=== PATIENT | female | born 1945 | race Caucasian/White ===

== ENCOUNTER 2016-12-02 11:14 | Emergency (ER) | payer OTHER ==
[~2016-12-02] VITALS: Ht 167.6 cm; Wt 56.5 kg
[~2016-12-02 11:14] MED LIST: CIPR250T5 PO; LISI-461 PO; PANT40TA PO
[2016-12-02 11:31] VITALS: TEMP 36.7; Ht 167.6 cm; Wt 56.5 kg
--- NOTE | 2016-12-02 12:27 | DIAGNOSTIC IMAGING REPORT ---
CHEST ONE VIEW PORTABLE CLINICAL HISTORY: Weakness. COMPARISON STUDY: Chest radiograph August 31, 2015. FINDINGS: Lung volumes are normal. There is no pneumothorax or pleural effusion. There is slight asymmetric hazy right upper lung opacity. Cardiac size is normal. Mediastinal contours are normal. There is no evidence of pulmonary edema. IMPRESSION: Slight asymmetric hazy right upper lung opacity. This is likely artifactual although airspace disease could appear similar. Follow-up PA and lateral chest radiographs in one month are recommended. Electronically signed by: Rakan Champion M.D. 12/02/2016 12:25 PM Dictated Date/Time: 12/02/2016 12:23 PM
[2016-12-02 12:52] LABS: BASO % 0.4 %; BASO ABS # 0.02 K/uL (0-0.2); COMPLETE YES; EOS % 2.5 %; HEMATOCRIT 30.2 % (37-47); LYMPH % 31.1 %; LYMPH ABS # 1.64 K/uL (1.2-3.4); MEAN CELL VOLUME 96.5 fL (80-100); MEAN CORPUSCULAR HEMOGLOBIN 31.9 pg (25-34); MEAN CORPUSCULAR HGB CONC 33.1 g/dl (32-36); MEAN PLATELET VOLUME 10.8 fL (7.4-10.4); MONO % 7.6 %; NEUT % 58.4 %; PLATELET COUNT 129 K/uL (130-400); RED BLOOD COUNT 3.13 M/uL (4.2-5.4); WHITE BLOOD COUNT 5.27 K/uL (4.8-10.8)
[2016-12-02 13:00] LABS: PROTHROMBIN TIME (PATIENT) 10.8 SECONDS (9.0-12.0)
[2016-12-02 13:15] LABS: ALT/SGPT 48 U/L (12-78); AST/SGOT 40 U/L (15-37); BLOOD UREA NITROGEN 22 mg/dl (7-18); BUN/CREATININE RATIO 20.1 (10-20); CALCIUM 9.2 mg/dl (8.5-10.1); CARBON DIOXIDE 24 mmol/L (21-32); CHLORIDE 115 mmol/L (98-107); GLUCOSE 86 mg/dl (70-99); MAGNESIUM 2.2 mg/dl (1.8-2.4); POTASSIUM 4.4 mmol/L (3.5-5.1); SODIUM 144 mmol/L (136-145)
[2016-12-02 13:18] LABS: ALKALINE PHOSPHATASE 95 U/L (45-117); CKMB/CK RATIO 2.7 (0-3.0)
[2016-12-02 13:21] LABS: URINE APPEARANCE CLEAR (CLEAR); URINE BILIRUBIN NEG (NEG); URINE COLOR YELLOW; URINE NITRITE NEG (NEG); URINE SPECIFIC GRAVITY 1.012 (1.000-1.030); UROBILINOGEN NEG (NEG); ZZUR CULT IF INDIC CLEAN CATCH NO
[2016-12-02 13:24] LABS: MANUAL MICROSCOPIC REQUIRED? NO; REVIEW REQ? NO
[2016-12-02] MEDS ORDERED: CHOL100040 PO (13:42)
[2016-12-02] MEDS ORDERED: CALC-388 PO (13:42)
[2016-12-02] MEDS ORDERED: FOLI400T13 PO (13:42)
[2016-12-02] MEDS ORDERED: FERR1TAB23 PO (13:42)
[2016-12-02] MEDS ORDERED: LEVO25TA PO (13:42)
[2016-12-02] MEDS ORDERED: ATOR-24 PO (13:42)
[2016-12-02] MEDS ORDERED: LISI-729 PO (13:42)
[2016-12-02] MEDS ORDERED: PANT40TA PO (13:42)
[2016-12-02] MEDS ORDERED: POTA10CA28 PO (13:42)
--- NOTE | 2016-12-02 14:14 | EMERGENCY ROOM VISIT NOTE ---
History Report prepared by Kofi: Laura Almendarez Under the Supervision of: Dr. Tammy Holloway M.D. First contact with patient: 12:02 Chief Complaint: ILLNESS Stated Complaint: DIZZY,FATIGUE,HEADACHE,LIGHT HEADED History of Present Illness The patient is a 71 year old female who presents to the Emergency Room with complaints of persistent weakness starting 4 days ago. She reports feeling lightheaded and fatigued. She has a headache and rhinorrhea. She denies any diarrhea, urinary symptoms, SOB, fever, abdominal pain, or nausea. She does not have any pain with eating. She has a history of bleeding in her stomach. She had blood work 3 days ago which found her hemoglobin to be slightly low. She takes iron pills twice a day. Source of History: patient Onset: 4 days ago Position: other (global) Quality: other (weakness) Timing: other (persistent) Associated Symptoms: + fatigue, + headache, No SOB, No abdominal pain, No diarrhea, No fevers, No nausea, No urinary symptoms Note: Pt reports lightheadedness, rhinorrhea. Review of Systems See HPI for pertinent positives & negatives. A total of 10 systems reviewed and were otherwise negative. Past Medical & Surgical Medical Problems: (1) HTN (hypertension) (2) HTN (hypertension) (3) Postural hypotension (4) UTI (urinary tract infection) Family History Hypertension Social History Smoking Status: Never Smoker Marital Status: Housing Status: unknown Occupation Status: retired Current/Historical Medications Scheduled Atorvastatin (Lipitor), 40 MG PO DAILY Calcium Carbonate-Vitamin D (Calcium + D3 600-200 mg-Unit), 1 TAB PO DAILY Cholecalciferol (Vitamin D-1000), 1,000 UNITS PO DAILY Ferrous Sulfate (Iron), 325 MG PO DAILY Folic Acid (Gnp Folic Acid), 400 MCG PO DAILY Levothyroxine Sodium (Synthroid), 25 MCG PO DAILY Lisinopril (Zestril), 5 MG PO DAILY Pantoprazole (Protonix), 40 MG PO BID Potassium Chloride (Micro-K Ext Rel), 10 MEQ PO DAILY Allergies Coded Allergies: No Known Allergies (Unverified , 12/02/16) Physical Exam Vital Signs Date Time Temp Pulse Resp B/P Pulse Ox O2 Delivery O2 Flow Rate FiO2 12/02/16 14:26 66 18 138/70 99 Room Air 12/02/16 13:26 65 18 150/69 100 Room Air 12/02/16 12:42 64 149/74 72 161/70 70 160/72 12/02/16 12:22 60 12/02/16 11:31 36.7 68 18 150/70 100 Room Air Physical Exam Vital signs reviewed. General: Chronically ill-appearing, in no significant distress. HEENT: No scleral icterus, PERRLA, neck supple. Atraumatic. Cardiovascular: Regular rate and rhythm, systolic ejection murmur. Pulmonary: Clear to auscultation bilaterally, normal work of breathing. Abdomen: Soft, nontender, nondistended, positive bowel sounds. Musculoskeletal: Atraumatic, no peripheral edema. Neurologic: Patient awake alert and oriented x 3, full strength in all 4 extremities. Cranial nerves 2 through 12 grossly intact. Skin: Warm, dry, no rash Medical Decision & Procedures ER Provider Diagnostic Interpretation: X-ray results as stated below per interpretation by me and the radiologist: CHEST ONE VIEW PORTABLE CLINICAL HISTORY: Weakness. COMPARISON STUDY: Chest radiograph August 31, 2015. FINDINGS: Lung volumes are normal. There is no pneumothorax or pleural effusion. There is slight asymmetric hazy right upper lung opacity. Cardiac size is normal. Mediastinal contours are normal. There is no evidence of pulmonary edema. IMPRESSION: Slight asymmetric hazy right upper lung opacity. This is likely artifactual although airspace disease could appear similar. Follow-up PA and lateral chest radiographs in one month are recommended. Electronically signed by: Rakan Champion M.D. 12/02/2016 12:25 PM Dictated Date/Time: 12/02/2016 12:23 PM Laboratory Results 12/02/16 12:35 Red Blood Count 3.13, Mean Corpuscular Volume 96.5, Mean Corpuscular Hemoglobin 31.9, Mean Corpuscular Hemoglobin Concent 33.1, Mean Platelet Volume 10.8, Neutrophils (%) (Auto) 58.4, Lymphocytes (%) (Auto) 31.1, Monocytes (%) (Auto) 7.6, Eosinophils (%) (Auto) 2.5, Basophils (%) (Auto) 0.4, Neutrophils # (Auto) 3.08, Lymphocytes # (Auto) 1.64, Monocytes # (Auto) 0.40, Eosinophils # (Auto) 0.13, Basophils # (Auto) 0.02 12/02/16 12:35 Test 12/02/16 12:04 12/02/16 12:35 Urine Color YELLOW Urine Appearance CLEAR (CLEAR) Urine pH 6.0 (4.5-7.5) Urine Specific [place] 1.012 (1.000-1.030) Urine Protein 3+ (NEG) Urine Glucose (UA) NEG (NEG) Urine Ketones NEG (NEG) Urine Occult Blood 1+ (NEG) Urine Nitrite NEG (NEG) Urine Bilirubin NEG (NEG) Urine Urobilinogen NEG (NEG) Urine Leukocyte Esterase TRACE (NEG) Urine WBC (Auto) 1-5 /hpf (0-5) Urine RBC (Auto) 0-4 /hpf (0-4) Urine Hyaline Casts (Auto) 0 /lpf (0-5) Urine Epithelial Cells (Auto) 5-10 /lpf (0-5) Urine Bacteria (Auto) NEG (NEG) White Blood Count 5.27 K/uL (4.8-10.8) Red Blood Count 3.13 M/uL (4.2-5.4) Hemoglobin 10.0 g/dL (12.0-16.0) Hematocrit 30.2 % (37-47) Mean Corpuscular Volume 96.5 fL (80-100) Mean Corpuscular Hemoglobin 31.9 pg (25-34) Mean Corpuscular Hemoglobin Concent 33.1 g/dl (32-36) Platelet Count 129 K/uL (130-400) Mean Platelet Volume 10.8 fL (7.4-10.4) Neutrophils (%) (Auto) 58.4 % Lymphocytes (%) (Auto) 31.1 % Monocytes (%) (Auto) 7.6 % Eosinophils (%) (Auto) 2.5 % Basophils (%) (Auto) 0.4 % Neutrophils # (Auto) 3.08 K/uL (1.4-6.5) Lymphocytes # (Auto) 1.64 K/uL (1.2-3.4) Monocytes # (Auto) 0.40 K/uL (0.11-0.59) Eosinophils # (Auto) 0.13 K/uL (0-0.5) Basophils # (Auto) 0.02 K/uL (0-0.2) RDW Standard Deviation 52.2 fL (36.4-46.3) RDW Coefficient of Variation 14.7 % (11.5-14.5) Immature Granulocyte % (Auto) 0.0 % Immature Granulocyte # (Auto) 0.00 K/uL (0.00-0.02) Prothrombin Time 10.8 SECONDS (9.0-12.0) Prothromb Time International Ratio 1.0 (0.9-1.1) Activated Partial Thromboplast Time 26.2 SECONDS (21.0-31.0) Partial Thromboplastin Ratio 1.0 Anion Gap 5.0 mmol/L (3-11) Est Creatinine Clear Calc Drug Dose 41.8 ml/min Estimated GFR () 58.5 Estimated GFR (Non- 50.5 BUN/Creatinine Ratio 20.1 (10-20) Calcium Level 9.2 mg/dl (8.5-10.1) Magnesium Level 2.2 mg/dl (1.8-2.4) Total Bilirubin 0.1 mg/dl (0.2-1) Direct Bilirubin < 0.1 mg/dl (0-0.2) Aspartate Amino Transf (AST/SGOT) 40 U/L (15-37) Alanine Aminotransferase (ALT/SGPT) 48 U/L (12-78) Alkaline Phosphatase 95 U/L (45-117) Total Creatine Kinase 63 U/L (26-192) Creatine Kinase MB 1.7 ng/ml (0.5-3.6) Creatine Kinase MB Ratio 2.7 (0-3.0) Troponin I < 0.015 ng/ml (0-0.045) Total Protein 6.3 gm/dl (6.4-8.2) Albumin 2.6 gm/dl (3.4-5.0) Lipase 180 U/L (73-393) Laboratory results per my review. ECG Indication: weakness Rate (beats per minute): 62 Rhythm: normal sinus Findings: no acute ischemic change, left axis deviation, no ectopy ED Course 1211: Past medical records reviewed. The patient was evaluated in room B2. A complete history and physical examination was performed. 1400: Upon reevaluation, the patient appeared to have improvement of her symptoms. I discussed findings with her and her family. They verbalized agreement of the treatment plan. She was discharged home. Medical Decision Differential diagnosis: Etiologies such as metabolic, infection, hypo/hyperglycemia, electrolyte abnormalities, cardiac sources, intracerebral event, toxicologic, neurologic, as well as others were entertained. This patient was evaluated and appeared to be in no significant distress. IV access was obtained and laboratory work was drawn. The patient appears to be chronically ill and her grandson states that she frequently presents to the [facility], received IV hydration and is better for several weeks. At this point the laboratory work is fairly normal. UA is negative. Chest x-ray is negative. At this time I do not see focal abnormality. The patient will be discharged to follow-up with her primary care physician this week. She will return to the ER for worsening of symptoms or any medical concerns. Impression Primary Impression: Weakness Scribe Attestation The scribe's documentation has been prepared under my direction and personally reviewed by me in its entirety. I confirm that the note above accurately reflects all work, treatment, procedures, and medical decision making performed by me. Departure Information Dispostion Home / Self-Care Referrals No Doctor, Assigned (PCP) Forms HOME CARE DOCUMENTATION FORM, IMPORTANT VISIT INFORMATION Patient Instructions My [facility] Additional Instructions Diagnosis: Weakness Drink plenty of clear fluids. Follow-up with your doctor tomorrow as scheduled. Use caution when changing positions. Return to the ER for worsening of symptoms or any medical concerns.
[2016-12-02 14:26] VITALS: BP 138/70; PULSE 66; O2SAT 99
== END 2016-12-02 14:30 | disposition home or self-care (01) ==
LOC: C.EDB 11:15
DX: R53.1 Weakness (principal); R53.83 Other fatigue; R42 Dizziness and giddiness; R51 Headache; I10 Essential (primary) hypertension; R91.8 Other nonspecific abnormal finding of lung field

== ENCOUNTER 2017-11-17 07:41 | Emergency (ER) | payer OTHER ==
[~2017-11-17] VITALS: Ht 162.6 cm; Wt 60.0 kg
[~2017-11-17 07:41] MED LIST changes: +CALC-388 PO; +CHOL100040 PO; -CIPR250T5 PO; +FOLI400T13 PO; -LISI-461 PO; +LISI-729 PO; -PANT40TA PO
[2017-11-17] MEDS ORDERED: ACETAMINOPHEN 500 MG TAB PO STA (07:50)
[2017-11-17] MEDS ORDERED: OXYCODONE HCL IR 5 MG TAB (IMMEDIATE RELEASE) PO STA (07:50)
[2017-11-17 07:54] VITALS: TEMP 36.9; Ht 162.6 cm; Wt 60.0 kg
[2017-11-17] MEDS ORDERED: FLV400 PO (07:58)
[2017-11-17] MEDS ORDERED: FURO-85 PO (07:58)
[2017-11-17] MEDS ORDERED: CALC600T9 PO (07:58)
[2017-11-17] MEDS ORDERED: TRAZ50TA35 PO (07:58)
[2017-11-17] MEDS ORDERED: SENN-61 PO (07:58)
[2017-11-17] MEDS ORDERED: SPIR25TA PO (07:58)
[2017-11-17] MEDS ORDERED: CHOL20007 PO (07:58)
--- NOTE | 2017-11-17 08:03 | EMERGENCY ROOM VISIT NOTE ---
History Report prepared by Kofi: Analisa Vinson Under the Supervision of: Dr. Jay Liang M.D. First contact with patient: 07:45 Stated Complaint: LEG PAIN History of Present Illness The patient is a 72 year old female who presents to the Emergency Room with complaints of constant left leg pain since yesterday. The patient reports pain in the back of her left thigh. This morning she was walking out of the bathroom with her cellphone and fell. She is unsure if she tripped. She states that she felt slightly hot and nauseated before she fell. The patient denies hitting her head or LOC. She landed on her right side. She denies any right leg or right arm pain. She denies abdominal pain. Her only complaint at this time is the pain in the back of her left thigh, which she had prior to her fall this morning. The patient rates her pain as a 5/10 in severity. Source of History: patient Onset: yesterday Position: leg (left) Symptom Intensity: 5/10 Timing: constant Associated Symptoms: + nausea, No LOC, No abdominal pain Note: Pt denies right leg or right arm pain. Review of Systems See HPI for pertinent positives & negatives. A total of 10 systems reviewed and were otherwise negative. Past Medical & Surgical Medical Problems: (1) HTN (hypertension) (2) HTN (hypertension) (3) Postural hypotension (4) UTI (urinary tract infection) Family History Hypertension Social History Smoking Status: Never Smoker Marital Status: Housing Status: lives with family Occupation Status: retired Current/Historical Medications Scheduled Atorvastatin (Lipitor), 40 MG PO DAILY Calcium Carbonate-Vitamin D (Calcium + D), 1 TAB PO DAILY Cholecalciferol (Vitamin D3), 2,000 UNITS PO DAILY Docusate Sodium (Colace), 1 CAP PO BID Ferrous Sulfate (Iron), 325 MG PO DAILY Folic Acid (Folic Acid), 400 MCG PO DAILY Furosemide (Lasix), 10 MG PO DAILY Levothyroxine Sodium (Synthroid), 25 MCG PO DAILY Pantoprazole (Protonix), 40 MG PO BID Potassium Chloride (Micro-K Ext Rel), 10 MEQ PO DAILY Senna (Senokot), 1 TAB PO DAILY Sennosides (Senokot), 8.6 MG PO HS Spironolactone (Aldactone), 12.5 MG PO DAILY Trazodone Hcl (Trazodone), 50 MG PO HS Scheduled PRN Oxycodone Immediate Rel Tab (Roxicodone Ir), 1-2 TAB PO Q4H PRN for Severe Pain Allergies Coded Allergies: No Known Allergies (Unverified , 12/02/16) Physical Exam Vital Signs Date Time Temp Pulse Resp B/P (MAP) Pulse Ox O2 Delivery O2 Flow Rate FiO2 11/17/17 10:47 74 20 136/76 97 11/17/17 09:56 63 21 141/74 96 Room Air 11/17/17 08:57 66 21 131/79 96 Room Air 11/17/17 07:56 66 11/17/17 07:54 36.9 65 22 147/71 98 Room Air Physical Exam GENERAL: Awake, alert, well-appearing, in no acute distress HENT: Normocephalic, atraumatic. Oropharynx unremarkable. EYES: Normal conjunctiva. Sclera non-icteric. NECK: Supple. No nuchal rigidity. FROM. No JVD. RESPIRATORY: Clear to auscultation. CARDIAC: Regular rate, normal rhythm. Extremities warm and well perfused. Pulses equal. ABDOMEN: Soft, non-distended. No tenderness to palpation. No rebound or guarding. No masses. RECTAL: Deferred. MUSCULOSKELETAL: Chest examination reveals no tenderness. The back is symmetrical on inspection without obvious abnormality. There is no CVA tenderness to palpation. No joint edema. LOWER EXTREMITIES: Calves are equal size bilaterally and non-tender. No edema. No discoloration. NEURO: Normal sensorium. No sensory or motor deficits noted. SKIN: No rash or jaundice noted. 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 The bones appear mildly demineralized. Disc space narrowing with facet arthrosis involves the lumbar spine. Dystrophic calcifications are seen within this region of the hamstring attachment site bilaterally. FEMUR: Peripheral vascular disease. No acute fracture or dislocation. Bones are mildly demineralized. IMPRESSION: 1. No acute fracture or dislocation. 2. 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 The above report was generated using voice recognition software. It may contain grammatical, syntax or spelling errors. Electronically signed by: Michele Cristobal M.D. 11/17/2017 8:28 AM Dictated Date/Time: 11/17/2017 8:20 AM L VENOUS DOPP LOWER EXT UNILAT CLINICAL HISTORY: 72 years-old Female presenting with Pt c/o LLE swelling. TECHNIQUE: Real-time grayscale and color and spectral Doppler ultrasound imaging of the veins of the left lower extremity was performed. Compression and augmentation were also utilized. COMPARISON: None. FINDINGS: Left: Common femoral vein: Patent. Greater saphenous vein: Patent. Deep femoral vein: Patent. Femoral vein: Patent. Popliteal vein: Patent. Calf veins: Patent. Other: None. IMPRESSION: No evidence of deep venous thrombosis. Electronically signed by: Andrew Miller M.D. 11/17/2017 8:59 AM Dictated Date/Time: 11/17/2017 8:59 AM L FEMUR 2 VIEWS ROUTINE, PELVIS 1 OR 2 VIEW ROUTINE HISTORY: 72 years-old Female Pt c/o left leg pain acute pelvic and left leg pain COMPARISON: None available TECHNIQUE: AP view of the pelvis with 2 views of the left femur FINDINGS: PELVIS: Moderate degenerative changes about the bilateral hips. The bones appear mildly demineralized. Disc space narrowing with facet arthrosis involves the lumbar spine. Dystrophic calcifications are seen within this region of the hamstring attachment site bilaterally. FEMUR: Peripheral vascular disease. No acute fracture or dislocation. Bones are mildly demineralized. IMPRESSION: 1. No acute fracture or dislocation. 2. 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 The above report was generated using voice recognition software. It may contain grammatical, syntax or spelling errors. Electronically signed by: Michele Cristobal M.D. 11/17/2017 8:28 AM Dictated Date/Time: 11/17/2017 8:20 AM Medications Administered Medications (Trade) Dose Ordered Sig/Jessica Route Start Time Stop Time Status Last Admin Dose Admin Acetaminophen (Tylenol Tab) 1,000 mg NOW STAT PO 11/17/17 07:50 11/17/17 07:52 DC 11/17/17 08:06 1,000 MG Oxycodone HCl (Roxicodone Immediate Rel Tab) 5 mg NOW STAT PO 11/17/17 07:50 11/17/17 07:52 DC 11/17/17 08:06 5 MG ED Course 0745: Past medical records reviewed. The patient was evaluated in room A3. A complete history and physical examination was performed. 0750: Oxycodone HCl 5 mg PO, Tylenol 1000 mg PO 0825: Upon reevaluation the patient is pain-free. 1027: I reassessed the patient at this time. She is feeling better and resting comfortably. I discussed the results and treatment plan with the patient. I answered all pertaining questions that she had. She expressed understanding and verbalized agreement. The patient will be discharged home. Medical Decision Differential diagnosis: Etiologies such as fracture, dislocation, neurovascular compromise, compartment syndrome, soft tissue injury, as well as others were entertained. This is a 72-year-old female who presents the emergency department complaining of left leg pain. The patient also had a fall today. She has no evidence of fracture dislocation or subluxation and does not have any evidence of a blood clot. Patient was given Tylenol as well as oxygen for the pain and was ambulated by nursing staff. The patient was also fitted with a walker and I believe can be safely discharged home for follow-up with orthopedics. Patient and son were in agreement with the treatment plan Medication Reconcilliation Current Medication List: was personally reviewed by me Blood Pressure Screening Patient's blood pressure: Normal blood pressure Impression Primary Impression: Leg pain, left Scribe Attestation The scribe's documentation has been prepared under my direction and personally reviewed by me in its entirety. I confirm that the note above accurately reflects all work, treatment, procedures, and medical decision making performed by me. Departure Information Dispostion Home / Self-Care Prescriptions Docusate Sodium (COLACE) 100 Mg Cap 1 CAP PO BID for 30 Days, #60 CAP Prov: Jay Liang MD 11/17/17 Sennosides (SENOKOT) 8.6 Mg Tab 8.6 MG PO HS for 30 Days, #30 TAB Prov: Jay Liang MD 11/17/17 Oxycodone Immediate Rel Tab (ROXICODONE IR) 5 Mg Tab 1-2 TAB PO Q4H Y for Severe Pain, #14 TAB Prov: Jay Liang MD 11/17/17 Referrals No Doctor, Assigned (PCP) Forms HOME CARE DOCUMENTATION FORM, IMPORTANT VISIT INFORMATION Patient Instructions ED Sprain Hip, My [facility] Additional Instructions You received narcotic or benzodiazepene medication while in the emergency room today. This is an addictive medication that may cause drowziness as well as constipation. Do not drive, operate heavy machinery, or drink alcohol under the influence of this medication. Take 1000 mg Tylenol every 6 hours Take Oxy IR for breakthrough pain You have been examined and treated today on an emergency basis only. This is not a substitute for, or an effort to provide, complete comprehensive medical care. It is impossible to recognize and treat all injuries or illnesses in a single emergency department visit. It is therefore important that you follow up closely with [facility]. Call as soon as possible for an appointment. Thank you for your time and consideration. I look forward to speaking with you again soon. Please don't hesitate to call us if you have any questions.
--- NOTE | 2017-11-17 08:29 | DIAGNOSTIC IMAGING REPORT ---
L FEMUR 2 VIEWS ROUTINE, PELVIS 1 OR 2 VIEW ROUTINE HISTORY: 72 years-old Female Pt c/o left leg pain acute pelvic and left leg pain COMPARISON: None available TECHNIQUE: AP view of the pelvis with 2 views of the left femur FINDINGS: PELVIS: Moderate degenerative changes about the bilateral hips. The bones appear mildly demineralized. Disc space narrowing with facet arthrosis involves the lumbar spine. Dystrophic calcifications are seen within this region of the hamstring attachment site bilaterally. FEMUR: Peripheral vascular disease. No acute fracture or dislocation. Bones are mildly demineralized. IMPRESSION: 1. No acute fracture or dislocation. 2. 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 The above report was generated using voice recognition software. It may contain grammatical, syntax or spelling errors. Electronically signed by: Michele Cristobal M.D. 11/17/2017 8:28 AM Dictated Date/Time: 11/17/2017 8:20 AM
--- NOTE | 2017-11-17 09:01 | DIAGNOSTIC IMAGING REPORT ---
L VENOUS DOPP LOWER EXT UNILAT CLINICAL HISTORY: 72 years-old Female presenting with Pt c/o LLE swelling. TECHNIQUE: Real-time grayscale and color and spectral Doppler ultrasound imaging of the veins of the left lower extremity was performed. Compression and augmentation were also utilized. COMPARISON: None. FINDINGS: Left: Common femoral vein: Patent. Greater saphenous vein: Patent. Deep femoral vein: Patent. Femoral vein: Patent. Popliteal vein: Patent. Calf veins: Patent. Other: None. IMPRESSION: No evidence of deep venous thrombosis. Electronically signed by: Andrew Miller M.D. 11/17/2017 8:59 AM Dictated Date/Time: 11/17/2017 8:59 AM
[2017-11-17] MEDS ORDERED: SENN1TAB77 PO (10:34)
[2017-11-17] MEDS ORDERED: OXYC1TAB3 PO (10:34)
[2017-11-17] MEDS ORDERED: DOCU-94 PO (10:34)
[2017-11-17 10:47] VITALS: BP 136/76; PULSE 74; O2SAT 97
[2017-11-17] MEDS ORDERED: FERR1TAB23 PO (13:42)
[2017-11-17] MEDS ORDERED: ATOR-24 PO (13:42)
[2017-11-17] MEDS ORDERED: POTA10CA28 PO (13:42)
[2017-11-17] MEDS ORDERED: LEVO25TA PO (13:42)
[2017-11-17] MEDS ORDERED: PANT40TA PO (13:42)
== END 2017-11-17 10:49 | disposition home or self-care (01) ==
LOC: EDBD 07:41 → C.EDA 07:42
DX: S89.92XA Unspecified injury of left lower leg, initial encounter (principal); M79.605 Pain in left leg; W19.XXXA Unspecified fall, initial encounter; R11.0 Nausea; I10 Essential (primary) hypertension

== ENCOUNTER 2018-08-15 15:51 | Inpatient (IN) ==
[2018-08-15] MEDS ORDERED: SODIUM CHLORIDE 0.9% 500 ML IV ONE (16:41)
--- NOTE | 2018-08-15 16:51 | XRay Report ---
XR shoulder LT min 2V routine, XR humerus LT 2V HISTORY: 72 years-old Female fall eval for fx acute left shoulder and left arm pain status post fall COMPARISON: Chest radiograph of same day TECHNIQUE: 3 views of the left shoulder and 2 views of the left humerus FINDINGS: SHOULDER: Mild AC joint with mild to moderate glenohumeral osteoarthritis. Mild marginal spurring about the gre ater tuberosity. Demineralized appearance of the bones. No acute fracture or dislocation. HUMERUS: No acute fracture or dislocation. Mild dorsal soft tissue swelling about the elbow. IMPRESSION: No acute fracture or dislocation. The above report was generated using voice recognition software. It may contain grammatical, syntax o r spelling errors. Electronically signed by: Michele Cristobal M.D. 08/15/2018 4:50 PM
--- NOTE | 2018-08-15 16:53 | XRay Report ---
XR chest 1V portable HISTORY: 72 years-old Female weakness acute weakness COMPARISON: Chest radiograph 02/22/2018 TECHNIQUE: Portable AP view of the chest FINDINGS: Cardiac silhouette is unchanged. Moderate hiatal hernia. Calcification of the thoracic aortic arch. M ild right hemidiaphragm elevation. Unchanged opacity about the right cardiophrenic angle suggestive o f prominent epicardial fat pad. No pneumothorax, large pleural effusion or overt pulmonary edema. Deg enerative changes of the shoulders and spine. IMPRESSION: 1. No acute processes of the chest. 2. Moderate sized hiatal hernia. The above report was generated using voice recognition software. It may contain grammatical, syntax o r spelling errors. Electronically signed by: Michele Cristobal M.D. 08/15/2018 4:52 PM
[2018-08-15 17:15] LABS: Basophils # (auto) 0.03 K/uL (0-0.2); Basophils % (auto) 0.3 %; Eosinophils # (auto) 0.01 K/uL (0-0.5); Eosinophils % (auto) 0.1 %; Hematocrit (blood only) 32.5 % (37-47); Hemoglobin 10.8 g/dL (12.0-16.0); Immature Granulocytes # (auto) 0.03 K/uL (0.00-0.02); Immature Granulocytes % (auto) 0.3 %; Lymphocytes # (auto) 0.88 K/uL (1.2-3.4); Lymphocytes % (auto) 7.5 %; Mean Corpuscular Hgb Conc 33.2 g/dL (32-36); Mean Corpuscular Volume 91.8 fL (80-100); Mean Platelet Volume 10.4 fL (7.4-10.4); Monocytes # (auto) 0.66 K/uL (0.11-0.59); Monocytes % (auto) 5.7 %; Neutrophils # (auto) 10.06 K/uL (1.4-6.5); Neutrophils % (auto) 86.1 %; Platelet Count 292 K/uL (130-400); RDW Coefficient of Variation 14.7 % (11.5-14.5); RDW Standard Deviation 49.9 fL (36.4-46.3); Red Blood Count 3.54 M/uL (4.2-5.4); White Blood Count 11.67 K/uL (4.8-10.8)
[2018-08-15 17:38] LABS: Appearance Urine Cloudy (Clear); Bacteria Urine Automated 4+ (Negative); Bilirubin Urine Negative (Negative); Color Urine Dark Yellow; Epithelial Cell Urine Auto 0-5 /lpf (0-5); Glucose Urine UA Negative (Negative); Ketones Urine Trace (Negative); Leukocyte Esterase Urine Trace (Negative); Nitrite Urine Negative (Negative); Protein Urine 4+ (Negative); Specific Gravity Urine 1.028 (1.000-1.030); Urobilinogen Urine Negative (Negative); pH Urine 6.5 (4.5-7.5)
--- NOTE | 2018-08-15 17:42 | CT Scan Report ---
CT head/brain wo con CLINICAL HISTORY: 72 years-old Female with fall eval for bleed. Acute head injury status post fall TECHNIQUE: Multiple axial CT images of the head were obtained without contrast. A dose lowering tech nique was utilized adhering to the principles of ALARA. CT DOSE: 842.08 mGy.cm COMPARISON: CT head 02/22/2018. FINDINGS: No acute intracranial hemorrhage, midline shift, intracranial mass, hydrocephalus, territorial ischem ia or abnormal extra-axial collection. Encephalomalacia about the right frontal lobe, unchanged. Age- related involutional changes with chronic microvascular ischemic changes. Cerebral vascular calcifica tions are noted. The calvarium is intact. The paranasal sinuses, mastoid air cells, and middle ear cavities are clear . IMPRESSION: No acute intracranial abnormality or calvarial fracture. The above report was generated using voice recognition software. It may contain grammatical, syntax o r spelling errors. Electronically signed by: Michele Cristobal M.D. 08/15/2018 5:41 PM
--- NOTE | 2018-08-15 17:45 | CT Scan Report ---
CT SCAN OF THE CERVICAL SPINE CLINICAL HISTORY: Fall. COMPARISON STUDY: No priors. TECHNIQUE: CT scan of the cervical spine is performed from the skull base to the upper thoracic spine . Images are reviewed in the axial, sagittal, and coronal planes. IV contrast was not administered fo r this examination. A dose lowering technique was utilized adhering to the principles of ALARA. FINDINGS: Skeletal structures: The skeletal structures are osteopenic. There is no evidence of fracture or subl uxation involving the cervical spine. Vertebral body height is maintained. There is minimal anterolis thesis at C4-C5. Alignment is otherwise preserved. Anterior osteophytes are seen throughout. The odon toid process and lateral masses are intact. The atlantoaxial articulation is preserved noting advance d productive degenerative change. The spinous processes appear intact. There is moderate multilevel c ervical spondylosis. Uncovertebral and facet arthropathy contribute to neural foraminal stenosis at s everal levels. Intervertebral discs: There is moderate to advanced disc space narrowing seen at C5-C6 and C6-C7. Mil d disc space narrowing is noted at the remaining cervical levels. Central canal: Posterior discussed by complexes at C5-C6 and C6-C7 likely contribute to acquired comp romise of the central canal. Soft tissues: The prevertebral and paraspinous soft tissues are within normal limits. There is athero sclerotic calcification of the carotid bulbs. Calvarium: The visualized calvarium at the skull base appears intact. Brain parenchyma: Partially visualized brain parenchyma the skull base is within normal limits. Sinuses and mastoids: Trace mucosal thickening is noted in the left sphenoid sinus. The remaining vis ualized paranasal sinuses are clear. The mastoid air cells are well pneumatized. Lung apices: Apical scarring is observed. Partially imaged apical lung parenchyma is otherwise clear as visualized. IMPRESSION: 1. There is no evidence of fracture or subluxation involving the cervical spine. 2. Osteopenia and spondylotic change as above. Electronically signed by: Shaheen Castellano M.D. 08/15/2018 5:43 PM
[2018-08-15 17:47] LABS: Alanine Aminotransferase 27 U/L (12-78); Albumin Globulin Ratio 0.3 (0.9-2); Albumin Level 1.7 gm/dl (3.4-5.0); Alkaline Phosphatase 137 U/L (45-117); Aspartate Aminotransferase 50 U/L (15-37); BUN Creatinine Ratio 10.9 (10-20); Bilirubin,Total 0.3 mg/dl (0.2-1); Blood Urea Nitrogen 16 mg/dl (7-18); Calcium 7.8 mg/dl (8.5-10.1); Carbon Dioxide 26 mmol/L (21-32); Chloride 99 mmol/L (98-107); Creatinine Clr Calc Pharmacy 32.2 ml/min; Est GFR (African American) 40.6; Globulin 4.9 gm/dl (2.5-4.0); Glucose 119 mg/dl (70-99); Sodium 135 mmol/L (136-145); Total Protein 6.6 gm/dl (6.4-8.2); Troponin I < 0.015 ng/ml (0-0.045)
[2018-08-15 18:08] LABS: Potassium 2.4 mmol/L (3.5-5.1)
[2018-08-15] MEDS ORDERED: POTASSIUM CHLORIDE / WTR 10 MEQ/100 ML PLCT IV ONE (18:18)
[2018-08-15] MEDS ORDERED: POTASSIUM CHLORIDE / WTR 10 MEQ/100 ML PLCT IV STA (19:50)
--- NOTE | 2018-08-15 19:55 | History & Physical Report ---
Date of Service August 15, 2018 Assessment & Plan (1) Fall: (2) Injury of left upper arm: Possible related to mechanical Fall Shoulder xray showed no acute fracture or dislocation. Continue pain control Fall precaution PT/OT (3) Left arm weakness: Has been having abnormal behavior and dizzy Possible related to Left shoulder injury from the fall CT head showed no acute intracranial finding Doubt about CVA Will consider to get a MRI of the head If unable to get the MRI, will repeat CT head after 24 hrs Neuro check PT/OT eval (4) Cirrhosis of liver: Only taking lasix 10mg daily Will get abdominal u/s Will consider to add spironolactone once creatinine improves (5) Hypokalemia: K 2.4 on admission K replaced Monitor BMP (6) HTN (hypertension): BP elevated Possible related to hospital setting Monitor BP (7) Anemia: Hgb on admission 10.8 Monitor BMP (8) GERD (gastroesophageal reflux disease): Ran out of PPI Continue PPI (9) ANDREY (acute kidney injury): (10) CKD (chronic kidney disease) stage 3, GFR 30-59 ml/min: Cr on admission 1.4 Received IVF Hold lasix for now Monitor BMP (11) Dysphagia: (12) Vomiting: Feels food stuck in her throat Consult Gastro Follow up speech Starting on PPI Abnormal UA Afebrile and no leukocytosis will hold on abx for now Check urine cx DVT px on heparin subq CODE STATUS FULL CODE History of Present Illness Chief Complaint: Fall/Dizziness/Left arm weakness, Vomiting Primary Care Provider: Tiny Shields DO 72 year old female with PMH of liver cirrhosis, CKD stage 3, Anemia, Vit D, Hyperlipidemia presents to the Emergency Room via EMS after she had a fall. Pt lives with his son. Pt said that while getting out of bed, she felt dizzy and fell. Pt said that she felt too weak and was not able to pull herself up after the fall. Son said that she was out when she fell today and when she got back to the house she was lying on her left side. Son said that that she probably stayed on the floor for about 1 hr. She said that she hit her left shoulder when she fell. She said that she did not pass out. Son said that Pt has been falling lately. She said that she has been feeling weak and dizzy lately. Son said that she has been acting very strange lately. Her behavior is abnormal lately. She has been defecated on the floor and very poor hygiene lately. She has not been shower for month. She cannot move her left upper extremity. She said that her left upper extremity feels weak and numb. She has to use her RUE for support to lift her left arm. Sons said that her behavior is very strange lately and she does not make sense most of the time. She removes her dirty diapers and dropped them on the floor. She said that you cannot use the bathroom because there are stool all over the floor. Son said that pt has been refused to go to see her daughter or come to the hospital for help. Pt has been vomiting everytime she eats. She said that she feels food stuck in her throat. Also complaint of abdominal discomfort across her abdomen. Both sons feel her abdominal distention is worst. She only takes her lasix. She denies any chest pain, palpitation, fever, slurred speech, blurry vision and SOB. Allergies Allergy/AdvReac Type Severity Reaction Status Date / Time No Known Allergies Allergy Unverified 08/15/18 20:19 Home Medications Home Medications Medication Instructions Recorded Confirmed Type furosemide [Lasix] 10 mg PO DAILY 08/15/18 08/15/18 History pantoprazole [Protonix] 40 mg PO DAILY 08/15/18 08/15/18 History spironolactone [Aldactone] 12.5 mg PO DAILY 08/15/18 08/15/18 History aspirin [Ecotrin Low Strength] 81 mg PO QAM 30 Days #30 tab 08/19/18 Rx atorvastatin 40 mg PO QAM 30 Days #30 tab 08/19/18 Rx clopidogrel 75 mg PO QAM 30 Days #30 tab 08/19/18 Rx rifaximin [Xifaxan] 550 mg PO BID 30 Days #60 tab 08/19/18 Rx Past Med/Surg History Medical History Acquired hypothyroidism (Chronic) Hyperlipidemia (Chronic) Anemia (Chronic) GERD (gastroesophageal reflux disease) (Chronic) Vitamin deficiency (Chronic) CKD (chronic kidney disease) stage 3, GFR 30-59 ml/min (Chronic) Cirrhosis of liver (Chronic) HTN (hypertension) (Chronic) Postural hypotension (Resolved) No pertinent family history Family History Other No pertinent family history Social History marital status: / Current Living Situation: Family Feels Safe at Home: Yes Safety Concerns: Feels Safe At This Time Smoking Status: Never smoker Hx Alcohol Use: No Hx Substance Use: No Beliefs That Will Affect Care: None Preferred Language: Khmer Review of Systems All systems reviewed & are unremarkable except as noted in HPI & below Physical Exam 2 Vital Signs (Past 24 Hours): Last Vital Signs Temp 36.4 C L 08/15/18 16:04 Pulse 94 H 08/15/18 18:03 Resp 20 08/15/18 18:03 BP 154/84 H 08/15/18 18:03 Pulse Ox 96 08/15/18 18:03 Physical Exam: General- No acute distress, poor hygiene Head- atraumatic Eyes- PERRL, EOMI, ENT- oropharynx clear Neck- supple, no JVD Lungs- No wheezing Heart- regular rhythm; no murmur Abdomen- normal bowel sounds, +tenderness, +mild distention Extremities- no calf tenderness, Left shoulder tenderness, Decrease ROM of LUE Neuro- alert, oriented x 3; PERRL, EOMI; no facial palsy; no dysarthria Skin- warm & dry, left shoulder bruises, abrasion in L shoulder seems to be from previous fall Results & Data Diagnostic Findings CT SCAN OF THE CERVICAL SPINE CLINICAL HISTORY: Fall. COMPARISON STUDY: No priors. TECHNIQUE: CT scan of the cervical spine is performed from the skull base to the upper thoracic spine. Images are reviewed in the axial, sagittal, and coronal planes. IV contrast was not administered for this examination. A dose lowering technique was utilized adhering to the principles of ALARA. FINDINGS: Skeletal structures: The skeletal structures are osteopenic. There is no evidence of fracture or subluxation involving the cervical spine. Vertebral body height is maintained. There is minimal anterolisthesis at C4-C5. Alignment is otherwise preserved. Anterior osteophytes are seen throughout. The odontoid process and lateral masses are intact. The atlantoaxial articulation is preserved noting advanced productive degenerative change. The spinous processes appear intact. There is moderate multilevel cervical spondylosis. Uncovertebral and facet arthropathy contribute to neural foraminal stenosis at several levels. Intervertebral discs: There is moderate to advanced disc space narrowing seen at C5-C6 and C6-C7. Mild disc space narrowing is noted at the remaining cervical levels. Central canal: Posterior discussed by complexes at C5-C6 and C6-C7 likely contribute to acquired compromise of the central canal. Soft tissues: The prevertebral and paraspinous soft tissues are within normal limits. There is atherosclerotic calcification of the carotid bulbs. Calvarium: The visualized calvarium at the skull base appears intact. Brain parenchyma: Partially visualized brain parenchyma the skull base is within normal limits. Sinuses and mastoids: Trace mucosal thickening is noted in the left sphenoid sinus. The remaining visualized paranasal sinuses are clear. The mastoid air cells are well pneumatized. Lung apices: Apical scarring is observed. Partially imaged apical lung parenchyma is otherwise clear as visualized. IMPRESSION: 1. There is no evidence of fracture or subluxation involving the cervical spine. 2. Osteopenia and spondylotic change as above. Electronically signed by: Shaheen Castellano M.D. 08/15/2018 5:43 PM Dictated: 08/15/181739 Transcribed: 08/15/181739 XR chest 1V portable HISTORY: 72 years-old Female weakness acute weakness COMPARISON: Chest radiograph 02/22/2018 TECHNIQUE: Portable AP view of the chest FINDINGS: Cardiac silhouette is unchanged. Moderate hiatal hernia. Calcification of the thoracic aortic arch. Mild right hemidiaphragm elevation. Unchanged opacity about the right cardiophrenic angle suggestive of prominent epicardial fat pad. No pneumothorax, large pleural effusion or overt pulmonary edema. Degenerative changes of the shoulders and spine. IMPRESSION: 1. No acute processes of the chest. 2. Moderate sized hiatal hernia. The above report was generated using voice recognition software. It may contain grammatical, syntax or spelling errors. Electronically signed by: Michele Cristobal M.D. 08/15/2018 4:52 PM Dictated: 08/15/181649 Transcribed: 08/15/181649 CT head/brain wo con CLINICAL HISTORY: 72 years-old Female with fall eval for bleed. Acute head injury status post fall TECHNIQUE: Multiple axial CT images of the head were obtained without contrast. A dose lowering technique was utilized adhering to the principles of ALARA. CT DOSE: 842.08 mGy.cm COMPARISON: CT head 02/22/2018. FINDINGS: No acute intracranial hemorrhage, midline shift, intracranial mass, hydrocephalus, territorial ischemia or abnormal extra-axial collection. Encephalomalacia about the right frontal lobe, unchanged. Age-related involutional changes with chronic microvascular ischemic changes. Cerebral vascular calcifications are noted. The calvarium is intact. The paranasal sinuses, mastoid air cells, and middle ear cavities are clear. IMPRESSION: No acute intracranial abnormality or calvarial fracture. The above report was generated using voice recognition software. It may contain grammatical, syntax or spelling errors. Electronically signed by: Michele Cristobal M.D. 08/15/2018 5:41 PM Dictated: 08/15/181738 Transcribed: 08/15/181738 XR shoulder LT min 2V routine, XR humerus LT 2V HISTORY: 72 years-old Female fall eval for fx acute left shoulder and left arm pain status post fall COMPARISON: Chest radiograph of same day TECHNIQUE: 3 views of the left shoulder and 2 views of the left humerus FINDINGS: SHOULDER: Mild AC joint with mild to moderate glenohumeral osteoarthritis. Mild marginal spurring about the greater tuberosity. Demineralized appearance of the bones. No acute fracture or dislocation. HUMERUS: No acute fracture or dislocation. Mild dorsal soft tissue swelling about the elbow. IMPRESSION: No acute fracture or dislocation. The above report was generated using voice recognition software. It may contain grammatical, syntax or spelling errors. Electronically signed by: Michele Cristobal M.D. 08/15/2018 4:50 PM Dictated: 08/15/18 1648 Transcribed: 08/15/18 1648 XR shoulder LT min 2V routine, XR humerus LT 2V HISTORY: 72 years-old Female fall eval for fx acute left shoulder and left arm pain status post fall COMPARISON: Chest radiograph of same day TECHNIQUE: 3 views of the left shoulder and 2 views of the left humerus FINDINGS: SHOULDER: Mild AC joint with mild to moderate glenohumeral osteoarthritis. Mild marginal spurring about the greater tuberosity. Demineralized appearance of the bones. No acute fracture or dislocation. HUMERUS: No acute fracture or dislocation. Mild dorsal soft tissue swelling about the elbow. IMPRESSION: No acute fracture or dislocation. The above report was generated using voice recognition software. It may contain grammatical, syntax or spelling errors. Electronically signed by: Michele Cristobal M.D. 08/15/2018 4:50 PM Dictated: 08/15/181647 Transcribed: 08/15/181647 _ (1) Fall Encounter type: initial encounter Qualified Code(s): W19.XXXA - Unspecified fall, initial encounter (2) Injury of left upper arm Encounter type: initial encounter Qualified Code(s): S49.92XA - Unspecified injury of left shoulder and upper arm, initial encounter
--- NOTE | 2018-08-15 23:04 | Emergency Department Note ---
Entered by Ewelina Patiño acting as a scribe for History of Present Illness General Chief complaint: Fall Stated complaint: FALL, HEADACHE, DIZZINESS Time Seen by Provider: 08/15/18 16:05 Source: patient Mode of arrival: EMS Limitations: no limitations History of Present Illness Provider complaint: fall Onset (ago): hour(s) (a few) Location: head Pain Consistency: + other (episode) Quality: + other (tripped) Associated symptoms: + headaches; no chest pain, no shortness of breath and no weakness The patient is a 72 year old female who presents to the Emergency Room via EMS following a fall that occurred a few hours ago. The patient reports that she was getting out of bed when she suddenly tripped and fell. She states that she hit her head during this episode and notes she did have a headache but no longer does. She also reports that she was dizzy prior to the episode and that she has been for several days. She denies any chest pain, shortness of breath, numbness, weakness, fevers, back pain, urinary symptoms or acute abdominal pain. The patient explains that she has fluid in her abdomen that has not been drain and causes her chronic abdominal pain. She states that she does have neck pain and notes she did eat earlier today. The patient reports that she has a history of hypertension. She also states that her left arm is hurting her. She has had a prior injury over a year ago and has difficulty moving that arm normally. Home Medications Home Medications Medication Instructions Recorded Confirmed Type furosemide [Lasix] 10 mg PO DAILY 08/15/18 08/15/18 History pantoprazole [Protonix] 40 mg PO DAILY 08/15/18 08/15/18 History spironolactone [Aldactone] 12.5 mg PO DAILY 08/15/18 08/15/18 History Allergies Allergy/AdvReac Type Severity Reaction Status Date / Time No Known Allergies Allergy Unverified 08/15/18 20:19 Past Med/Surg History Medical History Acquired hypothyroidism (Chronic) Hyperlipidemia (Chronic) Anemia (Chronic) GERD (gastroesophageal reflux disease) (Chronic) Vitamin deficiency (Chronic) CKD (chronic kidney disease) stage 3, GFR 30-59 ml/min (Chronic) Cirrhosis of liver (Chronic) HTN (hypertension) (Chronic) Postural hypotension (Resolved) No pertinent family history Family History Other No pertinent family history Social History Feels Safe at Home: Yes Smoking Status: Never smoker Review of Systems See HPI for pertinent positives & negatives. and A total of 10 systems reviewed and were otherwise negative Physical Exam Vital Signs Vital Signs - 24 hr 08/15/18 16:04 08/15/18 16:37 08/15/18 18:03 Temperature 36.4 C L Temperature Source Oral Sepsis Recent Fever Within 48 Hours No Sepsis New/Unexplained Change in Mental Status No Sepsis Action Taken by Nursing No Action Required Pulse Rate - Lying 88 Pulse Rate - Sitting 87 Pulse Rate - Standing 106 H Pulse Rate 88 Pulse Rate [Apical] 94 H Respiratory Rate 20 20 Respiratory Effort / Characteristics Blood Pressure - Lying 132/69 Blood Pressure - Sitting 133/74 Blood Pressure- Standing 110/50 L Blood Pressure 152/96 H Blood Pressure [Right Arm] 154/84 H Blood Pressure Mean 114 Blood Pressure Mean [Right Arm] 107 Pulse Oximetry 95 96 96 Oxygen Delivery Method Room Air Room Air Room Air 08/15/18 20:19 08/15/18 21:01 08/15/18 21:49 Temperature Temperature Source Sepsis Recent Fever Within 48 Hours Sepsis New/Unexplained Change in Mental Status Sepsis Action Taken by Nursing Pulse Rate - Lying Pulse Rate - Sitting Pulse Rate - Standing Pulse Rate 94 H Pulse Rate [Apical] 97 H 93 H Respiratory Rate 18 22 20 Respiratory Effort / Characteristics Spontaneous Blood Pressure - Lying Blood Pressure - Sitting Blood Pressure- Standing Blood Pressure 153/94 H Blood Pressure [Right Arm] 135/78 155/94 H Blood Pressure Mean Blood Pressure Mean [Right Arm] 97 114 Pulse Oximetry 97 97 97 Oxygen Delivery Method Room Air Room Air Room Air Constitutional: Vital signs reviewed. Eyes: Pupils are equal round reactive to light. Conjunctiva are noninjected. ENT: Pharynx is clear without erythema or exudate. Mucous membranes are moist. Neck supple without meningeal signs. Respiratory: Clear to auscultation bilaterally. Breath sounds are equal bilaterally. Cardiovascular: Regular rate and rhythm. No rubs or gallops. GI: Soft, distended and nontender. Bowel sounds are present. Musculoskeletal: No peripheral edema. Tenderness to left shoulder and bruising to upper arm, limited mobility to the left arm which she states is chronic. Integumentary: No cyanosis. Neurological: The patient is awake and alert. Cranial nerves II-XII are intact. Motor is 5 out of 5 all extremities except the left upper extremity. Unable to lift secondary to pain, sewer builder 4/5. Sensation is intact to light touch all extremities. Normal speech. Psychiatric: Normal affect. Course 1605: Past medical records reviewed. The patient was evaluated in room C5, and a complete history and physical examination were performed. 1725: The patient reports that she is unable to move her left arm. She is still able to sewer builder fingers. She is awaiting CTs and x-rays. 1740: Upon reevaluation, the patient states she hurt her arm at least a year ago and has had trouble moving it since, especially her shoulder. She also reports that this morning at 0700 she had weakness in the arm. She notes that this afternoon she fell on the arm and has had more trouble than usual moving the arm. She is still currently able to sewer builder, but cannot lift the arm. 1750: The patient's son states that the patient is not able to lift arm normally but can bend her elbow. She is unable to bend her elbow today. 1800: I reviewed the patient's case with [facility]. He will evaluate the patient for further management. Administered Medications Discontinued Medications Sodium Chloride (Nss) 500 mls @ 999 mls/hr IV .Q31M ONE Stop: 08/15/18 17:11 Last Infusion: 08/15/18 19:13 Dose: 0 mls/hr Admin: 08/15/18 17:59 Dose: 999 mls/hr Potassium Chloride (K Phani / Wtr) 10 meq in 100 mls @ 100 mls/hr IV ONE ONE Stop: 08/15/18 19:17 Last Infusion: 08/15/18 20:14 Dose: 0 mls/hr Admin: 08/15/18 19:16 Dose: 100 mls/hr Potassium Chloride (K Phani / Wtr) 10 meq in 100 mls @ 100 mls/hr IV Q1H STA Stop: 08/15/18 20:49 Last Infusion: 08/15/18 21:22 Dose: 0 mls/hr Admin: 08/15/18 20:14 Dose: 100 mls/hr Medical Decision Making Differential Diagnosis Differential Diagnosis includes: contusion, concussion, ICH, cervical strain, anemia, infection, and cardiac. Medical Records Attestation: I reviewed the patient's medical records. Home Medications Current Medication List: was personally reviewed by me Laboratory Data Attestation: I reviewed the patient's lab results. Result diagrams: 08/15/18 16:54 08/15/18 16:54 Lab Results 08/15/18 08/15/18 08/15/18 Range/Units 16:54 16:54 17:03 WBC 11.67 H (4.8-10.8) K/uL RBC 3.54 L (4.2-5.4) M/uL Hgb 10.8 L (12.0-16.0) g/dL Hct 32.5 L (37-47) % MCV 91.8 (80-100) fL MCH 30.5 (25-34) pg MCHC 33.2 (32-36) g/dL RDW Std Deviation 49.9 H (36.4-46.3) fL RDW Coeff of Jonathan 14.7 H (11.5-14.5) % Plt Count 292 (130-400) K/uL MPV 10.4 (7.4-10.4) fL Immature Gran % (Auto) 0.3 % Neut % (Auto) 86.1 % Lymph % (Auto) 7.5 % Major % (Auto) 5.7 % Eos % (Auto) 0.1 % Baso % (Auto) 0.3 % Immature Gran # (Auto) 0.03 H (0.00-0.02) K/uL Neut # (Auto) 10.06 H (1.4-6.5) K/uL Lymph # (Auto) 0.88 L (1.2-3.4) K/uL Major # (Auto) 0.66 H (0.11-0.59) K/uL Eos # (Auto) 0.01 (0-0.5) K/uL Baso # (Auto) 0.03 (0-0.2) K/uL Sodium 135 L (136-145) mmol/L Potassium 2.4 L* (3.5-5.1) mmol/L Chloride 99 (98-107) mmol/L Carbon Dioxide 26 (21-32) mmol/L Anion Gap 10.0 (3-11) BUN 16 (7-18) mg/dl Creatinine 1.48 H (0.6-1.2) mg/dl Est Cr Clr Drug Dosing 32.2 ml/min Est GFR ( Amer) 40.6 Est GFR (Non-Af Amer) 35.0 BUN/Creatinine Ratio 10.9 (10-20) Glucose 119 H (70-99) mg/dl Calcium 7.8 L (8.5-10.1) mg/dl Total Bilirubin 0.3 (0.2-1) mg/dl AST 50 H (15-37) U/L ALT 27 (12-78) U/L Alkaline Phosphatase 137 H (45-117) U/L Ammonia (11-32) umol/L Troponin I < 0.015 (0-0.045) ng/ml Total Protein 6.6 (6.4-8.2) gm/dl Albumin 1.7 L (3.4-5.0) gm/dl Globulin 4.9 H (2.5-4.0) gm/dl Albumin/Globulin Ratio 0.3 L (0.9-2) TSH 2.390 (0.300-4.500) uIu/ml Specimen Hemolysis Urine Color Dark Yellow Urine Appearance Cloudy H (Clear) Urine pH 6.5 (4.5-7.5) Ur Specific [place] 1.028 (1.000-1.030) Urine Protein 4+ H (Negative) Urine Glucose (UA) Negative (Negative) Urine Ketones Trace H (Negative) Urine Blood 2+ H (Negative) Urine Nitrite Negative (Negative) Urine Bilirubin Negative (Negative) Urine Urobilinogen Negative (Negative) Ur Leukocyte Esterase Trace H (Negative) Urine WBC (Auto) 10-30 H (0-5) /hpf Urine RBC (Auto) 0-4 (0-4) /hpf U Hyaline Cast (Auto) 5-10 H (0-5) /lpf U Epithel Cells (Auto) 0-5 (0-5) /lpf Urine Bacteria (Auto) 4+ H (Negative) Granular Casts 1-5 H (0) /lpf 08/15/18 Range/Units 20:36 WBC (4.8-10.8) K/uL RBC (4.2-5.4) M/uL Hgb (12.0-16.0) g/dL Hct (37-47) % MCV (80-100) fL MCH (25-34) pg MCHC (32-36) g/dL RDW Std Deviation (36.4-46.3) fL RDW Coeff of Jonathan (11.5-14.5) % Plt Count (130-400) K/uL MPV (7.4-10.4) fL Immature Gran % (Auto) % Neut % (Auto) % Lymph % (Auto) % Major % (Auto) % Eos % (Auto) % Baso % (Auto) % Immature Gran # (Auto) (0.00-0.02) K/uL Neut # (Auto) (1.4-6.5) K/uL Lymph # (Auto) (1.2-3.4) K/uL Major # (Auto) (0.11-0.59) K/uL Eos # (Auto) (0-0.5) K/uL Baso # (Auto) (0-0.2) K/uL Sodium (136-145) mmol/L Potassium (3.5-5.1) mmol/L Chloride (98-107) mmol/L Carbon Dioxide (21-32) mmol/L Anion Gap (3-11) BUN (7-18) mg/dl Creatinine (0.6-1.2) mg/dl Est Cr Clr Drug Dosing ml/min Est GFR ( Amer) Est GFR (Non-Af Amer) BUN/Creatinine Ratio (10-20) Glucose (70-99) mg/dl Calcium (8.5-10.1) mg/dl Total Bilirubin (0.2-1) mg/dl AST (15-37) U/L ALT (12-78) U/L Alkaline Phosphatase (45-117) U/L Ammonia 32.5 H (11-32) umol/L Troponin I (0-0.045) ng/ml Total Protein (6.4-8.2) gm/dl Albumin (3.4-5.0) gm/dl Globulin (2.5-4.0) gm/dl Albumin/Globulin Ratio (0.9-2) TSH (0.300-4.500) uIu/ml Specimen Hemolysis Urine Color Urine Appearance (Clear) Urine pH (4.5-7.5) Ur Specific [place] (1.000-1.030) Urine Protein (Negative) Urine Glucose (UA) (Negative) Urine Ketones (Negative) Urine Blood (Negative) Urine Nitrite (Negative) Urine Bilirubin (Negative) Urine Urobilinogen (Negative) Ur Leukocyte Esterase (Negative) Urine WBC (Auto) (0-5) /hpf Urine RBC (Auto) (0-4) /hpf U Hyaline Cast (Auto) (0-5) /lpf U Epithel Cells (Auto) (0-5) /lpf Urine Bacteria (Auto) (Negative) Granular Casts (0) /lpf Imaging Data Radiologist's Impression: Radiology results as stated below per my review and the radiologist's interpretation: CT SCAN OF THE CERVICAL SPINE CLINICAL HISTORY: Fall. COMPARISON STUDY: No priors. TECHNIQUE: CT scan of the cervical spine is performed from the skull base to the upper thoracic spine. Images are reviewed in the axial, sagittal, and coronal planes. IV contrast was not administered for this examination. A dose lowering technique was utilized adhering to the principles of ALARA. FINDINGS: Skeletal structures: The skeletal structures are osteopenic. There is no evidence of fracture or subluxation involving the cervical spine. Vertebral body height is maintained. There is minimal anterolisthesis at C4-C5. Alignment is otherwise preserved. Anterior osteophytes are seen throughout. The odontoid process and lateral masses are intact. The atlantoaxial articulation is preserved noting advanced productive degenerative change. The spinous processes appear intact. There is moderate multilevel cervical spondylosis. Uncovertebral and facet arthropathy contribute to neural foraminal stenosis at several levels. Intervertebral discs: There is moderate to advanced disc space narrowing seen at C5-C6 and C6-C7. Mild disc space narrowing is noted at the remaining cervical levels. Central canal: Posterior discussed by complexes at C5-C6 and C6-C7 likely contribute to acquired compromise of the central canal. Soft tissues: The prevertebral and paraspinous soft tissues are within normal limits. There is atherosclerotic calcification of the carotid bulbs. Calvarium: The visualized calvarium at the skull base appears intact. Brain parenchyma: Partially visualized brain parenchyma the skull base is within normal limits. Sinuses and mastoids: Trace mucosal thickening is noted in the left sphenoid sinus. The remaining visualized paranasal sinuses are clear. The mastoid air cells are well pneumatized. Lung apices: Apical scarring is observed. Partially imaged apical lung parenchyma is otherwise clear as visualized. IMPRESSION: 1. There is no evidence of fracture or subluxation involving the cervical spine. 2. Osteopenia and spondylotic change as above. Electronically signed by: Shaheen Castellano M.D. 08/15/2018 5:43 PM XR chest 1V portable HISTORY: 72 years-old Female weakness acute weakness COMPARISON: Chest radiograph 02/22/2018 TECHNIQUE: Portable AP view of the chest FINDINGS: Cardiac silhouette is unchanged. Moderate hiatal hernia. Calcification of the thoracic aortic arch. Mild right hemidiaphragm elevation. Unchanged opacity about the right cardiophrenic angle suggestive of prominent epicardial fat pad. No pneumothorax, large pleural effusion or overt pulmonary edema. Degenerative changes of the shoulders and spine. IMPRESSION: 1. No acute processes of the chest. 2. Moderate sized hiatal hernia. The above report was generated using voice recognition software. It may contain grammatical, syntax or spelling errors. Electronically signed by: Michele Cristobal M.D. 08/15/2018 4:[address] head/brain wo con CLINICAL HISTORY: 72 years-old Female with fall eval for bleed. Acute head injury status post fall TECHNIQUE: Multiple axial CT images of the head were obtained without contrast. A dose lowering technique was utilized adhering to the principles of ALARA. CT DOSE: 842.08 mGy.cm COMPARISON: CT head 02/22/2018. FINDINGS: No acute intracranial hemorrhage, midline shift, intracranial mass, hydrocephalus, territorial ischemia or abnormal extra-axial collection. Encephalomalacia about the right frontal lobe, unchanged. Age-related involutional changes with chronic microvascular ischemic changes. Cerebral vascular calcifications are noted. The calvarium is intact. The paranasal sinuses, mastoid air cells, and middle ear cavities are clear. IMPRESSION: No acute intracranial abnormality or calvarial fracture. The above report was generated using voice recognition software. It may contain grammatical, syntax or spelling errors. Electronically signed by: Michele Cristobal M.D. 08/15/2018 5:41 PM XR shoulder LT min 2V routine, XR humerus LT 2V HISTORY: 72 years-old Female fall eval for fx acute left shoulder and left arm pain status post fall COMPARISON: Chest radiograph of same day TECHNIQUE: 3 views of the left shoulder and 2 views of the left humerus FINDINGS: SHOULDER: Mild AC joint with mild to moderate glenohumeral osteoarthritis. Mild marginal spurring about the greater tuberosity. Demineralized appearance of the bones. No acute fracture or dislocation. HUMERUS: No acute fracture or dislocation. Mild dorsal soft tissue swelling about the elbow. IMPRESSION: No acute fracture or dislocation. The above report was generated using voice recognition software. It may contain grammatical, syntax or spelling errors. Electronically signed by: Michele Cristobal M.D. 08/15/2018 4:50 PM ECG Data Attestation: I personally reviewed and interpreted this ECG as follows: Indication: other (dizzy) Rate (beats per minute): 88 Rhythm: normal sinus Findings: + LAFB; no ST elevation Comparison ECG Date: from (22-FEB-2018) Change: no significant change Blood Pressure Blood Pressure Findings: Elevated blood pressure Blood Pressure Disposition: Referred to patients primary care provider Head Trauma GCS Score: 15 MDM Narrative I did perform a limited focused review of portions of the patient's old chart on the electronic medical record. The patient was seen at this hospital in February for dizziness and a near-syncope episode. Work-up showed anemia and a negative head CT. The patient was given IV fluids and discharged. I did evaluate the patient as noted above. Patient is presenting with left arm pain and neck pain after a mechanical fall. She is complaining of dizziness as well which she stated has started since this morning. She does have difficulty moving the left arm but is otherwise neurologically intact. She does have a large bruise over the left humerus and has decreased range of motion of the left shoulder. IV access was established. The patient was placed on a continuous threat monitoring analyst. Vital signs were taken and she does have orthostatic hypotension. She was given normal saline IV. I did order and personally review the patient's 12-lead EKG and x-rays as described above. She has no signs of acute ischemia on her twelve-lead EKG. Her x-rays do not demonstrate any fracture or dislocation. I did order and review the patient's blood work as noted in the electronic medical record. She has hypokalemia. She was given IV KCl. Her troponin is negative. I did order a CT of the head and cervical spine. I did review the images myself as well as the radiology report as described above. There is no evidence of stroke or bleed. No evidence of fracture. I did reassess the patient with the son in the room. Apparently he was concerned about the patient not moving her left arm. He states that she did injure her arm over a year ago and has limited motion but normally is able to bend the elbow. Today she is now only able to lift her arm using her other hand. She does have intact sewer builder strength. On further questioning the patient states that she had difficulty moving the arm when she woke up this morning around 7 AM. This is not normal for her. I therefore felt the patient should be hospitalized for further workup including MRI of the brain to evaluate for CVA. She is obviously not at IV TPA candidate given that the symptoms started at 7 AM when she woke up. I did discuss the case with the hospitalist and geriatric case manager. Impression & Plan Left arm weakness, Orthostatic hypotension, Injury of left upper arm, UTI ( urinary tract infection), Fall, Hypokalemia Discharge Plan Visit Data *Final* Discharge Date/Time: 08/15/18 21:49 Chief Complaint: Fall Stated Complaint: FALL, HEADACHE, DIZZINESS ED Provider: Robby Cleveland Discharge Problem: Left arm weakness, Orthostatic hypotension, Injury of left upper arm, UTI ( urinary tract infection), Fall, Hypokalemia Patient Disposition: Admitted As Inpatient Discharge Instructions Interventions: ED Discharge Assessment Last Done: 08/15/18 21:49 The scribe's documentation has been prepared under my direction and personally reviewed by me in its entirety. I confirm that the note above accurately reflects all work, treatment, procedures, and medical decision making performed by me.
[2018-08-15 23:06] LABS: Basophils # (auto) 0.03 K/uL (0-0.2); Basophils % (auto) 0.3 %; Eosinophils # (auto) 0.03 K/uL (0-0.5); Eosinophils % (auto) 0.3 %; Hematocrit (blood only) 28.4 % (37-47); Hemoglobin 9.7 g/dL (12.0-16.0); Immature Granulocytes # (auto) 0.02 K/uL (0.00-0.02); Immature Granulocytes % (auto) 0.2 %; Lymphocytes # (auto) 1.41 K/uL (1.2-3.4); Lymphocytes % (auto) 15.4 %; Mean Platelet Volume 9.6 fL (7.4-10.4); Monocytes # (auto) 0.69 K/uL (0.11-0.59); Monocytes % (auto) 7.5 %; Neutrophils # (auto) 6.97 K/uL (1.4-6.5); Neutrophils % (auto) 76.3 %; Platelet Count 219 K/uL (130-400); RDW Coefficient of Variation 14.6 % (11.5-14.5); Red Blood Count 3.12 M/uL (4.2-5.4); White Blood Count 9.15 K/uL (4.8-10.8)
[2018-08-15 23:16] LABS: INR 1.1 (0.9-1.1); Partial Thromboplastin Time 26.3 Seconds (21.0-31.0); Prothrombin Time 10.9 Seconds (9.0-12.0)
[2018-08-15 23:22] LABS: Mean Corpuscular Hgb Conc 34.2 g/dL (32-36)
[2018-08-15 23:31] LABS: BUN Creatinine Ratio 13.2 (10-20); Calcium 7.7 mg/dl (8.5-10.1); Creatinine Clr Calc Pharmacy 39.3 ml/min; Est GFR (African American) 51.8; Est GFR (Non-African American) 44.7; Magnesium 1.9 mg/dl (1.8-2.4)
[2018-08-15 23:34] LABS: Troponin I 0.027 ng/ml (0-0.045)
[2018-08-16] MEDS ORDERED: POTASSIUM CHLORIDE / WTR 10 MEQ/100 ML PLCT IV ONE (03:43)
[2018-08-16] MEDS: PANTOprazole 40 MG TAB PO SCH (08:17)
[2018-08-16 08:26] LABS: Basophils # (auto) 0.03 K/uL (0-0.2); Basophils % (auto) 0.4 %; Eosinophils # (auto) 0.08 K/uL (0-0.5); Eosinophils % (auto) 1.1 %; Hematocrit (blood only) 28.3 % (37-47); Hemoglobin 9.5 g/dL (12.0-16.0); Immature Granulocytes # (auto) 0.01 K/uL (0.00-0.02); Immature Granulocytes % (auto) 0.1 %; Lymphocytes # (auto) 1.09 K/uL (1.2-3.4); Lymphocytes % (auto) 14.6 %; Mean Corpuscular Hgb Conc 33.6 g/dL (32-36); Mean Corpuscular Volume 91.9 fL (80-100); Mean Platelet Volume 9.9 fL (7.4-10.4); Monocytes # (auto) 0.61 K/uL (0.11-0.59); Monocytes % (auto) 8.2 %; Neutrophils # (auto) 5.66 K/uL (1.4-6.5); Neutrophils % (auto) 75.6 %; Platelet Count 216 K/uL (130-400); RDW Coefficient of Variation 14.6 % (11.5-14.5); RDW Standard Deviation 49.1 fL (36.4-46.3); Red Blood Count 3.08 M/uL (4.2-5.4); White Blood Count 7.48 K/uL (4.8-10.8)
[2018-08-16 08:56] LABS: Chol HDL Ratio 7; Cholesterol 182 mg/dl (0-200); HDL Cholesterol 27 mg/dl; LDL Cholesterol Calculated 126 mg/dl; Triglycerides 144 mg/dl (0-150); VLDL Cholesterol 29 mg/dl
[2018-08-16 09:33] LABS: Estimated Average Glucose 94 mg/dl
--- NOTE | 2018-08-16 10:06 | Ultrasound Report ---
ABDOMINAL ULTRASOUND COMPLETE HISTORY: Generalized abdominal pain. Cirrhotic liver.. COMPARISON: None. FINDINGS: Pancreas: The pancreatic tail is obscured by overlying bowel gas. The remaining portions of the pancr eas are within normal limits. Liver: Nodular contour to the liver consistent with mild cirrhosis. The liver measures 14 centers in length. A 1.4 cm hypoechoic focus within the right hepatic lobe. Gallbladder: A 2.1 cm gallstone. The gallbladder wall is mildly thickened measuring up to 4 mm. CBD: 4 mm. Kidneys: No hydronephrosis. Spleen: Normal in size measuring 11 cm in length. Aorta: Only the proximal aorta is identified and is normal in caliber. The mid to distal aorta is obs cured by overlying bowel gas. IVC: Patent. Miscellaneous: Small right pleural effusion. Small amount of ascites. IMPRESSION: 1. Cirrhotic liver. There is an indeterminate 1.4 cm hypoechoic lesion within the right hepatic lobe. Consider dedicated liver MRI for further evaluation. 2. Cholelithiasis. Mild gallbladder wall thickening. This is nonspecific but may due to the patient's cirrhotic state. Clinical correlation recommended to evaluate for right upper quadrant pain. 3. Small right pleural effusion and a small amount of ascites. Electronically signed by: Constantin Brown M.D. 08/16/2018 10:05 AM
[2018-08-16 11:53] LABS: BUN Creatinine Ratio 12.4 (10-20); Calcium 8.2 mg/dl (8.5-10.1); Est GFR (African American) 47.9; Est GFR (Non-African American) 41.3; Potassium 3.1 mmol/L (3.5-5.1)
--- NOTE | 2018-08-16 14:56 | Gastrointestinal Consultation ---
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 Upon eval noted to have hypokalemia , repleted; and UTI. GI consulted for her cirrhosis status and also symptoms of dysphagia, nausea, vomiting. Though pt denies any issues w swallowing or n/v symptoms now and tolerating meals well. She had been lost to follow up due to no shows and refusing to make f/u appt. Per son, she's exhibiting bizzare and out of character behaviors as noted in HPI above. - Obtain ETOH level and urine toxicology - Though ammonia level low at 30s, given her odd behaviors wonder if she may have cognitive disorder worsened by mild hepatic encephalopathy. Will give her a start trial of Lactulose 30g BID and Xifaxan 550mg daily - Recommend Neurology/Psych consults - Electrolyte repletion and UTI treatment per primary team. Recommend completing infectious workup - blood cx, diagnostic tap to r/o SBP. - Obtain KUB to eval for stool burden as abd distended but only small amt of ascites. - Obtain Liver MRI to further eval R hepatic lesion measuring 1.4cm to r/o HCC given her cirrhosis status. - Continue Protonix 40mg daily. - Will monitor H/H and signs of GI bleeding; if present given her hx of GAVE will consider repeat EGD. - ST eval already ordered; 2g Na diet - ETOH cessation - Will help make f/u GI appt upon her DC. Present on Admission?: Yes Supervising Physician Co-Signing Physician Notes I have performed a history and physical examination of this patient and reviewed the electronic medical record. Specifically, on physical examination there is no asterixis. I suspect that she has underlying cognitive impairment possibly complicated by minimal hepatic encephalopathy. It is reasonable to start a therapeutic trial of lactulose and rifaximin. If there is no response, this can be discontinued. She should have a more complete neuropsychological evaluation. I have discussed the case with MICHELLE Luther. The above note reflects my findings, conclusions, and recommendations. Frederick Crandall MD History of Present Illness Reason for Consultation: Cirrhosis, dysphagia, vomiting Requesting Physician: Dr. Michelle Little Attending Physician: Dr. Frederick Crandall History of Present Illness Pt is a 72 y/o female w PMHx of cirrhosis, hx of Gamino's esophagus, GAVE last treated w APC in 2017, idiopathic membranous neprhopathy, anemia, Vit D deficiency, hyperlipidemia who presented to ED after a fall. She said got up from bed felt dizzy and fell. She felt too weak to pull herself up and son who lived w her said she may be on the floor for an hour. No signs of fracture or subluxation on neck, shoulder, arms. Labs on admission showed that she's hypokalemic K 2.9, now repleted to 3. H/H 05/05, baseline Hgb 9-11. INR 1.1, Cr 1.2. Urine cx growing gram negative bacilli. CT head negative for acute changes. U/S abd showed cirrhotic liver. There is an indeterminate 1.4 cm hypoechoic lesion within the right hepatic lobe. Cholelithiasis. Mild gallbladder wall thickening. This is nonspecific but may due to the patient's cirrhotic state. There's a small right pleural effusion and a small amount of ascites. Pt's been exhibiting bizarre behaviors and had been no showing appts or refusing follow ups. Son reported incidences when pt cut off her hair, burned clothes, defecating on floor, asking for ETOH. [facility] but per providers and social sciences lecturer she refused to be seen or make f/ u appts. She was previously seen by Neurology and is getting worked up for possible Alzheimers dementia. Referred to Neuropsych. Today she appears to be alert, oriented x3 and calm. However noted I have to ask her questions more than once before she would answer or follow instructions. Ammonia level 37. She doens't appear overtly jaundiced. Does have some tremors on hands but no obvious asterixis. She denies any s/s of GI bleeding. Though I was asked to see her for n/v, and dysphagia, pt reports that no longer having n/v and she is denying trouble swallowing or chocking on foods. Denies abd pain. She was started on low dose diuretics (Lasix 10mg and Spironolactone 12.5mg daily) by Nephrology for ascites. U/S showed only small amts of ascites is present. She is not having leg edema. Allergies Allergy/AdvReac Type Severity Reaction Status Date / Time No Known Allergies Allergy Unverified 08/15/18 20:19 Home Medications Home Medications Medication Instructions Recorded Confirmed Type furosemide [Lasix] 10 mg PO DAILY 08/15/18 08/15/18 History pantoprazole [Protonix] 40 mg PO DAILY 08/15/18 08/15/18 History spironolactone [Aldactone] 12.5 mg PO DAILY 08/15/18 08/15/18 History Patient History Medical History Acquired hypothyroidism (Chronic) Hyperlipidemia (Chronic) Anemia (Chronic) GERD (gastroesophageal reflux disease) (Chronic) Vitamin deficiency (Chronic) CKD (chronic kidney disease) stage 3, GFR 30-59 ml/min (Chronic) Cirrhosis of liver (Chronic) HTN (hypertension) (Chronic) Postural hypotension (Resolved) No pertinent family history Family History Other No pertinent family history Social History marital status: / Current Living Situation: Family Feels Safe at Home: Yes Safety Concerns: Feels Safe At This Time Smoking Status: Never smoker Hx Alcohol Use: No Hx Substance Use: No Beliefs That Will Affect Care: None Communication Ability: Effective Review of Systems Constitutional: + weakness Respiratory: no cough and no dyspnea Cardiovascular: no chest pain Gastrointestinal: as per Subjective / HPI Musculoskeletal: + muscle weakness Neurologic: + falls, + dizziness and + behavioral changes Psychiatric: as per Subjective / HPI Physical Exam 2 Vital Signs (Past 24 Hours): Last Vital Signs Temp 36.8 C 08/16/18 11:00 Pulse 89 08/16/18 11:00 Resp 16 08/16/18 11:00 BP 114/64 08/16/18 11:00 Pulse Ox 99 08/16/18 11:00 Constitutional: + thin, well groomed, cooperative and comfortable Eyes: PERRL, conjunctivae normal, anicteric sclerae ENMT: external ear and nose normal, oropharynx normal Respiratory: normal respiratory effort, lungs clear to auscultation Cardiovascular: RRR, no murmur, no edema Gastrointestinal (Abdomen): Inspection/Auscultation: + abdomen distended Percussion/Palpation: abdomen nontender and no guarding mild Skin: no rashes, warm and dry no jaundice Neurologic: Able to answer questions and follow commands after several prompts though AAO x 3. Hand tremors, no asterixis. Psychiatric: Affect: euthymic affect Results & Data Laboratory Results Laboratory Results - last 72 hr 08/15/18 08/15/18 08/15/18 16:54 16:54 17:03 WBC 11.67 H RBC 3.54 L Hgb 10.8 L Hct 32.5 L MCV 91.8 MCH 30.5 MCHC 33.2 RDW Std Deviation 49.9 H RDW Coeff of Jonathan 14.7 H Plt Count 292 MPV 10.4 Immature Gran % (Auto) 0.3 Neut % (Auto) 86.1 Lymph % (Auto) 7.5 [place] % (Auto) 5.7 Eos % (Auto) 0.1 Baso % (Auto) 0.3 Immature Gran # (Auto) 0.03 H Neut # (Auto) 10.06 H Lymph # (Auto) 0.88 L [place] # (Auto) 0.66 H Eos # (Auto) 0.01 Baso # (Auto) 0.03 PT INR APTT PTT Ratio Sodium 135 L Potassium 2.4 L* Chloride 99 Carbon Dioxide 26 Anion Gap 10.0 BUN 16 Creatinine 1.48 H Est Cr Clr Drug Dosing 32.2 Est GFR ( Amer) 40.6 Est GFR (Non-Af Amer) 35.0 BUN/Creatinine Ratio 10.9 Glucose 119 H POC Glucose Estimat Average Glucose Hemoglobin A1c Calcium 7.8 L Magnesium Total Bilirubin 0.3 AST 50 H ALT 27 Alkaline Phosphatase 137 H Ammonia Troponin I < 0.015 Total Protein 6.6 Albumin 1.7 L Globulin 4.9 H Albumin/Globulin Ratio 0.3 L Triglycerides Cholesterol LDL Cholesterol, Calc VLDL Cholesterol, Calc HDL Cholesterol Cholesterol/HDL Ratio TSH 2.390 Specimen Hemolysis Urine Color Dark Yellow Urine Appearance Cloudy H Urine pH 6.5 Ur Specific [place] 1.028 Urine Protein 4+ H Urine Glucose (UA) Negative Urine Ketones Trace H Urine Blood 2+ H Urine Nitrite Negative Urine Bilirubin Negative Urine Urobilinogen Negative Ur Leukocyte Esterase Trace H Urine WBC (Auto) 10-30 H Urine RBC (Auto) 0-4 U Hyaline Cast (Auto) 5-10 H U Epithel Cells (Auto) 0-5 Urine Bacteria (Auto) 4+ H Granular Casts 1-5 H Ethyl Alcohol mg/dL 08/15/18 08/15/18 08/15/18 20:36 22:56 22:56 WBC 9.15 RBC 3.12 L Hgb 9.7 L Hct 28.4 L MCV 91.0 MCH 31.1 MCHC 34.2 RDW Std Deviation 48.0 H RDW Coeff of Jonathan 14.6 H Plt Count 219 MPV 9.6 Immature Gran % (Auto) 0.2 Neut % (Auto) 76.3 Lymph % (Auto) 15.4 [place] % (Auto) 7.5 Eos % (Auto) 0.3 Baso % (Auto) 0.3 Immature Gran # (Auto) 0.02 Neut # (Auto) 6.97 H Lymph # (Auto) 1.41 [place] # (Auto) 0.69 H Eos # (Auto) 0.03 Baso # (Auto) 0.03 PT 10.9 INR 1.1 APTT 26.3 PTT Ratio 1.0 Sodium Potassium Chloride Carbon Dioxide Anion Gap BUN Creatinine Est Cr Clr Drug Dosing Est GFR ( Amer) Est GFR (Non-Af Amer) BUN/Creatinine Ratio Glucose POC Glucose Estimat Average Glucose Hemoglobin A1c Calcium Magnesium Total Bilirubin AST ALT Alkaline Phosphatase Ammonia 32.5 H Troponin I Total Protein Albumin Globulin Albumin/Globulin Ratio Triglycerides Cholesterol LDL Cholesterol, Calc VLDL Cholesterol, Calc HDL Cholesterol Cholesterol/HDL Ratio TSH Specimen Hemolysis Urine Color Urine Appearance Urine pH Ur Specific [place] Urine Protein Urine Glucose (UA) Urine Ketones Urine Blood Urine Nitrite Urine Bilirubin Urine Urobilinogen Ur Leukocyte Esterase Urine WBC (Auto) Urine RBC (Auto) U Hyaline Cast (Auto) U Epithel Cells (Auto) Urine Bacteria (Auto) Granular Casts Ethyl Alcohol mg/dL 08/15/18 08/16/18 08/16/18 22:56 01:42 07:44 WBC 7.48 RBC 3.08 L Hgb 9.5 L Hct 28.3 L MCV 91.9 MCH 30.8 MCHC 33.6 RDW Std Deviation 49.1 H RDW Coeff of Jonathan 14.6 H Plt Count 216 MPV 9.9 Immature Gran % (Auto) 0.1 Neut % (Auto) 75.6 Lymph % (Auto) 14.6 [place] % (Auto) 8.2 Eos % (Auto) 1.1 Baso % (Auto) 0.4 Immature Gran # (Auto) 0.01 Neut # (Auto) 5.66 Lymph # (Auto) 1.09 L [place] # (Auto) 0.61 H Eos # (Auto) 0.08 Baso # (Auto) 0.03 PT INR APTT PTT Ratio Sodium 138 Potassium 3.0 L D Chloride 105 Carbon Dioxide 27 Anion Gap 6.0 BUN 16 Creatinine 1.21 H Est Cr Clr Drug Dosing 39.3 Est GFR ( Amer) 51.8 Est GFR (Non-Af Amer) 44.7 BUN/Creatinine Ratio 13.2 Glucose 113 H POC Glucose 116 H Estimat Average Glucose Hemoglobin A1c Calcium 7.7 L Magnesium 1.9 Total Bilirubin AST ALT Alkaline Phosphatase Ammonia Troponin I 0.027 Total Protein Albumin Globulin Albumin/Globulin Ratio Triglycerides Cholesterol LDL Cholesterol, Calc VLDL Cholesterol, Calc HDL Cholesterol Cholesterol/HDL Ratio TSH Specimen Hemolysis Urine Color Urine Appearance Urine pH Ur Specific [place] Urine Protein Urine Glucose (UA) Urine Ketones Urine Blood Urine Nitrite Urine Bilirubin Urine Urobilinogen Ur Leukocyte Esterase Urine WBC (Auto) Urine RBC (Auto) U Hyaline Cast (Auto) U Epithel Cells (Auto) Urine Bacteria (Auto) Granular Casts Ethyl Alcohol mg/dL 08/16/18 08/16/18 08/16/18 07:44 07:44 11:15 WBC RBC Hgb Hct MCV MCH MCHC RDW Std Deviation RDW Coeff of [place] Plt Count MPV Immature Gran % (Auto) Neut % (Auto) Lymph % (Auto) [place] % (Auto) Eos % (Auto) Baso % (Auto) Immature Gran # (Auto) Neut # (Auto) Lymph # (Auto) [place] # (Auto) Eos # (Auto) Baso # (Auto) PT INR APTT PTT Ratio Sodium 135 L Potassium 3.1 L Chloride 102 Carbon Dioxide 25 Anion Gap 8.0 BUN 16 Creatinine 1.29 H Est Cr Clr Drug Dosing 33.0 Est GFR ( Amer) 47.9 Est GFR (Non-Af Amer) 41.3 BUN/Creatinine Ratio 12.4 Glucose 148 H POC Glucose Estimat Average Glucose 94 Hemoglobin A1c 4.9 Calcium 8.2 L Magnesium Total Bilirubin AST ALT Alkaline Phosphatase Ammonia Troponin I Total Protein Albumin Globulin Albumin/Globulin Ratio Triglycerides 144 Cholesterol 182 LDL Cholesterol, Calc 126 VLDL Cholesterol, Calc 29 HDL Cholesterol 27 Cholesterol/HDL Ratio 7 TSH Specimen Hemolysis Urine Color Urine Appearance Urine pH Ur Specific [place] Urine Protein Urine Glucose (UA) Urine Ketones Urine Blood Urine Nitrite Urine Bilirubin Urine Urobilinogen Ur Leukocyte Esterase Urine WBC (Auto) Urine RBC (Auto) U Hyaline Cast (Auto) U Epithel Cells (Auto) Urine Bacteria (Auto) Granular Casts Ethyl Alcohol mg/dL 08/16/18 11:15 WBC RBC Hgb Hct MCV MCH MCHC RDW Std Deviation RDW Coeff of [place] Plt Count MPV Immature Gran % (Auto) Neut % (Auto) Lymph % (Auto) [place] % (Auto) Eos % (Auto) Baso % (Auto) Immature Gran # (Auto) Neut # (Auto) Lymph # (Auto) [place] # (Auto) Eos # (Auto) Baso # (Auto) PT INR APTT PTT Ratio Sodium Potassium Chloride Carbon Dioxide Anion Gap BUN Creatinine Est Cr Clr Drug Dosing Est GFR ( Amer) Est GFR (Non-Af Amer) BUN/Creatinine Ratio Glucose POC Glucose Estimat Average Glucose Hemoglobin A1c Calcium Magnesium Total Bilirubin AST ALT Alkaline Phosphatase Ammonia Troponin I Total Protein Albumin Globulin Albumin/Globulin Ratio Triglycerides Cholesterol LDL Cholesterol, Calc VLDL Cholesterol, Calc HDL Cholesterol Cholesterol/HDL Ratio TSH Specimen Hemolysis Urine Color Urine Appearance Urine pH Ur Specific [place] Urine Protein Urine Glucose (UA) Urine Ketones Urine Blood Urine Nitrite Urine Bilirubin Urine Urobilinogen Ur Leukocyte Esterase Urine WBC (Auto) Urine RBC (Auto) U Hyaline Cast (Auto) U Epithel Cells (Auto) Urine Bacteria (Auto) Granular Casts Ethyl Alcohol mg/dL < 3.0
--- NOTE | 2018-08-16 16:14 | XRay Report ---
KUB HISTORY: Abdominal distension, eval for constipation COMPARISON: None. FINDINGS: The bowel gas pattern is unremarkable. There are no dilated loops of small bowel to suggest an obstruction. No renal calculi. No ureteral calculi. No pneumoperitoneum or pneumatosis. There is a 2 cm gallstone. Increased centralized density raise the possibility of ascites. No significant sto ol within the colon. IMPRESSION: 1. Increased centralized density within the abdomen raises the possibility of ascites. 2. No significant stool within the colon. Electronically signed by: Constantin Brown M.D. 08/16/2018 4:13 PM
--- NOTE | 2018-08-16 17:39 | Hospitalist Progress Note ---
Date of Service August 16, 2018 Assessment & Plan (1) Metabolic encephalopathy: lives with son at home presents with confusion with bizarre behaviour , cutting hair , poor Hygeine ammonia level 34 no evidence of infection follow urine cx CT head in ER negative for CVA MRI of brain ordered follow result (2) Left arm weakness: Has been having abnormal behavior and dizzy need to r/o acute CVA CT head showed no acute intracranial finding Doubt about CVA MRI of brain ordered will need Neuro eval (3) Cirrhosis of liver: appreciate input from GI no overt evidence of hepatic encephalopathy ( pt is not stupurus, no asterexis) ordered for Xifaxamine cont on Lasix , ordered low salt diet added Aldactone (4) Fall: (5) Injury of left upper arm: Possible related to mechanical Fall Shoulder xray showed no acute fracture or dislocation. Continue pain control Fall precaution PT/OT (6) Hypokalemia: K 2.4 on admission K replaced Monitor BMP (7) HTN (hypertension): BP elevated Possible related to hospital setting Monitor BP (8) Anemia: Hgb on admission 10.8 Monitor BMP (9) GERD (gastroesophageal reflux disease): Ran out of PPI Continue PPI (10) ANDREY (acute kidney injury): Cr elevated from Baseline possible due to poor pO intake on Lasix and Aldactone for liver cirrohis /ascities monitor BMP (11) CKD (chronic kidney disease) stage 3, GFR 30-59 ml/min: Cr on admission 1.4 Received IVF Monitor BMP (12) Dysphagia: ordered for speech eval Present on Admission?: Yes Subjective very pleasant, awake , confused , does not know she is in hospital started to talk about things written on wall no agitation mentions her left arm hurts as she fell on that side no complain of headache no fever or chills Physical Exam 2 Vital Signs (Past 24 Hours): Last Vital Signs Temp 36.8 C 08/16/18 11:00 Pulse 89 08/16/18 11:00 Resp 16 08/16/18 11:00 BP 114/64 08/16/18 11:00 Pulse Ox 99 08/16/18 11:00 Physical Exam: GENERAL: pleasant , elderly female, confused at baseline HEENT: Sclera nonicteric, p Normal oral mucosa, neck: No JVD, no thyromegaly, trachea midline Lungs: Clear to auscultate, no wheeze or rales Cardiovascular: Regular S1 and S2, no murmur or gallop, no JVD, Abdomen: Soft, distended, + ascities Extremities: No rash or deformity, normal joint, Neuro: no dysarthria, no facial droop, flaccid left upper ext Psych: confused , oriented to person only Skin: diffuse eccymois of left upper arm /+ tenderness LYMPH NODES: No cervical lymphadenopathy _ (1) Anemia Anemia type: unspecified type Qualified Code(s): D64.9 - Anemia, unspecified (2) Dysphagia Dysphagia type: unspecified Qualified Code(s): R13.10 - Dysphagia, unspecified (3) Cirrhosis of liver Hepatic cirrhosis type: other cirrhosis Qualified Code(s): K74.69 - Other cirrhosis of liver (4) GERD (gastroesophageal reflux disease) Esophagitis presence: esophagitis presence not specified Qualified Code(s): K21.9 - Gastro-esophageal reflux disease without esophagitis (5) HTN (hypertension) Hypertension type: unspecified Qualified Code(s): I10 - Essential (primary) hypertension (6) Fall Encounter type: initial encounter Qualified Code(s): W19.XXXA - Unspecified fall, initial encounter (7) Injury of left upper arm Encounter type: initial encounter Qualified Code(s): S49.92XA - Unspecified injury of left shoulder and upper arm, initial encounter
--- NOTE | 2018-08-16 22:01 | Magnetic Resonance Report ---
MR brain wo con HISTORY: Mental status change Left upper ext weakness TECHNIQUE: Multiplanar multisequence MRI of the brain was performed without the use of contrast. COMPARISON STUDY: None. FINDINGS: Somewhat limited exam due to the patient's movement. Diffusion-weighted images demonstrate small foci of increased signal within the right frontal lobe and head of the caudate nucleus on the r ight. Several additional foci of increased signal are identified over the right and to a lesser exten t left parietal convexity. This is suggestive of a watershed type ischemic process. Remainder the study demonstrates moderate chronic small vessel change combined with age-related atrop hy. The ventricular system is midline. IMPRESSION: 1. Multiple small acute/subacute infarcts over the right and to a lesser extent left parietal convexi ty as well as right periventricular region. 2. 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 3. Age-related atrophy and chronic small vessel change throughout. The above report was generated using voice recognition software. It may contain grammatical, syntax or spelling errors. Electronically signed by: Aleksander Montaño M.D. 08/16/2018 10:00 PM
[2018-08-16] MEDS ORDERED: GADOXETATE DISODIUM IV PRN (22:18)
[2018-08-16] MEDS: LACTULOSE SYRUP 30 GM/45 ML UDP PO SCH (23:05)
[2018-08-16] MEDS: RIFAXIMIN 550 MG TABLET PO SCH (23:06)
[2018-08-17] MEDS ORDERED: LORazepam 0.5 MG TAB PO STA (00:42)
[2018-08-17] MEDS ORDERED: MoRPHine SULFATE 2 MG/ML CARP IV PRN (04:51)
[2018-08-17 07:24] LABS: Basophils # (auto) 0.02 K/uL (0-0.2); Basophils % (auto) 0.2 %; Eosinophils # (auto) 0.09 K/uL (0-0.5); Hematocrit (blood only) 30.1 % (37-47); Hemoglobin 9.9 g/dL (12.0-16.0); Immature Granulocytes # (auto) 0.02 K/uL (0.00-0.02); Immature Granulocytes % (auto) 0.2 %; Lymphocytes # (auto) 1.36 K/uL (1.2-3.4); Lymphocytes % (auto) 15.6 %; Mean Corpuscular Hgb Conc 32.9 g/dL (32-36); Mean Corpuscular Volume 92.9 fL (80-100); Mean Platelet Volume 9.5 fL (7.4-10.4); Neutrophils # (auto) 6.54 K/uL (1.4-6.5); Platelet Count 241 K/uL (130-400); RDW Coefficient of Variation 14.9 % (11.5-14.5); RDW Standard Deviation 50.7 fL (36.4-46.3); Red Blood Count 3.24 M/uL (4.2-5.4); White Blood Count 8.73 K/uL (4.8-10.8)
--- NOTE | 2018-08-17 08:05 | Magnetic Resonance Report ---
MR abdomen wo/w con HISTORY: eval liver mass seen on u/s TECHNIQUE: Multiplanar multisequence MRI of the abdomen was performed both before and after the intra venous administration of 10 cc of Eovist contrast. COMPARISON STUDY: Abdominal ultrasound 08/16/2018. FINDINGS: There is significant motion artifact seen throughout the study most pronounced on the postc ontrast sequences. Therefore, this results in difficult evaluation for a liver lesion. Small to moder ate right and trace left pleural effusions. Moderate hiatus hernia. Moderate ascites. Nodular contour to the liver consistent with cirrhosis. A 1.7 cm gallstone. Mild gallbladder wall thickening. The vi sualized pancreas and kidneys are unremarkable. No hydronephrosis. No retroperitoneal lymphadenopathy . Diffuse body wall edema. Hypointense linear focus within the splenic dome favors a small amount of calcification. The spleen measures 11 cm in length. A 9 mm T2 hyperintense nonenhancing lesion within the left hepatic lobe. This abuts the liver capsule. This could represent a cyst or focal area of sc arring. No lesions identified within the right hepatic lobe. IMPRESSION: 1. Suboptimal study due to motion artifact. 2. A 9 mm T2 hyperintense nonenhancing lesion within the left hepatic lobe area discovered represent a cyst or scarring. 3. No right hepatic lobe lesions. 4. Pleural effusions and a moderate amount of ascites. 5. Cholelithiasis. 6. Mild gallbladder wall thickening. This is likely due to the patient's cirrhotic state. 7. Hiatus hernia. Electronically signed by: Constantin Brown M.D. 08/17/2018 8:04 AM
[2018-08-17] MEDS: RIFAXIMIN 550 MG TABLET PO SCH ×2 (08:24→21:39)
[2018-08-17] MEDS: PANTOprazole 40 MG TAB PO SCH (08:24)
[2018-08-17] MEDS: LACTULOSE SYRUP 30 GM/45 ML UDP PO SCH (08:25)
[2018-08-17] MEDS ORDERED: POTASSIUM CHLORIDE 20 MEQ TABCR PO STA (08:55)
[2018-08-17] MEDS ORDERED: FUROSEMIDE 20 MG TAB PO SCH (09:00)
[2018-08-17] MEDS ORDERED: PANTOprazole 40 MG TAB PO SCH (09:00)
[2018-08-17] MEDS ORDERED: SPIRONOLACTONE 25 MG TAB PO SCH (09:00)
[2018-08-17] MEDS: CLOPIDOGREL BISULFATE 75 MG TAB PO SCH (09:47)
[2018-08-17] MEDS: ASPIRIN 81 MG ECTAB PO SCH (09:47)
[2018-08-17] MEDS: cefTRIAXone SODIUM 1,000 MG in DEXTROSE 5% 50 ML IV SCH (09:47)
[2018-08-17 09:57] LABS: BUN Creatinine Ratio 15.5 (10-20); Calcium 7.8 mg/dl (8.5-10.1); Creatinine Clr Calc Pharmacy 32.5 ml/min; Est GFR (Non-African American) 40.6
--- NOTE | 2018-08-17 09:59 | Gastroenterology Progress Note ---
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 Upon eval noted to have hypokalemia , repleted; and UTI. GI consulted for her cirrhosis status and also symptoms of dysphagia, nausea, vomiting which seems to have resolved. Noted L arm flaccid. Son said at baseline she can lift it up to 90degree but noticed she's not moving it much prior to admission, she had attributed it to be painful after fall. Head CT negative but Brain MRI showed signs of acute/ subacute strokes. Urine culture growing Klebsiella Oxytoca - Behavioral changes may be multifactorial including stroke, underlying Alzheimer's dementia and mild hepatic encephalopathy, UTI. Will DC Lactulose and continue Xifaxan 550mg BID. - Primary hospitalist aware of infarcts on brain MRI findings, consulted Neurology. Pt started on ASA, Plavix, Atorvastatin. Son (Manish) also made aware of this new finding. - Electrolyte repletion and UTI treatment per primary team. - Will cancel paracentesis order in light of new stroke finding and pt doesn't appear to be uncomfortable w abd pain nor having difficulty breathing. - Trial increase of diuretics to Lasix 20mg daily and Spironolactone 50mg daily. Monitor renal function and electrolytes. - Obtain Liver MRI to further eval R hepatic lesion measuring 1.4cm to r/o HCC given her cirrhosis status. -> noted to be cyst - Continue Protonix 40mg daily. - Will monitor H/H and signs of GI bleeding; if present given her hx of GAVE will consider repeat EGD. - 2g Na diet - ETOH cessation - Will help make f/u GI appt upon her DC. Supervising Physician Co-Signing Physician Notes I have performed a history and physical examination of this patient and reviewed the electronic medical record. Specifically, on physical examination there is now a left hemiparesis. I have discussed the case with MICHELLE Luther. The above note reflects my findings, conclusions, and recommendations. Frederick Crandall MD Subjective Pt denies any abd pain, n/v. Noted pt still not moving her L arm which she reported yesterday it's painful after her fall. On exam today, L arm is flaccid , she cannot even lift it up or grasps my fingers. No deficit on L leg, no signs of L sided facial droop or tongue deviation, garbled speech. Brain MRI showed multiple small acute/subacute infarcts over the right and to a lesser extent left parietal convexity as well as right periventricular region. This appearance is suggestive of watershed type infarct with multiple small foci of ischemic change. Age-related atrophy and chronic small vessel change throughout. Physical Exam 2 Vital Signs (Past 24 Hours): Last Vital Signs Temp 36.6 C 08/17/18 07:43 Pulse 86 08/17/18 07:43 Resp 20 08/17/18 07:43 BP 158/81 H 08/17/18 07:43 Pulse Ox 98 08/17/18 07:43 Constitutional: WD/WN, vitals as above well groomed, cooperative and comfortable Eyes: PERRL, conjunctivae normal, anicteric sclerae ENMT: external ear and nose normal, oropharynx normal Respiratory: normal respiratory effort, lungs clear to auscultation Cardiovascular: RRR, no murmur, no edema Gastrointestinal (Abdomen): Inspection/Auscultation: + abdomen distended ( mild ) and normal bowel sounds Percussion/Palpation: abdomen nontender and no guarding Skin: no rashes, warm and dry no jaundice Neurologic: Motor/Sensory: no asterixis L arm flaccid, L leg w/o deficit. No signs of garbled speech, facial droop or tongue deviation. Psychiatric: Orientation: alert, oriented to person, oriented to place and cooperative; + not oriented to time Lymphatic: no lymphedema Results & Data Laboratory Results Laboratory Results - last 48 hr 08/15/18 08/15/18 08/15/18 16:54 16:54 17:03 WBC 11.67 H RBC 3.54 L Hgb 10.8 L Hct 32.5 L MCV 91.8 MCH 30.5 MCHC 33.2 RDW Std Deviation 49.9 H RDW Coeff of Jonathan 14.7 H Plt Count 292 MPV 10.4 Immature Gran % (Auto) 0.3 Neut % (Auto) 86.1 Lymph % (Auto) 7.5 Menard % (Auto) 5.7 Eos % (Auto) 0.1 Baso % (Auto) 0.3 Immature Gran # (Auto) 0.03 H Neut # (Auto) 10.06 H Lymph # (Auto) 0.88 L Menard # (Auto) 0.66 H Eos # (Auto) 0.01 Baso # (Auto) 0.03 PT INR APTT PTT Ratio Sodium 135 L Potassium 2.4 L* Chloride 99 Carbon Dioxide 26 Anion Gap 10.0 BUN 16 Creatinine 1.48 H Est Cr Clr Drug Dosing 32.2 Est GFR ( Amer) 40.6 Est GFR (Non-Af Amer) 35.0 BUN/Creatinine Ratio 10.9 Glucose 119 H POC Glucose Estimat Average Glucose Hemoglobin A1c Calcium 7.8 L Magnesium Total Bilirubin 0.3 AST 50 H ALT 27 Alkaline Phosphatase 137 H Ammonia Troponin I < 0.015 Total Protein 6.6 Albumin 1.7 L Globulin 4.9 H Albumin/Globulin Ratio 0.3 L Triglycerides Cholesterol LDL Cholesterol, Calc VLDL Cholesterol, Calc HDL Cholesterol Cholesterol/HDL Ratio TSH 2.390 Specimen Hemolysis Urine Color Dark Yellow Urine Appearance Cloudy H Urine pH 6.5 Ur Specific [place] 1.028 Urine Protein 4+ H Urine Glucose (UA) Negative Urine Ketones Trace H Urine Blood 2+ H Urine Nitrite Negative Urine Bilirubin Negative Urine Urobilinogen Negative Ur Leukocyte Esterase Trace H Urine WBC (Auto) 10-30 H Urine RBC (Auto) 0-4 U Hyaline Cast (Auto) 5-10 H U Epithel Cells (Auto) 0-5 Urine Bacteria (Auto) 4+ H Granular Casts 1-5 H Ethyl Alcohol mg/dL 08/15/18 08/15/18 08/15/18 20:36 22:56 22:56 WBC 9.15 RBC 3.12 L Hgb 9.7 L Hct 28.4 L MCV 91.0 MCH 31.1 MCHC 34.2 RDW Std Deviation 48.0 H RDW Coeff of Jonathan 14.6 H Plt Count 219 MPV 9.6 Immature Gran % (Auto) 0.2 Neut % (Auto) 76.3 Lymph % (Auto) 15.4 Menard % (Auto) 7.5 Eos % (Auto) 0.3 Baso % (Auto) 0.3 Immature Gran # (Auto) 0.02 Neut # (Auto) 6.97 H Lymph # (Auto) 1.41 Menard # (Auto) 0.69 H Eos # (Auto) 0.03 Baso # (Auto) 0.03 PT 10.9 INR 1.1 APTT 26.3 PTT Ratio 1.0 Sodium Potassium Chloride Carbon Dioxide Anion Gap BUN Creatinine Est Cr Clr Drug Dosing Est GFR ( Amer) Est GFR (Non-Af Amer) BUN/Creatinine Ratio Glucose POC Glucose Estimat Average Glucose Hemoglobin A1c Calcium Magnesium Total Bilirubin AST ALT Alkaline Phosphatase Ammonia 32.5 H Troponin I Total Protein Albumin Globulin Albumin/Globulin Ratio Triglycerides Cholesterol LDL Cholesterol, Calc VLDL Cholesterol, Calc HDL Cholesterol Cholesterol/HDL Ratio TSH Specimen Hemolysis Urine Color Urine Appearance Urine pH Ur Specific [place] Urine Protein Urine Glucose (UA) Urine Ketones Urine Blood Urine Nitrite Urine Bilirubin Urine Urobilinogen Ur Leukocyte Esterase Urine WBC (Auto) Urine RBC (Auto) U Hyaline Cast (Auto) U Epithel Cells (Auto) Urine Bacteria (Auto) Granular Casts Ethyl Alcohol mg/dL 08/15/18 08/16/18 08/16/18 22:56 01:42 07:44 WBC 7.48 RBC 3.08 L Hgb 9.5 L Hct 28.3 L MCV 91.9 MCH 30.8 MCHC 33.6 RDW Std Deviation 49.1 H RDW Coeff of Jonathan 14.6 H Plt Count 216 MPV 9.9 Immature Gran % (Auto) 0.1 Neut % (Auto) 75.6 Lymph % (Auto) 14.6 Menard % (Auto) 8.2 Eos % (Auto) 1.1 Baso % (Auto) 0.4 Immature Gran # (Auto) 0.01 Neut # (Auto) 5.66 Lymph # (Auto) 1.09 L Menard # (Auto) 0.61 H Eos # (Auto) 0.08 Baso # (Auto) 0.03 PT INR APTT PTT Ratio Sodium 138 Potassium 3.0 L D Chloride 105 Carbon Dioxide 27 Anion Gap 6.0 BUN 16 Creatinine 1.21 H Est Cr Clr Drug Dosing 39.3 Est GFR ( Amer) 51.8 Est GFR (Non-Af Amer) 44.7 BUN/Creatinine Ratio 13.2 Glucose 113 H POC Glucose 116 H Estimat Average Glucose Hemoglobin A1c Calcium 7.7 L Magnesium 1.9 Total Bilirubin AST ALT Alkaline Phosphatase Ammonia Troponin I 0.027 Total Protein Albumin Globulin Albumin/Globulin Ratio Triglycerides Cholesterol LDL Cholesterol, Calc VLDL Cholesterol, Calc HDL Cholesterol Cholesterol/HDL Ratio TSH Specimen Hemolysis Urine Color Urine Appearance Urine pH Ur Specific [place] Urine Protein Urine Glucose (UA) Urine Ketones Urine Blood Urine Nitrite Urine Bilirubin Urine Urobilinogen Ur Leukocyte Esterase Urine WBC (Auto) Urine RBC (Auto) U Hyaline Cast (Auto) U Epithel Cells (Auto) Urine Bacteria (Auto) Granular Casts Ethyl Alcohol mg/dL 08/16/18 08/16/18 08/16/18 07:44 07:44 11:15 WBC RBC Hgb Hct MCV MCH MCHC RDW Std Deviation RDW Coeff of Jonathan Plt Count MPV Immature Gran % (Auto) Neut % (Auto) Lymph % (Auto) Menard % (Auto) Eos % (Auto) Baso % (Auto) Immature Gran # (Auto) Neut # (Auto) Lymph # (Auto) Menard # (Auto) Eos # (Auto) Baso # (Auto) PT INR APTT PTT Ratio Sodium 135 L Potassium 3.1 L Chloride 102 Carbon Dioxide 25 Anion Gap 8.0 BUN 16 Creatinine 1.29 H Est Cr Clr Drug Dosing 33.0 Est GFR ( Amer) 47.9 Est GFR (Non-Af Amer) 41.3 BUN/Creatinine Ratio 12.4 Glucose 148 H POC Glucose Estimat Average Glucose 94 Hemoglobin A1c 4.9 Calcium 8.2 L Magnesium Total Bilirubin AST ALT Alkaline Phosphatase Ammonia Troponin I Total Protein Albumin Globulin Albumin/Globulin Ratio Triglycerides 144 Cholesterol 182 LDL Cholesterol, Calc 126 VLDL Cholesterol, Calc 29 HDL Cholesterol 27 Cholesterol/HDL Ratio 7 TSH Specimen Hemolysis Urine Color Urine Appearance Urine pH Ur Specific [place] Urine Protein Urine Glucose (UA) Urine Ketones Urine Blood Urine Nitrite Urine Bilirubin Urine Urobilinogen Ur Leukocyte Esterase Urine WBC (Auto) Urine RBC (Auto) U Hyaline Cast (Auto) U Epithel Cells (Auto) Urine Bacteria (Auto) Granular Casts Ethyl Alcohol mg/dL 08/16/18 08/17/18 11:15 07:04 WBC 8.73 RBC 3.24 L Hgb 9.9 L Hct 30.1 L MCV 92.9 MCH 30.6 MCHC 32.9 RDW Std Deviation 50.7 H RDW Coeff of Jonathan 14.9 H Plt Count 241 MPV 9.5 Immature Gran % (Auto) 0.2 Neut % (Auto) 75.0 Lymph % (Auto) 15.6 Menard % (Auto) 8.0 Eos % (Auto) 1.0 Baso % (Auto) 0.2 Immature Gran # (Auto) 0.02 Neut # (Auto) 6.54 H Lymph # (Auto) 1.36 Menard # (Auto) 0.70 H Eos # (Auto) 0.09 Baso # (Auto) 0.02 PT INR APTT PTT Ratio Sodium Potassium Chloride Carbon Dioxide Anion Gap BUN Creatinine Est Cr Clr Drug Dosing Est GFR ( Amer) Est GFR (Non-Af Amer) BUN/Creatinine Ratio Glucose POC Glucose Estimat Average Glucose Hemoglobin A1c Calcium Magnesium Total Bilirubin AST ALT Alkaline Phosphatase Ammonia Troponin I Total Protein Albumin Globulin Albumin/Globulin Ratio Triglycerides Cholesterol LDL Cholesterol, Calc VLDL Cholesterol, Calc HDL Cholesterol Cholesterol/HDL Ratio TSH Specimen Hemolysis Urine Color Urine Appearance Urine pH Ur Specific [place] Urine Protein Urine Glucose (UA) Urine Ketones Urine Blood Urine Nitrite Urine Bilirubin Urine Urobilinogen Ur Leukocyte Esterase Urine WBC (Auto) Urine RBC (Auto) U Hyaline Cast (Auto) U Epithel Cells (Auto) Urine Bacteria (Auto) Granular Casts Ethyl Alcohol mg/dL < 3.[address] head/brain 08/15/18:No acute intracranial abnormality or calvarial fracture. MRI Brain 08/16/18: 1. Multiple small acute/subacute infarcts over the right and to a lesser extent left parietal convexity as well as right periventricular region. 2. This appearance is suggestive of watershed type infarct with multiple small foci of ischemic change. 3. Age-related atrophy and chronic small vessel change throughout. MRI Abd 08/16/18: 1. Suboptimal study due to motion artifact. 2. A 9 mm T2 hyperintense nonenhancing lesion within the left hepatic lobe area discovered represent a cyst or scarring. 3. No right hepatic lobe lesions. 4. Pleural effusions and a moderate amount of ascites. 5. Cholelithiasis. 6. Mild gallbladder wall thickening. This is likely due to the patient's cirrhotic state. 7. Hiatus hernia. KUB 08/16/18: 1. Increased centralized density within the abdomen raises the possibility of ascites. 2. No significant stool within the colon. _ (1) Dysphagia Dysphagia type: unspecified Qualified Code(s): R13.10 - Dysphagia, unspecified (2) Cirrhosis of liver Ascites presence: Hepatic cirrhosis type: other cirrhosis Qualified Code(s) : K74.69 - Other cirrhosis of liver
[2018-08-17] MEDS: ATORVASTATIN 40 MG TAB PO SCH (10:07)
--- NOTE | 2018-08-17 14:37 | Neurology Consultation ---
Date of Consultation August 17, 2018 Assessment & Plan (1) Embolic cerebral infarction: 1. TTE/stress test done as outpatient per son- no record found in [facility] [place] [place] system 2. carotid doppler for evaluation of neck vessels 3. MRI with multiple strokes in multiple hemispheres- appears to be embolic 4. started on aspirin 81 mg and plavix 75 mg 5. optimize HTN, HLD, DM LDL <70 6. son states she was normal until starting immuno suppression in November. which was prednisone alternating with cyclophosphamide for treatment of glomerulonephritis. It is unclear how long she was taking it 7. CTA head/neck evaluation for any vascular malformation or plaques- due to renal issues will do carotid doppler 8. TTE with bubble study - evaluation of possible clot formation- fall risk - anticoagulation likely not good option 9. [facility]- need records of prior studies an record of health over the past year Supervising Physician Co-Signing Physician Notes I have seen and discussed above patient with Dr Low Arrington, neurology I have examined this 72-year-old woman with her sons present in the room, discussed her history with Grace Landa and obtained a history from both the patient and her sons. Mrs. 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 In the course of the workup an MRI was done which shows multiple embolic infarctions involving both hemispheres most evident on the right and there is a relatively large area of infarction in the right frontal area that would explain the patient's current left hemiparesis and to lesser degree the face coupled with neglect of bilateral he presented sensory stimuli. Cause of this remains unclear and we are undergoing a workup including duplex of the carotids and an echocardiogram with bubble study. Currently her renal function is marginal for performing a CTA of the cervical vessels with intra- cranial vasculature but once this stabilizes I would certainly suggest we look for potential source of emboli in the extracranial vascular system as well as a cardiac chambers. For now neurology is recommending a combination of aspirin and Plavix which is appropriately but already been started. Dr. Patel will be assuming the consulting service tomorrow and we will make him aware of this particular case and the pending diagnostic studies. Low Arrington MD History of Present Illness Reason for Consultation: acute /subacute CVA Requesting Physician: Michelle Little MD Attending Physician: Michelle Little MD History of Present Illness Hayde is a 72 year old female with PMH liver cirrhosis, CKD stage 3, anemia , Vit D deficency, HLD she was brought to the hospital by EMS after a fall. Her son states she fell when she was getting out of bed. She felt too weak and was not able to pull herself up after the fall. She lives with her son but she fell when he was not home. He found her lying on her left side. Son said that that she probably stayed on the floor for about 1 hr. Son states she has been falling lately. She was seen in neurology office in April but didn't return for follow up. Her behavior is abnormal lately. She has been defecated on the floor and very poor hygiene lately. She has not been shower for month. she has been mentally confused off and on and removes her dirty diapers and dropped them on the floor. she has been refusing follow up with her MD. She has been vomiting when she eats. She said that she feels food stuck in her throat. She states her left arm is weak and she can't use it. denies CP, SOB, abdominal pain , headache, +left UE weakness, +incontinence. Her son states she was normal until November when she was started on steroids and immune suppressant. Allergies Allergy/AdvReac Type Severity Reaction Status Date / Time No Known Allergies Allergy Unverified 08/15/18 20:19 Home Medications Home Medications Medication Instructions Recorded Confirmed Type furosemide [Lasix] 10 mg PO DAILY 08/15/18 08/15/18 History pantoprazole [Protonix] 40 mg PO DAILY 08/15/18 08/15/18 History spironolactone [Aldactone] 12.5 mg PO DAILY 08/15/18 08/15/18 History Patient History Medical History Acquired hypothyroidism (Chronic) Hyperlipidemia (Chronic) Anemia (Chronic) GERD (gastroesophageal reflux disease) (Chronic) Vitamin deficiency (Chronic) CKD (chronic kidney disease) stage 3, GFR 30-59 ml/min (Chronic) Cirrhosis of liver (Chronic) HTN (hypertension) (Chronic) Postural hypotension (Resolved) No pertinent family history Family History Other No pertinent family history Social History marital status: / Current Living Situation: Family Feels Safe at Home: Yes Safety Concerns: Feels Safe At This Time Smoking Status: Never smoker Hx Alcohol Use: No Hx Substance Use: No Beliefs That Will Affect Care: None Communication Ability: Effective Physical Exam 2 Vital Signs (Past 24 Hours): Last Vital Signs Temp 36.6 C 08/17/18 07:43 Pulse 86 08/17/18 07:43 Resp 20 08/17/18 07:43 BP 158/81 H 08/17/18 07:43 Pulse Ox 98 08/17/18 07:43 Physical Exam: Constitutional: appearance thin pale appears ill Ears, Nose, Mouth and Throat: mucous membranes moist, no injection and skin normal, eyes normal Cardiovascular: normal S-1 and S-2 and regular rate and rhythm Respiratory: course breath sounds Musculoskeletal: no peripheral edema and good distal pulses Skin: left arm diffuse ecchomyosis Eyes: extraocular muscles intact (EOMI) and pupils equal, round and reactive to light (PERRL) abdomen distended. NEUROLOGIC EXAMINATION: Mental status: Alert and interactive Oriented to hospital, year 1981, in [place], month July then switches to August Oriented to person Speech slurred speech with some words Cranial Nerves facial symmetry Reflexes: Deep tendon reflexes were symmetrical and graded 2/5. Plantar responses were flexor. Sensory: intact to vibration, cool touch on left LE, right LE warm touch-when actually cool, light touch intact bilaterally Coordination: unable to finger to nose with left unable to lift arm with neglect Gait/Stance: Posture lying in bed Motor: Negative for pronator drift of out stretched arms with eyes closed. 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 unable to plantar flex ext left Results & Data Laboratory Results Abnormal Labs 08/15/18 08/15/18 08/15/18 16:54 16:54 17:03 WBC 11.67 H RBC 3.54 L Hgb 10.8 L Hct 32.5 L RDW Std Deviation 49.9 H RDW Coeff of Jonathan 14.7 H Immature Gran # (Auto) 0.03 H Neut # (Auto) 10.06 H Lymph # (Auto) 0.88 L King # (Auto) 0.66 H Sodium 135 L Potassium 2.4 L* BUN Creatinine 1.48 H Glucose 119 H POC Glucose Calcium 7.8 L AST 50 H Alkaline Phosphatase 137 H Ammonia Albumin 1.7 L Globulin 4.9 H Albumin/Globulin Ratio 0.3 L Urine Appearance Cloudy H Urine Protein 4+ H Urine Ketones Trace H Urine Blood 2+ H Ur Leukocyte Esterase Trace H Urine WBC (Auto) 10-30 H U Hyaline Cast (Auto) 5-10 H Urine Bacteria (Auto) 4+ H Granular Casts 1-5 H 08/15/18 08/15/18 08/15/18 20:36 22:56 22:56 WBC RBC 3.12 L Hgb 9.7 L Hct 28.4 L RDW Std Deviation 48.0 H RDW Coeff of Jonathan 14.6 H Immature Gran # (Auto) Neut # (Auto) 6.97 H Lymph # (Auto) King # (Auto) 0.69 H Sodium Potassium 3.0 L D BUN Creatinine 1.21 H Glucose 113 H POC Glucose Calcium 7.7 L AST Alkaline Phosphatase Ammonia 32.5 H Albumin Globulin Albumin/Globulin Ratio Urine Appearance Urine Protein Urine Ketones Urine Blood Ur Leukocyte Esterase Urine WBC (Auto) U Hyaline Cast (Auto) Urine Bacteria (Auto) Granular Casts 08/16/18 08/16/18 08/16/18 01:42 07:44 11:15 WBC RBC 3.08 L Hgb 9.5 L Hct 28.3 L RDW Std Deviation 49.1 H RDW Coeff of Jonathan 14.6 H Immature Gran # (Auto) Neut # (Auto) Lymph # (Auto) 1.09 L King # (Auto) 0.61 H Sodium 135 L Potassium 3.1 L BUN Creatinine 1.29 H Glucose 148 H POC Glucose 116 H Calcium 8.2 L AST Alkaline Phosphatase Ammonia Albumin Globulin Albumin/Globulin Ratio Urine Appearance Urine Protein Urine Ketones Urine Blood Ur Leukocyte Esterase Urine WBC (Auto) U Hyaline Cast (Auto) Urine Bacteria (Auto) Granular Casts 08/17/18 08/17/18 07:04 07:04 WBC RBC 3.24 L Hgb 9.9 L Hct 30.1 L RDW Std Deviation 50.7 H RDW Coeff of Jonathan 14.9 H Immature Gran # (Auto) Neut # (Auto) 6.54 H Lymph # (Auto) King # (Auto) 0.70 H Sodium Potassium 3.0 L BUN 20 H Creatinine 1.31 H Glucose 103 H POC Glucose Calcium 7.8 L AST Alkaline Phosphatase Ammonia Albumin Globulin Albumin/Globulin Ratio Urine Appearance Urine Protein Urine Ketones Urine Blood Ur Leukocyte Esterase Urine WBC (Auto) U Hyaline Cast (Auto) Urine Bacteria (Auto) Granular Casts Diagnostic Findings CT c spine- There is no evidence of fracture or subluxation involving the cervical spine. Osteopenia and spondylotic change as above. CXR-. No acute processes of the chest. Moderate sized hiatal hernia. CT head- no acute findings xray humerous/shoulder -No acute fracture or dislocation. abdomen US-. Cirrhotic liver. There is an indeterminate 1.4 cm hypoechoic lesion within the right hepatic lobe. Consider dedicated liver MRI for further evaluation. Cholelithiasis. Mild gallbladder wall thickening. This is nonspecific but may due to the patient's cirrhotic state. Clinical correlation recommended to evaluate for right upper quadrant pain. Small right pleural effusion and a small amount of ascites. MRI brain- Multiple small acute/subacute infarcts over the right and to a lesser extent left parietal convexity as well as right periventricular region. This appearance is suggestive of watershed type infarct with multiple small foci of ischemic change. Age-related atrophy and chronic small vessel change throughout. MRI abdomen-Suboptimal study due to motion artifact. A 9 mm T2 hyperintense nonenhancing lesion within the left hepatic lobe area discovered represent a cyst or scarring. No right hepatic lobe lesions. Pleural effusions and a moderate amount of ascites. Cholelithiasis. Mild gallbladder wall thickening. This is likely due to the patient's cirrhotic state. Hiatus hernia.
--- NOTE | 2018-08-17 15:41 | Ultrasound Report ---
US carotid doppler BI HISTORY: Mental status change multiple infarcts in multiple distribuation COMPARISON: None. TECHNIQUE: Real-time, grayscale, and color Doppler sonography of the carotid arteries was performed. Imaging reviewed in the transverse and longitudinal planes. All measurements were calculated based on NASCET criteria. FINDINGS: Antegrade flow is seen in the bilateral vertebral arteries. The brachial pressures are hemodynamically similar. Significant plaque formation bilaterally The peak systolic velocity within the right ICA is 274. The right systolic ratio is 2.5. The peak systolic velocity within the left ICA is 153. The left systolic ratio is 1.6 Considerable increase in velocities in the external carotid arteries bilaterally.. IMPRESSION: 1. 70-80% stenosis right internal carotid artery. 2. 50-60% stenosis left internal carotid artery. 3. High-grade stenotic changes of the external carotid arteries bilaterally. 4. Considerable plaque formation bilaterally. The above report was generated using voice recognition software. It may contain grammatical, syntax or spelling errors. Electronically signed by: Aleksander Montaño M.D. 08/17/2018 3:40 PM
--- NOTE | 2018-08-17 17:33 | Hospitalist Progress Note ---
Date of Service August 17, 2018 Assessment & Plan (1) Embolic cerebral infarction: presented with confusion ,fall /left sided flaccid paralysis MRI of brain : IMPRESSION: 1. Multiple small acute/subacute infarcts over the right and to a lesser extent left parietal convexity as well as right periventricular region. 2. This appearance is suggestive of watershed type infarct with multiple small foci of ischemic change. 3. Age-related atrophy and chronic small vessel change throughout. pt started on Aspirin/Plavix possible embolic phenomenon -cardiac arrythmia vs cardiac emboli no Afib noted on tele ECHO with bubble study ordered to assess cardiac embolic appreciate Neurolgy eval pt will cont with dual antiplatelets not a candidate for full anticoagulation with Coumadin /DOAC -advanced dementia , worsening of cognition due to CVA , high fall risk added statin Lipitor 40 mg daily ( goal LDL < 70 ) Fasting lipid panel LDL 126 ordered for PT/OT , speech eval will need rehab social service inout appreciated referral made to [facility] Present on Admission?: Yes (2) Metabolic encephalopathy: lives with son at home presents with confusion with bizarre behaviour , cutting hair , poor Hygeine ammonia level 34 no evidence of infection follow urine cx CT head in ER negative for CVA MRI of brain ordered follow result (3) Left arm weakness: Has been having abnormal behavior and dizzy need to r/o acute CVA CT head showed no acute intracranial finding Doubt about CVA MRI of brain ordered will need Neuro eval (4) Cirrhosis of liver: appreciate input from GI no overt evidence of hepatic encephalopathy ( pt is not stupurus, no asterexis) ordered for Xifaxamine cont on Lasix , ordered low salt diet added Aldactone (5) Fall: (6) Injury of left upper arm: Possible related to mechanical Fall Shoulder xray showed no acute fracture or dislocation. Continue pain control Fall precaution PT/OT (7) Hypokalemia: K 2.4 on admission K replaced Monitor BMP (8) HTN (hypertension): BP elevated Possible related to hospital setting Monitor BP (9) Anemia: Hgb on admission 10.8 Monitor BMP (10) GERD (gastroesophageal reflux disease): Ran out of PPI Continue PPI (11) ANDREY (acute kidney injury): Cr elevated from Baseline possible due to poor pO intake on Lasix and Aldactone for liver cirrohis /ascities monitor BMP (12) CKD (chronic kidney disease) stage 3, GFR 30-59 ml/min: Cr on admission 1.4 Received IVF Monitor BMP (13) Dysphagia: ordered for speech eval Subjective remains pleasantly confused with left upper ext flaccid paralysis Physical Exam 2 Vital Signs (Past 24 Hours): Last Vital Signs Temp 37.1 C 08/17/18 15:35 Pulse 92 H 08/17/18 15:35 Resp 18 08/17/18 15:35 BP 136/73 08/17/18 15:35 Pulse Ox 96 08/17/18 15:35 Constitutional: WD/WN, vitals as above + thin, well groomed, cooperative and comfortable Eyes: PERRL, conjunctivae normal, anicteric sclerae ENMT: external ear and nose normal, oropharynx normal Respiratory: normal respiratory effort, lungs clear to auscultation Cardiovascular: RRR, no murmur, no edema Gastrointestinal (Abdomen): Inspection/Auscultation: + abdomen distended ( mild ) and normal bowel sounds Percussion/Palpation: abdomen nontender and no guarding Skin: no rashes, warm and dry no jaundice Neurologic: Motor/Sensory: no asterixis Psychiatric: Orientation: alert, oriented to person, oriented to place and cooperative; + not oriented to time Affect: euthymic affect Lymphatic: no lymphedema _ (1) Anemia Anemia type: unspecified type Bone marrow failure anemia type: Chronic kidney disease stage: Folate deficiency anemia type: Hemolytic anemia type: Iron deficiency anemia type: Other causes of anemia: Vitamin B12 deficiency anemia type: Qualified Code(s): D64.9 - Anemia, unspecified (2) Dysphagia Dysphagia type: unspecified Qualified Code(s): R13.10 - Dysphagia, unspecified (3) Cirrhosis of liver Ascites presence: Hepatic cirrhosis type: other cirrhosis Qualified Code(s) : K74.69 - Other cirrhosis of liver (4) GERD (gastroesophageal reflux disease) Esophagitis presence: esophagitis presence not specified Qualified Code(s): K21.9 - Gastro-esophageal reflux disease without esophagitis (5) HTN (hypertension) Hypertension type: unspecified Qualified Code(s): I10 - Essential (primary) hypertension (6) Fall Encounter type: initial encounter Qualified Code(s): W19.XXXA - Unspecified fall, initial encounter (7) Injury of left upper arm Encounter type: initial encounter Qualified Code(s): S49.92XA - Unspecified injury of left shoulder and upper arm, initial encounter (8) Embolic cerebral infarction Precerebral and cerebral artery: unspecified cerebral artery Qualified Code(s ): I63.40 - Cerebral infarction due to embolism of unspecified cerebral artery
[2018-08-17] MEDS: HEPARIN SOD 5,000 UNIT/0.5 ML VIAL SQ SCH ×2 (19:03→21:39)
[2018-08-18] MEDS ORDERED: LORazepam 0.5 MG TAB PO STA (03:11)
[2018-08-18] MEDS: HEPARIN SOD 5,000 UNIT/0.5 ML VIAL SQ SCH ×3 (06:36→21:42)
[2018-08-18 08:54] LABS: Basophils # (auto) 0.03 K/uL (0-0.2); Basophils % (auto) 0.3 %; Eosinophils # (auto) 0.16 K/uL (0-0.5); Eosinophils % (auto) 1.7 %; Hematocrit (blood only) 31.6 % (37-47); Hemoglobin 10.3 g/dL (12.0-16.0); Immature Granulocytes # (auto) 0.02 K/uL (0.00-0.02); Immature Granulocytes % (auto) 0.2 %; Lymphocytes # (auto) 1.13 K/uL (1.2-3.4); Lymphocytes % (auto) 12.2 %; Mean Corpuscular Hgb Conc 32.6 g/dL (32-36); Mean Corpuscular Volume 94.3 fL (80-100); Mean Platelet Volume 9.9 fL (7.4-10.4); Monocytes # (auto) 0.69 K/uL (0.11-0.59); Monocytes % (auto) 7.4 %; Neutrophils # (auto) 7.24 K/uL (1.4-6.5); Neutrophils % (auto) 78.2 %; Platelet Count 238 K/uL (130-400); RDW Standard Deviation 51.2 fL (36.4-46.3); Red Blood Count 3.35 M/uL (4.2-5.4); White Blood Count 9.27 K/uL (4.8-10.8)
[2018-08-18] MEDS ORDERED: FUROSEMIDE 20 MG TAB PO SCH (09:00)
[2018-08-18] MEDS ORDERED: SPIRONOLACTONE 25 MG TAB PO SCH (09:00)
[2018-08-18] MEDS: cefTRIAXone SODIUM 1,000 MG in DEXTROSE 5% 50 ML IV SCH (09:17)
[2018-08-18] MEDS: RIFAXIMIN 550 MG TABLET PO SCH ×2 (09:18→21:42)
[2018-08-18] MEDS: PANTOprazole 40 MG TAB PO SCH (09:18)
[2018-08-18] MEDS: ATORVASTATIN 40 MG TAB PO SCH (09:18)
[2018-08-18] MEDS: CLOPIDOGREL BISULFATE 75 MG TAB PO SCH (09:18)
[2018-08-18] MEDS: ASPIRIN 81 MG ECTAB PO SCH (09:18)
--- NOTE | 2018-08-18 11:15 | Gastroenterology Progress Note ---
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 Upon eval noted to have hypokalemia, repleted; UTI (Klebsiella, Oxytoca) and new finding of acute/subacute brain infarcts, deficit of L arm flaccidity. GI consulted for her cirrhosis status and also symptoms of dysphagia, nausea, vomiting which seems to have resolved. - Behavioral changes may be multifactorial including stroke, underlying Alzheimer's dementia and mild hepatic encephalopathy, UTI. Will DC Lactulose and continue Xifaxan 550mg BID. - Neurology following for stroke, appreciate recs. - Electrolyte repletion and UTI treatment per primary team. - Will defer paracentesis order in light of new stroke finding and pt doesn't appear to be uncomfortable w abd pain nor having difficulty breathing. - Trial increase of diuretics to Lasix 20mg daily and Spironolactone 50mg daily. Monitor renal function and electrolytes. - Obtain Liver MRI to further eval R hepatic lesion measuring 1.4cm to r/o HCC given her cirrhosis status. -> noted to be cyst/scarring - Continue Protonix 40mg daily. - Will monitor H/H and signs of GI bleeding; if present given her hx of GAVE will consider repeat EGD. - 2g Na diet - ETOH cessation - GI will sign off; call if any questions/concerns over weekend. Will help make f/u GI appt upon her DC. Supervising Physician Co-Signing Physician Notes I saw and evaluated the patient. She does have a history of cirrhosis but appears to be stable from our aspect at the present time. It appears that the majority of her issues revolve around her recent CVA. At this point I would suggest that you call our service should any additional questions or concerns occur during the hospital admission. Subjective Pt denies any abd pain, n/v. Loose stools per RN but on Lactulose no signs of GI bleeding. Seen for Neurology for new findings of acute/subacute infarcts seen on brain MRI. + high grade carotid arteries stenotic changes bilaterally; echocardiogram pending Physical Exam 2 Vital Signs (Past 24 Hours): Last Vital Signs Temp 36.9 C 08/18/18 07:43 Pulse 88 08/18/18 07:43 Resp 20 08/18/18 07:43 BP 126/72 08/18/18 07:43 Pulse Ox 98 08/18/18 07:43 Constitutional: WD/WN, vitals as above + thin, well groomed, cooperative and comfortable Eyes: PERRL, conjunctivae normal, anicteric sclerae ENMT: external ear and nose normal, oropharynx normal Respiratory: normal respiratory effort, lungs clear to auscultation Cardiovascular: RRR, no murmur, no edema Gastrointestinal (Abdomen): Inspection/Auscultation: + abdomen distended ( mild ) and normal bowel sounds Percussion/Palpation: abdomen nontender and no guarding Skin: no rashes, warm and dry no jaundice Neurologic: Motor/Sensory: no asterixis Psychiatric: Orientation: alert, oriented to person, oriented to place, oriented to time and cooperative Affect: euthymic affect Lymphatic: no lymphedema _ (1) Dysphagia Dysphagia type: unspecified Qualified Code(s): R13.10 - Dysphagia, unspecified (2) Cirrhosis of liver Ascites presence: Hepatic cirrhosis type: other cirrhosis Qualified Code(s) : K74.69 - Other cirrhosis of liver
--- NOTE | 2018-08-18 11:39 | CT Scan Report ---
CT OF THE HEAD WITHOUT CONTRAST CLINICAL HISTORY: Recent cerebrovascular accident. Worsening left-sided weakness. COMPARISON STUDY: Head CT August 15, 2017 and MRI of the brain August 16, 2018. CT DOSE: 537.48 mGy.cm TECHNIQUE: Helical axial images of the head were obtained without IV contrast. Automated exposure con trol was utilized for the study. A dose lowering technique was utilized adhering to the principles o f ALARA. FINDINGS: No acute intracranial hemorrhage, midline shift or mass effect is present. Ventricular syst em is stable. Basilar cisterns are patent. There are no extra-axial collections. Hypodensity with los s of glass-white differentiation is most evident within the right frontal lobe. This represents expect ed evolution of the infarct shown on MRI of August 16, 2018. The smaller infarcts are better depicted on previous MRI. White matter hypodensity suggests small vessel disease. There are no significant ca lvarial abnormalities. Visualized portions of the sinuses and mastoid air cells are clear. IMPRESSION: Expected evolution of the multifocal acute infarcts. No acute intracranial hemorrhage. N o significant mass effect. Electronically signed by: Rakan Champion M.D. 08/18/2018 11:38 AM
[2018-08-18 11:41] LABS: BUN Creatinine Ratio 18.1 (10-20); Calcium 7.8 mg/dl (8.5-10.1); Creatinine Clr Calc Pharmacy 35.8 ml/min; Est GFR (African American) 52.8; Est GFR (Non-African American) 45.6; Potassium 3.5 mmol/L (3.5-5.1)
--- NOTE | 2018-08-18 11:48 | Hospitalist Progress Note ---
Date of Service August 18, 2018 Assessment & Plan (1) Embolic cerebral infarction: presented with confusion ,fall /left sided flaccid paralysis MRI of brain : IMPRESSION: 1. Multiple small acute/subacute infarcts over the right and to a lesser extent left parietal convexity as well as right periventricular region. 2. This appearance is suggestive of watershed type infarct with multiple small foci of ischemic change. 3. Age-related atrophy and chronic small vessel change throughout. pt started on Aspirin/Plavix possible embolic phenomenon -Carotid doppler shows 80% narrowing of rt Internal carotid artery monitor in tele for arrythmia ECHO with bubble study ordered to assess cardiac embolic appreciate Neurolgy eval pt will cont with dual antiplatelets not a candidate for full anticoagulation with Coumadin /DOAC -advanced dementia , worsening of cognition due to CVA , high fall risk added statin Lipitor 40 mg daily ( goal LDL < 70 ) Fasting lipid panel LDL 126 ordered for PT/OT , speech eval will need rehab pt's over all recovery to perform ADL's remains poor may need termite treater helper placement after acute rehab will D/w case management and family ( son ) (2) Metabolic encephalopathy: due to acute CVA presents with confusion with bizarre behaviour , cutting hair , poor Hygeine ammonia level 34 no evidence of infection MRI of brain shows : Multiple small acute/subacute infarcts over the right and to a lesser extent left parietal convexity as well as right periventricular region on aspirin /Plavix /statin Cont PT/OT neuro checks (3) Left arm weakness: Has been having abnormal behavior and dizzy associated with left arm weakness /left neglect due to acute CVA : MRI of brain shows : Multiple small acute/subacute infarcts over the right and to a lesser extent left parietal convexity as well as right periventricular region cont PT/OT will need rehab ( was living at home with son ) (4) Cirrhosis of liver: appreciate input from GI no overt evidence of hepatic encephalopathy ( pt is not stupurus, no asterexis) ordered for Rifaximine cont on Lasix , ordered low salt diet added Aldactone (5) Fall: (6) Injury of left upper arm: Possible related to mechanical Fall Shoulder xray showed no acute fracture or dislocation. Continue pain control Fall precaution PT/OT (7) Hypokalemia: K 2.4 on admission K replaced Monitor BMP (8) HTN (hypertension): BP elevated Possible related to hospital setting Monitor BP (9) Anemia: Hgb on admission 10.8 (10) GERD (gastroesophageal reflux disease): Ran out of PPI Continue PPI (11) ANDREY (acute kidney injury): Cr elevated from Baseline possible due to poor pO intake on Lasix and Aldactone for liver cirrohis /ascities monitor BMP (12) CKD (chronic kidney disease) stage 3, GFR 30-59 ml/min: Cr on admission 1.4 Received IVF Monitor BMP (13) Dysphagia: ordered for speech eval appreciate input on moist /minced diet pt is ordered for NPO for now for lethergy /altered mental status (14) Altered mental status: pt found to be more lethergic /obtunded today unable to follow command ( change from yesterday ) worsening of weakness of left extremity Stat CT head non contrast ordered : FINDINGS: No acute intracranial hemorrhage, midline shift or mass effect is present. Hypodensity with loss of glass-white differentiation is most evident within the right frontal lobe. This represents expected evolution of the infarct shown on MRI of August 16, 2018. The smaller infarcts are better depicted on previous MRI IMPRESSION: Expected evolution of the multifocal acute infarcts. No acute intracranial hemorrhage. No significant mass effect. cont fall /aspiration precaution pt is continued with Aspirin, Palvix , statin neurology following over all prognosis remains poor Present on Admission?: No Subjective pt found to be lethergic sleeping difficult to arouse this morning nursing noted worsening of left extremity Left arm remains completely flaccid with left side neglect weakness note on left leg ( new finding ) during my assessment -pt opened eye to voice , very sleepy able to tell me she is in hospsital no dysarthria noted spo2 95 % in RA Physical Exam 2 Vital Signs (Past 24 Hours): Last Vital Signs Temp 36.9 C 08/18/18 07:43 Pulse 88 08/18/18 07:43 Resp 20 08/18/18 07:43 BP 126/72 08/18/18 07:43 Pulse Ox 98 08/18/18 07:43 Constitutional: + ill appearing, + thin and + altered mental status (very lethergic , opens eyes to voice ) ENMT: external ear and nose normal, oropharynx normal Neck: trachea midline, no thyromegaly Respiratory: normal respiratory effort, lungs clear to auscultation Cardiovascular: RRR, no murmur, no edema Gastrointestinal (Abdomen): Inspection/Auscultation: + abdomen distended (+ ascities ) Percussion/Palpation: abdomen soft; abdomen nontender Musculoskeletal: Head/Neck/Chest: normocephalic and head atraumatic Neurologic: + obtunded (very lethergic, arousable ,) Motor/Sensory: + abnormal movement (left upper extremity flaccid paralysis ) _ (1) Anemia Anemia type: unspecified type Bone marrow failure anemia type: Chronic kidney disease stage: Folate deficiency anemia type: Hemolytic anemia type: Iron deficiency anemia type: Other causes of anemia: Vitamin B12 deficiency anemia type: Qualified Code(s): D64.9 - Anemia, unspecified (2) Dysphagia Dysphagia type: unspecified Qualified Code(s): R13.10 - Dysphagia, unspecified (3) Cirrhosis of liver Ascites presence: Hepatic cirrhosis type: other cirrhosis Qualified Code(s) : K74.69 - Other cirrhosis of liver (4) Embolic cerebral infarction Laterality of affected vessel: Precerebral and cerebral artery: unspecified cerebral artery Qualified Code(s): I63.40 - Cerebral infarction due to embolism of unspecified cerebral artery (5) GERD (gastroesophageal reflux disease) Esophagitis presence: esophagitis presence not specified Qualified Code(s): K21.9 - Gastro-esophageal reflux disease without esophagitis (6) HTN (hypertension) Hypertension type: unspecified Qualified Code(s): I10 - Essential (primary) hypertension (7) Fall Encounter type: initial encounter Qualified Code(s): W19.XXXA - Unspecified fall, initial encounter (8) Injury of left upper arm Encounter type: initial encounter Qualified Code(s): S49.92XA - Unspecified injury of left shoulder and upper arm, initial encounter
--- NOTE | 2018-08-18 16:37 | Neurology Progress Note ---
Date of Service August 18, 2018 Bilateral Watershed Ischemic Strokes Left Sided Neglect Left Upper extremity weakness Dysarthria Bilateral carotid Stenosis (R>L) CKD ANDREY Cirrhosis UTI A 72 year old woman with multiple com-mordbitities including cirrhosis and CKD admitted and found to have bilateral watershed appearing strokes in the setting of high grade ICA stenosis on the right and moderate on the left. - Recommend to continue dual antiplatlet therapy and high intensity statin - TTE completed today. Read pending. - I have reviewed her MRI imaging. My impression is acute bialteral watershed appearing strokes. Appearance of stroke concerning for possible hypotensive episode. - Recommend to avoid Hypotension. - Recommend CTA head and neck if nephrology is ok with it. The incidence of renal sequelae is relatively low in acute stroke patients undergoing emergent multimodal CT scanning. - Recommend vascular surgery consult for acute symptomatic stroke in the setting of hgh grade stenosis. - HA1c 7.8. Goal <7 - Continue telemetry - PT/OT - Patient high risk for delirium Assessment & Plan (1) Embolic cerebral infarction: 1. TTE/stress test done as outpatient per son- no record found in [facility] system 2. carotid doppler for evaluation of neck vessels 3. MRI with multiple strokes in multiple hemispheres- appears to be embolic 4. started on aspirin 81 mg and plavix 75 mg 5. optimize HTN, HLD, DM LDL <70 6. son states she was normal until starting immuno suppression in November. which was prednisone alternating with cyclophosphamide for treatment of glomerulonephritis. It is unclear how long she was taking it 7. CTA head/neck evaluation for any vascular malformation or plaques- due to renal issues will do carotid doppler 8. TTE with bubble study - evaluation of possible clot formation- fall risk - anticoagulation likely not good option 9. [facility]- need records of prior studies an record of health over the past year Subjective Patient was seen and examined. Sleeping but arouses easily. Speech is hard to understand but following commands. Patient concerned wiht being NPO. States she would like a soda. Physical Exam 2 Vital Signs (Past 24 Hours): Last Vital Signs Temp 37.4 C 08/18/18 15:29 Pulse 101 H 08/18/18 15:29 Resp 20 08/18/18 15:29 BP 138/69 08/18/18 15:29 Pulse Ox 95 08/18/18 15:29 Physical Exam: EXAM: Constitutional: appears chronically ill, thin appearing Eyes: normal lids, normal conjunctiva, Respiratory: normal effort Cardiovascular: regular rhythm Abdomen: distended Psychiatric: normal mood NEUROLOGIC EXAMINATION: Appearance: no acute distress Orientation: awake, alert and oriented to person and place Mental Status: alert Attention: decreased Language: comprehension intact, she can repeat Speech: moderate to severe dysarthria Cranial Nerves: CN 2 - no visual defect on confrontation and pupils round, equal CN 3, 4, 6 - extra-ocular movements intact CN 5 - facial sensation intact CN 7 - no obvious left facial droop CN 8 - intact hearing CN 9, 10 - palate symmetric CN 11 - good shoulder shrug CN 12 - tongue midline Gait: deferred Coordination: no tremor or dyskinesia Sensory: some left sided neglect, patient favors right side of bed, left leg crossed over right Muscle Tone: flaccid in left arm Muscle exam: No movement in left arm or hand, Moving bilateral leg and right arm well, Reflexes: No clonus, negative moore _ (1) Embolic cerebral infarction Laterality of affected vessel: Precerebral and cerebral artery: unspecified cerebral artery Qualified Code(s): I63.40 - Cerebral infarction due to embolism of unspecified cerebral artery
[2018-08-19] MEDS ORDERED: TRAMADOL HCL 50 MG TABLET PO PRN (03:01)
[2018-08-19] MEDS: HEPARIN SOD 5,000 UNIT/0.5 ML VIAL SQ SCH (06:12)
[2018-08-19] MEDS: cefTRIAXone SODIUM 1,000 MG in DEXTROSE 5% 50 ML IV SCH (08:40)
[2018-08-19] MEDS: ASPIRIN 81 MG ECTAB PO SCH (08:40)
[2018-08-19] MEDS: CLOPIDOGREL BISULFATE 75 MG TAB PO SCH (08:40)
[2018-08-19] MEDS: PANTOprazole 40 MG TAB PO SCH (08:40)
[2018-08-19] MEDS: ATORVASTATIN 40 MG TAB PO SCH (08:40)
[2018-08-19] MEDS: RIFAXIMIN 550 MG TABLET PO SCH (08:40)
--- NOTE | 2018-08-19 08:44 | XRay Report ---
XR chest 1V portable CLINICAL HISTORY: cough COMPARISON STUDY: 08/15/2018 FINDINGS: The heart is normal in size. There is a subpulmonic right pleural effusion. There are hazy opacities the right lung base, atelectasis versus pneumonia. There is a 6 mm opacity at the right ape x, statistically postinflammatory. There is a retrocardiac opacity consistent with a hiatal hernia.[ IMPRESSION: 1. Subpulmonic right pleural effusion 2. Hazy right lower lung zone opacities, atelectasis versus pneumonia. Clinical and radiographic foll ow-up is recommended Electronically signed by: Rene Maria M.D. 08/19/2018 8:43 AM
--- NOTE | 2018-08-19 09:09 | Hospitalist Progress Note ---
Date of Service August 19, 2018 Assessment & Plan (1) Altered mental status: more awake and alert metabolic encephalopahty due to acute CVA /infection -aspiration pneumonia t CT head non contrast FINDINGS: No acute intracranial hemorrhage, midline shift or mass effect is present. Hypodensity with loss of glass-white differentiation is most evident within the right frontal lobe. This represents expected evolution of the infarct shown on MRI of August 16, 2018. The smaller infarcts are better depicted on previous MRI IMPRESSION: Expected evolution of the multifocal acute infarcts. No acute intracranial hemorrhage. No significant mass effect. cont fall /aspiration precaution pt is continued with Aspirin, Palvix , statin (2) Aspiration pneumonia: developed moist cough today Cxray shows rt lower lobe infiltrate suspicion for aspiration started on IV Unasyn speech eval done , was started on moist minced diet with aspiration precaution possible aspiration of oral secretion yesterday , as pt was obtunded , unresponsive ( was NPO yesterday for altered mental status strict aspiration precaution will order VFSS for tuesday Present on Admission?: No (3) Embolic cerebral infarction: presented with confusion ,fall /left sided flaccid paralysis MRI of brain : IMPRESSION: 1. Multiple small acute/subacute infarcts over the right and to a lesser extent left parietal convexity as well as right periventricular region. 2. This appearance is suggestive of watershed type infarct with multiple small foci of ischemic change. 3. Age-related atrophy and chronic small vessel change throughout. pt started on Aspirin/Plavix possible embolic phenomenon -Carotid doppler shows 80% narrowing of rt Internal carotid artery monitor in tele for arrythmia ECHO with bubble study ordered to assess cardiac embolic appreciate Neurolgy eval recommend CTA of head and neck if renal function stable pt will cont with dual antiplatelets not a candidate for full anticoagulation with Coumadin /DOAC -advanced dementia , worsening of cognition due to CVA , high fall risk added statin Lipitor 40 mg daily ( goal LDL < 70 ) Fasting lipid panel LDL 126 got PT/OT , speech eval will need rehab pt's over all recovery to perform ADL's remains poor may need care home placement after acute rehab D/w case management and family ( son/daughter ) wants referral to be made for [facility] Present on Admission?: Yes (4) Metabolic encephalopathy: due to acute CVA presents with confusion with bizarre behaviour , cutting hair , poor Hygeine ammonia level 34 Cxray shows Rt lower lobe infiltrate -on Usanyn MRI of brain shows : Multiple small acute/subacute infarcts over the right and to a lesser extent left parietal convexity as well as right periventricular region on aspirin /Plavix /statin Cont PT/OT neuro checks Present on Admission?: Yes (5) Left arm weakness: Has been having abnormal behavior and dizzy associated with left arm weakness /left neglect due to acute CVA : MRI of brain shows : Multiple small acute/subacute infarcts over the right and to a lesser extent left parietal convexity as well as right periventricular region cont PT/OT will need rehab ( was living at home with son ) referral made to [facility] Present on Admission?: Yes (6) Cirrhosis of liver: appreciate input from GI no overt evidence of hepatic encephalopathy ( pt is not stupurus, no asterexis) ordered for Rifaximine will hold Lasix and Aldactone to prevent hypotension /cerebral ischemia in a setting of acute CVA (7) Fall: (8) Injury of left upper arm: Possible related to mechanical Fall Shoulder xray showed no acute fracture or dislocation. Continue pain control Fall precaution PT/OT (9) Hypokalemia: K 2.4 on admission K replaced Monitor BMP (10) HTN (hypertension): allow permissive HTN in setting of acute CVA Present on Admission?: Yes (11) Anemia: Hgb on admission 10.8 (12) GERD (gastroesophageal reflux disease): Ran out of PPI Continue PPI (13) ANDREY (acute kidney injury): Cr elevated from Baseline possible due to poor pO intake on Lasix and Aldactone for liver cirrohis /ascities monitor BMP (14) CKD (chronic kidney disease) stage 3, GFR 30-59 ml/min: Cr on admission 1.4 Received IVF Monitor BMP (15) Dysphagia: ordered for speech eval appreciate input on moist /minced diet was ordered for NPO for lethergy /altered mental status Cxray shows rt lower lobe infiltrate , possible aspiration ordered for VFSS in AM CODE STATUS : full code DISPOSITION : will need rehab than transition to long term care social worker care referral made to [facility] Present on Admission?: Yes Subjective awake and alert today oriented to place and person with baseline confusion aware that she is in hospital left arm remains flaccid moving both lower extremities , with normal strength against resistance on left leg noted to have non productive cough afebrile Physical Exam 2 Vital Signs (Past 24 Hours): Last Vital Signs Temp 36.6 C 08/19/18 07:00 Pulse 77 08/19/18 07:00 Resp 18 08/19/18 07:00 BP 159/73 H 08/19/18 07:00 Pulse Ox 94 08/19/18 07:00 Constitutional: WD/WN, vitals as above + ill appearing, + thin and cooperative Eyes: PERRL, conjunctivae normal, anicteric sclerae Respiratory: + cough; no respiratory distress Auscultation: + rales Cardiovascular: RRR, no murmur, no edema Gastrointestinal (Abdomen): Inspection/Auscultation: + abdomen distended (+ ascities ) and normal bowel sounds Percussion/Palpation: abdomen soft; abdomen nontender and no guarding Musculoskeletal: Head/Neck/Chest: normocephalic and head atraumatic Skin: no rashes, warm and dry no jaundice Neurologic: PERRL, EOMI, accommodation nl, no face palsy, no dysarthria Motor/Sensory: + abnormal movement (left upper extremity flaccid paralysis ); no asterixis Psychiatric: Orientation: alert, oriented to person, oriented to place and cooperative; + not oriented to time Affect: + flat affect Lymphatic: no lymphedema _ (1) Embolic cerebral infarction Precerebral and cerebral artery: unspecified cerebral artery Laterality of affected vessel: Qualified Code(s): I63.40 - Cerebral infarction due to embolism of unspecified cerebral artery (2) Cirrhosis of liver Hepatic cirrhosis type: other cirrhosis Ascites presence: Qualified Code(s) : K74.69 - Other cirrhosis of liver (3) Fall Encounter type: initial encounter Qualified Code(s): W19.XXXA - Unspecified fall, initial encounter (4) Injury of left upper arm Encounter type: initial encounter Qualified Code(s): S49.92XA - Unspecified injury of left shoulder and upper arm, initial encounter (5) HTN (hypertension) Hypertension type: unspecified Qualified Code(s): I10 - Essential (primary) hypertension (6) Anemia Anemia type: unspecified type Iron deficiency anemia type: Vitamin B12 deficiency anemia type: Folate deficiency anemia type: Bone marrow failure anemia type: Hemolytic anemia type: Other causes of anemia: Chronic kidney disease stage: Qualified Code(s): D64.9 - Anemia, unspecified (7) GERD (gastroesophageal reflux disease) Esophagitis presence: esophagitis presence not specified Qualified Code(s): K21.9 - Gastro-esophageal reflux disease without esophagitis (8) Dysphagia Dysphagia type: unspecified Qualified Code(s): R13.10 - Dysphagia, unspecified (9) Altered mental status Altered mental status type: unspecified Qualified Code(s): R41.82 - Altered mental status, unspecified (10) Aspiration pneumonia Aspiration pneumonia type: unspecified Laterality: right Lung location: lower lobe of lung Qualified Code(s): J69.0 - Pneumonitis due to inhalation of food and vomit
[2018-08-19 09:30] LABS: BUN Creatinine Ratio 19.9 (10-20); Calcium 8.2 mg/dl (8.5-10.1); Creatinine Clr Calc Pharmacy 39.3 ml/min; Est GFR (African American) 58.7; Est GFR (Non-African American) 50.7; Potassium 3.5 mmol/L (3.5-5.1)
[2018-08-19 10:13] LABS: Hematocrit (blood only) 28.8 % (37-47); Hemoglobin 9.5 g/dL (12.0-16.0); Mean Corpuscular Volume 93.8 fL (80-100); Mean Platelet Volume 9.7 fL (7.4-10.4); Platelet Count 150 K/uL (130-400); RDW Coefficient of Variation 14.9 % (11.5-14.5); RDW Standard Deviation 50.9 fL (36.4-46.3); Red Blood Count 3.07 M/uL (4.2-5.4); White Blood Count 6.81 K/uL (4.8-10.8)
[2018-08-19] MEDS: AMPICILLIN/SULBACTAM SOD 1,500 MG in 0.9 % SODIUM CHLORIDE 100 ML IV SCH ×2 (11:08→16:11)
[2018-08-19] MEDS ORDERED: IOVERSOL 100ml IV PRN (11:10)
--- NOTE | 2018-08-19 11:14 | CT Scan Report ---
CT angio head w con CLINICAL HISTORY: Acute stroke. Worsening left-sided weakness. TECHNIQUE: CT angiography of the head was performed in a dynamic helical fashion during intravenous a dministration of 95 cc of Optiray 320. MIP imaging was performed. A dose lowering technique was utili zed adhering to the principles of ALARA. CT DOSE: COMPARISON STUDY: Noncontrast head CT dated 08/18/2018 FINDINGS: There are no lesion suspicious for aneurysm. The dural venous sinuses appear patent. There is a hypoplastic left A1 segment. There is a basilar stenosis at the vertebral confluence. There is a second more distal basilar stenosis. There is loss of glass-white differentiation in the high right f rontoparietal region consistent with areas of subacute infarction. IMPRESSION: 1. Hypoplastic left A1 segment 2. Basilar artery stenotic lesions 3. No evidence of aneurysm 4. Subacute infarct in the right cerebral convexity. Electronically signed by: Rene Maria M.D. 08/19/2018 11:13 AM
--- NOTE | 2018-08-19 11:32 | CT Scan Report ---
CT angio neck with con CLINICAL HISTORY: acute CVA COMPARISON STUDY: No previous studies for comparison. TECHNIQUE: CT angiography was performed from the aortic arch to the skull base. MIP imaging was perfo rmed. The patient was scanned in a dynamic helical fashion during intravenous administration of 95 cc of Optiray 320. A dose lowering technique was utilized adhering to the principles of ALARA. CT DOSE: 323.99 mGy.cm Technique: CT angiogram of the carotid and vertebral arteries was obtained using intravenous contrast and 3-D reconstruction. NASCET criteria was utilized. Findings: Visualized portions lung apices reveal a moderate right pleural effusion. There are dense calcifications at the level of the right carotid bulb. There is an 80% percent narrow ing of the right internal carotid artery origin. There is a 5 mm thrombus just distal to the origin s tenosis. There is a 50% stenosis of the left common carotid origin. There are atheromatous changes the level o f the left carotid bulb, but no evidence of hidden avidly significant stenosis. There is a dominant left vertebral artery. There is a basilar stenosis at the vertebral junction. Incidental note is made of a 9 mm left lobe thyroid nodule. IMPRESSION: 1. 80% stenosis involving the right internal carotid artery origin. There is a 5 mm thrombus just dis nabil to the stenosis. 2. 50% stenosis of the left common carotid origin 3. Dominant left vertebral artery. Basilar stenosis at the vertebral junction. Electronically signed by: Rene Maria M.D. 08/19/2018 11:30 AM
[2018-08-19] MEDS ORDERED: Heparin IV Low Dose *NO* Bolus SCH (11:36)
[2018-08-19] MEDS ORDERED: HEPARIN LOW DOSE DEXTROSE 25,000 UNITS/500 ML IV SCH (12:06)
[2018-08-19 12:39] LABS: Partial Thromboplastin Ratio 1.2
--- NOTE | 2018-08-19 13:05 | Discharge Summary ---
Date of Service August 19, 2018 Admission HPI Per Admitting Provider 72 year old female with PMH of liver cirrhosis, CKD stage 3, Anemia, Vit D, Hyperlipidemia presents to the Emergency Room via EMS after she had a fall. Pt lives with his son. Pt said that while getting out of bed, she felt dizzy and fell. Pt said that she felt too weak and was not able to pull herself up after the fall. Son said that she was out when she fell today and when she got back to the house she was lying on her left side. Son said that that she probably stayed on the floor for about 1 hr. She said that she hit her left shoulder when she fell. She said that she did not pass out. Son said that Pt has been falling lately. She said that she has been feeling weak and dizzy lately. Son said that she has been acting very strange lately. Her behavior is abnormal lately. She has been defecated on the floor and very poor hygiene lately. She has not been shower for month. She cannot move her left upper extremity. She said that her left upper extremity feels weak and numb. She has to use her RUE for support to lift her left arm. Sons said that her behavior is very strange lately and she does not make sense most of the time. She removes her dirty diapers and dropped them on the floor. She said that you cannot use the bathroom because there are stool all over the floor. Son said that pt has been refused to go to see her daughter or come to the hospital for help. Pt has been vomiting everytime she eats. She said that she feels food stuck in her throat. Also complaint of abdominal discomfort across her abdomen. Both sons feel her abdominal distention is worst. She only takes her lasix. She denies any chest pain, palpitation, fever, slurred speech, blurry vision and SOB. Principal Diagnosis ACUTE CVA /RIGHT INTERNAL CAROTID STENOSIS /RT ICA DISTAL THROMBUS Discharge Exam Constitutional WD/WN, vitals as above + ill appearing, + thin, + altered mental status (very lethergic , opens eyes to voice ), well groomed, cooperative and comfortable Eyes PERRL, conjunctivae normal, anicteric sclerae ENMT external ear and nose normal, oropharynx normal Neck trachea midline, no thyromegaly Respiratory normal respiratory effort, lungs clear to auscultation + cough; no respiratory distress Auscultation: + rales Cardiovascular RRR, no murmur, no edema Gastrointestinal (Abdomen) Inspection/Auscultation: + abdomen distended (+ ascities ) and normal bowel sounds Percussion/Palpation: abdomen soft; abdomen nontender and no guarding Musculoskeletal Head/Neck/Chest: normocephalic and head atraumatic Skin no rashes, warm and dry no jaundice Neurologic PERRL, EOMI, accommodation nl, no face palsy, no dysarthria + obtunded (very lethergic, arousable ,) Motor/Sensory: + abnormal movement (left upper extremity flaccid paralysis ); no asterixis Psychiatric Orientation: alert, oriented to person, oriented to place and cooperative; + not oriented to time Affect: euthymic affect and + flat affect Lymphatic no lymphedema Discharge Data Allergies Allergy/AdvReac Type Severity Reaction Status Date / Time No Known Allergies Allergy Unverified 08/15/18 20:19 Consultations 08/15/18 17:52 ED Decision to Admit Stat 08/15/18 22:52 Consult Case Management - Discharge Planning Routine Consult Gastroenterology Routine 08/17/18 08:54 Consult Neurology Routine Ordered Studies 08/15/18 16:15 CT cervical spine wo con Stat CT head/brain wo con Stat 08/16/18 US abdomen complete Routine 08/16/18 05:07 MR brain wo con Routine 08/16/18 13:20 MR abdomen wo/w con Routine 08/17/18 13:56 US carotid doppler BI Routine 08/18/18 10:57 CT head/brain wo con Stat 08/19/18 09:43 CT angio head w con Routine CT angio neck with con Routine 08/21/18 09:00 FL video swallow Routine Hospital Course (1) Stenosis of right internal carotid artery with cerebral infarction: presented with acute CVA MRI of brain show Rt sided embolic stroke CTA of neck: IMPRESSION: 1. 80% stenosis involving the right internal carotid artery origin. There is a 5 mm thrombus just distal to the stenosis. 2. 50% stenosis of the left common carotid origin 3. Dominant left vertebral artery. Basilar stenosis at the vertebral junction. pt remains high risk for recurrent CVA D/w with Neurology Dr Patel and Vascular surgery Dr Joel pt will need Neuro intervention ( not available at [facility] ) needs to be transferred to Tertiary care , preferebly [place], [facility] for continuation of care [facility] contacted Case D/w part time receptionist neuology Dr Tammi Pearce and Hospitalist Dr Esteban Bennett pt is accepted for transfer will be transferred via ground IV heparin D/breezy as there is no benefit in this scenario, increase risk of bleed Family and patient updated at bedside in agreement with the transfer (2) Altered mental status: more awake and alert metabolic encephalopahty due to acute CVA /infection -aspiration pneumonia t CT head non contrast FINDINGS: No acute intracranial hemorrhage, midline shift or mass effect is present. Hypodensity with loss of glass-white differentiation is most evident within the right frontal lobe. This represents expected evolution of the infarct shown on MRI of August 16, 2018. The smaller infarcts are better depicted on previous MRI IMPRESSION: Expected evolution of the multifocal acute infarcts. No acute intracranial hemorrhage. No significant mass effect. cont fall /aspiration precaution pt is continued with Aspirin, Palvix , statin Transfer to [place] today for further neuro eval /care (3) Aspiration pneumonia: developed moist cough today Cxray shows rt lower lobe infiltrate suspicion for aspiration started on IV Unasyn speech eval done , was started on moist minced diet with aspiration precaution possible aspiration of oral secretion yesterday , as pt was obtunded , unresponsive ( was NPO yesterday for altered mental status strict aspiration precaution update given to accepting physician in [facility] will benefit with Video swallow study to r/o silent aspiration (4) Embolic cerebral infarction: presented with confusion ,fall /left sided flaccid paralysis MRI of brain : IMPRESSION: 1. Multiple small acute/subacute infarcts over the right and to a lesser extent left parietal convexity as well as right periventricular region. 2. This appearance is suggestive of watershed type infarct with multiple small foci of ischemic change. 3. Age-related atrophy and chronic small vessel change throughout. pt started on Aspirin/Plavix possible embolic phenomenon -Carotid doppler shows 80% narrowing of rt Internal carotid artery monitor in tele for arrythmia ECHO with bubble study ordered to assess cardiac embolic appreciate Neurolgy eval pt is being transferred to [facility] today pt will cont with dual antiplatelets added statin Lipitor 40 mg daily ( goal LDL < 70 ) Fasting lipid panel LDL 126 (5) Metabolic encephalopathy: due to acute CVA presents with confusion with bizarre behaviour , cutting hair , poor Hygeine ammonia level 34 Cxray shows Rt lower lobe infiltrate -on Usanyn MRI of brain shows : Multiple small acute/subacute infarcts over the right and to a lesser extent left parietal convexity as well as right periventricular region on aspirin /Plavix /statin Cont PT/OT neuro checks (6) Left arm weakness: Has been having abnormal behavior and dizzy associated with left arm weakness /left neglect due to acute CVA : MRI of brain shows : Multiple small acute/subacute infarcts over the right and to a lesser extent left parietal convexity as well as right periventricular region (7) Cirrhosis of liver: appreciate input from GI no overt evidence of hepatic encephalopathy ( pt is not stupurus, no asterexis) ordered for Rifaximine will hold Lasix and Aldactone to prevent hypotension /cerebral ischemia in a setting of acute CVA (8) Fall: (9) Injury of left upper arm: Possible related to mechanical Fall Shoulder xray showed no acute fracture or dislocation. Continue pain control Fall precaution PT/OT (10) Hypokalemia: K 2.4 on admission K replaced Monitor BMP (11) HTN (hypertension): allow permissive HTN in setting of acute CVA (12) Anemia: Hgb on admission 10.8 (13) GERD (gastroesophageal reflux disease): Ran out of PPI Continue PPI (14) ANDREY (acute kidney injury): Cr elevated from Baseline possible due to poor pO intake on Lasix and Aldactone for liver cirrohis /ascities monitor BMP (15) CKD (chronic kidney disease) stage 3, GFR 30-59 ml/min: Cr on admission 1.4 Received IVF Monitor BMP (16) Dysphagia: ordered for speech eval appreciate input on moist /minced diet was ordered for NPO for lethergy /altered mental status Cxray shows rt lower lobe infiltrate , possible aspiration will benefit with VFSS ( video fluro swallow study ) CODE STATUS : full code DISPOSITION : PT IS TRANSFERRED TO [facility] TODAY Current Inpatient Medications [facility] [place]: 09/16/18 08:59 Last Admin: 08/19/18 08:40 Dose: 81 mg Atorvastatin Calcium (Lipitor) [facility] [place]: 09/16/18 08:59 Last Admin: 08/19/18 08:40 Dose: 40 mg Clopidogrel Bisulfate (Plavix) 75 mg PO QAM [facility] Stop: 09/16/18 08:59 Last Admin: 08/19/18 08:40 Dose: 75 mg Furosemide (Lasix) 20 mg PO DAILY [facility] Stop: 09/17/18 08:59 Last Admin: 08/18/18 09:18 Dose: 20 mg Ceftriaxone Sodium 1,000 mg/ (Dextrose) 60 mls @ 100 mls/hr IV DAILY [facility] Stop: 08/22/18 09:14 Last Infusion: 08/19/18 09:34 Dose: Infused Ampicillin Sodium/Sulbactam Sodium 1,500 mg/ Sodium Chloride 104 mls @ 200 mls/ hr IV Q6H [facility]; Protocol Stop: 08/26/18 09:59 Last Infusion: 08/19/18 11:43 Dose: Infused Ioversol (Optiray 320 100ml) 95 ml IV ONCE PRN PRN Reason: Interaction Checking Stop: 08/23/18 11:09 Last Admin: 08/19/18 11:11 Dose: 95 ml Pantoprazole Sodium (Protonix) 40 mg PO DAILY [facility] Stop: 09/15/18 08:59 Last Admin: 08/19/18 08:40 Dose: 40 mg Rifaximin (Xifaxan) 550 mg PO BID [facility] Stop: 09/15/18 20:59 Last Admin: 08/19/18 08:40 Dose: 550 mg Spironolactone (Aldactone) 50 mg PO DAILY [facility] Stop: 09/17/18 08:59 Last Admin: 08/18/18 09:18 Dose: 50 mg Tramadol HCl (Ultram) 50 mg PO Q6H PRN PRN Reason: Pain Stop: 09/18/18 03:00 Last Admin: 08/19/18 03:26 Dose: 50 mg Total Time Total Time Spent Total Time Spent (In Minutes): 40 MINS Total Time Includes: Examination of the Patient, Discharge Planning, Medication Reconciliation and Communication With Other Providers Discharge Plan Discharge Items Patient Disposition: Transfer Acute Care Hospital Reason For Visit: FALL/ABNORMAL BEHAVIOR Discharge Diagnosis: ACUTE CVA ( RT SIDED ) /RIGHT INTERNAL CAROTID STENOSIS , INTERNAL CAROTID THROMBUS Discharge Goals: Diagnostic testing and Therapeutic intervention Activity: As commented below Activity Comment: CONTINUE PHYSICAL /OCCUPATIONAL THERAPY /SPEECH THERAPY Non-emergency contact: Primary Care Provider Call non-emergency contact if: you have any medication questions Diet: Heart Healthy Diet Texture: Dental soft (bite-sized) Addtl Provider Instructions: TRANSFER TO [facility] FOR NEURO INTERVENTION ACCEPTING PHYSICIAN DR ESTEBAN BENNETT -HOSPITALIST ACUTE CARE NEUROLOGY : DR MARCELA PEARCE Prescriptions: New atorvastatin 40 mg Tablet 40 mg PO QAM 30 Days Qty: 30 RF: 0 clopidogrel 75 mg Tablet 75 mg PO QAM 30 Days Qty: 30 RF: 0 aspirin [Ecotrin Low Strength] 81 mg Tablet,Delayed Release (Dr/Ec) 81 mg PO QAM 30 Days Qty: 30 RF: 0 rifaximin [Xifaxan] 550 mg Tablet 550 mg PO BID 30 Days Qty: 60 RF: 0 Continue pantoprazole [Protonix] 40 mg tablet,delayed release (DR/EC) 40 mg PO DAILY RF: 0 No Action spironolactone [Aldactone] 25 mg tablet 12.5 mg PO DAILY RF: 0 furosemide [Lasix] 20 mg tablet 10 mg PO DAILY RF: 0 Stand-Alone Forms: [facility] Discharge Orders: Discharge Order (Routine); Ordered 08/19/18 Ordered By: Michelle Little Admission Data Admit Date/Time: 08/15/18 19:46 Attending Provider: Michelle Little Admit Provider: Dana Vigil Primary Care Provider: Tiny Shields Other Providers: IRB Approved Study,Manuel ; Dana Vigil ; Piotr Sibley ; Grace Landa ; Low Arrington ; Grace Bennett ; Sera Pavon ; Jose Cruz Patel ; Vanesa Hudson Service: Telemetry
--- NOTE | 2018-08-19 13:52 | Neurology Progress Note ---
Date of Service August 19, 2018 Bilateral Watershed or Embolic Strokes Left Sided Neglect Left Upper extremity weakness Right ICA thrombus Bilateral carotid Stenosis (R>L) CKD ANDREY Cirrhosis UTI A 72 year old woman with multiple com-mordbitities including cirrhosis and CKD admitted and found to have bilateral embolic appearing strokes in the setting of bilateral ICA stenosis (severe on the right) with right ICA thrombus. - Left arm remains flaccid with some sensory deficits. Left sided negelect appears improved today. Speech is improved. - CTA head and neck reviewed and discussed with family and patient. My impression is severe stenosis of the proximal right ICA with large right ICA thrombus. Moderate stenosis on the left. - Plan is for transfer to [facility] [place] for Neuro endovascular consultation. - Recommend to continue dual antiplatlet therapy and high intensity statin for now. - TTE completed today. Read pending. Plan is for possible [facility] in [place]. - SBP goal <140, DBP goal <90; Avoid hypotension - HA1c 7.8. Goal <7 - Continue telemetry - Continue Neuro checks Assessment & Plan (1) Embolic cerebral infarction: 1. TTE/stress test done as outpatient per son- no record found in [facility] system 2. carotid doppler for evaluation of neck vessels 3. MRI with multiple strokes in multiple hemispheres- appears to be embolic 4. started on aspirin 81 mg and plavix 75 mg 5. optimize HTN, HLD, DM LDL <7 Assessment & Plan (1) Embolic cerebral infarction: 1. TTE/stress test done as outpatient per son- no record found in [facility] system 2. carotid doppler for evaluation of neck vessels 3. MRI with multiple strokes in multiple hemispheres- appears to be embolic 4. started on aspirin 81 mg and plavix 75 mg 5. optimize HTN, HLD, DM LDL <70 6. son states she was normal until starting immuno suppression in November. which was prednisone alternating with cyclophosphamide for treatment of glomerulonephritis. It is unclear how long she was taking it 7. CTA head/neck evaluation for any vascular malformation or plaques- due to renal issues will do carotid doppler 8. TTE with bubble study - evaluation of possible clot formation- fall risk - anticoagulation likely not good option 9. [facility]- need records of prior studies an record of health over the past year Subjective Patient was seen and examined. Awake and talkative. Family at bedside. 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 No improvement in left arm. Left arm appeasr more swollen per family. Otherwise denies any new complaints or concenrs. Physical Exam 2 Vital Signs (Past 24 Hours): Last Vital Signs Temp 36.6 C 08/19/18 11:36 Pulse 73 08/19/18 11:36 Resp 16 08/19/18 11:36 BP 137/80 08/19/18 11:36 Pulse Ox 99 08/19/18 11:36 Physical Exam: EXAM: Constitutional: appears chronically ill, thin female Eyes: normal lids, normal conjunctiva, Respiratory: normal effort Cardiovascular: regular rhythm Abdomen: distended Extremities: left hand mildy swollen, not tender to palpation, temperature seems normal Psychiatric: normal mood NEUROLOGIC EXAMINATION: Appearance: no acute distress Orientation: awake, alert and oriented to person and place Mental Status: alert Attention: Improved Language: comprehension intact, she can repeat, following commands Speech: mild dysarthria Cranial Nerves: CN 2 - no visual defect on confrontation and pupils round, equal CN 3, 4, 6 - extra-ocular movements intact, no nystagmus CN 5 - facial sensation intact CN 7 - face symmetric with smile CN 8 - intact hearing CN 9, 10 - palate symmetric CN 11 - good shoulder shrug CN 12 - tongue midline Gait: deferred Coordination: no tremor or dyskinesia, unable to perform finger to nose on left Sensory: some left sided neglect, patient favors right side of bed, has some extinction on the left, reduced sensation in left arm Muscle Tone: left upper extremity is flaccid Muscle exam: No movement in left arm or hand, Moving bilateral leg and right arm well, Reflexes: No clonus, negative moore _ (1) Embolic cerebral infarction Laterality of affected vessel: Precerebral and cerebral artery: unspecified cerebral artery Qualified Code(s): I63.40 - Cerebral infarction due to embolism of unspecified cerebral artery
== END 2018-08-19 20:30 | disposition short-term general hospital (02) | DRG 64 ==
LOC: ED 15:51 → SUATTDRO 19:46 → 2W 19:46

== ENCOUNTER 2018-09-18 11:29 | Inpatient (IN) ==
--- NOTE | 2018-09-18 12:30 | XRay Report ---
XR chest 1V portable HISTORY: weakness COMPARISON: Chest 08/19/2018. FINDINGS: No pneumothorax. The heart is normal in size. Moderate hiatus hernia, unchanged. The left l luis is clear. Improved aeration within the right medial lung base. Suspect trace bilateral pleural ef fusions. No evidence for pulmonary edema. IMPRESSION: 1. Improved aeration within the right medial lung base suggesting a resolving pneumonitis. 2. Suspect trace bilateral pleural effusions. Electronically signed by: Constantin Brown M.D. 09/18/2018 12:28 PM
[2018-09-18 12:31] LABS: Hematocrit (blood only) 21.1 % (37-47); Hemoglobin 6.8 g/dL (12.0-16.0); Mean Corpuscular Hgb Conc 32.2 g/dL (32-36); Mean Corpuscular Volume 92.5 fL (80-100); Mean Platelet Volume 9.7 fL (7.4-10.4); Platelet Count 201 K/uL (130-400); RDW Coefficient of Variation 16.4 % (11.5-14.5); RDW Standard Deviation 54.3 fL (36.4-46.3); Red Blood Count 2.28 M/uL (4.2-5.4); White Blood Count 7.66 K/uL (4.8-10.8)
[2018-09-18 12:32] LABS: Alanine Aminotransferase 30 U/L (12-78); Albumin Level 1.3 gm/dl (3.4-5.0); Aspartate Aminotransferase 52 U/L (15-37); BUN Creatinine Ratio 18.8 (10-20); Blood Urea Nitrogen 26 mg/dl (7-18); Calcium 7.4 mg/dl (8.5-10.1); Carbon Dioxide 24 mmol/L (21-32); Chloride 105 mmol/L (98-107); Est GFR (African American) 44.5; Est GFR (Non-African American) 38.4; Glucose 94 mg/dl (70-99); Magnesium 1.8 mg/dl (1.8-2.4); Potassium 3.5 mmol/L (3.5-5.1); Sodium 138 mmol/L (136-145)
[2018-09-18 12:40] LABS: Partial Thromboplastin Time 24.8 Seconds (21.0-31.0); Prothrombin Time 10.1 Seconds (9.0-12.0)
[2018-09-18] MEDS ORDERED: SODIUM CHLORIDE 0.9% 250 ML IV PRN ×2 (12:40→15:47)
[2018-09-18 12:43] LABS: Albumin Globulin Ratio 0.3 (0.9-2); Alkaline Phosphatase 159 U/L (45-117); Bilirubin,Total 0.3 mg/dl (0.2-1); Globulin 4.2 gm/dl (2.5-4.0); Total Protein 5.5 gm/dl (6.4-8.2); Troponin I 0.017 ng/ml (0-0.045)
[2018-09-18] MEDS ORDERED: PANTOprazole 80 MG in DEXTROSE 5% 100 ML IV STA (12:46)
[2018-09-18] MEDS ORDERED: PANTOprazole 40 MG in DEXTROSE 5% 100 ML IV STA (12:46)
[2018-09-18 13:14] LABS: Basophils # (auto) 0.02 K/uL (0-0.2); Basophils % (auto) 0.3 %; Eosinophils # (auto) 0.12 K/uL (0-0.5); Eosinophils % (auto) 1.6 %; Immature Granulocytes # (auto) 0.03 K/uL (0.00-0.02); Immature Granulocytes % (auto) 0.4 %; Lymphocytes # (auto) 1.31 K/uL (1.2-3.4); Lymphocytes % (auto) 17.1 %; Monocytes # (auto) 0.75 K/uL (0.11-0.59); Monocytes % (auto) 9.8 %; Neutrophils # (auto) 5.43 K/uL (1.4-6.5); Neutrophils % (auto) 70.8 %; RBC Morphology Unremarkable
--- NOTE | 2018-09-18 14:32 | History & Physical Report ---
Addendum entered and electronically signed by Rachel Ash PA-C 09/18/18 16 :40: Addendum (Blank) Addendum September 18, 2018 16:39 Pt to be followed by Dr. Michelle Little, starting tomorrow. Kris Ash PA-C Original Note: Date of Service September 18, 2018 Assessment & Plan (1) Acute GI bleeding: Pt presents with 2 g drop in hemoglobin and dark heme positive stool on rectal exam in ED - history of GAVE s/p multiple treatments with APC, newly diagnosed cirrhosis in 2018. - Consult GI for possible endoscopy - spoke with MICHELLE Luther who saw patient in ED. Plan for EGD in AM - Protonix gtt. - Clear liquids today then NPO after midnight. - Defer possible octreotide to GI service - pt with no known history of varices but has had ascites in the past (2) Anemia: Pt with chronic anemia but new 2 g drop noted on routine labs today - suspect due to blood loss - 1 unit transfusion ordered by ED - Follow H&H Q12 hours (3) Embolic cerebral infarction: Recent embolic CVAs noted in August - was placed on aspirin, plavix at that time - HOLD anti-platelets for now due to potential active GI blood loss - Will determine timing of possible resumption once source of bleeding identified (4) Cirrhosis of liver: - Hold diuretics for now and monitor for worsening ascites - Mental status appears at baseline with no worsening of chronic confusion - ammonia level 17 (5) CKD (chronic kidney disease) stage 3, GFR 30-59 ml/min: Creatinine today 1.37 - on 09/15 was 1.6, on 09/11 was 1.4 - Continue to monitor daily Plan: Plan - Rachel Ash PA-C: Patient reviewed with collaborating physician, Dr. Barksdale. Plan of care discussed and as outlined above. Pt will be followed by Dr. Chow starting tomorrow. Kris Ash PA-C History of Present Illness Primary Care Provider: PCP - Tiny Shields, DO 72 y/o female recentlly admitted with embolic stroke and subsequently transferred to [place] who presented via EMS from [facility] today with progressive anemia and concern for GI bleed. Pt has a history of GAVE syndrome for which she undergone multiple EGDs with APC therapy in the past. Last EGD by Dr. Gonzalez revealed GAVE syndrome (APC done) and Gamino's esophagus. Pt was diagnosed with cirrhosis thought secondary to alcohol in 2018 but has been non-compliant with follow-up in their office. Over the past several weeks to months, family has apparently been noting progressive bizarre behaviors including smearing feces and dropping her soiled diapers around the house. She then developed multiple falls and left UE weakness and was brought to the ED last month. She was subsequently diagnosed with multiple acute embolic infarcts and right internal carotid stenosis with distal thrombus and transferred to [place] for potential neurosurgery evaluation. At [facility], neurosurgery did not recommend surgical intervention for carotid stenosis. neurology recommended to continue aspirin, Plavix, Lipitor and Pepcid. From [place], she was discharged to [facility] for rehab. Today at [facility], she was noted to have a significant drop in Hgb to 6.1 (was 8.2 on 09/11/18) so referred to the ED for possible GI bleed. They did not note any dark or bloody BMs at [facility]. Pt is a poor historian but does deny abdominal pain, nausea , vomiting, melena or hematochezia. Allergies Allergy/AdvReac Type Severity Reaction Status Date / Time No Known Allergies Allergy Unverified 09/18/18 12:46 Home Medications Home Medications Medication Instructions Recorded Confirmed Type furosemide [Lasix] 10 mg PO DAILY 08/15/18 09/18/18 History pantoprazole [Protonix] 40 mg PO DAILY 08/15/18 09/18/18 History spironolactone [Aldactone] 12.5 mg PO DAILY 08/15/18 09/18/18 History aspirin 81 mg PO DAILY 09/18/18 09/18/18 History atorvastatin 40 mg PO PM 09/18/18 09/18/18 History clopidogrel 75 mg PO DAILY 09/18/18 09/18/18 History famotidine 20 mg PO BID 09/18/18 09/18/18 History hydroxyzine HCl 25 mg PO QID PRN 09/18/18 09/18/18 History Past Med/Surg History Medical History Stenosis of right internal carotid artery with cerebral infarction Aspiration pneumonia (Acute) Altered mental status (Acute) Embolic cerebral infarction (Acute) Metabolic encephalopathy Dysphagia (Chronic) ANDREY (acute kidney injury) Acquired hypothyroidism (Chronic) Hyperlipidemia (Chronic) Anemia (Chronic) GERD (gastroesophageal reflux disease) (Chronic) Vitamin deficiency (Chronic) CKD (chronic kidney disease) stage 3, GFR 30-59 ml/min (Chronic) Cirrhosis of liver (Chronic) Left arm weakness (Acute) Orthostatic hypotension (Acute) Injury of left upper arm (Acute) Fall (Acute) Hypokalemia (Acute) Fluid filled abdomen (Chronic) HTN (hypertension) (Chronic) Postural hypotension (Resolved) UTI (urinary tract infection) (Resolved) GAVE (gastric antral vascular ectasia) No pertinent family history Family History Other No pertinent family history Social History marital status: / Current Living Situation: Personal Care Facility Feels Safe at Home: Yes Smoking Status: Never smoker Hx Alcohol Use: No Hx Substance Use: No Beliefs That Will Affect Care: None Preferred Language: Yoruba Review of Systems Unobtainable due to cognitive status (limited ROS obtained - unsure about reliability of answers) Constitutional: no fever and no chills Cardiovascular: no chest pain, no dyspnea, no palpitations, no lightheadedness and no edema Gastrointestinal: + belching; no abdominal pain, no nausea, no vomiting and no dysphagia Genitourinary (Female): no dysuria and no urinary frequency Physical Exam 2 Vital Signs (Past 24 Hours): Last Vital Signs Temp 36.4 C L 09/18/18 11:30 Pulse 86 09/18/18 13:16 Resp 16 09/18/18 13:16 BP 121/68 09/18/18 13:16 Pulse Ox 95 09/18/18 13:16 Constitutional: + thin; no acute distress Eyes: + anicteric sclerae ENMT: external ear and nose normal, oropharynx normal Neck: trachea midline Respiratory: normal respiratory effort, lungs clear to auscultation Cardiovascular: Rate/Rhythm: regular rate and regular rhythm Heart Sounds: no gallop and no cardiac rub Gastrointestinal (Abdomen): Inspection/Auscultation: + abdomen distended ( mildly distended) and normal bowel sounds Percussion/Palpation: abdomen soft ; abdomen nontender, no guarding and abdomen not rigid Musculoskeletal: Extremities: no cyanosis and no clubbing Skin: no rashes, warm and dry Psychiatric: Orientation: alert Insight: + limited insight When asked the year, states "2020" but knows that Victoria is the president. When asked where she is, states "home in [place]" Results & Data Laboratory Results Laboratory Results - last 24 hr 09/18/18 09/18/18 09/18/18 12:00 12:00 12:00 WBC RBC Hgb Hct MCV MCH MCHC RDW Std Deviation RDW Coeff of Jonathan Plt Count MPV Immature Gran % (Auto) Neut % (Auto) Lymph % (Auto) [place] % (Auto) Eos % (Auto) Baso % (Auto) Immature Gran # (Auto) Neut # (Auto) Lymph # (Auto) [place] # (Auto) Eos # (Auto) Baso # (Auto) RBC Morphology PT 10.1 INR 1.0 APTT 24.8 PTT Ratio 1.0 Sodium Potassium Chloride Carbon Dioxide Anion Gap BUN Creatinine Est Cr Clr Drug Dosing Est GFR ( Amer) Est GFR (Non-Af Amer) BUN/Creatinine Ratio Glucose Lactate 1.6 Calcium Magnesium Total Bilirubin AST ALT Alkaline Phosphatase Ammonia 17.0 Troponin I Total Protein Albumin Globulin Albumin/Globulin Ratio TSH Influenza Type A Ag Influenza Type B Ag Blood Type Antibody Screen Crossmatch 09/18/18 09/18/18 09/18/18 12:00 12:00 12:10 WBC 7.66 RBC 2.28 L Hgb 6.8 L* Hct 21.1 L MCV 92.5 MCH 29.8 MCHC 32.2 RDW Std Deviation 54.3 H RDW Coeff of Jonathan 16.4 H Plt Count 201 MPV 9.7 Immature Gran % (Auto) 0.4 Neut % (Auto) 70.8 Lymph % (Auto) 17.1 [place] % (Auto) 9.8 Eos % (Auto) 1.6 Baso % (Auto) 0.3 Immature Gran # (Auto) 0.03 H Neut # (Auto) 5.43 Lymph # (Auto) 1.31 [place] # (Auto) 0.75 H Eos # (Auto) 0.12 Baso # (Auto) 0.02 RBC Morphology Unremarkable PT INR APTT PTT Ratio Sodium 138 Potassium 3.5 Chloride 105 Carbon Dioxide 24 Anion Gap 8.0 BUN 26 H Creatinine 1.37 H Est Cr Clr Drug Dosing Not Reportable Est GFR ( Amer) 44.5 Est GFR (Non-Af Amer) 38.4 BUN/Creatinine Ratio 18.8 Glucose 94 Lactate Calcium 7.4 L Magnesium 1.8 Total Bilirubin 0.3 AST 52 H ALT 30 Alkaline Phosphatase 159 H Ammonia Troponin I 0.017 Total Protein 5.5 L Albumin 1.3 L Globulin 4.2 H Albumin/Globulin Ratio 0.3 L TSH 3.180 Influenza Type A Ag Neg for Influ A Influenza Type B Ag Neg for Influ B Blood Type Antibody Screen Crossmatch 09/18/18 13:04 WBC RBC Hgb Hct MCV MCH MCHC RDW Std Deviation RDW Coeff of Jonathan Plt Count MPV Immature Gran % (Auto) Neut % (Auto) Lymph % (Auto) [place] % (Auto) Eos % (Auto) Baso % (Auto) Immature Gran # (Auto) Neut # (Auto) Lymph # (Auto) [place] # (Auto) Eos # (Auto) Baso # (Auto) RBC Morphology PT INR APTT PTT Ratio Sodium Potassium Chloride Carbon Dioxide Anion Gap BUN Creatinine Est Cr Clr Drug Dosing Est GFR ( Amer) Est GFR (Non-Af Amer) BUN/Creatinine Ratio Glucose Lactate Calcium Magnesium Total Bilirubin AST ALT Alkaline Phosphatase Ammonia Troponin I Total Protein Albumin Globulin Albumin/Globulin Ratio TSH Influenza Type A Ag Influenza Type B Ag Blood Type O Negative Antibody Screen NEGATIVE Crossmatch See Detail Diagnostic Findings Portal CXR 09/18/18 - IMPRESSION: 1. Improved aeration within the right medial lung base suggesting a resolving pneumonitis. 2. Suspect trace bilateral pleural effusions. Medications Administered Sodium Chloride (Nss 250ml) 250 mls @ 15 mls/hr IV .[id number] PRN PRN Reason: For Transfusion Stop: 10/18/18 12:39 Last Admin: 09/18/18 13:17 Dose: 15 mls/hr Pantoprazole Sodium 40 mg/ (Dextrose) 100 mls @ 20 mls/hr IV NOW STA Stop: 09/18/18 17:45 Last Admin: 09/18/18 13:17 Dose: 8 mg/hr, 20 mls/hr Discontinued Medications Pantoprazole Sodium 80 mg/ (Dextrose) 100 mls @ 400 mls/hr IV ONE STA Stop: 09/18/18 13:00 Last Admin: 09/18/18 13:21 Dose: 400 mls/hr Code Status & VTE Plan Code Status Full resuscitation VTE Prophylaxis Plan Reason for no VTE drug order: Contraindicated (Concern for GI bleeding) Supervising Physician Co-Signing Physician Notes HISTORY: Record reviewed. Patient interviewed and examined. Care coordinated with Rachel Ash PA-C. Please refer to her documentation for patient's history. Briefly, 72 YO F with history of cirrhosis, GAVE, recent embolic stroke, and other problems. Resident at [facility]. Referred to ED for evaluation of severe anemia. She is taking aspirin and clopidogrel for recent stroke. Pt denies hematemesis, melena, hematochezia. EXAM: General- no distress Eyes- anicteric Lungs- clear to auscultation; no respiratory distress Cardiovascular- RRR;no gallop; no JVD; no pretibial edema Abdomen- moderately distended, + bowel sounds, soft, nontender; no hepatosplenomegaly appreciated Rectal- dark, heme positive stools per ED provider Extremities- no cyanosis; no calf tenderness Neuro- alert, somewhat confused Skin- warm & dry DATA: Hgb 6.8, WBC 7660, plts 210,000. INR 1.0, PTT 24.8. BUN 26, creatinine 1.37. TBR 0.3, AST 52, ALT 30, alk phos 159. Ammonia 17. Other lab studies as noted. Chest x-ray suggested evolving pneumonia right medial lobe, trace bilateral pleural effusions. EKG performed at 1200 reviewed and demonstrated NSR at 85 / minute, poor R-wave progression, no acute changes. ASSESSMENT AND PLAN: GI bleed with associated severe acute blood loss anemia. History GAVE. History of cirrhosis. Hemodynamically stable. PPI. Transfuse to maintain adequate H/H. GI consulted. Recent embolic CVA. Hold aspirin and clopidogrel in light of acute GI bleed, but resume DAISY. Please refer to JOSE Ash's documentation for discussion of other issues. _ (1) Anemia Anemia type: unspecified type Bone marrow failure anemia type: Chronic kidney disease stage: Folate deficiency anemia type: Hemolytic anemia type: Iron deficiency anemia type: Other causes of anemia: Vitamin B12 deficiency anemia type: Qualified Code(s): D64.9 - Anemia, unspecified (2) Cirrhosis of liver Ascites presence: Hepatic cirrhosis type: other cirrhosis Qualified Code(s) : K74.69 - Other cirrhosis of liver (3) Embolic cerebral infarction Laterality of affected vessel: Precerebral and cerebral artery: unspecified cerebral artery Qualified Code(s): I63.40 - Cerebral infarction due to embolism of unspecified cerebral artery
[2018-09-18] MEDS ORDERED: OCTREOTIDE ACETATE 50 MCG in SYRINGE 9.5 ML IV STA (15:50)
--- NOTE | 2018-09-18 15:53 | Gastrointestinal Consultation ---
Date of Consultation September 18, 2018 Assessment & Plan (1) Embolic cerebral infarction: Present on Admission?: Yes (2) Anemia: Present on Admission?: Yes (3) Cirrhosis of liver: Pt is a 72 y/o female w hx chronic glomerulonephritis, chronic anemia, ? 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 She was started on ASA and Plavix for stroke. Last EGD done in 2017 showed Gamino's esophagus, GAVE s/p APC. Last colonoscopy in 2016 normal. - Monitor H/H; agree with blood transfusion - PPI bolus and gtt - Octreotide bolus and gtt even though less likely has variceal bleeding - Ceftriaxone IV for SBP prophy in setting of GI bleed. - Ok for CL diet today, but keep NPO after midnight - EGD eval tomorrow by Dr. Laguna. - I have called her son Aniceto Rich to update him on pt's current status and plan. Son would like pt to remain on full code for now. Present on Admission?: Yes Supervising Physician Co-Signing Physician Notes I saw and evaluated the patient in the ER this afternoon. We are consulted due to worsening anemia and a history of melena. This patient has a history of cirrhosis thought to be related to JESSICA complicated by portal gastropathy (last egd in 2016). Most recently she has had a CVA and was placed onto a combinaiton of plavix and aspirin. PE: frail appearing no abdominal tenderness Impression: Patient with symptoms of melena / anemia likely related to her hx of portal gastropathy and need of dual antiplatelets. We can certainly provide EGD support for the patient to see if there may be an endoscopically tratable lesion. Recomendations: EGD Tuesday Porotonix drip Begin octreotide drip please antibiotic coverage given history of ascites (Ceftriaxone or equivalent) History of Present Illness Reason for Consultation: Anemia, dark tarry stools Requesting Physician: Dr. Michelle Little Attending Physician: Dr. Piotr Sibley History of Present Illness Pt is a 72 y/o female who is currently [place] resident brought to ED for anemia, and dark tarry stools noted at the correction. She is confused, mostly oriented to self and place. She is well known to our service. Chart is reviewed. PMHx includes membranous glomerulnephritis with nephrosis, CKD, nephrotic range proteinuria, ? ETOH or fatty liver liver cirrhosis, GAVE, HTN, Barretts esophagus, Hyperlipidemia, anemia of chronic disease and hypothryoidism was admitted to [facility] on 08/15/18 due to a fall at home. She had been having out of character behaviors and refusing medical care, follow ups. She was noted to have L arm flaciddity, MRI brain done showed multiple small acute/subacute infarcts. She was transferred to [facility] on 08/19/18 for possible neurovascular intervention. She was evaluated by Neurovascular Surgery there, no intervention recommended but continued on ASA and Plavix. She was DC'd to [place] for rehab on 08/23/18. Pt denies any n/v, abd pain. She does notice her stools are dark, sticky. H/H on admission was 6.8/21 (baseline Hgb 7-8). Plt 201, INR 1. BUN/Cr 1.37. Tbili 0.3, AST 52, ALT 30, Alk phos 159. Ammonia 17. She had hx of Gamino's esophagus , GAVE s/p APC treatement via EGD last done 2016. She does also have hx of ascites but currently abd doesn't feel tense. No leg edema noted. Allergies Allergy/AdvReac Type Severity Reaction Status Date / Time No Known Allergies Allergy Unverified 09/18/18 12:46 Home Medications Home Medications Medication Instructions Recorded Confirmed Type furosemide [Lasix] 10 mg PO DAILY 08/15/18 09/18/18 History pantoprazole [Protonix] 40 mg PO DAILY 08/15/18 09/18/18 History spironolactone [Aldactone] 12.5 mg PO DAILY 08/15/18 09/18/18 History aspirin 81 mg PO DAILY 09/18/18 09/18/18 History atorvastatin 40 mg PO PM 09/18/18 09/18/18 History clopidogrel 75 mg PO DAILY 09/18/18 09/18/18 History famotidine 20 mg PO BID 09/18/18 09/18/18 History hydroxyzine HCl 25 mg PO QID PRN 09/18/18 09/18/18 History Patient History Medical History Stenosis of right internal carotid artery with cerebral infarction Aspiration pneumonia (Acute) Altered mental status (Acute) Embolic cerebral infarction (Acute) Metabolic encephalopathy Dysphagia (Chronic) ANDREY (acute kidney injury) Acquired hypothyroidism (Chronic) Hyperlipidemia (Chronic) Anemia (Chronic) GERD (gastroesophageal reflux disease) (Chronic) Vitamin deficiency (Chronic) CKD (chronic kidney disease) stage 3, GFR 30-59 ml/min (Chronic) Cirrhosis of liver (Chronic) Left arm weakness (Acute) Orthostatic hypotension (Acute) Injury of left upper arm (Acute) Fall (Acute) Hypokalemia (Acute) Fluid filled abdomen (Chronic) HTN (hypertension) (Chronic) Postural hypotension (Resolved) UTI (urinary tract infection) (Resolved) GAVE (gastric antral vascular ectasia) No pertinent family history Family History Other No pertinent family history Social History marital status: / Current Living Situation: Personal Care Facility Feels Safe at Home: Yes Smoking Status: Never smoker Hx Alcohol Use: No Hx Substance Use: No Beliefs That Will Affect Care: None Preferred Language: Divehi Review of Systems Constitutional: as per Subjective / HPI and + weakness; no fatigue Respiratory: no dyspnea Cardiovascular: no chest pain at rest Gastrointestinal: as per Subjective / HPI and + change in stools; no nausea and no vomiting Neurologic: as per Subjective / HPI Hematologic / Lymphatic: as per Subjective / HPI Physical Exam 2 Vital Signs (Past 24 Hours): Last Vital Signs Temp 36.9 C 09/18/18 15:44 Pulse 87 09/18/18 15:44 Resp 20 09/18/18 15:44 BP 125/69 09/18/18 15:44 Pulse Ox 98 09/18/18 15:44 Constitutional: + thin, well groomed, cooperative and comfortable Eyes: PERRL, conjunctivae normal, anicteric sclerae ENMT: external ear and nose normal, oropharynx normal Respiratory: normal respiratory effort, lungs clear to auscultation Cardiovascular: RRR, no murmur, no edema Gastrointestinal (Abdomen): Inspection/Auscultation: + abdomen distended ( mild ) and normal bowel sounds Percussion/Palpation: abdomen nontender Skin: no rashes, warm and dry no jaundice Neurologic: Motor/Sensory: no asterixis Psychiatric: Orientation: alert, oriented to person, oriented to place and cooperative Lymphatic: no lymphedema Results & Data Laboratory Results Laboratory Results - last 72 hr 09/18/18 09/18/18 09/18/18 12:00 12:00 12:00 WBC RBC Hgb Hct MCV MCH MCHC RDW Std Deviation RDW Coeff of Jonathan Plt Count MPV Immature Gran % (Auto) Neut % (Auto) Lymph % (Auto) [place] % (Auto) Eos % (Auto) Baso % (Auto) Immature Gran # (Auto) Neut # (Auto) Lymph # (Auto) [place] # (Auto) Eos # (Auto) Baso # (Auto) RBC Morphology PT 10.1 INR 1.0 APTT 24.8 PTT Ratio 1.0 Sodium Potassium Chloride Carbon Dioxide Anion Gap BUN Creatinine Est Cr Clr Drug Dosing Est GFR ( Amer) Est GFR (Non-Af Amer) BUN/Creatinine Ratio Glucose Lactate 1.6 Calcium Magnesium Total Bilirubin AST ALT Alkaline Phosphatase Ammonia 17.0 Troponin I Total Protein Albumin Globulin Albumin/Globulin Ratio TSH Influenza Type A Ag Influenza Type B Ag Blood Type Antibody Screen Crossmatch 09/18/18 09/18/18 09/18/18 12:00 12:00 12:10 WBC 7.66 RBC 2.28 L Hgb 6.8 L* Hct 21.1 L MCV 92.5 MCH 29.8 MCHC 32.2 RDW Std Deviation 54.3 H RDW Coeff of Jonathan 16.4 H Plt Count 201 MPV 9.7 Immature Gran % (Auto) 0.4 Neut % (Auto) 70.8 Lymph % (Auto) 17.1 [place] % (Auto) 9.8 Eos % (Auto) 1.6 Baso % (Auto) 0.3 Immature Gran # (Auto) 0.03 H Neut # (Auto) 5.43 Lymph # (Auto) 1.31 [place] # (Auto) 0.75 H Eos # (Auto) 0.12 Baso # (Auto) 0.02 RBC Morphology Unremarkable PT INR APTT PTT Ratio Sodium 138 Potassium 3.5 Chloride 105 Carbon Dioxide 24 Anion Gap 8.0 BUN 26 H Creatinine 1.37 H Est Cr Clr Drug Dosing Not Reportable Est GFR ( Amer) 44.5 Est GFR (Non-Af Amer) 38.4 BUN/Creatinine Ratio 18.8 Glucose 94 Lactate Calcium 7.4 L Magnesium 1.8 Total Bilirubin 0.3 AST 52 H ALT 30 Alkaline Phosphatase 159 H Ammonia Troponin I 0.017 Total Protein 5.5 L Albumin 1.3 L Globulin 4.2 H Albumin/Globulin Ratio 0.3 L TSH 3.180 Influenza Type A Ag Neg for Influ A Influenza Type B Ag Neg for Influ B Blood Type Antibody Screen Crossmatch 09/18/18 13:04 WBC RBC Hgb Hct MCV MCH MCHC RDW Std Deviation RDW Coeff of Jonathan Plt Count MPV Immature Gran % (Auto) Neut % (Auto) Lymph % (Auto) [place] % (Auto) Eos % (Auto) Baso % (Auto) Immature Gran # (Auto) Neut # (Auto) Lymph # (Auto) [place] # (Auto) Eos # (Auto) Baso # (Auto) RBC Morphology PT INR APTT PTT Ratio Sodium Potassium Chloride Carbon Dioxide Anion Gap BUN Creatinine Est Cr Clr Drug Dosing Est GFR ( Amer) Est GFR (Non-Af Amer) BUN/Creatinine Ratio Glucose Lactate Calcium Magnesium Total Bilirubin AST ALT Alkaline Phosphatase Ammonia Troponin I Total Protein Albumin Globulin Albumin/Globulin Ratio TSH Influenza Type A Ag Influenza Type B Ag Blood Type O Negative Antibody Screen NEGATIVE Crossmatch See Detail Diagnostic Findings CXR: IMPRESSION: 1. Improved aeration within the right medial lung base suggesting a resolving pneumonitis. 2. Suspect trace bilateral pleural effusions. _ (1) Anemia Anemia type: unspecified type Bone marrow failure anemia type: Chronic kidney disease stage: Folate deficiency anemia type: Hemolytic anemia type: Iron deficiency anemia type: Other causes of anemia: Vitamin B12 deficiency anemia type: Qualified Code(s): D64.9 - Anemia, unspecified (2) Cirrhosis of liver Ascites presence: Hepatic cirrhosis type: other cirrhosis Qualified Code(s) : K74.69 - Other cirrhosis of liver (3) Embolic cerebral infarction Laterality of affected vessel: Precerebral and cerebral artery: unspecified cerebral artery Qualified Code(s): I63.40 - Cerebral infarction due to embolism of unspecified cerebral artery
--- NOTE | 2018-09-18 15:59 | Emergency Department Note ---
Entered by Rand Mcgraw acting as a scribe for Shaheen Nazario MD History of Present Illness General Chief complaint: Abnormal Labs/Diagnostic Testing Time Seen by Provider: 09/18/18 11:39 Source: patient History of Present Illness Onset (ago): minute(s) (prior to arrival) Severity: moderate (Hemoglobin around 6) Pain Consistency: + other (episode) Quality: + other (abnormal labs) Associated symptoms: + denies other symptoms (melena, hematochezia, hematemesis , abdominal pain), + cough, + fever/chills, + weakness and + other (big abdomen) The patient is a 72 year old female who presents to the Emergency Room with complaints of an episode of abnormal labs occurring prior to arrival. The patient states that her hemoglobin is normally low, but her most recent test shows that it is even more low than normal. She reports that it was around 6. The patient complains of a cough, weakness, fever, chills, and her abdomen being big. She notes that she is unsure how long she has had these symptoms. She notes a history of cirrhosis of the liver. The patient denies melena, hematochezia, hematemesis, and abdominal pain. Home Medications Home Medications Medication Instructions Recorded Confirmed Type furosemide [Lasix] 10 mg PO DAILY 08/15/18 09/18/18 History pantoprazole [Protonix] 40 mg PO DAILY 08/15/18 09/18/18 History spironolactone [Aldactone] 12.5 mg PO DAILY 08/15/18 09/18/18 History aspirin 81 mg PO DAILY 09/18/18 09/18/18 History atorvastatin 40 mg PO PM 09/18/18 09/18/18 History clopidogrel 75 mg PO DAILY 09/18/18 09/18/18 History famotidine 20 mg PO BID 09/18/18 09/18/18 History hydroxyzine HCl 25 mg PO QID PRN 09/18/18 09/18/18 History Allergies Allergy/AdvReac Type Severity Reaction Status Date / Time No Known Allergies Allergy Unverified 09/18/18 12:46 Past Med/Surg History Medical History Stenosis of right internal carotid artery with cerebral infarction Aspiration pneumonia (Acute) Altered mental status (Acute) Embolic cerebral infarction (Acute) Metabolic encephalopathy Dysphagia (Chronic) ANDREY (acute kidney injury) Acquired hypothyroidism (Chronic) Hyperlipidemia (Chronic) Anemia (Chronic) GERD (gastroesophageal reflux disease) (Chronic) Vitamin deficiency (Chronic) CKD (chronic kidney disease) stage 3, GFR 30-59 ml/min (Chronic) Cirrhosis of liver (Chronic) Left arm weakness (Acute) Orthostatic hypotension (Acute) Injury of left upper arm (Acute) Fall (Acute) Hypokalemia (Acute) Fluid filled abdomen (Chronic) HTN (hypertension) (Chronic) Postural hypotension (Resolved) UTI (urinary tract infection) (Resolved) GAVE (gastric antral vascular ectasia) No pertinent family history Family History Other No pertinent family history Social History marital status: / Current Living Situation: Personal Care Facility Feels Safe at Home: Yes Smoking Status: Never smoker Hx Alcohol Use: No Hx Substance Use: No Beliefs That Will Affect Care: None Preferred Language: Albanian Review of Systems See HPI for pertinent positives & negatives. and A total of 10 systems reviewed and were otherwise negative Physical Exam Vital Signs Vital Signs - 24 hr 09/18/18 11:30 09/18/18 12:53 09/18/18 13:16 Temperature 36.4 C L Temperature Source Oral Sepsis Recent Fever Within 48 Hours No Sepsis New/Unexplained Change in Mental Status No Sepsis Action Taken by Nursing No Action Required Pulse Rate 82 Pulse Rate [Right Finger] 86 86 Respiratory Rate 20 16 16 Respiratory Effort / Characteristics Non-Labored Non-Labored Non-Labored Respiratory Depth Normal Normal Normal Respiratory Pattern Blood Pressure 121/56 L Blood Pressure [Left Arm] 90/66 L 121/68 Blood Pressure Mean 77 Blood Pressure Mean [Left Arm] 74 85 Blood Pressure Position [Left Arm] Pulse Oximetry 94 96 95 Pulse Oximetry [Right Index Finger] Oxygen Delivery Method Room Air Room Air Room Air Oxygen Delivery Method [Right Index Finger] 09/18/18 14:57 09/18/18 15:44 09/18/18 15:47 Temperature 36.9 C Temperature Source Oral Sepsis Recent Fever Within 48 Hours Sepsis New/Unexplained Change in Mental Status Sepsis Action Taken by Nursing Pulse Rate Pulse Rate [Right Finger] 91 H 87 Respiratory Rate 16 20 Respiratory Effort / Characteristics Non-Labored Spontaneous Respiratory Depth Normal Respiratory Pattern Regular Blood Pressure Blood Pressure [Left Arm] 128/85 125/69 Blood Pressure Mean Blood Pressure Mean [Left Arm] 99 87 Blood Pressure Position [Left Arm] Lying Lying Pulse Oximetry 95 98 Pulse Oximetry [Right Index Finger] 95 Oxygen Delivery Method Room Air Room Air Oxygen Delivery Method [Right Index Finger] Room Air 09/18/18 16:12 Temperature 37.1 C Temperature Source Oral Sepsis Recent Fever Within 48 Hours Sepsis New/Unexplained Change in Mental Status Sepsis Action Taken by Nursing Pulse Rate 89 Pulse Rate [Right Finger] Respiratory Rate 20 Respiratory Effort / Characteristics Respiratory Depth Respiratory Pattern Blood Pressure 118/69 Blood Pressure [Left Arm] Blood Pressure Mean 85 Blood Pressure Mean [Left Arm] Blood Pressure Position [Left Arm] Pulse Oximetry 98 Pulse Oximetry [Right Index Finger] Oxygen Delivery Method Oxygen Delivery Method [Right Index Finger] GENERAL: Patient is in no acute distress. HEENT: No acute trauma, normocephalic atraumatic, mucous membranes moist, no nasal congestion. NECK: No stridor, no adenopathy, no meningismus, trachea is midline. LUNGS: Crackles on the left. No wheezing or respiratory distress. HEART: Subtle systolic murmur. Regular rate and rhythm. ABDOMEN: Soft, nontender, bowel sounds positive, distention noted, no hernias, no peritonitis. RECTAL: Black stool, heme positive. EXTREMITIES: No cyanosis or edema, full range of motion of all the joints without pain or difficulty, no signs for acute trauma. NEUROLOGIC: Oriented x 3, no acute motor or sensory deficits, no focal weakness. SKIN: No rash, no diaphoresis. Mild jaundice noted. Course 1142: Past medical records reviewed. The patient was evaluated in room B10, and a complete history and physical examination were performed. 1243: I reevaluated the patient and performed a rectal exam at this time. I updated her on her test results and the treatment plan. She verbally agrees and understands. 1248: [facility] 1257: I [facility] the [facility] She will evaluate the patient for further management. Consultations Consultation #1: I reviewed the patient's case with [facility]GI [facility]ist. She will evaluate the patient for further management. Time: 12:57 Administered Medications Sodium Chloride (Nss 250ml) 250 mls @ 15 mls/hr IV .[id number] PRN PRN Reason: For Transfusion Stop: 10/18/18 12:39 Last Admin: 09/18/18 13:17 Dose: 15 mls/hr Octreotide Acetate 500 mcg/ (Sodium Chloride) 105 mls @ 10.5 mls/hr IV .Q10H RAZIA Stop: 10/18/18 15:59 Last Admin: 09/18/18 17:13 Dose: 50 mcg/hr, 10.5 mls/hr Ceftriaxone Sodium 2,000 mg/ (Dextrose) 70 mls @ 140 mls/hr IV Q24H RAZIA; Protocol Stop: 09/28/18 15:59 Last Admin: 09/18/18 17:14 Dose: 140 mls/hr Discontinued Medications Pantoprazole Sodium 40 mg/ (Dextrose) 100 mls @ 20 mls/hr IV NOW STA Stop: 09/18/18 17:45 Last Admin: 09/18/18 13:17 Dose: 8 mg/hr, 20 mls/hr Pantoprazole Sodium 80 mg/ (Dextrose) 100 mls @ 400 mls/hr IV ONE STA Stop: 09/18/18 13:00 Last Infusion: 09/18/18 16:31 Dose: 0 mls/hr Admin: 09/18/18 13:21 Dose: 400 mls/hr Octreotide Acetate 50 mcg/ (Syringe) 10 mls @ 3 mls/min IV ONE STA Stop: 09/18/18 15:53 Last Admin: 09/18/18 16:31 Dose: 3 mls/min Medical Decision Making Differential Diagnosis Differential diagnoses include anemia, GI bleeding, pneumonia, bronchitis, kidney injury, worsening liver failure, coagulopathy, influenza, cardiac ischemia. Medical Records Attestation: I reviewed the patient's medical records. Home Medications Current Medication List: was personally reviewed by me Laboratory Data Attestation: I reviewed the patient's lab results. Result diagrams: 09/18/18 12:00 09/18/18 12:00 Lab Results 09/18/18 09/18/18 09/18/18 Range/Units 12:00 12:00 12:00 WBC (4.8-10.8) K/uL RBC (4.2-5.4) M/uL Hgb (12.0-16.0) g/dL Hct (37-47) % MCV (80-100) fL MCH (25-34) pg MCHC (32-36) g/dL RDW Std Deviation (36.4-46.3) fL RDW Coeff of Jonathan (11.5-14.5) % Plt Count (130-400) K/uL MPV (7.4-10.4) fL Immature Gran % (Auto) % Neut % (Auto) % Lymph % (Auto) % Rice % (Auto) % Eos % (Auto) % Baso % (Auto) % Immature Gran # (Auto) (0.00-0.02) K/uL Neut # (Auto) (1.4-6.5) K/uL Lymph # (Auto) (1.2-3.4) K/uL Rice # (Auto) (0.11-0.59) K/uL Eos # (Auto) (0-0.5) K/uL Baso # (Auto) (0-0.2) K/uL RBC Morphology PT 10.1 (9.0-12.0) Seconds INR 1.0 (0.9-1.1) APTT 24.8 (21.0-31.0) Seconds PTT Ratio 1.0 Sodium (136-145) mmol/L Potassium (3.5-5.1) mmol/L Chloride (98-107) mmol/L Carbon Dioxide (21-32) mmol/L Anion Gap (3-11) BUN (7-18) mg/dl Creatinine (0.6-1.2) mg/dl Est Cr Clr Drug Dosing Est GFR ( Amer) Est GFR (Non-Af Amer) BUN/Creatinine Ratio (10-20) Glucose (70-99) mg/dl Lactate 1.6 (0.4-2.0) mmol/L Calcium (8.5-10.1) mg/dl Magnesium (1.8-2.4) mg/dl Total Bilirubin (0.2-1) mg/dl AST (15-37) U/L ALT (12-78) U/L Alkaline Phosphatase (45-117) U/L Ammonia 17.0 (11-32) umol/L Troponin I (0-0.045) ng/ml Total Protein (6.4-8.2) gm/dl Albumin (3.4-5.0) gm/dl Globulin (2.5-4.0) gm/dl Albumin/Globulin Ratio (0.9-2) TSH (0.300-4.500) uIu/ml Influenza Type A Ag (Neg) Influenza Type B Ag (Neg) Blood Type Antibody Screen Crossmatch 09/18/18 09/18/18 09/18/18 Range/Units 12:00 12:00 12:10 WBC 7.66 (4.8-10.8) K/uL RBC 2.28 L (4.2-5.4) M/uL Hgb 6.8 L* (12.0-16.0) g/dL Hct 21.1 L (37-47) % MCV 92.5 (80-100) fL MCH 29.8 (25-34) pg MCHC 32.2 (32-36) g/dL RDW Std Deviation 54.3 H (36.4-46.3) fL RDW Coeff of Jonathan 16.4 H (11.5-14.5) % Plt Count 201 (130-400) K/uL MPV 9.7 (7.4-10.4) fL Immature Gran % (Auto) 0.4 % Neut % (Auto) 70.8 % Lymph % (Auto) 17.1 % Rice % (Auto) 9.8 % Eos % (Auto) 1.6 % Baso % (Auto) 0.3 % Immature Gran # (Auto) 0.03 H (0.00-0.02) K/uL Neut # (Auto) 5.43 (1.4-6.5) K/uL Lymph # (Auto) 1.31 (1.2-3.4) K/uL Rice # (Auto) 0.75 H (0.11-0.59) K/uL Eos # (Auto) 0.12 (0-0.5) K/uL Baso # (Auto) 0.02 (0-0.2) K/uL RBC Morphology Unremarkable PT (9.0-12.0) Seconds INR (0.9-1.1) APTT (21.0-31.0) Seconds PTT Ratio Sodium 138 (136-145) mmol/L Potassium 3.5 (3.5-5.1) mmol/L Chloride 105 (98-107) mmol/L Carbon Dioxide 24 (21-32) mmol/L Anion Gap 8.0 (3-11) BUN 26 H (7-18) mg/dl Creatinine 1.37 H (0.6-1.2) mg/dl Est Cr Clr Drug Dosing Not Reportable Est GFR ( Amer) 44.5 Est GFR (Non-Af Amer) 38.4 BUN/Creatinine Ratio 18.8 (10-20) Glucose 94 (70-99) mg/dl Lactate (0.4-2.0) mmol/L Calcium 7.4 L (8.5-10.1) mg/dl Magnesium 1.8 (1.8-2.4) mg/dl Total Bilirubin 0.3 (0.2-1) mg/dl AST 52 H (15-37) U/L ALT 30 (12-78) U/L Alkaline Phosphatase 159 H (45-117) U/L Ammonia (11-32) umol/L Troponin I 0.017 (0-0.045) ng/ml Total Protein 5.5 L (6.4-8.2) gm/dl Albumin 1.3 L (3.4-5.0) gm/dl Globulin 4.2 H (2.5-4.0) gm/dl Albumin/Globulin Ratio 0.3 L (0.9-2) TSH 3.180 (0.300-4.500) uIu/ml Influenza Type A Ag Neg for Influ A (Neg) Influenza Type B Ag Neg for Influ B (Neg) Blood Type Antibody Screen Crossmatch 09/18/18 Range/Units 13:04 WBC (4.8-10.8) K/uL RBC (4.2-5.4) M/uL Hgb (12.0-16.0) g/dL Hct (37-47) % MCV (80-100) fL MCH (25-34) pg MCHC (32-36) g/dL RDW Std Deviation (36.4-46.3) fL RDW Coeff of Jonathan (11.5-14.5) % Plt Count (130-400) K/uL MPV (7.4-10.4) fL Immature Gran % (Auto) % Neut % (Auto) % Lymph % (Auto) % Rice % (Auto) % Eos % (Auto) % Baso % (Auto) % Immature Gran # (Auto) (0.00-0.02) K/uL Neut # (Auto) (1.4-6.5) K/uL Lymph # (Auto) (1.2-3.4) K/uL Rice # (Auto) (0.11-0.59) K/uL Eos # (Auto) (0-0.5) K/uL Baso # (Auto) (0-0.2) K/uL RBC Morphology PT (9.0-12.0) Seconds INR (0.9-1.1) APTT (21.0-31.0) Seconds PTT Ratio Sodium (136-145) mmol/L Potassium (3.5-5.1) mmol/L Chloride (98-107) mmol/L Carbon Dioxide (21-32) mmol/L Anion Gap (3-11) BUN (7-18) mg/dl Creatinine (0.6-1.2) mg/dl Est Cr Clr Drug Dosing Est GFR ( Amer) Est GFR (Non-Af Amer) BUN/Creatinine Ratio (10-20) Glucose (70-99) mg/dl Lactate (0.4-2.0) mmol/L Calcium (8.5-10.1) mg/dl Magnesium (1.8-2.4) mg/dl Total Bilirubin (0.2-1) mg/dl AST (15-37) U/L ALT (12-78) U/L Alkaline Phosphatase (45-117) U/L Ammonia (11-32) umol/L Troponin I (0-0.045) ng/ml Total Protein (6.4-8.2) gm/dl Albumin (3.4-5.0) gm/dl Globulin (2.5-4.0) gm/dl Albumin/Globulin Ratio (0.9-2) TSH (0.300-4.500) uIu/ml Influenza Type A Ag (Neg) Influenza Type B Ag (Neg) Blood Type O Negative Antibody Screen NEGATIVE Crossmatch See Detail Imaging Data Radiologist's Impression: Radiology results as stated below per my review and the radiologist's interpretation: XR chest 1V portable HISTORY: weakness COMPARISON: Chest 08/19/2018. FINDINGS: No pneumothorax. The heart is normal in size. Moderate hiatus hernia, unchanged. The left lung is clear. Improved aeration within the right medial lung base. Suspect trace bilateral pleural effusions. No evidence for pulmonary edema. IMPRESSION: 1. Improved aeration within the right medial lung base suggesting a resolving pneumonitis. 2. Suspect trace bilateral pleural effusions. Electronically signed by: Constantin Brown M.D. 09/18/2018 12:28 PM ECG Data Attestation: I personally reviewed and interpreted this ECG as follows: Indication: weakness Rate (beats per minute): 85 Rhythm: sinus rhythm Findings: + other (old spetal infarct); no PVC Blood Pressure Blood Pressure Findings: Low blood pressure Blood Pressure Disposition: further management by hospitalist RAFAT Narrative There is no leukocytosis. The patient is quite anemic with a hemoglobin of 6.8. A rectal exam was performed, the stool was black and heme positive. There is no coagulopathy. No significant electrolyte abnormality or kidney failure. There were a few subtle liver enzyme elevations likely from her chronic liver disease. The patient appeared to be in a euthyroid state. Ammonia level was not elevated. EKG shows a sinus rhythm, no acute ischemia. Cardiac enzyme testing x1 was not consistent with acute cardiac injury. Chest film did not show free air or CHF. There was no pneumonia. The patient was given IV Protonix as a bolus, she was placed on a Protonix drip. I did order for blood for transfusion, 2 units were ordered, 1 to be given while in the ED. Patient did consent to the blood transfusion. She has been transfused in the past. Patient presents with weakness and cough. She was aggressively managed. She does have a low hemoglobin and what is likely an upper GI bleed. Further care in the hospital is warranted. I spoke to the patient and case management. The on-call hospitalist was consulted. Impression & Plan Acute GI bleeding, Anemia, Weakness, Cough Critical Care Time I have personally spent greater than 35 minutes of critical care time in the direct management of this patient. This includes bedside care, interpretation of diagnostic studies, and testing, discussion with consultants, patient, and family members, and other required patient management activities. This 35 minutes is in excess of all separately billable procedures. Critical Care Time: Yes Total Critical Care Time: 35 Discharge Plan Visit Data *Final* Discharge Date/Time: 09/18/18 15:10 Chief Complaint: Abnormal Labs/Diagnostic Testing ED Provider: Shaheen Nazario Discharge Problem: Acute GI bleeding, Anemia, Weakness, Cough Patient Disposition: Admitted As Inpatient Discharge Instructions Interventions: ED Discharge Assessment Last Done: 09/18/18 15:10 The scribe's documentation has been prepared under my direction and personally reviewed by me in its entirety. I confirm that the note above accurately reflects all work, treatment, procedures, and medical decision making performed by me.
[2018-09-18] MEDS ORDERED: cefTRIAXone SODIUM 2,000 MG in DEXTROSE 5% 50 ML IV SCH (16:00)
[2018-09-18] MEDS: OCTREOTIDE ACETATE 500 MCG in 0.9 % SODIUM CHLORIDE 100 ML IV SCH (17:13)
[2018-09-18] MEDS: PANTOprazole 40 MG in DEXTROSE 5% 100 ML IV SCH (18:58)
[2018-09-18 22:55] LABS: Hemoglobin 9.1 g/dL (12.0-16.0)
[2018-09-19] MEDS: PANTOprazole 40 MG in DEXTROSE 5% 100 ML IV SCH ×3 (00:46→14:17)
[2018-09-19] MEDS: OCTREOTIDE ACETATE 500 MCG in 0.9 % SODIUM CHLORIDE 100 ML IV SCH ×2 (03:10→14:17)
[2018-09-19 06:31] LABS: Hematocrit (blood only) 25.1 % (37-47); Hemoglobin 8.1 g/dL (12.0-16.0)
[2018-09-19 07:01] LABS: BUN Creatinine Ratio 16.8 (10-20); Blood Urea Nitrogen 24 mg/dl (7-18); Calcium 7.4 mg/dl (8.5-10.1); Carbon Dioxide 22 mmol/L (21-32); Chloride 109 mmol/L (98-107); Est GFR (African American) 42.7; Est GFR (Non-African American) 36.8; Glucose 99 mg/dl (70-99); Potassium 3.9 mmol/L (3.5-5.1); Sodium 137 mmol/L (136-145)
--- NOTE | 2018-09-19 08:37 | Anesthesiology Consultation ---
Date of Service September 19, 2018 Assessment & Plan Chart Review Chart Review: Acceptable Risk for Surgery and Patient NOT seen in Pre Admission Testing Consults Requested none History Surgery Operation Date: 09/19/18 08:55 Proposed Procedures p Esophagogastroduodenoscopy Dr Laguna - Anna Laguna Height/Weight Weight: 54.2 kg Allergies Allergy/AdvReac Type Severity Reaction Status Date / Time No Known Allergies Allergy Unverified 09/18/18 12:46 Medications Home Medications Medication Instructions Recorded Confirmed Last Taken furosemide [Lasix] 10 mg PO DAILY 08/15/18 09/18/18 08/12/18 pantoprazole [Protonix] 40 mg PO DAILY 08/15/18 09/18/18 Unknown spironolactone [Aldactone] 12.5 mg PO DAILY 08/15/18 09/18/18 Unknown aspirin 81 mg PO DAILY 09/18/18 09/18/18 Unknown atorvastatin 40 mg PO PM 09/18/18 09/18/18 Unknown clopidogrel 75 mg PO DAILY 09/18/18 09/18/18 Unknown famotidine 20 mg PO BID 09/18/18 09/18/18 Unknown hydroxyzine HCl 25 mg PO QID PRN 09/18/18 09/18/18 Unknown Active Medications Generic Name Dose Route Start Last Admin Trade Name Freq PRN Reason Stop Dose Admin Sodium Chloride 250 mls @ 15 mls/hr 09/18/18 12:40 09/19/18 05:59 Nss 250ml IV 10/18/18 12:39 15 mls/hr .[id number] PRN Infusion For Transfusion Pantoprazole Sodium 40 mg/ 100 mls @ 20 mls/hr 09/18/18 18:15 09/19/18 05:39 Dextrose IV 10/18/18 18:14 8 mg/hr Q5H RAZIA 20 mls/hr Administration 8 MG/HR Octreotide Acetate 500 mcg/ 105 mls @ 10.5 mls/hr 09/18/18 16:00 09/19/18 03: 10 Sodium Chloride IV 10/18/18 15:59 50 mcg/hr .Q10H RAZIA 10.5 mls/hr Administration 50 MCG/HR Ceftriaxone Sodium 2,000 mg/ 70 mls @ 140 mls/hr 09/18/18 16:00 09/18/18 18: 50 Dextrose IV 09/28/18 15:59 Infused Q24H RAZIA Infusion Protocol Past Medical History Medical History Stenosis of right internal carotid artery with cerebral infarction Aspiration pneumonia (Acute) Altered mental status (Acute) Embolic cerebral infarction (Acute) Metabolic encephalopathy Dysphagia (Chronic) ANDREY (acute kidney injury) Acquired hypothyroidism (Chronic) Hyperlipidemia (Chronic) Anemia (Chronic) GERD (gastroesophageal reflux disease) (Chronic) Vitamin deficiency (Chronic) CKD (chronic kidney disease) stage 3, GFR 30-59 ml/min (Chronic) Cirrhosis of liver (Chronic) Left arm weakness (Acute) Orthostatic hypotension (Acute) Injury of left upper arm (Acute) Fall (Acute) Hypokalemia (Acute) Fluid filled abdomen (Chronic) HTN (hypertension) (Chronic) Postural hypotension (Resolved) UTI (urinary tract infection) (Resolved) GAVE (gastric antral vascular ectasia) No pertinent family history Past Family History Family History Other No pertinent family history Social History Smoking Status: Never smoker Hx Alcohol Use: No Hx Substance Use: No Physical Exam Vital Signs Last Vital Signs Temp 37.0 C 09/19/18 08:04 Pulse 78 09/19/18 08:04 Resp 16 09/19/18 08:04 BP 132/69 09/19/18 08:04 Pulse Ox 96 09/19/18 08:04 Testing Electrocardiogram Findings: + NSR @ (80 BPM) LAFB, septal infarct on or before 08/15/18. Carotid dopplers 08/2018: LRCA: 70-80% stenosis RRCA: 60-70% stenosis High grade stenosis bilateral external carotids Echocardiogram Date: 08/18/18 EF: 55-60% LV Function: normal RWMA: + none Valvular Disease: + no significant valvular disease Laboratory Results 09/19/18 06:15 09/19/18 06:15 Blood Type O Negative 09/18/18 13:04 Antibody Screen NEGATIVE 09/18/18 13:04 PT 10.1 Seconds (9.0-12.0) 09/18/18 12:00 INR 1.0 (0.9-1.1) 09/18/18 12:00 APTT 24.8 Seconds (21.0-31.0) 09/18/18 12:00
[2018-09-19] MEDS ORDERED: ATROPINE SULFATE 0.1 MG/ML 10ML SYR IV PRN (10:01)
[2018-09-19] MEDS ORDERED: ePHEDrine sulfate 50 MG/ML AMP IV PRN (10:01)
--- NOTE | 2018-09-19 10:12 | History & Physical Bridge Note ---
Date of Service September 19, 2018 History & Physical Bridge Note Pt is a 72 y/o female w hx chronic glomerulonephritis, chronic anemia, ? ETOH, fatty liver cirrhosis complicated by GAVE, ascites, stroke recently started on ASA & Plavix who presented w anemia and melena. Labs, VS reviewed. I have examined the patient, reviewed the History & Physical and in the interval since the performance of the History & Physical I have noted the following changes of clinical significance: no changes noted Exam: - General: sleeping but easily aroused when name called, oriented to self and place only - CV: HRR no murmur or gallops - Respiratory: Scattered crackles but no signs of respiratory distress noted. - Abdomen: Mild distension, non tender to palpation, BS present - Extremities: No edema noted on extremities. L arm flaccid (hx of stroke). Pt been NPO for EGD eval today. GI will give further recs after EGD completed. Supervising Physician Co-Signing Physician Notes I have seen and examined the patient with MICHELLE Luther whose nte reflects our findings and plan. EGD today to further evaluate her anemia
[2018-09-19] MEDS ORDERED: KETAMINE HCL INJ 50 MG/ML 10 ML VIAL ONE (11:18)
[2018-09-19] MEDS ORDERED: LIDOCAINE HCL 2% 2 ML VIAL/AMP(20MG/ML) INFIL ONE (11:18)
[2018-09-19] MEDS ORDERED: fentaNYL citrate 100 MCG/2 ML VIAL ONE (11:19)
[2018-09-19] MEDS ORDERED: MIDAZOLAM HCL 1 MG/ML 2ML VIAL ONE (11:19)
[2018-09-19] MEDS ORDERED: BENZOCAIN/TETRACA/BUTAM SPRAY 200 APPLN/20 GM SPRY EXT ONE (11:22)
--- NOTE | 2018-09-19 12:54 | GI REPORT ---
Patient Name: Hayde Rich Procedure Date: 09/19/2018 11:12 AM Date of : 1945 Admit Type: Inpatient Age: 72 Gender: Female Attending MD: Anna Laguna DO Procedure: Upper GI endoscopy Providers: Anna Laguna DO Referring MD: Michelle Little Indications: Iron deficiency anemia, Melena Medicines: Propofol per Anesthesia Complications: No immediate complications. Estimated blood loss: None. Estimated Blood Loss: Estimated blood loss: none. Procedure: Pre-Anesthesia Assessment: - Prior to the procedure, a History and Physical was performed, and patient medications, allergies and sensitivities were reviewed. The patient's tolerance of previous anesthesia was reviewed. - The risks and benefits of the procedure and the sedation options and risks were discussed with the patient. All questions were answered and informed consent was obtained. - Patient identification and proposed procedure were verified prior to the procedure by the physician and the nurse. The procedure was verified in the pre-procedure area in the procedure room. - Mental Status Examination: alert and oriented. Airway Examination: normal oropharyngeal airway and neck mobility. Respiratory Examination: clear to auscultation. CV Examination: normal. Abdominal Examination: bowel sounds present, abdomen soft and non-tender, no masses or organomegaly noted. - ASA Grade Assessment: IV - A patient with severe systemic disease that is a constant threat to life. After obtaining informed consent, the endoscope was passed under direct vision. Throughout the procedure, the patient's blood pressure, pulse, and oxygen saturations were monitored continuously. The Endoscope was introduced through the mouth, and advanced to the second part of duodenum. The upper GI endoscopy was accomplished without difficulty. The patient tolerated the procedure well. Findings: There were esophageal mucosal changes secondary to established long-segment Gamino's disease present in the middle third of the esophagus and in the lower third of the esophagus. Mild gastric antral vascular ectasia without bleeding was present in the gastric antrum. The examined duodenum was normal. 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 Not biopsied. - Gastric antral vascular ectasia without bleeding. - Normal examined duodenum. Recommendation: - Advance diet as tolerated. - Return patient to [facility] for [facility] care. Anna Laguna D.O. Anna Laguna DO 09/19/2018 12:54:46 PM This report has been signed electronically. Note Initiated On: 09/19/2018 11:12 AM Number of Addenda: 0 I attest to the content of the Intraoperative Record and orders documented therein, exceptions below {[id number]}
--- NOTE | 2018-09-19 13:06 | Anesthesiology Progress Note ---
Date of Service September 19, 2018 Anesthesia Post Procedure Vital Signs Vital Signs: Temp Pulse Pulse Resp BP BP Pulse Ox 09/19/18 12:08 73 15 113/60 96 09/19/18 09:48 36.3 C L 75 18 139/72 98 09/19/18 08:04 37.0 C 78 16 132/69 96 09/19/18 02:05 98 H 09/18/18 22:59 37.2 C 78 18 144/78 H 96 09/18/18 19:50 36.3 C L 74 20 128/76 96 09/18/18 18:45 37 C 85 20 133/77 95 09/18/18 17:45 36.7 C 81 20 148/75 H 95 09/18/18 16:45 36.6 C 80 20 127/71 95 09/18/18 16:30 36.8 C 84 20 116/74 95 09/18/18 16:12 37.1 C 89 20 118/69 98 09/18/18 15:47 86 09/18/18 15:44 36.9 C 87 20 125/69 98 09/18/18 14:57 91 H 16 128/85 95 09/18/18 13:16 86 16 121/68 95 Pulse Ox 09/19/18 12:08 09/19/18 09:48 09/19/18 08:04 09/19/18 02:05 09/18/18 22:59 09/18/18 19:50 09/18/18 18:45 09/18/18 17:45 09/18/18 16:45 09/18/18 16:30 09/18/18 16:12 09/18/18 15:47 95 09/18/18 15:44 09/18/18 14:57 09/18/18 13:16 Notes Mental Status: alert / awake / arousable Patient Amnestic to Procedure: Yes Nausea / Vomiting: adequately controlled Pain: adequately controlled Airway Patency, RR, SpO2: stable & adequate BP & HR: stable & adequate Hydration State: stable & adequate Anesthetic Complications: no major complications apparent and Pt Satisfied with anesthetic care
[2018-09-19 18:22] LABS: Hematocrit (blood only) 27.2 % (37-47)
[2018-09-19] MEDS: PANTOprazole 40 MG TAB PO SCH (20:59)
--- NOTE | 2018-09-19 23:51 | Hospitalist Progress Note ---
Date of Service September 19, 2018 Assessment & Plan (1) GI bleed: presented with dark stool with acute blood loss anemia hx of jose alejandro's esphagitis with GAVE repeated EGD with APC tx in past appreciate input from GI s/p EGD today by Dr Fry IMPRESSION esophageal mucosal change in middle and lower 3rd of esophagus vascular ectasia noted on gastric antrum with out evidence of bleeding recommends to cont PPI ( protonix gtt d/breezy -PO protonix 40 mg BID ) D/c octreotide gtt diet advanced high risk for recurrent GI bleed with dual anti platelet therapy ( aspirin and plavix ) with GAVE recommend to resume Aspirin 81 mg if not evidence of active bleeding need to D/w Neurology recommendation /safety of utilizing one antiplatelet (2) Acute blood loss anemia: due to above presented with melanotic stool acute drop of Hb 2 gm : 6.1 ( was 8.2 on 09/11/18 ) s/p 1 unit PRBC tx no furhter episode of GI bleed H&H remains stable ~9 post tx EGD finding as above (3) Stenosis of right internal carotid artery with cerebral infarction: recent admission with acute CVA /left hemiparesis was tx to [facility] on 08/19/18 for possible neurovascular intervention no intervention was indicated by Neurovascular surgery team at [place] pt was continued with aspirin , palvix , statin tx to [facility] on 08/23/18 for skilled rehab Aspirin /plavix kept on hold for acute GI bleed /anemia stain resumed aspirin 81 mg will be resumed in am need D/w Neurology regarding safety of being on single antiplatelt agent -high risk for recurrent/chronic GI bleed with dual antipltelets due to GAVE ( Gastic antral Vascular actasia ) Present on Admission?: Yes (4) Embolic cerebral infarction: Recent embolic CVAs noted in August - was placed on aspirin, plavix at that time aspirin and plavix were kept on hold on admission due to active GI blood loss - S/P EGD , no active bleeding source noted in stomach recommends -low dose aspirin 81 mg can be resumed now need to consider risk and benefit of dual antiplatelets given presence of GAVE pt will benefit with periodic blood work ( CBC check ) (5) Metabolic encephalopathy: baseline dementia with bizzare behaviour worsening of mental status post CVA pt is orientation varies , mostly oriented to person only was at [facility] pt noted to wander around will benefit with transition to Dementia unit referral made to [facility] hx of ETOH abuse -cont Thiamine , folic acid no evidenece of hepatic encephalopahty -ammonia 17 Present on Admission?: Yes (6) Dysphagia: per son -pt was having symptom of food getting stuck in throat before the stroke symptom persists/worsened after Acute CVA appreciate input from Speech bed side eval done recommend dental soft /moist diet aspiration precaution (7) GERD (gastroesophageal reflux disease): with jose alejandro's esophagus cont PPI BID indefinitely (8) CKD (chronic kidney disease) stage 3, GFR 30-59 ml/min: Lasix and aldaconte on hold for presenation with GI bleed /anemia follow PRP diuretics will be resumed as renal function remains stable (9) Cirrhosis of liver: - hx of ETOH abuse , given IV rocephin pre op for SBP prophylaxis in setting of GI bleed consider starting on Rifaxamin , need discussion with GI Hold diuretics for now and monitor for worsening ascites - Mental status appears at baseline with no worsening of chronic confusion - ammonia level 17 (10) Left arm weakness: due to acute CVA PT/OT fall precaution FULL CODE as per d/w SOn Subjective no further episode of dark stool or melena s/p EGD earlier advanced dementia oriented to person only wants to go home now . pt is counselled , she is in hospital for treatment , hopefully will be discharged in next 1-2 days pt kept repeating same sentence Physical Exam 2 Vital Signs (Past 24 Hours): Last Vital Signs Temp 36.8 C 09/19/18 19:00 Pulse 69 09/19/18 23:47 Resp 21 09/19/18 19:00 BP 120/77 09/19/18 19:00 Pulse Ox 99 09/19/18 19:00 Physical Exam: GENERAL: elderly female, not in distress , advanced dementia HEENT: Sclera nonicteric, Normal oral mucosa, neck: No JVD, no thyromegaly, trachea midline Lungs: Clear to auscultate, no wheeze or rales Cardiovascular: Regular S1 and S2, no murmur or gallop, Abdomen: Soft, distended, non tender , bowel sound active Extremities: No rash or deformity, normal joint, Neuro: left sided hemiparesis with left navya neglect Psych: advanced demenita , oriented to person only _ (1) GI bleed GI bleed type/associated pathology: melena Qualified Code(s): K92.1 - Melena (2) Dysphagia Dysphagia type: unspecified Qualified Code(s): R13.10 - Dysphagia, unspecified (3) Cirrhosis of liver Ascites presence: Hepatic cirrhosis type: other cirrhosis Qualified Code(s) : K74.69 - Other cirrhosis of liver (4) Embolic cerebral infarction Laterality of affected vessel: Precerebral and cerebral artery: unspecified cerebral artery Qualified Code(s): I63.40 - Cerebral infarction due to embolism of unspecified cerebral artery (5) GERD (gastroesophageal reflux disease) Esophagitis presence: esophagitis presence not specified Qualified Code(s): K21.9 - Gastro-esophageal reflux disease without esophagitis
[2018-09-20 08:01] LABS: Hematocrit (blood only) 24.4 % (37-47); Mean Corpuscular Hgb Conc 32.8 g/dL (32-36); Mean Corpuscular Volume 90.4 fL (80-100); Mean Platelet Volume 9.6 fL (7.4-10.4); Platelet Count 200 K/uL (130-400); RDW Coefficient of Variation 16.9 % (11.5-14.5); RDW Standard Deviation 54.9 fL (36.4-46.3); White Blood Count 6.21 K/uL (4.8-10.8)
[2018-09-20 08:35] LABS: BUN Creatinine Ratio 19.6 (10-20); Blood Urea Nitrogen 25 mg/dl (7-18); Calcium 7.5 mg/dl (8.5-10.1); Carbon Dioxide 21 mmol/L (21-32); Chloride 110 mmol/L (98-107); Est GFR (African American) 49.8; Est GFR (Non-African American) 42.9; Glucose 96 mg/dl (70-99); Potassium 3.7 mmol/L (3.5-5.1); Sodium 140 mmol/L (136-145)
[2018-09-20] MEDS: THIAMINE HCL 100 MG TAB PO SCH (09:25)
[2018-09-20] MEDS: PANTOprazole 40 MG TAB PO SCH ×2 (09:25→20:03)
[2018-09-20] MEDS: ASPIRIN 81 MG ECTAB PO SCH (09:25)
[2018-09-20] MEDS: FOLIC ACID 1 MG TAB PO SCH (09:25)
--- NOTE | 2018-09-20 09:58 | Gastroenterology Progress Note ---
Date of Service September 20, 2018 Assessment & Plan (1) Embolic cerebral infarction: (2) Anemia: (3) Cirrhosis of liver: Pt is a 72 y/o female w hx chronic glomerulonephritis, chronic anemia, ? 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 Last EGD done in 2016 showed Gamino's esophagus, GAVE s/p APC. Last colonoscopy in 2015 normal. EGD done on 09/19 showed GAVE w/o bleeding, Gamino's esophagus. - Monitor H/H and transfuse as needed - PPI BID - Octreotide and Ceftriaxone DC'd. - Advance diet as tolerated - I had spoken w primary hospitalist after pt's EGD yesterday and recommended discussion w Neurology to see if pt needs both ASA and Plavix ; or can reduce to one agent given risk of GI bleed. She should also have close monitoring of blood ct once she's DC'd and transfusions as needed. - Pt had hx of normal colonoscopy in 2015, will defer repeat at this time. - GI will sign off; pls recall if new question/concerns arise. Supervising Physician Co-Signing Physician Notes I have seen and examined the patient with MICHELLE Rene whose note reflects our findings and plan. Subjective Pt doing well overnight, no issues w abd pain, n/v. No signs of melena. H/H stable. Physical Exam 2 Vital Signs (Past 24 Hours): Last Vital Signs Temp 36.9 C 09/20/18 07:13 Pulse 78 09/20/18 07:13 Resp 18 09/20/18 07:13 BP 175/83 H 09/20/18 07:13 Pulse Ox 95 09/20/18 07:13 Constitutional: WD/WN, vitals as above cooperative and comfortable Eyes: PERRL, conjunctivae normal, anicteric sclerae ENMT: external ear and nose normal, oropharynx normal Respiratory: normal respiratory effort, lungs clear to auscultation Cardiovascular: RRR, no murmur, no edema Gastrointestinal (Abdomen): Inspection/Auscultation: + abdomen distended (mild ) and normal bowel sounds Percussion/Palpation: abdomen soft; abdomen nontender Skin: no rashes, warm and dry no jaundice Neurologic: Motor/Sensory: no asterixis Psychiatric: Orientation: alert, oriented to person, oriented to place and cooperative Lymphatic: no lymphedema _ (1) Anemia Anemia type: unspecified type Bone marrow failure anemia type: Chronic kidney disease stage: Folate deficiency anemia type: Hemolytic anemia type: Iron deficiency anemia type: Other causes of anemia: Vitamin B12 deficiency anemia type: Qualified Code(s): D64.9 - Anemia, unspecified (2) Cirrhosis of liver Ascites presence: Hepatic cirrhosis type: other cirrhosis Qualified Code(s) : K74.69 - Other cirrhosis of liver (3) Embolic cerebral infarction Laterality of affected vessel: Precerebral and cerebral artery: unspecified cerebral artery Qualified Code(s): I63.40 - Cerebral infarction due to embolism of unspecified cerebral artery
--- NOTE | 2018-09-20 18:56 | Hospitalist Progress Note ---
Date of Service September 20, 2018 Assessment & Plan (1) GI bleed: Presented with melena and hemoglobin of 6.8. Receiving aspirin and clopidogrel for recent stroke. History of cirrhosis and GAVE. EGD performed by GI 09/19. 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 No esophageal varices. [facility] PPI. Antiplatelet therapy as discussed below. (2) Acute blood loss anemia: Hgb 6.8 day of admission. Acute blood loss anemia secondary to GI bleed. Transfused with 1 unit pRBC's. Hgb today = 8.0. Follow. (3) Cirrhosis of liver: History of cirrhosis with ascites. Cirrhosis attributed to alcohol consumption. No esophageal varices seen on EGD. History of hepatic encephalopathy. Diuretics on hold. (4) GERD (gastroesophageal reflux disease): EGD demonstrated Gamino's esophagus. Continue PPI indefinitely. (5) Embolic cerebral infarction: Hospitalized in August with acute ischemic stroke(s). Found to have right ICA stenosis with associated thrombus. [place] [facility] No interventional procedures performed. Received antiplatelet therapy with aspirin and clopidogrel. Antiplatelet meds held at time of this admission due to GI bleeding. EGD results as noted above. OK to restart low-dose asprin per GI. Risks of dual antiplatelet therapy outweigh the benefits. Continue PT, OT, [employer]. (6) Dysphagia: Seen by [employer]. Dental soft / moist diet. Aspiration precautions. (7) Metabolic encephalopathy: Intermittent confusion, probably multifactorial. (8) CKD (chronic kidney disease) stage 3, GFR 30-59 ml/min: Creatinine day of admission was 1.37. Diuretics held. Creatinine today = 1.25. (9) DVT prophylaxis: No anticoagulants due to GI bleed. SCD's. (10) Discharge planning issues: Anticipated return to [facility] for skilled care when medially stable. Internal Medicine follow-up with Dr. Shields. Subjective Recheck for GI bleed and other problems. Pt was seen in her room around 1530. No fever. No chest pain. No cough or SOB. No abdominal pain, nausea, vomiting. No reported melena or hematochezia today. Denies urinary symptoms. Physical Exam 2 Vital Signs (Past 24 Hours): Last Vital Signs Temp 36.8 C 09/20/18 15:07 Pulse 74 09/20/18 15:07 Resp 18 09/20/18 15:07 BP 158/78 H 09/20/18 15:07 Pulse Ox 97 09/20/18 15:07 Constitutional: + thin; no acute distress Eyes: + anicteric sclerae Respiratory: normal respiratory effort, lungs clear to auscultation Cardiovascular: Rate/Rhythm: regular rate and regular rhythm Heart Sounds: no gallop Vessels: no JVD Extremities: no edema Gastrointestinal (Abdomen): Inspection/Auscultation: normal bowel sounds Percussion/Palpation: abdomen soft; abdomen nontender Neurologic: + focal motor deficit (LUE + LLE strength ~ 3/5) Psychiatric: Orientation: alert Results & Data Laboratory Results Short CBC 09/20/18 Range/Units 07:46 WBC 6.21 (4.8-10.8) K/uL Hgb 8.0 L (12.0-16.0) g/dL Hct 24.4 L (37-47) % Plt Count 200 (130-400) K/uL BMP 09/20/18 07:46 Sodium 140 Potassium 3.7 Chloride 110 H Carbon Dioxide 21 BUN 25 H Creatinine 1.25 H Glucose 96 Calcium 7.5 L _ (1) GI bleed GI bleed type/associated pathology: melena Gastritis type: Qualified Code(s ): K92.1 - Melena (2) Embolic cerebral infarction Precerebral and cerebral artery: unspecified cerebral artery Laterality of affected vessel: Qualified Code(s): I63.40 - Cerebral infarction due to embolism of unspecified cerebral artery (3) Dysphagia Dysphagia type: unspecified Qualified Code(s): R13.10 - Dysphagia, unspecified (4) GERD (gastroesophageal reflux disease) Esophagitis presence: esophagitis presence not specified Qualified Code(s): K21.9 - Gastro-esophageal reflux disease without esophagitis (5) Cirrhosis of liver Hepatic cirrhosis type: other cirrhosis Ascites presence: Qualified Code(s) : K74.69 - Other cirrhosis of liver
[2018-09-20] MEDS: ATORVASTATIN 40 MG TAB PO SCH (20:03)
[2018-09-21] MEDS: THIAMINE HCL 100 MG TAB PO SCH (08:26)
[2018-09-21] MEDS: PANTOprazole 40 MG TAB PO SCH ×2 (08:26→20:17)
[2018-09-21] MEDS: FOLIC ACID 1 MG TAB PO SCH (08:26)
[2018-09-21] MEDS: ASPIRIN 81 MG ECTAB PO SCH (08:27)
[2018-09-21 08:35] LABS: BUN Creatinine Ratio 20.8 (10-20); Blood Urea Nitrogen 24 mg/dl (7-18); Calcium 7.4 mg/dl (8.5-10.1); Carbon Dioxide 23 mmol/L (21-32); Chloride 111 mmol/L (98-107); Est GFR (Non-African American) 47.5; Glucose 95 mg/dl (70-99); Potassium 3.6 mmol/L (3.5-5.1); Sodium 141 mmol/L (136-145)
[2018-09-21 08:47] LABS: Hematocrit (blood only) 26.6 % (37-47); Hemoglobin 8.6 g/dL (12.0-16.0); Mean Corpuscular Hgb Conc 32.3 g/dL (32-36); Mean Corpuscular Volume 91.4 fL (80-100); Mean Platelet Volume 9.8 fL (7.4-10.4); Platelet Count 232 K/uL (130-400); RDW Coefficient of Variation 16.6 % (11.5-14.5); RDW Standard Deviation 54.2 fL (36.4-46.3); Red Blood Count 2.91 M/uL (4.2-5.4); White Blood Count 6.93 K/uL (4.8-10.8)
[2018-09-21] MEDS: ATORVASTATIN 40 MG TAB PO SCH (20:17)
--- NOTE | 2018-09-21 20:43 | Hospitalist Progress Note ---
Date of Service September 21, 2018 Assessment & Plan (1) GI bleed: Presented with melena and hemoglobin of 6.8. Receiving aspirin and clopidogrel for recent stroke. History of cirrhosis and GAVE. EGD performed by GI 09/19. 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 No esophageal varices. detention PPI. Antiplatelet therapy as discussed below. (2) Acute blood loss anemia: Hgb 6.8 day of admission. Acute blood loss anemia secondary to GI bleed. Transfused with 1 unit pRBC's. Hgb today = 8.6. Follow. (3) Cirrhosis of liver: History of cirrhosis with ascites. Cirrhosis attributed to alcohol consumption. No esophageal varices seen on EGD. History of hepatic encephalopathy. Resume diuretics. (4) GERD (gastroesophageal reflux disease): EGD demonstrated Gamino's esophagus. Continue PPI indefinitely. (5) Embolic cerebral infarction: Hospitalized in August with acute ischemic stroke(s). Found to have right ICA stenosis with associated thrombus. [place] [facility] No interventional procedures performed. Received antiplatelet therapy with aspirin and clopidogrel. Antiplatelet meds held at time of this admission due to GI bleeding. EGD results as noted above. OK to restart low-dose asprin per GI. Risks of dual antiplatelet therapy outweigh the benefits. Continue PT, OT, [employer] AIDE. (6) Dysphagia: Seen by [employer] AIDE. Dental soft / moist diet. Aspiration precautions. (7) Metabolic encephalopathy: Intermittent confusion, probably multifactorial. (8) CKD (chronic kidney disease) stage 3, GFR 30-59 ml/min: Creatinine day of admission was 1.37. Diuretics held. Creatinine today = 1.15. (9) DVT prophylaxis: No anticoagulants due to GI bleed. SCD's. (10) Discharge planning issues: Anticipated return to [facility] for skilled care when medially stable. Internal Medicine follow-up with Dr. Shields. Subjective Recheck for GI bleed and other problems. Pt was seen in her room around 1440. Doing well. No fever. No chest pain. No cough or SOB. No abdominal pain, nausea, vomiting. No reported melena or hematochezia. No urinary symptoms. Physical Exam 2 Vital Signs (Past 24 Hours): Last Vital Signs Temp 37 C 09/21/18 19:11 Pulse 84 09/21/18 19:11 Resp 18 09/21/18 19:11 BP 155/65 H 09/21/18 19:11 Pulse Ox 99 09/21/18 19:11 Constitutional: + thin; no acute distress Eyes: + anicteric sclerae Respiratory: normal respiratory effort, lungs clear to auscultation Cardiovascular: Rate/Rhythm: regular rate and regular rhythm Heart Sounds: no gallop and no cardiac rub Vessels: no JVD Extremities: no edema Gastrointestinal (Abdomen): Inspection/Auscultation: + abdomen distended ( mildly distended) and normal bowel sounds Percussion/Palpation: abdomen soft ; abdomen nontender, no guarding and abdomen not rigid Musculoskeletal: Extremities: no cyanosis and no clubbing Skin: no rashes, warm and dry Neurologic: + focal motor deficit (LUE ~ 3/5, LLE ~ 4/5) Psychiatric: Orientation: alert Results & Data Laboratory Results Short CBC 09/21/18 Range/Units 07:42 WBC 6.93 (4.8-10.8) K/uL Hgb 8.6 L (12.0-16.0) g/dL Hct 26.6 L (37-47) % Plt Count 232 (130-400) K/uL BMP 09/21/18 07:42 Sodium 141 Potassium 3.6 Chloride 111 H Carbon Dioxide 23 BUN 24 H Creatinine 1.15 Glucose 95 Calcium 7.4 L _ (1) GI bleed GI bleed type/associated pathology: melena Gastritis type: Qualified Code(s ): K92.1 - Melena (2) Cirrhosis of liver Hepatic cirrhosis type: other cirrhosis Ascites presence: Qualified Code(s) : K74.69 - Other cirrhosis of liver (3) GERD (gastroesophageal reflux disease) Esophagitis presence: esophagitis presence not specified Qualified Code(s): K21.9 - Gastro-esophageal reflux disease without esophagitis (4) Embolic cerebral infarction Precerebral and cerebral artery: unspecified cerebral artery Laterality of affected vessel: Qualified Code(s): I63.40 - Cerebral infarction due to embolism of unspecified cerebral artery (5) Dysphagia Dysphagia type: unspecified Qualified Code(s): R13.10 - Dysphagia, unspecified
[2018-09-22 07:54] LABS: Hematocrit (blood only) 25.5 % (37-47); Hemoglobin 8.3 g/dL (12.0-16.0); Mean Corpuscular Hgb Conc 32.5 g/dL (32-36); Mean Corpuscular Volume 91.1 fL (80-100); Mean Platelet Volume 9.7 fL (7.4-10.4); Platelet Count 225 K/uL (130-400); RDW Coefficient of Variation 16.4 % (11.5-14.5); RDW Standard Deviation 54.6 fL (36.4-46.3)
[2018-09-22 08:27] LABS: BUN Creatinine Ratio 22.5 (10-20); Blood Urea Nitrogen 23 mg/dl (7-18); Calcium 7.2 mg/dl (8.5-10.1); Carbon Dioxide 23 mmol/L (21-32); Chloride 112 mmol/L (98-107); Est GFR (African American) 64.4; Est GFR (Non-African American) 55.6; Glucose 87 mg/dl (70-99); Potassium 3.4 mmol/L (3.5-5.1); Sodium 141 mmol/L (136-145)
[2018-09-22] MEDS: FUROSEMIDE 20 MG TAB PO SCH (08:48)
[2018-09-22] MEDS: ASPIRIN 81 MG ECTAB PO SCH (08:48)
[2018-09-22] MEDS: FOLIC ACID 1 MG TAB PO SCH (08:48)
[2018-09-22] MEDS: SPIRONOLACTONE 25 MG TAB PO SCH (08:48)
[2018-09-22] MEDS: PANTOprazole 40 MG TAB PO SCH ×2 (08:49→20:20)
[2018-09-22] MEDS: THIAMINE HCL 100 MG TAB PO SCH (08:49)
--- NOTE | 2018-09-22 19:00 | Hospitalist Progress Note ---
Date of Service September 22, 2018 Assessment & Plan (1) GI bleed: Presented with melena and hemoglobin of 6.8. Receiving aspirin and clopidogrel for recent stroke. History of cirrhosis and GAVE. EGD performed by GI 09/19. 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 No esophageal varices. USP PPI. Antiplatelet therapy as discussed below. (2) Acute blood loss anemia: Hgb 6.8 day of admission. Acute blood loss anemia secondary to GI bleed. Transfused with 1 unit pRBC's. Hgb today = 8.3. Follow. (3) Cirrhosis of liver: History of cirrhosis with ascites. Cirrhosis attributed to alcohol consumption. No esophageal varices seen on EGD. History of hepatic encephalopathy. Resumed diuretics. (4) GERD (gastroesophageal reflux disease): EGD demonstrated Gamino's esophagus. Continue PPI indefinitely. (5) Embolic cerebral infarction: Hospitalized in August with acute ischemic stroke(s). Found to have right ICA stenosis with associated thrombus. Transferred to [facility]. No interventional procedures performed. Received antiplatelet therapy with aspirin and clopidogrel. Antiplatelet meds held at time of this admission due to GI bleeding. EGD results as noted above. OK to restart low-dose asprin per GI. Risks of dual antiplatelet therapy outweigh the benefits. 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 (6) Dysphagia: Seen by [employer] MECHANIC. Dental soft / moist diet. Aspiration precautions. (7) Metabolic encephalopathy: Intermittent confusion, probably multifactorial. (8) CKD (chronic kidney disease) stage 3, GFR 30-59 ml/min: Creatinine day of admission was 1.37. Diuretics held. Creatinine today = 1.01. (9) DVT prophylaxis: No anticoagulants due to GI bleed. SCD's. (10) Discharge planning issues: Anticipated need for skilled care. Case Management consulted. Internal Medicine follow-up with Dr. Shields. Subjective Recheck for GI bleed and other problems. Pt was seen in her room around 1620. Doing well. No new problems. Wants to go home. No fever. No chest pain. No cough or SOB. No abdominal pain, nausea, vomiting. No reported melena or hematochezia. No urinary symptoms. Physical Exam 2 Vital Signs (Past 24 Hours): Last Vital Signs Temp 36.8 C 09/22/18 15:23 Pulse 85 09/22/18 15:23 Resp 18 09/22/18 15:23 BP 116/69 09/22/18 15:23 Pulse Ox 96 09/22/18 15:23 Constitutional: + thin; no acute distress Eyes: + anicteric sclerae Respiratory: normal respiratory effort, lungs clear to auscultation Cardiovascular: Rate/Rhythm: regular rate and regular rhythm Heart Sounds: no gallop and no cardiac rub Vessels: no JVD Extremities: no edema Gastrointestinal (Abdomen): Inspection/Auscultation: + abdomen distended ( mildly distended) and normal bowel sounds Percussion/Palpation: abdomen soft ; abdomen nontender, no guarding and abdomen not rigid Musculoskeletal: Extremities: no cyanosis and no clubbing Skin: no rashes, warm and dry Neurologic: + focal motor deficit (LUE ~ 3/5, LLE ~ 4/5) Psychiatric: Orientation: alert Results & Data Laboratory Results Laboratory Results - last 24 hr 09/22/18 09/22/18 07:24 07:24 WBC 6.30 RBC 2.80 L Hgb 8.3 L Hct 25.5 L MCV 91.1 MCH 29.6 MCHC 32.5 RDW Std Deviation 54.6 H RDW Coeff of Jonathan 16.4 H Plt Count 225 MPV 9.7 Sodium 141 Potassium 3.4 L Chloride 112 H Carbon Dioxide 23 Anion Gap 6.0 BUN 23 H Creatinine 1.01 Est Cr Clr Drug Dosing Not Reportable Est GFR ( Amer) 64.4 Est GFR (Non-Af Amer) 55.6 BUN/Creatinine Ratio 22.5 H Glucose 87 Calcium 7.2 L _ (1) GI bleed GI bleed type/associated pathology: melena Gastritis type: Qualified Code(s ): K92.1 - Melena (2) Cirrhosis of liver Hepatic cirrhosis type: other cirrhosis Ascites presence: Qualified Code(s) : K74.69 - Other cirrhosis of liver (3) GERD (gastroesophageal reflux disease) Esophagitis presence: esophagitis presence not specified Qualified Code(s): K21.9 - Gastro-esophageal reflux disease without esophagitis (4) Embolic cerebral infarction Precerebral and cerebral artery: unspecified cerebral artery Laterality of affected vessel: Qualified Code(s): I63.40 - Cerebral infarction due to embolism of unspecified cerebral artery (5) Dysphagia Dysphagia type: unspecified Qualified Code(s): R13.10 - Dysphagia, unspecified
[2018-09-22] MEDS: ATORVASTATIN 40 MG TAB PO SCH (20:20)
[2018-09-23 08:04] LABS: Hematocrit (blood only) 25.4 % (37-47); Hemoglobin 8.2 g/dL (12.0-16.0); Mean Corpuscular Hgb Conc 32.3 g/dL (32-36); Mean Corpuscular Volume 90.7 fL (80-100); Mean Platelet Volume 9.3 fL (7.4-10.4); Platelet Count 219 K/uL (130-400); RDW Coefficient of Variation 16.5 % (11.5-14.5); RDW Standard Deviation 54.5 fL (36.4-46.3); White Blood Count 7.07 K/uL (4.8-10.8)
[2018-09-23] MEDS: PANTOprazole 40 MG TAB PO SCH ×2 (08:26→21:35)
[2018-09-23] MEDS: ASPIRIN 81 MG ECTAB PO SCH (08:27)
[2018-09-23] MEDS: FOLIC ACID 1 MG TAB PO SCH (08:27)
[2018-09-23] MEDS: SPIRONOLACTONE 25 MG TAB PO SCH (08:27)
[2018-09-23] MEDS: FUROSEMIDE 20 MG TAB PO SCH (08:27)
[2018-09-23] MEDS: THIAMINE HCL 100 MG TAB PO SCH (08:27)
[2018-09-23 08:40] LABS: BUN Creatinine Ratio 21.8 (10-20); Blood Urea Nitrogen 25 mg/dl (7-18); Calcium 7.5 mg/dl (8.5-10.1); Carbon Dioxide 23 mmol/L (21-32); Chloride 114 mmol/L (98-107); Est GFR (Non-African American) 47.5; Glucose 88 mg/dl (70-99); Potassium 3.9 mmol/L (3.5-5.1); Sodium 143 mmol/L (136-145)
--- NOTE | 2018-09-23 16:05 | Hospitalist Progress Note ---
Date of Service September 23, 2018 Assessment & Plan (1) GI bleed: Presented with melena and hemoglobin of 6.8. Receiving aspirin and clopidogrel for recent stroke. History of cirrhosis and GAVE. EGD performed by [facility] 09/19. 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 No esophageal varices. detention PPI. Antiplatelet therapy as discussed below. (2) Acute blood loss anemia: Hgb 6.8 day of admission. Acute blood loss anemia secondary to GI bleed. Transfused with 1 unit pRBC's. Hgb today = 8.2. May have chronic GI blood loss. Follow H/H and transfuse as necessary to maintain Hgb > 8. (3) Cirrhosis of liver: History of cirrhosis with ascites. Cirrhosis attributed to alcohol consumption. No esophageal varices seen on EGD. History of hepatic encephalopathy. Resumed diuretics. (4) GERD (gastroesophageal reflux disease): EGD demonstrated Gamino's esophagus. Continue PPI indefinitely. (5) Embolic cerebral infarction: Hospitalized in August with acute ischemic stroke(s). Found to have right ICA stenosis with associated thrombus. Transferred to [facility] [place]. No interventional procedures performed. Received antiplatelet therapy with aspirin and clopidogrel. Antiplatelet meds held at time of this admission due to GI bleeding. EGD results as noted above. OK to restart low-dose asprin per GI. Risks of dual antiplatelet therapy outweigh the benefits. Continue PT, OT, MANAGER OF SALES. (6) Dysphagia: Seen by MANAGER OF SALES. Dental soft / moist diet. Aspiration precautions. (7) Metabolic encephalopathy: Intermittent confusion, probably multifactorial. (8) CKD (chronic kidney disease) stage 3, GFR 30-59 ml/min: Creatinine day of admission was 1.37. Diuretics held. Creatinine today = 1.15. (9) DVT prophylaxis: No anticoagulants due to GI bleed. SCD's. (10) Discharge planning issues: Anticipated need for skilled care. Case Management consulted. Internal Medicine follow-up with Dr. Shields. Ryan visiting today and given updates. Subjective Recheck for GI bleed and other problems. Pt was seen in her room around 1540. Ryan visiting. Doing well. No new problems. Wants to go home. No fever. No chest pain. No cough or SOB. No abdominal pain, nausea, vomiting. No melena or hematochezia. No urinary symptoms. Physical Exam 2 Vital Signs (Past 24 Hours): Last Vital Signs Temp 37.0 C 09/23/18 15:24 Pulse 85 09/23/18 15:24 Resp 18 09/23/18 15:24 BP 122/67 09/23/18 15:24 Pulse Ox 94 09/23/18 15:24 Constitutional: + thin; no acute distress Eyes: + anicteric sclerae Respiratory: normal respiratory effort, lungs clear to auscultation Cardiovascular: Rate/Rhythm: regular rate and regular rhythm Heart Sounds: no gallop and no cardiac rub Vessels: no JVD Extremities: no edema Gastrointestinal (Abdomen): Inspection/Auscultation: + abdomen distended ( mildly distended) and normal bowel sounds Percussion/Palpation: abdomen soft ; abdomen nontender, no guarding and abdomen not rigid Musculoskeletal: Extremities: no cyanosis and no clubbing Skin: no rashes, warm and dry Neurologic: + focal motor deficit (LUE ~ 3/5, LLE ~ 4/5) Psychiatric: Orientation: alert Insight: + limited insight Results & Data Laboratory Results Laboratory Results - last 24 hr 09/23/18 09/23/18 07:50 07:50 WBC 7.07 RBC 2.80 L Hgb 8.2 L Hct 25.4 L MCV 90.7 MCH 29.3 MCHC 32.3 RDW Std Deviation 54.5 H RDW Coeff of Jonathan 16.5 H Plt Count 219 MPV 9.3 Sodium 143 Potassium 3.9 Chloride 114 H Carbon Dioxide 23 Anion Gap 6.0 BUN 25 H Creatinine 1.15 Est Cr Clr Drug Dosing Not Reportable Est GFR ( Amer) 55.0 Est GFR (Non-Af Amer) 47.5 BUN/Creatinine Ratio 21.8 H Glucose 88 Calcium 7.5 L _ (1) GI bleed GI bleed type/associated pathology: melena Gastritis type: Qualified Code(s ): K92.1 - Melena (2) Cirrhosis of liver Hepatic cirrhosis type: other cirrhosis Ascites presence: Qualified Code(s) : K74.69 - Other cirrhosis of liver (3) GERD (gastroesophageal reflux disease) Esophagitis presence: esophagitis presence not specified Qualified Code(s): K21.9 - Gastro-esophageal reflux disease without esophagitis (4) Embolic cerebral infarction Precerebral and cerebral artery: unspecified cerebral artery Laterality of affected vessel: Qualified Code(s): I63.40 - Cerebral infarction due to embolism of unspecified cerebral artery (5) Dysphagia Dysphagia type: unspecified Qualified Code(s): R13.10 - Dysphagia, unspecified
[2018-09-23] MEDS: ATORVASTATIN 40 MG TAB PO SCH (21:35)
[2018-09-24] MEDS: SPIRONOLACTONE 25 MG TAB PO SCH (09:52)
[2018-09-24] MEDS: FOLIC ACID 1 MG TAB PO SCH (09:52)
[2018-09-24] MEDS: PANTOprazole 40 MG TAB PO SCH ×2 (09:52→19:33)
[2018-09-24] MEDS: ASPIRIN 81 MG ECTAB PO SCH (09:53)
[2018-09-24] MEDS: FUROSEMIDE 20 MG TAB PO SCH (09:53)
[2018-09-24] MEDS: THIAMINE HCL 100 MG TAB PO SCH (09:53)
--- NOTE | 2018-09-24 15:42 | Hospitalist Progress Note ---
Date of Service September 24, 2018 Assessment & Plan (1) GI bleed: Presented with melena and hemoglobin of 6.8. Receiving aspirin and clopidogrel for recent stroke. History of cirrhosis and GAVE. EGD performed by GI 09/19. 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 No esophageal varices. [facility] PPI. Antiplatelet therapy as discussed below. (2) Acute blood loss anemia: Hgb 6.8 day of admission. Acute blood loss anemia secondary to GI bleed. Transfused with 1 unit pRBC's. Hgb yesterday was 8.2. May have chronic GI blood loss. Follow H/H and transfuse as necessary to maintain Hgb > 8. (3) Cirrhosis of liver: History of cirrhosis with ascites. Cirrhosis attributed to alcohol consumption. No esophageal varices seen on EGD. History of hepatic encephalopathy. Resumed diuretics. (4) GERD (gastroesophageal reflux disease): EGD demonstrated Gamino's esophagus. Continue PPI indefinitely. (5) Embolic cerebral infarction: Hospitalized in August with acute ischemic stroke(s). Found to have right ICA stenosis with associated thrombus. Transferred to [facility] [place]. No interventional procedures performed. Received antiplatelet therapy with aspirin and clopidogrel. Antiplatelet meds held at time of this admission due to GI bleeding. EGD results as noted above. OK to restart low-dose asprin per GI. Risks of dual antiplatelet therapy outweigh the benefits. Continue PT, OT, FOREX TRADER. (6) Dysphagia: Seen by FOREX TRADER. Dental soft / moist diet. Aspiration precautions. (7) Metabolic encephalopathy: Intermittent confusion, probably multifactorial. (8) CKD (chronic kidney disease) stage 3, GFR 30-59 ml/min: Creatinine day of admission was 1.37. Diuretics held and then resumed. Creatinine yesterday was 1.15. (9) DVT prophylaxis: No anticoagulants due to GI bleed. SCD's. (10) Discharge planning issues: Anticipated need for skilled care. Case Management consulted. Internal Medicine follow-up with Dr. Shields. Son visiting today and given updates. Subjective Recheck for GI bleed and other problems. Pt was seen in her room around 1520. Son and his family visiting. Doing well. No new problems. Wants to go home. No fever. No chest pain. No cough or SOB. No abdominal pain, nausea, vomiting. No melena or hematochezia. No urinary symptoms. Son shares that pt started drinking heavily years ago after her . He has noted signs of cognitive decline over past 2 years. Physical Exam 2 Vital Signs (Past 24 Hours): Last Vital Signs Temp 37.3 C 09/24/18 14:48 Pulse 82 09/24/18 14:48 Resp 20 09/24/18 14:48 BP 113/65 09/24/18 14:48 Pulse Ox 95 09/24/18 14:48 Constitutional: + thin; no acute distress Eyes: + anicteric sclerae Respiratory: normal respiratory effort, lungs clear to auscultation Cardiovascular: Rate/Rhythm: regular rate and regular rhythm Heart Sounds: no gallop and no cardiac rub Vessels: no JVD Extremities: no edema Gastrointestinal (Abdomen): Inspection/Auscultation: + abdomen distended ( mildly distended) and normal bowel sounds Percussion/Palpation: abdomen soft ; abdomen nontender, no guarding and abdomen not rigid Musculoskeletal: Extremities: no cyanosis and no clubbing Skin: no rashes, warm and dry Neurologic: + focal motor deficit (LUE ~ 3/5, LLE ~ 4/5) Psychiatric: Orientation: alert Insight: + limited insight _ (1) GI bleed GI bleed type/associated pathology: melena Gastritis type: Qualified Code(s ): K92.1 - Melena (2) Cirrhosis of liver Hepatic cirrhosis type: other cirrhosis Ascites presence: Qualified Code(s) : K74.69 - Other cirrhosis of liver (3) GERD (gastroesophageal reflux disease) Esophagitis presence: esophagitis presence not specified Qualified Code(s): K21.9 - Gastro-esophageal reflux disease without esophagitis (4) Embolic cerebral infarction Precerebral and cerebral artery: unspecified cerebral artery Laterality of affected vessel: Qualified Code(s): I63.40 - Cerebral infarction due to embolism of unspecified cerebral artery (5) Dysphagia Dysphagia type: unspecified Qualified Code(s): R13.10 - Dysphagia, unspecified
[2018-09-24] MEDS: ATORVASTATIN 40 MG TAB PO SCH (19:33)
[2018-09-24] MEDS ORDERED: HALOPERIDOL LACTATE 5 MG/ML 1 ML VIAL IM PRN (20:23)
[2018-09-24] MEDS ORDERED: OLANZapine 10 MG/2.1 ML SDV IM STA (23:57)
[2018-09-25 07:12] LABS: Hematocrit (blood only) 28.7 % (37-47); Hemoglobin 9.2 g/dL (12.0-16.0); Mean Corpuscular Hgb Conc 32.1 g/dL (32-36); Mean Corpuscular Volume 91.7 fL (80-100); Mean Platelet Volume 9.8 fL (7.4-10.4); Platelet Count 340 K/uL (130-400); RDW Coefficient of Variation 16.6 % (11.5-14.5); RDW Standard Deviation 54.9 fL (36.4-46.3); Red Blood Count 3.13 M/uL (4.2-5.4)
[2018-09-25 07:30] LABS: Alanine Aminotransferase 28 U/L (12-78); Albumin Level 1.3 gm/dl (3.4-5.0); Aspartate Aminotransferase 45 U/L (15-37); BUN Creatinine Ratio 20.4 (10-20); Bilirubin Direct 0.1 mg/dl (0-0.2); Blood Urea Nitrogen 26 mg/dl (7-18); Calcium 7.7 mg/dl (8.5-10.1); Carbon Dioxide 22 mmol/L (21-32); Chloride 112 mmol/L (98-107); Est GFR (African American) 49.3; Est GFR (Non-African American) 42.5; Glucose 113 mg/dl (70-99); Potassium 4.1 mmol/L (3.5-5.1); Sodium 142 mmol/L (136-145)
[2018-09-25 07:33] LABS: Albumin Globulin Ratio 0.3 (0.9-2); Alkaline Phosphatase 172 U/L (45-117); Bilirubin,Total 0.4 mg/dl (0.2-1); Globulin 4.8 gm/dl (2.5-4.0); Total Protein 6.1 gm/dl (6.4-8.2)
[2018-09-25] MEDS: FUROSEMIDE 20 MG TAB PO SCH (09:42)
[2018-09-25] MEDS: PANTOprazole 40 MG TAB PO SCH ×2 (09:42→20:06)
[2018-09-25] MEDS: SPIRONOLACTONE 25 MG TAB PO SCH (09:42)
[2018-09-25] MEDS: THIAMINE HCL 100 MG TAB PO SCH (09:43)
[2018-09-25] MEDS: FOLIC ACID 1 MG TAB PO SCH (09:43)
[2018-09-25] MEDS: ASPIRIN 81 MG ECTAB PO SCH (09:43)
[2018-09-25] MEDS: AMPICILLIN 1,000 MG in SODIUM CHLOR 0.9% AD-VAN 50 ML IV SCH ×2 (15:18→18:36)
--- NOTE | 2018-09-25 18:22 | Hospitalist Progress Note ---
Date of Service September 25, 2018 Assessment & Plan (1) GI bleed: Presented with melena and hemoglobin of 6.8. Receiving aspirin and clopidogrel for recent stroke. History of cirrhosis and GAVE. EGD performed by GI 09/19. 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 No esophageal varices. [facility] PPI. Antiplatelet therapy as discussed below. Hematemesis this evening after apparent self-induced emesis. Could have Tonya-Lee tear, PUD, bleeding from GAVE. IV pantoprazole. Anti-emetics. Transfuse as needed. (2) Acute blood loss anemia: Hgb 6.8 day of admission. Acute blood loss anemia secondary to GI bleed. Transfused with 1 unit pRBC's 09/18. Hgb john to 9.1 after transfusion. Hgb this a.m. 9.2, but down to 7.1 this evening. Follow H/H and transfuse as necessary to maintain Hgb > 8. (3) Cirrhosis of liver: History of cirrhosis with ascites. Cirrhosis attributed to alcohol consumption. No esophageal varices seen on EGD. History of hepatic encephalopathy. Hold diuretics in light of nausea and vomiting. (4) GERD (gastroesophageal reflux disease): EGD demonstrated Gamino's esophagus. Continue PPI indefinitely. (5) Embolic cerebral infarction: Hospitalized in August with acute ischemic stroke(s). Found to have right ICA stenosis with associated thrombus. Transfer[place] [facility] [place] No interventional procedures performed. Received antiplatelet therapy with aspirin and clopidogrel. Antiplatelet meds held at time of this admission due to GI bleeding. EGD results as noted above. OK to restart low-dose asprin per GI. (hold again in light of hematemesis). Risks of dual antiplatelet therapy outweigh the benefits. Continue PT, OT, EDUCATIONAL AIDE. (6) Dysphagia: Seen by EDUCATIONAL AIDE. Dental soft / moist diet. Aspiration precautions. (7) Metabolic encephalopathy: Intermittent confusion, probably multifactorial. Probably had some dementia- family notes cognitive decline over past 2 years. Family notes confusion since recent stroke. Worsening confusion last 24 hours could be related to UTI. (8) CKD (chronic kidney disease) stage 3, GFR 30-59 ml/min: Creatinine day of admission was 1.37. Diuretics held and then resumed. Creatinine yesterday was 1.26. (9) UTI (urinary tract infection): Urine culture 09/21 grew Enterococcus faecalis. No fever or dysuria. Apparent asymptomatic bacteruria. No leukocytosis until today. Will Rx with IV antibiotics at this time in light of leukocytosis and increasing confusion. Initially ordered IV ampicillin, but will broaden coverage with piperacillin / tazobactam given risk for SBP. (10) DVT prophylaxis: No anticoagulants due to GI bleed. SCD's. (11) Discharge planning issues: Anticipated need for skilled care. Case Management consulted. Internal Medicine follow-up with Dr. Shields. Subjective Recheck for GI bleed and other problems. She was more confused and agitated last night. Patient seen in her room this afternoon. Doing well. No new problems. As usual, she wants to go home. No fever. No chest pain. No cough or SOB. No abdominal pain, nausea, vomiting. No melena or hematochezia. No urinary symptoms. Had some emesis this evening with groos blood. Staff reports that she seemed to be gagging herself with her fingers. Physical Exam 2 Vital Signs (Past 24 Hours): Last Vital Signs Temp 37.1 C 09/25/18 15:47 Pulse 96 H 09/25/18 15:47 Resp 15 09/25/18 15:47 BP 112/72 09/25/18 15:47 Pulse Ox 99 09/25/18 15:47 Constitutional: + thin; no acute distress Eyes: + anicteric sclerae Respiratory: normal respiratory effort, lungs clear to auscultation Cardiovascular: Rate/Rhythm: regular rate and regular rhythm Heart Sounds: no gallop and no cardiac rub Vessels: no JVD Extremities: no edema Gastrointestinal (Abdomen): Inspection/Auscultation: + abdomen distended ( moderately distended) and normal bowel sounds Percussion/Palpation: abdomen soft; abdomen nontender, no guarding and abdomen not rigid Musculoskeletal: Extremities: no cyanosis and no clubbing Skin: no rashes, warm and dry Neurologic: + focal motor deficit (LUE ~ 3/5, LLE ~ 4/5) Psychiatric: Orientation: alert Insight: + limited insight Results & Data Laboratory Results Laboratory Results - last 24 hr 09/25/18 09/25/18 09/25/18 06:34 06:34 06:34 WBC 14.60 H RBC 3.13 L Hgb 9.2 L Hct 28.7 L MCV 91.7 MCH 29.4 MCHC 32.1 RDW Std Deviation 54.9 H RDW Coeff of Jonathan 16.6 H Plt Count 340 D MPV 9.8 Sodium 142 Potassium 4.1 Chloride 112 H Carbon Dioxide 22 Anion Gap 8.0 BUN 26 H Creatinine 1.26 H Est Cr Clr Drug Dosing Not Reportable Est GFR ( Amer) 49.3 Est GFR (Non-Af Amer) 42.5 BUN/Creatinine Ratio 20.4 H Glucose 113 H Calcium 7.7 L Total Bilirubin 0.4 Direct Bilirubin 0.1 AST 45 H ALT 28 Alkaline Phosphatase 172 H Ammonia < 10.0 L Total Protein 6.1 L Albumin 1.3 L Globulin 4.8 H Albumin/Globulin Ratio 0.3 L Vitamin B12 Crossmatch 09/25/18 09/25/18 09/25/18 06:34 21:17 21:17 WBC 14.35 H RBC 2.40 L Hgb 7.1 L Hct 22.2 L MCV 92.5 MCH 29.6 MCHC 32.0 RDW Std Deviation 55.8 H RDW Coeff of Jonathan 16.5 H Plt Count 297 MPV 9.6 Sodium 139 Potassium 4.0 Chloride 110 H Carbon Dioxide 20 L Anion Gap 9.0 BUN 28 H Creatinine 1.35 H Est Cr Clr Drug Dosing Not Reportable Est GFR ( Amer) 45.3 Est GFR (Non-Af Amer) 39.1 BUN/Creatinine Ratio 21.0 H Glucose 119 H Calcium 7.6 L Total Bilirubin Direct Bilirubin AST ALT Alkaline Phosphatase Ammonia Total Protein Albumin Globulin Albumin/Globulin Ratio Vitamin B12 543 Crossmatch 09/25/18 21:17 WBC RBC Hgb Hct MCV MCH MCHC RDW Std Deviation RDW Coeff of Jonathan Plt Count MPV Sodium Potassium Chloride Carbon Dioxide Anion Gap BUN Creatinine Est Cr Clr Drug Dosing Est GFR ( Amer) Est GFR (Non-Af Amer) BUN/Creatinine Ratio Glucose Calcium Total Bilirubin Direct Bilirubin AST ALT Alkaline Phosphatase Ammonia Total Protein Albumin Globulin Albumin/Globulin Ratio Vitamin B12 Crossmatch See Detail _ (1) GI bleed GI bleed type/associated pathology: melena Gastritis type: Qualified Code(s ): K92.1 - Melena (2) Cirrhosis of liver Hepatic cirrhosis type: other cirrhosis Ascites presence: Qualified Code(s) : K74.69 - Other cirrhosis of liver (3) GERD (gastroesophageal reflux disease) Esophagitis presence: esophagitis presence not specified Qualified Code(s): K21.9 - Gastro-esophageal reflux disease without esophagitis (4) Embolic cerebral infarction Precerebral and cerebral artery: unspecified cerebral artery Laterality of affected vessel: Qualified Code(s): I63.40 - Cerebral infarction due to embolism of unspecified cerebral artery (5) Dysphagia Dysphagia type: unspecified Qualified Code(s): R13.10 - Dysphagia, unspecified
[2018-09-25] MEDS: ATORVASTATIN 40 MG TAB PO SCH (20:06)
[2018-09-25] MEDS ORDERED: SODIUM CHLORIDE 0.9% 250 ML IV PRN ×2 (20:55→21:57)
[2018-09-25] MEDS ORDERED: ONDANSETRON INJ 2 MG/ML 2 ML VIAL IV PRN (20:57)
--- NOTE | 2018-09-25 21:15 | XRay Report ---
SAMY CLINICAL HISTORY: nausea and vomiting COMPARISON STUDY: [place] August 16, 2018. FINDINGS: There are multiple loops of gas-filled prominent loops of small bowel without convincing ev idence for a bowel obstruction. These bowel loops measure up to 2.7 cm in caliber. The small bowel lo ops are centralized. There is a 2.3 cm calcified gallstone. IMPRESSION: 1. Prominent loops gas-filled small bowel without convincing evidence for a bowel obstruction. 2. Centralized bowel loops which suggests ascites. 3. Cholelithiasis. Electronically signed by: Rakan Champion M.D. 09/25/2018 9:14 PM
[2018-09-25 21:45] LABS: Hematocrit (blood only) 22.2 % (37-47); Hemoglobin 7.1 g/dL (12.0-16.0); Mean Corpuscular Volume 92.5 fL (80-100); Mean Platelet Volume 9.6 fL (7.4-10.4); Platelet Count 297 K/uL (130-400); RDW Coefficient of Variation 16.5 % (11.5-14.5); RDW Standard Deviation 55.8 fL (36.4-46.3); White Blood Count 14.35 K/uL (4.8-10.8)
[2018-09-25] MEDS ORDERED: PIPERACILL/TAZOBAC CONSULT ACTIVE PRN (21:58)
[2018-09-25 22:01] LABS: Blood Urea Nitrogen 28 mg/dl (7-18); Calcium 7.6 mg/dl (8.5-10.1); Carbon Dioxide 20 mmol/L (21-32); Chloride 110 mmol/L (98-107); Est GFR (African American) 45.3; Est GFR (Non-African American) 39.1; Glucose 119 mg/dl (70-99); Sodium 139 mmol/L (136-145)
[2018-09-25] MEDS ORDERED: PATIENT'S HEIGHT AND/OR WEIGHT NEEDED SCH (22:15)
[2018-09-25] MEDS ORDERED: MULTI-VITAMIN INFUSION 10 ML, THIAMINE HCL 100 MG, FOLIC ACID 1 MG in SODIUM CHLORIDE 0... IV SCH (22:15)
[2018-09-25] MEDS ORDERED: PIPERACILLIN/TAZOBACTAM 3.375 GM in DEXTROSE 5% 100 ML IV SCH (22:30)
[2018-09-25] MEDS: PANTOprazole 40 MG in DEXTROSE 5% 100 ML IV SCH (23:53)
[2018-09-26] MEDS: PIPERACILLIN/TAZOBACTAM 3.375 GM in DEXTROSE 5% 100 ML IV SCH ×3 (04:38→21:06)
[2018-09-26] MEDS: PANTOprazole 40 MG in DEXTROSE 5% 100 ML IV SCH ×5 (04:44→22:36)
[2018-09-26 06:30] LABS: Hemoglobin 8.3 g/dL (12.0-16.0); Mean Corpuscular Hgb Conc 33.2 g/dL (32-36); Mean Corpuscular Volume 90.6 fL (80-100); Mean Platelet Volume 9.4 fL (7.4-10.4); Platelet Count 157 K/uL (130-400); RDW Coefficient of Variation 16.1 % (11.5-14.5); RDW Standard Deviation 53.3 fL (36.4-46.3); Red Blood Count 2.76 M/uL (4.2-5.4); White Blood Count 7.43 K/uL (4.8-10.8)
[2018-09-26 07:21] LABS: Albumin Globulin Ratio 0.3 (0.9-2); BUN Creatinine Ratio 21.6 (10-20); Bilirubin Direct 0.3 mg/dl (0-0.2); Calcium 6.9 mg/dl (8.5-10.1); Creatinine Clr Calc Pharmacy 30.5 ml/min; Est GFR (African American) 46.6; Est GFR (Non-African American) 40.2; Globulin 3.5 gm/dl (2.5-4.0); Potassium 3.6 mmol/L (3.5-5.1); Total Protein 4.5 gm/dl (6.4-8.2)
[2018-09-26] MEDS ORDERED: PIPERACILLIN/TAZOBACTAM 3.375 GM in DEXTROSE 5% 100 ML IV ONE (12:30)
--- NOTE | 2018-09-26 20:12 | Hospitalist Progress Note ---
Date of Service September 26, 2018 Assessment & Plan (1) GI bleed: Presented with melena and hemoglobin of 6.8. Receiving aspirin and clopidogrel for recent stroke. History of cirrhosis and GAVE. EGD performed by GI 09/19. 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 No esophageal varices. [facility] PPI. Antiplatelet therapy as discussed below. Hematemesis 09/25 after apparent self-induced emesis. Could have Tonya-Lee tear, PUD, bleeding from GAVE. IV pantoprazole. Anti-emetics. Transfuse as needed. (2) Acute blood loss anemia: Hgb 6.8 day of admission. Acute blood loss anemia secondary to GI bleed. Transfused with 1 unit pRBC's 09/18. Hgb john to 9.1 after transfusion. Hgb 7.1 last evening. Received 2nd unit of pRBC's. Hgb this morning = 8.3. Follow H/H and transfuse as necessary to maintain Hgb > 8. (3) Cirrhosis of liver: History of cirrhosis with ascites. Cirrhosis attributed to alcohol consumption. No esophageal varices seen on EGD. History of hepatic encephalopathy. Holding diuretics in light of nausea and vomiting. (4) GERD (gastroesophageal reflux disease): EGD demonstrated Gamino's esophagus. Continue PPI indefinitely. (5) Embolic cerebral infarction: Hospitalized in August with acute ischemic stroke(s). Found to have right ICA stenosis with associated thrombus. [place] [facility] [place] No interventional procedures performed. Received antiplatelet therapy with aspirin and clopidogrel. Antiplatelet meds held at time of this admission due to GI bleeding. EGD results as noted above. OK to restart low-dose asprin per GI. Risks of dual antiplatelet therapy outweigh the benefits. Aspirin held again 09/25/18 in light of hematemesis; restart as soon as possible. Continue PT, OT, CHIEF OPERATOR. (6) Dysphagia: Seen by CHIEF OPERATOR. Dental soft / moist diet. Aspiration precautions. (7) Metabolic encephalopathy: Intermittent confusion, probably multifactorial. Probably had some dementia- family notes cognitive decline over past 2 years. Family notes confusion since recent stroke. Worsening confusion past few days could be related to UTI. (8) CKD (chronic kidney disease) stage 3, GFR 30-59 ml/min: Creatinine day of admission was 1.37. Diuretics held and then resumed. Creatinine yesterday was 1.32. (9) UTI (urinary tract infection): Urine culture 09/21 grew Enterococcus faecalis. No fever or dysuria. Apparent asymptomatic bacteruria. No leukocytosis until 09/25. Treating with IV antibiotics at this time in light of leukocytosis and increasing confusion. Initially ordered IV ampicillin, but broadened coverage with piperacillin / tazobactam given risk for SBP. Afebrile. WBC down to 7430. (10) DVT prophylaxis: No anticoagulants due to GI bleed. SCD's. (11) Discharge planning issues: Anticipated need for skilled care. Case Management consulted. Internal Medicine follow-up with Dr. Shields. Subjective Recheck for GI bleed and other problems. Patient seen in her room around 1020. Episode of emesis with blood last night, apparently after self-induced gagging. No further episodes of nausea or vomiting. No reported melena or hematochezia. Somewhat somnolent this morning. No fever. No chest pain. No cough or SOB. No urinary symptoms. Physical Exam 2 Vital Signs (Past 24 Hours): Last Vital Signs Temp 36.4 C L 09/26/18 14:52 Pulse 75 09/26/18 14:52 Resp 18 09/26/18 14:52 BP 109/60 09/26/18 14:52 Pulse Ox 96 09/26/18 14:52 Constitutional: + thin; no acute distress Eyes: + anicteric sclerae Respiratory: normal respiratory effort, lungs clear to auscultation Cardiovascular: Rate/Rhythm: regular rate and regular rhythm Heart Sounds: no gallop and no cardiac rub Vessels: no JVD Extremities: no edema Gastrointestinal (Abdomen): Inspection/Auscultation: + abdomen distended ( moderately distended) and normal bowel sounds Percussion/Palpation: abdomen soft; abdomen nontender, no guarding and abdomen not rigid Musculoskeletal: Extremities: no cyanosis and no clubbing Skin: no rashes, warm and dry Neurologic: + focal motor deficit (LUE ~ 3/5, LLE ~ 4/5) Results & Data Laboratory Results Laboratory Results - last 24 hr 09/26/18 09/26/18 06:07 06:07 WBC 7.43 RBC 2.76 L Hgb 8.3 L Hct 25.0 L MCV 90.6 MCH 30.1 MCHC 33.2 RDW Std Deviation 53.3 H RDW Coeff of Jonathan 16.1 H Plt Count 157 MPV 9.4 Sodium 139 Potassium 3.6 Chloride 112 H Carbon Dioxide 20 L Anion Gap 7.0 BUN 29 H Creatinine 1.32 H Est Cr Clr Drug Dosing 30.5 Est GFR ( Amer) 46.6 Est GFR (Non-Af Amer) 40.2 BUN/Creatinine Ratio 21.6 H Glucose 125 H Calcium 6.9 L Total Bilirubin 1.0 D Direct Bilirubin 0.3 H D AST 44 H ALT 23 Alkaline Phosphatase 108 Total Protein 4.5 L D Albumin 1.0 L Globulin 3.5 Albumin/Globulin Ratio 0.3 L _ (1) GI bleed GI bleed type/associated pathology: melena Gastritis type: Qualified Code(s ): K92.1 - Melena (2) Cirrhosis of liver Hepatic cirrhosis type: other cirrhosis Ascites presence: Qualified Code(s) : K74.69 - Other cirrhosis of liver (3) GERD (gastroesophageal reflux disease) Esophagitis presence: esophagitis presence not specified Qualified Code(s): K21.9 - Gastro-esophageal reflux disease without esophagitis (4) Embolic cerebral infarction Precerebral and cerebral artery: unspecified cerebral artery Laterality of affected vessel: Qualified Code(s): I63.40 - Cerebral infarction due to embolism of unspecified cerebral artery (5) Dysphagia Dysphagia type: unspecified Qualified Code(s): R13.10 - Dysphagia, unspecified
[2018-09-27] MEDS: PANTOprazole 40 MG in DEXTROSE 5% 100 ML IV SCH ×2 (03:24→08:20)
[2018-09-27] MEDS: PIPERACILLIN/TAZOBACTAM 3.375 GM in DEXTROSE 5% 100 ML IV SCH ×2 (03:25→12:09)
[2018-09-27 08:19] LABS: Hematocrit (blood only) 30.4 % (37-47); Hemoglobin 9.9 g/dL (12.0-16.0); Mean Corpuscular Hgb Conc 32.6 g/dL (32-36); Mean Corpuscular Volume 89.9 fL (80-100); Mean Platelet Volume 9.7 fL (7.4-10.4); Platelet Count 150 K/uL (130-400); RDW Coefficient of Variation 16.8 % (11.5-14.5); RDW Standard Deviation 54.9 fL (36.4-46.3); Red Blood Count 3.38 M/uL (4.2-5.4); White Blood Count 7.15 K/uL (4.8-10.8)
[2018-09-27 08:48] LABS: BUN Creatinine Ratio 21.7 (10-20); Calcium 7.4 mg/dl (8.5-10.1); Creatinine Clr Calc Pharmacy 32.4 ml/min; Est GFR (African American) 50.3; Est GFR (Non-African American) 43.4; Potassium 3.3 mmol/L (3.5-5.1)
[2018-09-27] MEDS: SPIRONOLACTONE 25 MG TAB PO SCH (09:11)
[2018-09-27] MEDS: FUROSEMIDE 20 MG TAB PO SCH (09:11)
[2018-09-27] MEDS: THIAMINE HCL 100 MG TAB PO SCH (09:11)
[2018-09-27] MEDS ORDERED: POTASSIUM CHLORIDE 10 MEQ TABCR PO STA (09:16)
--- NOTE | 2018-09-27 09:33 | Hospitalist Progress Note ---
Date of Service September 27, 2018 Subjective Pt;s H&H remains stable ; Hb > 9 today one episode of hematemesis possibly francie garth ( self induced vomiting with fingers ) IV PPI gtt D/breezy PO Protonix resumed Asa /Statin pt continues to have bizarre behaviour ( throwing stool at stuff ) her behaviour disturbance has been chronic , not likey caused by metabolic encephalopathy ( UTI ) has similar symptoms in past admissions will benefit with antiphyscotics meds for behavioural issues Psych consulted for recommendation at present on PRN Haldol only Physical Exam 2 Vital Signs (Past 24 Hours): Last Vital Signs Temp 36.7 C 09/27/18 07:29 Pulse 69 09/27/18 09:10 Resp 18 09/27/18 07:29 BP 103/61 09/27/18 09:10 Pulse Ox 100 09/27/18 07:29
--- NOTE | 2018-09-27 11:14 | Psychiatric Consultation ---
Date of Consultation September 27, 2018 Impression / Recommendations Impression 72 yo woman admitted with anemia. We are consulted to evaluate behaviors. The patient is not completely oriented and is minimizing or denying all mentioned behaviors. The timing of the behaviors is in the evening raising concern for sundowning in the setting of a dementing process or brain insult s/ p CVA and hx of alcoholism. Will have the liaison nurse try to obtain supplemental from her son's as she reports she lives at home normally with their help. Regardless, will trial Seroquel 25 mg at 5 PM in anticipation of her evening behaviors and a prn of 25 mg q 4 hrs as needed. Nursing was encourage to maintain good dementia protocol including good day/night cycles. (1) Altered mental status: 09/27 - Liaison to obtain supplemental from son's ast to mental status at home - Start Seroquel 25 mg 5 pm and q 4 hrs prn Altered mental status type: unspecified Coma depth: Coma timing : Qualified Code(s): R41.82 - Altered mental status, unspecified Present on Admission?: Yes Risk Factors Assessment Male: No : Yes Do You Have Access To A Gun?: No Health Problems: Yes Mental Health Diagnoses: No Substance Use Disorders: Yes (history of) Previous Attempt: No Previous Psychiatric Hospitalization: No Protective Factors Assessment : No Responsible for Young Children: No Employed: No Supportive Family: Yes CPT Code 08763 Psych History Identifying Data 72 yo female with recent CVA August 2018, sent to the ED from [facility] due to drop in H&H and suspicion for GI Bleed. We are consulted to evaluate agitated inappropriate behaviors. Information is gathered from the EHR, nursing and the patient. The patient is not considered to be reliable. Chief Complaint "I just want to go home. ". History of Present Illness The patient is a 72 yo woman with medical condition including CKD, recent hx CVA , cirrhaosis with ascited and current GI bleed, who presented to the hospital due to a drop in H&H requiring transfusion. She has a remote history of alcohol abuse, and resulting cirrhosis. She experienced a CVA in August 2018, was sent to [facility] for consideration of neurosurg interventions, and from there was discharged to [facility] for rehab. Behaviors at [facility] included smearing feces and dropping her soiled diapers in common areas. Nursing reports that here in the hospital, bizarre behaviors have included sticking objects down her throat to vomit, smearing feces, throwing dishes from her tray to the floor. Behaviors occur more oftern in the evening starting around 5-6 PM At the time I see the patient she is sitting up in bed, alert and cooperative. She is oriented to person, place and year, but believes it to be fall despite multiple discussions with nursing today about the snow. All psychiatric symptoms are lorenzana-negative including: problems with sleep, appetite, mood, anxiety, SI/HI, hallucinations, irritability or memory for the above behaviors. She simply says "No. I just want to go home. Past Psychiatric History Previous Psych History: Unknown Do You Have Access To A Gun?: No Allergies Allergy/AdvReac Type Severity Reaction Status Date / Time No Known Allergies Allergy Unverified 09/18/18 12:46 Home Medications Home Medications Medication Instructions Recorded Confirmed Type furosemide [Lasix] 10 mg PO DAILY 08/15/18 09/18/18 History pantoprazole [Protonix] 40 mg PO DAILY 08/15/18 09/18/18 History spironolactone [Aldactone] 12.5 mg PO DAILY 08/15/18 09/18/18 History aspirin 81 mg PO DAILY 09/18/18 09/18/18 History atorvastatin 40 mg PO PM 09/18/18 09/18/18 History clopidogrel 75 mg PO DAILY 09/18/18 09/18/18 History famotidine 20 mg PO BID 09/18/18 09/18/18 History hydroxyzine HCl 25 mg PO QID PRN 09/18/18 09/18/18 History Personal History Living Arrangements: Home (Says that she lives at home with the help of her sons ) Highest Grade Completed: High School Graduate Employment Status: Retired Beliefs That Will Affect Care: None Patient History Medical History Stenosis of right internal carotid artery with cerebral infarction Aspiration pneumonia (Acute) Altered mental status (Acute) Embolic cerebral infarction (Acute) Metabolic encephalopathy Dysphagia (Chronic) ANDREY (acute kidney injury) Acquired hypothyroidism (Chronic) Hyperlipidemia (Chronic) Anemia (Chronic) GERD (gastroesophageal reflux disease) (Chronic) Vitamin deficiency (Chronic) CKD (chronic kidney disease) stage 3, GFR 30-59 ml/min (Chronic) Cirrhosis of liver (Chronic) Left arm weakness (Acute) Orthostatic hypotension (Acute) Injury of left upper arm (Acute) Fall (Acute) Hypokalemia (Acute) Fluid filled abdomen (Chronic) HTN (hypertension) (Chronic) Postural hypotension (Resolved) UTI (urinary tract infection) (Resolved) GAVE (gastric antral vascular ectasia) No pertinent family history Family History Other No pertinent family history Social History marital status: / Current Living Situation: Personal Care Facility Other Information That Helps Us Care for You: No Feels Safe at Home: Yes Safety Concerns: Feels Safe At This Time Smoking Status: Never smoker Hx Alcohol Use: No Hx Substance Use: No Beliefs That Will Affect Care: None Preferred Language: Senegalese Physical Exam Psychiatric Orientation: alert, oriented to person, oriented to place, oriented to time ( year only) and cooperative Apperance: appropriately dressed Eye Contact: good eye contact Motor Behavior: no abnormal motor movements Speech: normal rate/rhythm/volume of speech Affect: + flat affect Mood: no depressed mood and no anxious mood Thought Process: goal directed thought process Thought Content: reality based without delusions Suicidal Thoughts: denies suicidal thoughts Homicidal Thoughts: denies homicidal thoughts Hallucinations: no auditory hallucinations and no visual hallucinations Cognition: attention grossly intact and language grossly intact Estimated Intelligence: consistent with education level Insight: + impaired insight Judgement: + impaired judgement Vital Signs (Past 24 Hours) Last Vital Signs Temp 36.7 C 09/27/18 07:29 Pulse 69 09/27/18 09:10 Resp 18 09/27/18 07:29 BP 103/61 09/27/18 09:10 Pulse Ox 100 09/27/18 07:29 Review of Systems All systems reviewed & are unremarkable except as noted in HPI & below Results & Data Medications Administered Aspirin (Ecotrin Ectab) 81 mg PO DAILY RAZIA Stop: 10/20/18 08:59 Last Admin: 09/25/18 09:43 Dose: 81 mg Admin: 09/24/18 09:53 Dose: 81 mg Admin: 09/23/18 08:27 Dose: 81 mg Admin: 09/22/18 08:48 Dose: 81 mg Admin: 09/21/18 08:27 Dose: 81 mg Admin: 09/20/18 09:25 Dose: 81 mg Atorvastatin Calcium (Lipitor) 40 mg PO PM RAZIA Stop: 10/20/18 20:59 Last Admin: 09/25/18 20:06 Dose: 40 mg Admin: 09/24/18 19:33 Dose: 40 mg Admin: 09/23/18 21:35 Dose: 40 mg Admin: 09/22/18 20:20 Dose: 40 mg Admin: 09/21/18 20:17 Dose: 40 mg Admin: 09/20/18 20:03 Dose: 40 mg Folic Acid (Folvite) 1 mg PO QAM [facility] Stop: 10/20/18 08:59 Last Admin: 09/25/18 09:43 Dose: 1 mg Admin: 09/24/18 09:52 Dose: 1 mg Admin: 09/23/18 08:27 Dose: 1 mg Admin: 09/22/18 08:48 Dose: 1 mg Admin: 09/21/18 08:26 Dose: 1 mg Admin: 09/20/18 09:25 Dose: 1 mg Furosemide (Lasix) 10 mg PO DAILY [facility] Stop: 10/22/18 08:59 Last Admin: 09/27/18 09:11 Dose: 10 mg Admin: 09/25/18 09:42 Dose: 10 mg Admin: 09/24/18 09:53 Dose: 10 mg Admin: 09/23/18 08:27 Dose: 10 mg Admin: 09/22/18 08:48 Dose: 10 mg Haloperidol Lactate (Haldol) 0.5 mg IM Q1H PRN PRN Reason: Agitation Stop: 10/24/18 20:22 Last Admin: 09/24/18 21:42 Dose: 0.5 mg Piperacillin Sod/Tazobactam (Sod 3.375 gm/ Dextrose) 115 mls @ 28 mls/hr IV Q8H [facility]; Protocol Stop: 10/06/18 03:59 Last Infusion: 09/27/18 07:26 Dose: 0 mls/hr Admin: 09/27/18 03:25 Dose: 28 mls/hr Infusion: 09/27/18 01:35 Dose: 0 mls/hr Admin: 09/26/18 21:06 Dose: 28 mls/hr Infusion: 09/26/18 21:01 Dose: 0 mls/hr Admin: 09/26/18 16:31 Dose: 28.8 mls/hr Infusion: 09/26/18 05:08 Dose: 0 mls/hr Admin: 09/26/18 04:38 Dose: 230 mls/hr Spironolactone (Aldactone) 12.5 mg PO DAILY RAZIA Stop: 10/22/18 08:59 Last Admin: 09/27/18 09:11 Dose: 12.5 mg Admin: 09/25/18 09:42 Dose: 12.5 mg Admin: 09/24/18 09:52 Dose: 12.5 mg Admin: 09/23/18 08:27 Dose: 12.5 mg Admin: 09/22/18 08:48 Dose: 12.5 mg Thiamine HCl (Vitamin B-1) 100 mg PO QAM RAZIA Stop: 10/20/18 08:59 Last Admin: 09/27/18 09:11 Dose: 100 mg Admin: 09/25/18 09:43 Dose: 100 mg Admin: 09/24/18 09:53 Dose: 100 mg Admin: 09/23/18 08:27 Dose: 100 mg Admin: 09/22/18 08:49 Dose: 100 mg Admin: 09/21/18 08:26 Dose: 100 mg Admin: 09/20/18 09:25 Dose: 100 mg
[2018-09-27] MEDS ORDERED: QUETIAPINE FUMARATE 25 MG TABLET PO PRN (11:36)
--- NOTE | 2018-09-27 13:21 | Hospitalist Progress Note ---
Date of Service September 27, 2018 Assessment & Plan (1) Dementia 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: Baseline advanced dementia, (no prior formal diagnosis) With behavioral disturbance-possible worsening due to CVA/metabolic encephalopathy Patient was admitted to [facility] on Aug 2018 : was from home (was living with son ) Was smearing of stool on the wall/dropping soiled diaper on floor Was found to have acute CVA Later discharged to [facility] for skilled rehab/patient is on not safe to return back to home Patient's bizzare behavior continued at [facility] as well And noted during this hospital admission Ordered Haldol as needed Patient will benefit with antipsychotic meds for ongoing behavior issues/ disturbance psych consulted, appreciate input Started on Seroquel Present on Admission?: Yes (2) GI bleed: No further episode Presented with melena and hemoglobin of 6.8. Was on dual antiplatelet aspirin and clopidogrel for recent stroke. History of cirrhosis and GAVE. EGD performed by GI team on 09/19. 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 No esophageal varices. Recommended intermediate school teacher PPI. Dual antiplatelet discontinued, risk of bleeding outweighs benefit. On aspirin 81 mg daily-Plavix discontinued One episode of hematemesis 09/25 after apparent self-induced emesis. Possible Tonya-Lee tear No further episode, H&H remained stable hemoglobin more than 9 IV pantoprazole discontinued P.o. Protonix 40 mg twice daily Resumed aspirin 81 mg p.o. daily Present on Admission?: Yes (3) Acute blood loss anemia: hemoglobin remained stable post transfusion No further episode of GI bleed, hemoglobin more than 9 Admitted with Hgb 6.8 Acute blood loss anemia secondary to GI bleed- Melanotic stool Transfused with 1 unit pRBC's 09/18. Hgb john to 9.1 after transfusion. Hgb 7.1 on 09/25/2018 Received 2nd unit of pRBC's. 09/25/2018 Follow H/H and transfuse as necessary to maintain Hgb > 8. Present on Admission?: Yes (4) Cirrhosis of liver: History of cirrhosis with ascites. Cirrhosis attributed to alcohol consumption. No esophageal varices seen on EGD. History of hepatic encephalopathy. No evidence of hepatic encephalopathy at present, patient is alert awake Behavioral disturbance possibly secondary to underlying dementia/CVA No lactulose: Patient is having chronic diarrhea Lasix resumed Present on Admission?: Yes (5) GERD (gastroesophageal reflux disease): EGD demonstrated Gamino's esophagus/GAVE no evidence of active Continue PPI indefinitely. GI bleed (6) Embolic cerebral infarction: Hospitalized in August with acute ischemic stroke(s). Found to have right ICA stenosis with associated thrombus. Transferred to [facility]. No interventional procedures performed. EGD : Showed Gamino's esophagus/GAVE OK to restart low-dose asprin per GI. Risks of dual antiplatelet therapy outweigh the benefits. Continue on aspirin 81 mg p.o. daily, Plavix discontinued Present on Admission?: Yes (7) Dysphagia: Seen by PAPERHANGER AND PAINTER. Dental soft / moist diet. Aspiration precautions. Present on Admission?: Yes (8) Metabolic encephalopathy: Intermittent confusion, probably multifactorial. Probably had some dementia- family notes cognitive decline over past 2 years. Family notes confusion since recent stroke. Worsening of confusion/delirium noted possible secondary to UTI on antibiotic already Patient has chronic behavioral disturbance Started on anti-psychotic meds by psychiatry Present on Admission?: Yes (9) CKD (chronic kidney disease) stage 3, GFR 30-59 ml/min: Renal function stable at baseline Present on Admission?: Yes (10) UTI (urinary tract infection): Urine culture 09/21 grew Enterococcus faecalis. No fever or dysuria(patient is a very poor historian will change antibiotic to p.o). Apparent asymptomatic bacteruria. No leukocytosis until 09/25. Treating with IV antibiotics at this time in light of leukocytosis and increasing confusion. On Zosyn Repeat urine culture ordered Change antibiotic to p.o. total of 5 disc course (11) DVT prophylaxis: No anticoagulants due history of GI bleed and anemia/ SCD's. (12) Discharge planning issues: Patient was at [facility] for skilled rehab Given her behavioral issues, will benefit to skilled rehab with dementia unit referral made to [facility] Zhang, Awaiting insurance approval PT julio cesar today 09/27/2018: Not safe to return home, high fall risk, recommend rehab Case Management consulted. Internal Medicine follow-up with Dr. Shields. Present on Admission?: Yes Subjective seen at bedside calm and co operative says repeatedly " I am going home " per nursing -had ongoing loose stool /diarrhea ( 3 episodes since this AM ) was throwing stool to staff breaking dishes from the tray no apparent behavior disturbance noted during interview Physical Exam 2 Vital Signs (Past 24 Hours): Last Vital Signs Temp 36.7 C 09/27/18 07:29 Pulse 69 09/27/18 09:10 Resp 18 09/27/18 07:29 BP 103/61 09/27/18 09:10 Pulse Ox 100 09/27/18 07:29 Constitutional: + ill appearing; no acute distress Eyes: + anicteric sclerae ENMT: external ear and nose normal, oropharynx normal Neck: trachea midline, no thyromegaly Respiratory: normal respiratory effort, lungs clear to auscultation Cardiovascular: RRR, no murmur, no edema Gastrointestinal (Abdomen): Inspection/Auscultation: + abdomen distended and normal bowel sounds Percussion/Palpation: abdomen soft; abdomen nontender Musculoskeletal: no cyanosis or clubbing, extremities motor strength 5/5 Neurologic: left hemiparesis , confused oriented to person only speech fluent dementia with poor memory recall Psychiatric: Orientation: alert and oriented to person Apperance: + disheveled Eye Contact: good eye contact Affect: euthymic affect Insight: + severely impaired insight confusion with behaviour disturbance / throwing staff /smearing feaces chronic noted in pervious visits _ (1) UTI (urinary tract infection) Urinary tract infection type: site unspecified Hematuria presence: without hematuria Qualified Code(s): N39.0 - Urinary tract infection, site not specified (2) GI bleed GI bleed type/associated pathology: melena Gastritis type: Qualified Code(s ): K92.1 - Melena (3) Dysphagia Dysphagia type: unspecified Qualified Code(s): R13.10 - Dysphagia, unspecified (4) Cirrhosis of liver Ascites presence: Hepatic cirrhosis type: other cirrhosis Qualified Code(s) : K74.69 - Other cirrhosis of liver (5) Embolic cerebral infarction Laterality of affected vessel: Precerebral and cerebral artery: unspecified cerebral artery Qualified Code(s): I63.40 - Cerebral infarction due to embolism of unspecified cerebral artery (6) GERD (gastroesophageal reflux disease) Esophagitis presence: esophagitis presence not specified Qualified Code(s): K21.9 - Gastro-esophageal reflux disease without esophagitis
[2018-09-27] MEDS: AMOXICILLIN 500 MG CAP PO SCH (16:50)
[2018-09-27] MEDS: QUETIAPINE FUMARATE 25 MG TABLET PO SCH (16:50)
[2018-09-27] MEDS: LACTOBACILLUS ACIDOPHILUS (FLORANEX) TAB PO SCH ×2 (16:50→20:23)
[2018-09-27] MEDS ORDERED: cephALEXin 250 MG CAP PO SCH (17:00)
[2018-09-27] MEDS: PANTOprazole 40 MG TAB PO SCH (20:23)
[2018-09-27] MEDS: ATORVASTATIN 40 MG TAB PO SCH (20:23)
[2018-09-27] MEDS: LOPERAMIDE HCL 2 MG CAP PO PRN (20:23)
[2018-09-27] MEDS: HALOPERIDOL 0.5 MG TAB PO PRN (21:25)
[2018-09-28] MEDS: HALOPERIDOL 0.5 MG TAB PO PRN (09:25)
[2018-09-28] MEDS: LACTOBACILLUS ACIDOPHILUS (FLORANEX) TAB PO SCH ×4 (09:25→19:45)
[2018-09-28] MEDS: AMOXICILLIN 500 MG CAP PO SCH ×2 (09:25→16:22)
[2018-09-28] MEDS: PANTOprazole 40 MG TAB PO SCH ×2 (09:25→19:45)
[2018-09-28] MEDS: THIAMINE HCL 100 MG TAB PO SCH (09:26)
[2018-09-28] MEDS: ASPIRIN 81 MG ECTAB PO SCH (09:26)
[2018-09-28] MEDS: FUROSEMIDE 20 MG TAB PO SCH (09:26)
[2018-09-28] MEDS: SPIRONOLACTONE 25 MG TAB PO SCH (09:27)
[2018-09-28] MEDS: FOLIC ACID 1 MG TAB PO SCH (09:28)
[2018-09-28] MEDS: QUETIAPINE FUMARATE 25 MG TABLET PO SCH (16:22)
--- NOTE | 2018-09-28 17:56 | Hospitalist Progress Note ---
Date of Service September 28, 2018 Assessment & Plan (1) Dementia 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: Symptoms improved after starting on Seroquel, appreciate psychiatry input Baseline advanced dementia, (no prior formal diagnosis) With behavioral disturbance-possible worsening due to CVA/metabolic encephalopathy Patient was admitted to [facility] on Aug 2018 : was from home (was living with son ) Was smearing of stool on the wall/dropping soiled diaper on floor Was found to have acute CVA Later discharged to [facility] for skilled rehab/patient is on not safe to return back to home Patient's bizzare behavior continued at [facility] as well And noted during this hospital admission Ordered Haldol as needed Patient will benefit with antipsychotic meds for ongoing behavior issues/ disturbance psych consulted, appreciate input Started on Seroquel Noted to have improvement of symptoms (2) GI bleed: No further episode Patient is remained stable Presented with melena and hemoglobin of 6.8. Was on dual antiplatelet aspirin and clopidogrel for recent stroke. History of cirrhosis and GAVE. EGD performed by GI team on 09/19. 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 No esophageal varices. Recommended jail PPI. Dual antiplatelet discontinued, risk of bleeding outweighs benefit. On aspirin 81 mg daily-Plavix discontinued One episode of hematemesis 09/25 after apparent self-induced emesis. Possible Tonya-Lee tear No further episode, H&H remained stable hemoglobin more than 9 IV pantoprazole discontinued P.o. Protonix 40 mg twice daily Resumed aspirin 81 mg p.o. daily (3) Acute blood loss anemia: hemoglobin remained stable post transfusion No further episode of GI bleed, hemoglobin more than 9 Admitted with Hgb 6.8 Acute blood loss anemia secondary to GI bleed- Melanotic stool Transfused with 1 unit pRBC's 09/18. Hgb john to 9.1 after transfusion. Hgb 7.1 on 09/25/2018 Received 2nd unit of pRBC's. 09/25/2018 Follow H/H and transfuse as necessary to maintain Hgb > 8. (4) Cirrhosis of liver: History of cirrhosis with ascites. Cirrhosis attributed to alcohol consumption. No esophageal varices seen on EGD. History of hepatic encephalopathy. No evidence of hepatic encephalopathy at present, patient is alert awake Behavioral disturbance possibly secondary to underlying dementia/CVA No lactulose: Patient is having chronic diarrhea Lasix resumed (5) GERD (gastroesophageal reflux disease): EGD demonstrated Gamino's esophagus/GAVE no evidence of active Continue PPI indefinitely. GI bleed (6) Embolic cerebral infarction: Hospitalized in August with acute ischemic stroke(s). Found to have right ICA stenosis with associated thrombus. Transferred to [facility]. No interventional procedures performed. EGD : Showed Gamino's esophagus/GAVE OK to restart low-dose asprin per GI. Risks of dual antiplatelet therapy outweigh the benefits. Continue on aspirin 81 mg p.o. daily, Plavix discontinued (7) Dysphagia: Seen by PLACEMENT ASSISTANT. Dental soft / moist diet. Aspiration precautions. (8) Metabolic encephalopathy: Intermittent confusion, probably multifactorial. Probably had some dementia- family notes cognitive decline over past 2 years. Family notes confusion since recent stroke. Worsening of confusion/delirium noted possible secondary to UTI on antibiotic already Patient has chronic behavioral disturbance Started on anti-psychotic meds by psychiatry (9) CKD (chronic kidney disease) stage 3, GFR 30-59 ml/min: Renal function stable at baseline (10) UTI (urinary tract infection): Urine culture 09/21 grew Enterococcus faecalis. Pansensitive No fever or dysuria(patient is a very poor historian will change antibiotic to p.o). Apparent asymptomatic bacteruria. No leukocytosis until 09/25. Treating with IV antibiotics at this time in light of leukocytosis and increasing confusion. Was on Zosyn, antibiotic changed to ampicillin Repeat urine culture Streptococcus, will continue on ampicillin (11) DVT prophylaxis: No anticoagulants due history of GI bleed and anemia/ SCD's. (12) Discharge planning issues: Patient was at [facility] for skilled rehab Given her behavioral issues, will benefit to skilled rehab with dementia unit referral made to co[facility] Zhang, Awaiting insurance approval PT julio cesar 09/27/2018: Not safe to return home, high fall risk, recommend rehab Case Management consulted. Internal Medicine follow-up with Dr. Shields. Subjective Remained confused, oriented to person only Nursing reports patient is more calm and cooperative After starting on Seroquel Physical Exam 2 Vital Signs (Past 24 Hours): Last Vital Signs Temp 36.8 C 09/28/18 15:03 Pulse 72 09/28/18 15:03 Resp 20 09/28/18 15:03 BP 124/76 09/28/18 15:03 Pulse Ox 99 09/28/18 15:03 Constitutional: + ill appearing; no acute distress Eyes: + anicteric sclerae ENMT: external ear and nose normal, oropharynx normal Neck: trachea midline, no thyromegaly Respiratory: normal respiratory effort, lungs clear to auscultation Cardiovascular: RRR, no murmur, no edema Gastrointestinal (Abdomen): Inspection/Auscultation: + abdomen distended and normal bowel sounds Percussion/Palpation: abdomen soft; abdomen nontender Musculoskeletal: no cyanosis or clubbing, extremities motor strength 5/5 Psychiatric: Orientation: alert and oriented to person Apperance: + disheveled Eye Contact: good eye contact Affect: euthymic affect Insight: + severely impaired insight _ (1) UTI (urinary tract infection) Encounter type: Hematuria presence: without hematuria Indwelling urinary catheter type: Urinary tract infection type: site unspecified Qualified Code( s): N39.0 - Urinary tract infection, site not specified (2) GI bleed GI bleed type/associated pathology: melena Gastritis type: Qualified Code(s ): K92.1 - Melena (3) Dysphagia Dysphagia type: unspecified Qualified Code(s): R13.10 - Dysphagia, unspecified (4) Cirrhosis of liver Ascites presence: Hepatic cirrhosis type: other cirrhosis Qualified Code(s) : K74.69 - Other cirrhosis of liver (5) Embolic cerebral infarction Laterality of affected vessel: Precerebral and cerebral artery: unspecified cerebral artery Qualified Code(s): I63.40 - Cerebral infarction due to embolism of unspecified cerebral artery (6) GERD (gastroesophageal reflux disease) Esophagitis presence: esophagitis presence not specified Qualified Code(s): K21.9 - Gastro-esophageal reflux disease without esophagitis
[2018-09-28] MEDS: ATORVASTATIN 40 MG TAB PO SCH (19:45)
[2018-09-29] MEDS: LACTOBACILLUS ACIDOPHILUS (FLORANEX) TAB PO SCH ×4 (10:22→20:27)
[2018-09-29] MEDS: PANTOprazole 40 MG TAB PO SCH ×2 (10:22→20:27)
[2018-09-29] MEDS: ASPIRIN 81 MG ECTAB PO SCH (10:23)
[2018-09-29] MEDS: AMOXICILLIN 500 MG CAP PO SCH (10:23)
[2018-09-29] MEDS: FUROSEMIDE 20 MG TAB PO SCH (10:24)
[2018-09-29] MEDS: THIAMINE HCL 100 MG TAB PO SCH (10:24)
[2018-09-29] MEDS: FOLIC ACID 1 MG TAB PO SCH (10:24)
[2018-09-29] MEDS: SPIRONOLACTONE 25 MG TAB PO SCH (10:25)
--- NOTE | 2018-09-29 12:47 | Hospitalist Progress Note ---
Date of Service September 29, 2018 Assessment & Plan (1) Dementia 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: Symptoms improved after starting on Seroquel, appreciate psychiatry input Baseline advanced dementia, (no prior formal diagnosis) With behavioral disturbance-possible worsening due to CVA/metabolic encephalopathy Patient was admitted to [facility] on Aug 2018 : was from home (was living with son ) Was smearing of stool on the wall/dropping soiled diaper on floor Was found to have acute CVA Later discharged to [facility] for skilled rehab/patient is on not safe to return back to home Patient's bizzare behavior continued at [facility] as well And noted during this hospital admission Ordered Haldol as needed Patient will benefit with antipsychotic meds for ongoing behavior issues/ disturbance psych consulted, appreciate input Started on Seroquel Noted to have improvement of symptoms (2) GI bleed: No further episode Patient is remained stable Presented with melena and hemoglobin of 6.8. Was on dual antiplatelet aspirin and clopidogrel for recent stroke. History of cirrhosis and GAVE. EGD performed by GI team on 09/19. 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 No esophageal varices. Recommended residential PPI. Dual antiplatelet discontinued, risk of bleeding outweighs benefit. On aspirin 81 mg daily-Plavix discontinued One episode of hematemesis 09/25 after apparent self-induced emesis. Possible Tonya-Lee tear No further episode, H&H remained stable hemoglobin more than 9 IV pantoprazole discontinued P.o. Protonix 40 mg twice daily Resumed aspirin 81 mg p.o. daily (3) Acute blood loss anemia: hemoglobin remained stable post transfusion No further episode of GI bleed, hemoglobin more than 9 Admitted with Hgb 6.8 Acute blood loss anemia secondary to GI bleed- Melanotic stool Transfused with 1 unit pRBC's 09/18. Hgb john to 9.1 after transfusion. Hgb 7.1 on 09/25/2018 Received 2nd unit of pRBC's. 09/25/2018 Follow H/H and transfuse as necessary to maintain Hgb > 8. (4) Cirrhosis of liver: History of cirrhosis with ascites. Cirrhosis attributed to alcohol consumption. No esophageal varices seen on EGD. History of hepatic encephalopathy. No evidence of hepatic encephalopathy at present, patient is alert awake Behavioral disturbance possibly secondary to underlying dementia/CVA No lactulose: Patient is having chronic diarrhea Lasix resumed (5) GERD (gastroesophageal reflux disease): EGD demonstrated Gamino's esophagus/GAVE no evidence of active Continue PPI indefinitely. GI bleed (6) Embolic cerebral infarction: Hospitalized in August with acute ischemic stroke(s). Found to have right ICA stenosis with associated thrombus. Transferred to [facility]. No interventional procedures performed. EGD : Showed Gamino's esophagus/GAVE OK to restart low-dose asprin per GI. Risks of dual antiplatelet therapy outweigh the benefits. Continue on aspirin 81 mg p.o. daily, Plavix discontinued (7) Dysphagia: Seen by RETIREMENT MANAGER. Dental soft / moist diet. Aspiration precautions. (8) Metabolic encephalopathy: Intermittent confusion, probably multifactorial. Probably had some dementia- family notes cognitive decline over past 2 years. Family notes confusion since recent stroke. Worsening of confusion/delirium noted possible secondary to UTI on antibiotic already Patient has chronic behavioral disturbance Started on anti-psychotic meds by psychiatry (9) CKD (chronic kidney disease) stage 3, GFR 30-59 ml/min: Renal function stable at baseline (10) UTI (urinary tract infection): Urine culture 09/21 grew Enterococcus faecalis. Pansensitive No fever or dysuria(patient is a very poor historian will change antibiotic to p.o). Apparent asymptomatic bacteruria. No leukocytosis until 09/25. Treating with IV antibiotics at this time in light of leukocytosis and increasing confusion. Was on Zosyn, antibiotic changed to ampicillin Repeat urine culture Streptococcus, will continue on ampicillin (11) DVT prophylaxis: No anticoagulants due history of GI bleed and anemia/ SCD's. (12) Discharge planning issues: Patient was at [facility] for skilled rehab Given her behavioral issues, will benefit to skilled rehab with dementia unit referral made to cole Zhang, Awaiting insurance approval PT eval 09/27/2018: Not safe to return home, high fall risk, recommend rehab Case Management consulted. Internal Medicine follow-up with Dr. Shields. Subjective Patient remains oriented to person only, No delirium or behavioral disturbance noted No fever or chills Urine culture positive for vancomycin resistant enterococcus VRE Multidrug resistance Started on IV daptomycinsensitive DC statin while on daptomycin ID consult requested Gastrointestinal: + belching; no abdominal pain, no nausea, no vomiting and no dysphagia Physical Exam 2 Vital Signs (Past 24 Hours): Last Vital Signs Temp 37.0 C 09/29/18 07:19 Pulse 87 09/29/18 07:19 Resp 16 09/29/18 07:19 BP 146/74 H 09/29/18 07:19 Pulse Ox 96 09/29/18 07:19 Constitutional: + ill appearing; no acute distress Eyes: + anicteric sclerae ENMT: external ear and nose normal, oropharynx normal Neck: trachea midline, no thyromegaly Respiratory: normal respiratory effort, lungs clear to auscultation Cardiovascular: RRR, no murmur, no edema Gastrointestinal (Abdomen): Inspection/Auscultation: + abdomen distended and normal bowel sounds Percussion/Palpation: abdomen soft; abdomen nontender Musculoskeletal: no cyanosis or clubbing, extremities motor strength 5/5 Psychiatric: Orientation: alert and oriented to person Apperance: + disheveled Eye Contact: good eye contact Affect: euthymic affect Insight: + severely impaired insight _ (1) UTI (urinary tract infection) Encounter type: Hematuria presence: without hematuria Indwelling urinary catheter type: Urinary tract infection type: site unspecified Qualified Code( s): N39.0 - Urinary tract infection, site not specified (2) GI bleed GI bleed type/associated pathology: melena Gastritis type: Qualified Code(s ): K92.1 - Melena (3) Dysphagia Dysphagia type: unspecified Qualified Code(s): R13.10 - Dysphagia, unspecified (4) Cirrhosis of liver Ascites presence: Hepatic cirrhosis type: other cirrhosis Qualified Code(s) : K74.69 - Other cirrhosis of liver (5) Embolic cerebral infarction Laterality of affected vessel: Precerebral and cerebral artery: unspecified cerebral artery Qualified Code(s): I63.40 - Cerebral infarction due to embolism of unspecified cerebral artery (6) GERD (gastroesophageal reflux disease) Esophagitis presence: esophagitis presence not specified Qualified Code(s): K21.9 - Gastro-esophageal reflux disease without esophagitis
[2018-09-29] MEDS: DAPTOmycin 200 MG in SYRINGE 0 ML IV SCH (13:07)
--- NOTE | 2018-09-29 15:02 | Infectious Disease Consult ---
Date of Consultation September 29, 2018 Assessment & Plan (1) UTI (urinary tract infection) due to urinary indwelling Sanders catheter: 72-year-old female with worsening dementia with possible urinary tract infection in the setting of indwelling catheter with vancomycin resistant enterococcus faecium. Baseline dementia makes it difficult to determine whether this is just colonization of Sanders or true urinary tract infection with new leukocytosis and worsening encephalopathy. Above, agree with need for treatment, and would recommend daptomycin daily for 7-day course given lack of alternatives. (2) VRE (vancomycin-resistant Enterococci) infection: History of Present Illness Reason for Consultation: Complicated UTI/VRE Attending Physician: Michelle Little MD History of Present Illness History from medical records and medical staff as patient unable to provide adequate history, 72-year-old female with baseline dementia, cirrhosis, hypothyroidism, stage III chronic kidney disease, hospitalized in August with what appeared to be embolic CVA, placed on anticoagulants, readmitted July 18 evidence of GI bleeding and worsening mental status. Was found to have evidence of varices and Gamino's esophagitis on endoscopy, but no obvious active bleeding. Initial urine culture grew Enterococcus faecalis, but to be asymptomatic bacteriuria, but patient developed leukocytosis with worsening of mental status and subsequent urine culture has now grown vancomycin resistant enterococcus faecium. Has been started on daptomycin therapy. White count now back down to baseline, no fever, mental status has improved somewhat. Allergies Allergy/AdvReac Type Severity Reaction Status Date / Time No Known Allergies Allergy Unverified 09/18/18 12:46 Home Medications Home Medications Medication Instructions Recorded Confirmed Type furosemide [Lasix] 10 mg PO DAILY 08/15/18 09/18/18 History pantoprazole [Protonix] 40 mg PO DAILY 08/15/18 09/18/18 History spironolactone [Aldactone] 12.5 mg PO DAILY 08/15/18 09/18/18 History aspirin 81 mg PO DAILY 09/18/18 09/18/18 History atorvastatin 40 mg PO PM 09/18/18 09/18/18 History clopidogrel 75 mg PO DAILY 09/18/18 09/18/18 History famotidine 20 mg PO BID 09/18/18 09/18/18 History hydroxyzine HCl 25 mg PO QID PRN 09/18/18 09/18/18 History Patient History Medical History 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) Aspiration pneumonia (Acute) Altered mental status (Acute) Embolic cerebral infarction (Chronic) Metabolic encephalopathy (Chronic) Dysphagia (Chronic) ANDREY (acute kidney injury) Acquired hypothyroidism (Chronic) Hyperlipidemia (Chronic) Anemia (Chronic) GERD (gastroesophageal reflux disease) (Chronic) Vitamin deficiency (Chronic) CKD (chronic kidney disease) stage 3, GFR 30-59 ml/min (Chronic) Cirrhosis of liver (Chronic) Left arm weakness (Acute) Orthostatic hypotension (Acute) Injury of left upper arm (Acute) Fall (Acute) Hypokalemia (Acute) Fluid filled abdomen (Chronic) HTN (hypertension) (Chronic) Postural hypotension (Resolved) UTI (urinary tract infection) (Resolved) GAVE (gastric antral vascular ectasia) No pertinent family history Family History Other No pertinent family history Social History marital status: / Current Living Situation: Personal Care Facility Other Information That Helps Us Care for You: No Feels Safe at Home: Yes Safety Concerns: Feels Safe At This Time Smoking Status: Never smoker Hx Alcohol Use: No Hx Substance Use: No Beliefs That Will Affect Care: None Preferred Language: Pashto Review of Systems Full review of systems not obtainable because of patient's mental status Physical Exam 2 Vital Signs (Past 24 Hours): Last Vital Signs Temp 37.2 C 09/29/18 14:45 Pulse 83 09/29/18 14:45 Resp 16 09/29/18 14:45 BP 128/82 09/29/18 14:45 Pulse Ox 96 09/29/18 14:45 Constitutional: WD/WN, vitals as above + ill appearing and comfortable; no acute distress Eyes: PERRL, conjunctivae normal, anicteric sclerae ENMT: external ear and nose normal, oropharynx normal Neck: trachea midline, no thyromegaly neck nontender Respiratory: normal respiratory effort, lungs clear to auscultation normal percussion; does not use accessory muscles Cardiovascular: Rate/Rhythm: regular rate and regular rhythm Heart Sounds: normal S1 and normal S2; no gallop, no murmur and no cardiac rub Vessels: normal peripheral pulses; no JVD Gastrointestinal (Abdomen): normal bowel sounds, soft, nontender, no hepatosplenomegaly Inspection/Auscultation: + abdomen distended Musculoskeletal: no cyanosis or clubbing, extremities motor strength 5/5 Spine: thoracic spine normal to inspection and lumbar spine normal to inspection ; no cervical spinal tenderness Skin: no rashes, warm and dry normal turgor; no lesions Neurologic: moves all extremities, awake and + confused Psychiatric: Orientation: alert and oriented to person Lymphatic: no cervical or axillary lymphadenopathy no inguinal lymphadenopathy Results & Data Laboratory Results Microbiology 09/27/18 13:20 Urine,Indwelling Cath Urine Culture - Final Enterococcus faecium VRE 09/21/18 22:45 Urine,Clean Catch Urine Culture - Final Enterococcus faecalis 09/18/18 12:15 Blood Blood Culture - Final No growth 09/18/18 12:00 Blood Blood Culture - Final No growth Diagnostic Findings Microbiology 09/27/18 13:20 Urine,Indwelling Cath Urine Culture - Final Enterococcus faecium VRE 09/21/18 22:45 Urine,Clean Catch Urine Culture - Final Enterococcus faecalis 09/18/18 12:15 Blood Blood Culture - Final No growth 09/18/18 12:00 Blood Blood Culture - Final No growth KUB CLINICAL HISTORY: nausea and vomiting COMPARISON STUDY: [facility] August 16, 2018. FINDINGS: There are multiple loops of gas-filled prominent loops of small bowel without convincing evidence for a bowel obstruction. These bowel loops measure up to 2.7 cm in caliber. The small bowel loops are centralized. There is a 2.3 cm calcified gallstone. IMPRESSION: 1. Prominent loops gas-filled small bowel without convincing evidence for a bowel obstruction. 2. Centralized bowel loops which suggests ascites. 3. Cholelithiasis. Electronically signed by: Rakan Champion M.D. 09/25/2018 9:14 PM Dictated: 09/25/182111 Transcribed: 09/25/182111
[2018-09-29] MEDS: QUETIAPINE FUMARATE 25 MG TABLET PO SCH (18:14)
[2018-09-30] MEDS: LACTOBACILLUS ACIDOPHILUS (FLORANEX) TAB PO SCH ×4 (09:34→20:25)
[2018-09-30] MEDS: FUROSEMIDE 20 MG TAB PO SCH (10:41)
[2018-09-30] MEDS: ASPIRIN 81 MG ECTAB PO SCH (10:41)
[2018-09-30] MEDS: SPIRONOLACTONE 25 MG TAB PO SCH (10:42)
[2018-09-30] MEDS: THIAMINE HCL 100 MG TAB PO SCH (10:43)
[2018-09-30] MEDS: PANTOprazole 40 MG TAB PO SCH ×2 (10:43→20:26)
[2018-09-30] MEDS: FOLIC ACID 1 MG TAB PO SCH (10:43)
[2018-09-30] MEDS: DAPTOmycin 200 MG in SYRINGE 0 ML IV SCH (14:41)
[2018-09-30] MEDS: QUETIAPINE FUMARATE 25 MG TABLET PO SCH (17:23)
--- NOTE | 2018-09-30 17:27 | Hospitalist Progress Note ---
Date of Service September 30, 2018 Assessment & Plan (1) Diarrhea: Stool for C. difficile negative No complaint of nausea vomiting or abdominal pain Ordered for Lactinex, as needed Imodium Present on Admission?: No (2) UTI (urinary tract infection) due to urinary indwelling Sanders catheter: Urine patient had urinary incontinence, with significant behavioral disturbance, Sanders catheter inserted this admission Urine culture shows vancomycin resistant enterococci On IV daptomycin Patient has significant excoriation on sacral and groin area for urine and fecal incontinence, We will continue Sanders catheter while in hospital Sanders will be discontinued on transition to skilled rehab Present on Admission?: No (3) VRE (vancomycin-resistant Enterococci) infection: Urine culture grows enterococcus multidrug resistant/VRE Sensitive to IV daptomycin only Appreciate input from ID Will need total 7 days of IV daptomycin treatment (4) Dementia 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: Behavioral status remains stable No further episode of agitation on delirium Symptoms improved after starting on Seroquel, appreciate psychiatry input Baseline advanced dementia, (no prior formal diagnosis) With behavioral disturbance-possible worsening due to CVA/metabolic encephalopathy Patient was admitted to [facility] on Aug 2018 : was from home (was living with son ) Was smearing of stool on the wall/dropping soiled diaper on floor Was found to have acute CVA Later discharged to [facility] for skilled rehab/patient is on not safe to return back to home Patient's bizzare behavior continued at [facility] as well And noted during this hospital admission Ordered Haldol as needed Patient will benefit with antipsychotic meds for ongoing behavior issues/ disturbance psych consulted, appreciate input Started on Seroquel Noted to have improvement of symptoms (5) GI bleed: H&H stable No further episode Patient is remained stable Presented with melena and hemoglobin of 6.8. Was on dual antiplatelet aspirin and clopidogrel for recent stroke. History of cirrhosis and GAVE. EGD performed by GI team on 09/19. 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 No esophageal varices. Recommended termite control representative PPI. Dual antiplatelet discontinued, risk of bleeding outweighs benefit. On aspirin 81 mg daily-Plavix discontinued One episode of hematemesis 09/25 after apparent self-induced emesis. Possible Tonya-Lee tear No further episode, H&H remained stable hemoglobin more than 9 IV pantoprazole discontinued P.o. Protonix 40 mg twice daily Resumed aspirin 81 mg p.o. daily (6) Acute blood loss anemia: hemoglobin remained stable post transfusion No further episode of GI bleed, hemoglobin more than 9 Admitted with Hgb 6.8 Acute blood loss anemia secondary to GI bleed- Melanotic stool Transfused with 1 unit pRBC's 09/18. Hgb john to 9.1 after transfusion. Hgb 7.1 on 09/25/2018 Received 2nd unit of pRBC's. 09/25/2018 Follow H/H and transfuse as necessary to maintain Hgb > 8. (7) Cirrhosis of liver: History of cirrhosis with ascites. Cirrhosis attributed to alcohol consumption. No esophageal varices seen on EGD. History of hepatic encephalopathy. No evidence of hepatic encephalopathy at present, patient is alert awake Behavioral disturbance possibly secondary to underlying dementia/CVA No lactulose: Patient is having chronic diarrhea Lasix resumed (8) GERD (gastroesophageal reflux disease): EGD demonstrated Gamino's esophagus/GAVE no evidence of active Continue PPI indefinitely. GI bleed (9) Embolic cerebral infarction: Hospitalized in August with acute ischemic stroke(s). Found to have right ICA stenosis with associated thrombus. Transferred to [facility]. No interventional procedures performed. EGD : Showed Gamino's esophagus/GAVE OK to restart low-dose asprin per GI. Risks of dual antiplatelet therapy outweigh the benefits. Continue on aspirin 81 mg p.o. daily, Plavix discontinued (10) Dysphagia: Seen by MICROBIOLOGY MANAGER. Dental soft / moist diet. Aspiration precautions. (11) Metabolic encephalopathy: Intermittent confusion, probably multifactorial. Probably had some dementia- family notes cognitive decline over past 2 years. Family notes confusion since recent stroke. Worsening of confusion/delirium noted possible secondary to UTI on antibiotic already Patient has chronic behavioral disturbance Started on anti-psychotic meds by psychiatry Mental status improved, approximate baseline (12) CKD (chronic kidney disease) stage 3, GFR 30-59 ml/min: Renal function stable at baseline (13) UTI (urinary tract infection): Urine culture 09/21 grew Enterococcus faecalis. Pansensitive No fever or dysuria(patient is a very poor historian will change antibiotic to p.o). Apparent asymptomatic bacteruria. No leukocytosis until 09/25. Treating with IV antibiotics at this time in light of leukocytosis and increasing confusion. Was on Zosyn, antibiotic changed to ampicillin Repeat urine culture Streptococcus, will continue on ampicillin (14) DVT prophylaxis: No anticoagulants due history of GI bleed and anemia/ SCD's. (15) Discharge planning issues: Patient was at [facility] for skilled rehab Given her behavioral issues, will benefit to skilled rehab with dementia unit referral made to co[facility] Zhang, Awaiting insurance approval PT niccivicky 09/27/2018: Not safe to return home, high fall risk, recommend rehab Case Management consulted. Case management updated: A regarding treatment with IV daptomycin for total 7 days for VRE UTI Patient's son present at bedside Internal Medicine follow-up with Dr. Shields. Subjective Patient remains confused, baseline dementia, more no behavioral disturbance, no agitation Had multiple episode of diarrhea today Ordered for stool for C. difficile negative Physical Exam 2 Vital Signs (Past 24 Hours): Last Vital Signs Temp 37.3 C 09/30/18 15:46 Pulse 82 09/30/18 15:46 Resp 16 09/30/18 15:46 BP 131/77 09/30/18 15:46 Pulse Ox 95 09/30/18 15:46 Constitutional: + ill appearing; no acute distress Eyes: + anicteric sclerae ENMT: external ear and nose normal, oropharynx normal Neck: trachea midline, no thyromegaly Respiratory: normal respiratory effort, lungs clear to auscultation Cardiovascular: RRR, no murmur, no edema Gastrointestinal (Abdomen): Inspection/Auscultation: + abdomen distended and normal bowel sounds Percussion/Palpation: abdomen soft; abdomen nontender Musculoskeletal: no cyanosis or clubbing, extremities motor strength 5/5 Psychiatric: Orientation: alert and oriented to person Eye Contact: good eye contact Affect: euthymic affect Insight: + severely impaired insight _ (1) UTI (urinary tract infection) Encounter type: Hematuria presence: without hematuria Indwelling urinary catheter type: Urinary tract infection type: site unspecified Qualified Code( s): N39.0 - Urinary tract infection, site not specified (2) GI bleed GI bleed type/associated pathology: melena Gastritis type: Qualified Code(s ): K92.1 - Melena (3) UTI (urinary tract infection) due to urinary indwelling Sanders catheter Encounter type: initial encounter Indwelling urinary catheter type: indwelling urethral catheter Qualified Code(s): T83.511A - Infection and inflammatory reaction due to indwelling urethral catheter, initial encounter; N39.0 - Urinary tract infection, site not specified (4) Dysphagia Dysphagia type: unspecified Qualified Code(s): R13.10 - Dysphagia, unspecified (5) Cirrhosis of liver Ascites presence: Hepatic cirrhosis type: other cirrhosis Qualified Code(s) : K74.69 - Other cirrhosis of liver (6) Embolic cerebral infarction Laterality of affected vessel: Precerebral and cerebral artery: unspecified cerebral artery Qualified Code(s): I63.40 - Cerebral infarction due to embolism of unspecified cerebral artery (7) GERD (gastroesophageal reflux disease) Esophagitis presence: esophagitis presence not specified Qualified Code(s): K21.9 - Gastro-esophageal reflux disease without esophagitis (8) Diarrhea Diarrhea type: unspecified type Qualified Code(s): R19.7 - Diarrhea, unspecified
[2018-10-01] MEDS: LACTOBACILLUS ACIDOPHILUS (FLORANEX) TAB PO SCH ×4 (09:10→20:10)
[2018-10-01] MEDS: PANTOprazole 40 MG TAB PO SCH ×2 (09:10→20:10)
[2018-10-01] MEDS: THIAMINE HCL 100 MG TAB PO SCH (09:11)
[2018-10-01] MEDS: SPIRONOLACTONE 25 MG TAB PO SCH (09:11)
[2018-10-01] MEDS: FOLIC ACID 1 MG TAB PO SCH (09:12)
[2018-10-01] MEDS: FUROSEMIDE 20 MG TAB PO SCH (09:12)
[2018-10-01] MEDS: ASPIRIN 81 MG ECTAB PO SCH (09:12)
[2018-10-01] MEDS: DAPTOmycin 200 MG in SYRINGE 0 ML IV SCH (13:02)
--- NOTE | 2018-10-01 14:45 | Hospitalist Progress Note ---
Date of Service October 01, 2018 Assessment & Plan (1) VRE (vancomycin-resistant Enterococci) infection: Urine culture grows enterococcus multidrug resistant/VRE Sensitive to IV daptomycin only Appreciate input from ID Will need total 7 days of IV daptomycin treatment Given the expense of IV antibiotic doubt skilled rehab will be able to accept patient Patient may need to stay at [facility] to complete IV antibiotic 09/29/2018 Urine culture 09/21 grew Enterococcus faecalis. Pansensitive No fever or dysuria(patient is a very poor historian will change antibiotic to p.o). Apparent asymptomatic bacteruria. No leukocytosis until 09/25. Treating with IV antibiotics at this time in light of leukocytosis and increasing confusion. Was on Zosyn, antibiotic changed to ampicillin Repeat urine culture Streptococcus, will continue on ampicillin Present on Admission?: Yes (2) UTI (urinary tract infection) due to urinary indwelling Sanders catheter: Urine patient had urinary incontinence, with significant behavioral disturbance, Sanders catheter inserted this admission Urine culture shows vancomycin resistant enterococci On IV daptomycin Patient has significant excoriation on sacral and groin area for urine and fecal incontinence, We will continue Sanders catheter while in hospital Sanders will be discontinued on transition to skilled rehab (3) Dementia 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: Has not had any agitation, delirious events after starting on Seroquel Patient is put on scheduled 25 mg Seroquel at 5 PM daily Baseline advanced dementia, oriented to person only For diabetes or behavior, combativeness noted 09/30/2018 Symptoms improved after starting on Seroquel, appreciate psychiatry input Baseline advanced dementia, (no prior formal diagnosis) With behavioral disturbance-possible worsening due to CVA/metabolic encephalopathy Patient was admitted to [facility] on Aug 2018 : was from home (was living with son ) Was smearing of stool on the wall/dropping soiled diaper on floor Was found to have acute CVA Later discharged to [facility] for skilled rehab/patient is on not safe to return back to home Patient's bizzare behavior continued [facility] as well And noted during this hospital admission Ordered Haldol as needed Patient will benefit with antipsychotic meds for ongoing behavior issues/ disturbance psych consulted, appreciate input Started on Seroquel Noted to have improvement of symptoms (4) GI bleed: H&H stable No further episode Patient is remained stable Presented with melena and hemoglobin of 6.8. Was on dual antiplatelet aspirin and clopidogrel for recent stroke. History of cirrhosis and GAVE. EGD performed by GI team on 09/19. 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 No esophageal varices. Recommended termite technician PPI. Dual antiplatelet discontinued, risk of bleeding outweighs benefit. On aspirin 81 mg daily-Plavix discontinued One episode of hematemesis 09/25 after apparent self-induced emesis. Possible Tonya-Lee tear No further episode, H&H remained stable hemoglobin more than 9 IV pantoprazole discontinued P.o. Protonix 40 mg twice daily Resumed aspirin 81 mg p.o. daily (5) Acute blood loss anemia: hemoglobin remained stable post transfusion No further episode of GI bleed, hemoglobin more than 9 Admitted with Hgb 6.8 Acute blood loss anemia secondary to GI bleed- Melanotic stool Transfused with 1 unit pRBC's 09/18. Hgb john to 9.1 after transfusion. Hgb 7.1 on 09/25/2018 Received 2nd unit of pRBC's. 09/25/2018 Follow H/H and transfuse as necessary to maintain Hgb > 8. (6) Cirrhosis of liver: History of cirrhosis with ascites. Cirrhosis attributed to alcohol consumption. No esophageal varices seen on EGD. History of hepatic encephalopathy. No evidence of hepatic encephalopathy at present, patient is alert awake Behavioral disturbance possibly secondary to underlying dementia/CVA No lactulose: Patient is having chronic diarrhea Lasix resumed (7) GERD (gastroesophageal reflux disease): EGD demonstrated Gamino's esophagus/GAVE no evidence of active Continue PPI indefinitely. GI bleed (8) Embolic cerebral infarction: Hospitalized in August with acute ischemic stroke(s). Found to have right ICA stenosis with associated thrombus. [place] [facility] [place] No interventional procedures performed. EGD : Showed Gamino's esophagus/GAVE OK to restart low-dose asprin per GI. Risks of dual antiplatelet therapy outweigh the benefits. Continue on aspirin 81 mg p.o. daily, Plavix discontinued (9) Dysphagia: Seen by CAREER AND TRANSITION TEACHER. Dental soft / moist diet. Aspiration precautions. (10) Metabolic encephalopathy: Intermittent confusion, probably multifactorial. Probably had some dementia- family notes cognitive decline over past 2 years. Family notes confusion since recent stroke. Worsening of confusion/delirium noted possible secondary to UTI on antibiotic already Patient has chronic behavioral disturbance Started on anti-psychotic meds by psychiatry Mental status improved, approximate baseline (11) CKD (chronic kidney disease) stage 3, GFR 30-59 ml/min: Renal function stable at baseline (12) UTI (urinary tract infection): (13) DVT prophylaxis: No anticoagulants due history of GI bleed and anemia/ SCD's. (14) Discharge planning issues: Patient was at [facility] for skilled rehab Given her behavioral issues, will benefit to skilled rehab with dementia unit referral made to [facility], Awaiting insurance approval PT niccivicky 09/27/2018: Not safe to return home, high fall risk, recommend rehab Case Management consulted. Case management updated: A regarding treatment with IV daptomycin for total 7 days for VRE UTI Patient's son present at bedside Internal Medicine follow-up with Dr. Shields. Subjective Patient is awake and alert, no episode of confusion or agitation noted since starting on Seroquel Son and grandkids are visiting Patient denies of any discomfort, no fever chills Wants to knowwhen she can go home Physical Exam 2 Vital Signs (Past 24 Hours): Last Vital Signs Temp 36.2 C L 10/01/18 07:41 Pulse 74 10/01/18 07:41 Resp 18 10/01/18 07:41 BP 131/81 10/01/18 07:41 Pulse Ox 97 10/01/18 07:41 Constitutional: + ill appearing; no acute distress Eyes: + anicteric sclerae ENMT: external ear and nose normal, oropharynx normal Neck: trachea midline, no thyromegaly Respiratory: normal respiratory effort, lungs clear to auscultation Cardiovascular: RRR, no murmur, no edema Gastrointestinal (Abdomen): Inspection/Auscultation: + abdomen distended and normal bowel sounds Percussion/Palpation: abdomen soft; abdomen nontender Musculoskeletal: no cyanosis or clubbing, extremities motor strength 5/5 Psychiatric: Orientation: alert and oriented to person Eye Contact: good eye contact Affect: euthymic affect _ (1) GI bleed GI bleed type/associated pathology: melena Gastritis type: Qualified Code(s ): K92.1 - Melena (2) Cirrhosis of liver Hepatic cirrhosis type: other cirrhosis Ascites presence: Qualified Code(s) : K74.69 - Other cirrhosis of liver (3) GERD (gastroesophageal reflux disease) Esophagitis presence: esophagitis presence not specified Qualified Code(s): K21.9 - Gastro-esophageal reflux disease without esophagitis (4) Embolic cerebral infarction Precerebral and cerebral artery: unspecified cerebral artery Laterality of affected vessel: Qualified Code(s): I63.40 - Cerebral infarction due to embolism of unspecified cerebral artery (5) Dysphagia Dysphagia type: unspecified Qualified Code(s): R13.10 - Dysphagia, unspecified (6) UTI (urinary tract infection) Urinary tract infection type: site unspecified Hematuria presence: without hematuria Indwelling urinary catheter type: Encounter type: Qualified Code( s): N39.0 - Urinary tract infection, site not specified (7) UTI (urinary tract infection) due to urinary indwelling Sanders catheter Indwelling urinary catheter type: indwelling urethral catheter Encounter type : initial encounter Qualified Code(s): T83.511A - Infection and inflammatory reaction due to indwelling urethral catheter, initial encounter; N39.0 - Urinary tract infection, site not specified
[2018-10-01] MEDS ORDERED: LOPERAMIDE HCL 2 MG CAP PO PRN (15:03)
[2018-10-01] MEDS ORDERED: LACTOBACILLUS ACIDOPHILUS (FLORANEX) TAB PO SCH (17:00)
[2018-10-01] MEDS: QUETIAPINE FUMARATE 25 MG TABLET PO SCH (17:15)
[2018-10-01] MEDS: LOPERAMIDE HCL 2 MG CAP PO PRN (17:18)
[2018-10-01] MEDS ORDERED: QUETIAPINE FUMARATE 25 MG TABLET PO PRN (18:03)
[2018-10-02] MEDS: ZOLPIDEM TARTRATE 5 MG TAB PO PRN ×2 (00:40→22:22)
[2018-10-02] MEDS: LACTOBACILLUS ACIDOPHILUS (FLORANEX) TAB PO SCH ×4 (08:34→20:31)
[2018-10-02] MEDS: PANTOprazole 40 MG TAB PO SCH ×2 (08:34→20:32)
[2018-10-02] MEDS: THIAMINE HCL 100 MG TAB PO SCH (08:35)
[2018-10-02] MEDS: FOLIC ACID 1 MG TAB PO SCH (08:35)
[2018-10-02] MEDS: FUROSEMIDE 20 MG TAB PO SCH (08:36)
[2018-10-02] MEDS: ASPIRIN 81 MG ECTAB PO SCH (08:36)
[2018-10-02] MEDS: SPIRONOLACTONE 25 MG TAB PO SCH (08:37)
[2018-10-02] MEDS: DAPTOmycin 200 MG in SYRINGE 0 ML IV SCH (14:09)
--- NOTE | 2018-10-02 15:57 | Hospitalist Progress Note ---
Date of Service October 02, 2018 Assessment & Plan (1) Dementia 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: pt was started on Seroquel 25 mg at evening , appreciate psychiatry input showed improvement of behavioural issues for 2 days pt started to show again -intentional vomiting -putting fingers in mouth to induce vomiting increased Seroquel to 25 mg PO BID cont ot monitor Baseline advanced dementia, (no prior formal diagnosis) With behavioral disturbance-possible worsening due to CVA/metabolic encephalopathy Patient was admitted to [facility] on Aug 2018 : was from home (was living with son ) Was smearing of stool on the wall/dropping soiled diaper on floor Was found to have acute CVA Later discharged to [facility] for skilled rehab/patient is on not safe to return back to home Patient's bizzare behavior continued at [facility] as well And noted during this hospital admission Ordered Haldol as needed Patient will benefit with antipsychotic meds for ongoing behavior issues/ disturbance psych consulted, appreciate input Started on Seroquel Noted to have improvement of symptoms (2) GI bleed: No further episode Patient is remained stable Presented with melena and hemoglobin of 6.8. Was on dual antiplatelet aspirin and clopidogrel for recent stroke. History of cirrhosis and GAVE. EGD performed by GI team on 09/19. 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 No esophageal varices. Recommended FDC PPI. Dual antiplatelet discontinued, risk of bleeding outweighs benefit. On aspirin 81 mg daily-Plavix discontinued One episode of hematemesis 09/25 after apparent self-induced emesis. Possible Tonya-Lee tear No further episode, H&H remained stable hemoglobin more than 9 IV pantoprazole discontinued P.o. Protonix 40 mg twice daily Resumed aspirin 81 mg p.o. daily (3) Acute blood loss anemia: hemoglobin remained stable post transfusion No further episode of GI bleed, hemoglobin more than 9 Admitted with Hgb 6.8 Acute blood loss anemia secondary to GI bleed- Melanotic stool Transfused with 1 unit pRBC's 09/18. Hgb john to 9.1 after transfusion. Hgb 7.1 on 09/25/2018 Received 2nd unit of pRBC's. 09/25/2018 Follow H/H and transfuse as necessary to maintain Hgb > 8. (4) Cirrhosis of liver: History of cirrhosis with ascites. Cirrhosis attributed to alcohol consumption. No esophageal varices seen on EGD. History of hepatic encephalopathy. No evidence of hepatic encephalopathy at present, patient is alert awake Behavioral disturbance possibly secondary to underlying dementia/CVA No lactulose: Patient is having chronic diarrhea Lasix resumed (5) GERD (gastroesophageal reflux disease): EGD demonstrated Gamino's esophagus/GAVE no evidence of active Continue PPI indefinitely. GI bleed (6) Embolic cerebral infarction: Hospitalized in August with acute ischemic stroke(s). Found to have right ICA stenosis with associated thrombus. Transfer[place] [facility] [place] No interventional procedures performed. EGD : Showed Gamino's esophagus/GAVE OK to restart low-dose asprin per GI. Risks of dual antiplatelet therapy outweigh the benefits. Continue on aspirin 81 mg p.o. daily, Plavix discontinued (7) Dysphagia: Seen by AUTOMOTIVE INTERNET SALES CONSULTANT. Dental soft / moist diet. Aspiration precautions. (8) Metabolic encephalopathy: Intermittent confusion, probably multifactorial. Probably had some dementia- family notes cognitive decline over past 2 years. Family notes confusion since recent stroke. Worsening of confusion/delirium noted possible secondary to UTI on antibiotic already Patient has chronic behavioral disturbance Started on anti-psychotic meds by psychiatry (9) CKD (chronic kidney disease) stage 3, GFR 30-59 ml/min: Renal function stable at baseline (10) UTI (urinary tract infection): Urine culture 09/21 grew Enterococcus faecalis. Pansensitive No fever or dysuria(patient is a very poor historian will change antibiotic to p.o). Apparent asymptomatic bacteruria. No leukocytosis until 09/25. Treating with IV antibiotics at this time in light of leukocytosis and increasing confusion. Was on Zosyn, antibiotic changed to ampicillin Repeat urine culture Streptococcus, will continue on ampicillin (11) DVT prophylaxis: No anticoagulants due history of GI bleed and anemia/ SCD's. (12) Discharge planning issues: Patient was at [facility] for skilled rehab Given her behavioral issues, will benefit to skilled rehab with dementia unit referral made to [facility] Zhang, Awaiting insurance approval PT julio cesar 09/27/2018: Not safe to return home, high fall risk, recommend rehab Case Management consulted. Internal Medicine follow-up with Dr. Shields. Subjective pt had episodes of self induced vomiting yesterday intentional fall attempt noted reported by Nursing -slid herself down to floor no aggresive behaviour seroquel increased to 25 mg PO BID cont to monitor Physical Exam 2 Vital Signs (Past 24 Hours): Last Vital Signs Temp 37.1 C 10/02/18 15:42 Pulse 96 H 10/02/18 15:42 Resp 20 10/02/18 15:42 BP 110/64 10/02/18 15:42 Pulse Ox 94 10/02/18 15:42 Constitutional: + ill appearing; no acute distress Eyes: + anicteric sclerae ENMT: external ear and nose normal, oropharynx normal Neck: trachea midline, no thyromegaly Respiratory: normal respiratory effort, lungs clear to auscultation Cardiovascular: RRR, no murmur, no edema Gastrointestinal (Abdomen): Inspection/Auscultation: + abdomen distended and normal bowel sounds Percussion/Palpation: abdomen soft; abdomen nontender Musculoskeletal: no cyanosis or clubbing, extremities motor strength 5/5 Psychiatric: Orientation: alert and oriented to person Apperance: + disheveled Eye Contact: good eye contact Affect: euthymic affect Insight: + severely impaired insight _ (1) UTI (urinary tract infection) Encounter type: Hematuria presence: without hematuria Indwelling urinary catheter type: Urinary tract infection type: site unspecified Qualified Code( s): N39.0 - Urinary tract infection, site not specified (2) GI bleed GI bleed type/associated pathology: melena Gastritis type: Qualified Code(s ): K92.1 - Melena (3) Dysphagia Dysphagia type: unspecified Qualified Code(s): R13.10 - Dysphagia, unspecified (4) Cirrhosis of liver Ascites presence: Hepatic cirrhosis type: other cirrhosis Qualified Code(s) : K74.69 - Other cirrhosis of liver (5) Embolic cerebral infarction Laterality of affected vessel: Precerebral and cerebral artery: unspecified cerebral artery Qualified Code(s): I63.40 - Cerebral infarction due to embolism of unspecified cerebral artery (6) GERD (gastroesophageal reflux disease) Esophagitis presence: esophagitis presence not specified Qualified Code(s): K21.9 - Gastro-esophageal reflux disease without esophagitis
[2018-10-02] MEDS: QUETIAPINE FUMARATE 25 MG TABLET PO SCH (18:11)
[2018-10-03] MEDS: SPIRONOLACTONE 25 MG TAB PO SCH (08:58)
[2018-10-03] MEDS: QUETIAPINE FUMARATE 25 MG TABLET PO SCH ×2 (08:59→16:50)
[2018-10-03] MEDS: LACTOBACILLUS ACIDOPHILUS (FLORANEX) TAB PO SCH ×4 (08:59→20:54)
[2018-10-03] MEDS: THIAMINE HCL 100 MG TAB PO SCH (08:59)
[2018-10-03] MEDS: FUROSEMIDE 20 MG TAB PO SCH (09:00)
[2018-10-03] MEDS: ASPIRIN 81 MG ECTAB PO SCH (09:00)
[2018-10-03] MEDS: PANTOprazole 40 MG TAB PO SCH ×2 (09:00→20:54)
[2018-10-03] MEDS: FOLIC ACID 1 MG TAB PO SCH (09:00)
[2018-10-03] MEDS: DAPTOmycin 200 MG in SYRINGE 0 ML IV SCH (13:57)
--- NOTE | 2018-10-03 18:03 | Hospitalist Progress Note ---
Date of Service October 03, 2018 Assessment & Plan (1) Dementia 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 di sturbance: pt was started on Seroquel 25 mg at evening , appreciate psychiatry input showed improvement of behavioural issues for 2 days pt started to show again -intentional vomiting -putting fingers in mouth to induce vomiting increased Seroquel to 25 mg PO BID added trazodone 50 mg HS Baseline advanced dementia, (no prior formal diagnosis) With behavioral disturbance-possible worsening due to CVA/metabolic encephalopathy Patient was admitted to [facility] on Aug 2018 : was from home (was living with son ) Was smearing of stool on the wall/dropping soiled diaper on floor Was found to have acute CVA Later discharged to [facility] for skilled rehab/patient is on not safe to return back to home Patient's bizzare behavior continued at [facility] as well And noted during this hospital admission Ordered Haldol as needed Patient will benefit with antipsychotic meds for ongoing behavior issues/disturbance psych consulted, appreciate input Started on Seroquel Noted to have improvement of symptoms (2) GI bleed: No further episode Patient is remained stable Presented with melena and hemoglobin of 6.8. Was on dual antiplatelet aspirin and clopidogrel for recent stroke. History of cirrhosis and GAVE. EGD performed by GI team on 09/19. 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 No esophageal varices. Recommended computer terminal operator PPI. Dual antiplatelet discontinued, risk of bleeding outweighs benefit. On aspirin 81 mg daily-Plavix discontinued One episode of hematemesis 09/25 after apparent self-induced emesis. Possible Tonya-Lee tear No further episode, H&H remained stable hemoglobin more than 9 IV pantoprazole discontinued P.o. Protonix 40 mg twice daily Resumed aspirin 81 mg p.o. daily (3) Acute blood loss anemia: hemoglobin remained stable post transfusion No further episode of GI bleed, hemoglobin more than 9 Admitted with Hgb 6.8 Acute blood loss anemia secondary to GI bleed- Melanotic stool Transfused with 1 unit pRBC's 09/18. Hgb john to 9.1 after transfusion. Hgb 7.1 on 09/25/2018 Received 2nd unit of pRBC's. 09/25/2018 Follow H/H and transfuse as necessary to maintain Hgb > 8. (4) Cirrhosis of liver: History of cirrhosis with ascites. Cirrhosis attributed to alcohol consumption. No esophageal varices seen on EGD. History of hepatic encephalopathy. No evidence of hepatic encephalopathy at present, patient is alert awake Behavioral disturbance possibly secondary to underlying dementia/CVA No lactulose: Patient is having chronic diarrhea Lasix resumed (5) GERD (gastroesophageal reflux disease): EGD demonstrated Gamino's esophagus/GAVE no evidence of active Continue PPI indefinitely. GI bleed (6) Embolic cerebral infarction: Hospitalized in August with acute ischemic stroke(s). Found to have right ICA stenosis with associated thrombus. Transferred to [facility] [place]. No interventional procedures performed. EGD : Showed Gamino's esophagus/GAVE OK to restart low-dose asprin per GI. Risks of dual antiplatelet therapy outweigh the benefits. Continue on aspirin 81 mg p.o. daily, Plavix discontinued (7) Dysphagia: Seen by PRIMARY EDUCATION PROFESSOR. Dental soft / moist diet. Aspiration precautions. (8) Metabolic encephalopathy: Intermittent confusion, probably multifactorial. Probably had some dementia- family notes cognitive decline over past 2 years. Family notes confusion since recent stroke. Worsening of confusion/delirium noted possible secondary to UTI on antibiotic already Patient has chronic behavioral disturbance Started on anti-psychotic meds by psychiatry (9) CKD (chronic kidney disease) stage 3, GFR 30-59 ml/min: Renal function stable at baseline (10) UTI (urinary tract infection): Urine culture 09/21 grew Enterococcus faecalis. Pansensitive No fever or dysuria(patient is a very poor historian will change antibiotic to p.o). Apparent asymptomatic bacteruria. No leukocytosis until 09/25. Treating with IV antibiotics at this time in light of leukocytosis and increasing confusion. Was on Zosyn, antibiotic changed to ampicillin Repeat urine culture Streptococcus, will continue on ampicillin (11) DVT prophylaxis: No anticoagulants due history of GI bleed and anemia/ SCD's. (12) Discharge planning issues: Patient was at [facility] for skilled rehab Given her behavioral issues, will benefit to skilled rehab with dementia unit referral made to [facility], Awaiting insurance approval PT julio cesar 09/27/2018: Not safe to return home, high fall risk, recommend rehab Case Management consulted. Internal Medicine follow-up with Dr. Shields. Subjective wants to know when she can go home remains confused afebrile ordered to [facility] [place] catheter having behaviour issues -throwing things on the floor and ringing constantly to pick them up added night time Trazodone plan to get to [facility] tomorrow if bed available Gastrointestinal: + belching; no abdominal pain, no nausea, no vomiting and no dysphagia Physical Exam Vital Signs (Past 24 Hours): Last Vital Signs Temp 37.1 C 10/03/18 15:00 Pulse 75 10/03/18 15:00 Resp 16 10/03/18 15:00 BP 135/80 10/03/18 15:00 Pulse Ox 96 10/03/18 15:00 Constitutional: + ill appearing; no acute distress Eyes: + anicteric sclerae ENMT: external ear and nose normal, oropharynx normal Neck: trachea midline, no thyromegaly Respiratory: normal respiratory effort, lungs clear to auscultation Cardiovascular: RRR, no murmur, no edema Gastrointestinal (Abdomen): Inspection/Auscultation: + abdomen distended and normal bowel sounds Percussion/Palpation: abdomen soft; abdomen nontender Musculoskeletal: no cyanosis or clubbing, extremities motor strength 5/5 Psychiatric: Orientation: alert and oriented to person Apperance: + disheveled Eye Contact: good eye contact Affect: euthymic affect Insight: + severely impaired insight (1) UTI (urinary tract infection) Hematuria presence: without hematuria Urinary tract infection type: site uns pecified Qualified Code(s): N39.0 - Urinary tract infection, site not specified (2) GI bleed GI bleed type/associated pathology: melena Qualified Code(s): K92.1 - Melena (3) Dysphagia Dysphagia type: unspecified Qualified Code(s): R13.10 - Dysphagia, unspecified (4) Cirrhosis of liver Hepatic cirrhosis type: other cirrhosis Qualified Code(s): K74.69 - Other cirrhosis of liver (5) Embolic cerebral infarction Precerebral and cerebral artery: unspecified cerebral artery Qualified Code(s): I63.40 - Cerebral infarction due to embolism of unspecified cerebral artery (6) GERD (gastroesophageal reflux disease) Esophagitis presence: esophagitis presence not specified Qualified Code(s): K21.9 - Gastro-esophageal reflux disease without esophagitis
[2018-10-03] MEDS ORDERED: TRAZODONE HCL 50 MG TAB PO SCH (21:00)
[2018-10-04] MEDS: QUETIAPINE FUMARATE 25 MG TABLET PO SCH (09:14)
[2018-10-04] MEDS: PANTOprazole 40 MG TAB PO SCH (09:15)
[2018-10-04] MEDS: LACTOBACILLUS ACIDOPHILUS (FLORANEX) TAB PO SCH ×2 (09:16→14:27)
[2018-10-04] MEDS: SPIRONOLACTONE 25 MG TAB PO SCH (09:16)
[2018-10-04] MEDS: FOLIC ACID 1 MG TAB PO SCH (09:17)
[2018-10-04] MEDS: THIAMINE HCL 100 MG TAB PO SCH (09:18)
[2018-10-04] MEDS: FUROSEMIDE 20 MG TAB PO SCH (09:18)
[2018-10-04] MEDS: ASPIRIN 81 MG ECTAB PO SCH (09:19)
[2018-10-04] MEDS ORDERED: DAPTOmycin 200 MG in SYRINGE 0 ML IV SCH (09:30)
--- NOTE | 2018-10-05 10:53 | Discharge Summary ---
Date of Service October 05, 2018 Admission HPI Per Admitting Provider The patient is a 72 yo woman with medical condition including CKD, recent hx CVA, cirrhaosis with ascited and current GI bleed, who presented to the hospital due to a drop in H&H requiring transfusion. She has a remote history of alcohol abuse, and resulting cirrhosis. She experienced a CVA in August 2018, was sent to [facility] for consideration of neurosurg interventions, and from there was discharged to [facility] for rehab. Behaviors at [facility] included smearing feces and dropping her soiled diapers in common areas. Nursing reports that here in the hospital, bizarre behaviors have included sticking objects down her throat to vomit, smearing feces, throwing dishes from her tray to the floor. Behaviors occur more oftern in the evening starting around 5-6 PM At the time I see the patient she is sitting up in bed, alert and cooperative. She is oriented to person, place and year, but believes it to be fall despite multiple discussions with nursing today about the snow. All psychiatric symptoms are lorenzana-negative including: problems with sleep, appetite, mood, anxiety, SI/HI, hallucinations, irritability or memory for the above behaviors. She simply says "No. I just want to go home. Principal Diagnosis DEMENTIA WITH BEHAVIORAL DISTRUBANCE /ENTEROCOCCI UTI -VANCOMYCIN RESISTANT Discharge Exam Constitutional WD/WN, vitals as above + ill appearing, + thin, well groomed, cooperative and comfortable; no acute distress Eyes PERRL, conjunctivae normal, anicteric sclerae + anicteric sclerae ENMT external ear and nose normal, oropharynx normal Mouth: + dentition abnormality (multiple missing teeth); no TMJ abnormality Mallampati Class: III Neck trachea midline, no thyromegaly normal visual inspection and trachea midline; neck nontender Respiratory normal respiratory effort, lungs clear to auscultation normal respiratory effort and normal percussion; does not use accessory muscles Auscultation: lungs clear to auscultation bilaterally; no crackles and no wheezes Cardiovascular RRR, no murmur, no edema Rate/Rhythm: regular rate and regular rhythm Heart Sounds: normal S1 and normal S2; no gallop, no murmur and no cardiac rub Vessels: normal peripheral pulses; no JVD and no carotid bruit Extremities: no edema Gastrointestinal (Abdomen) normal bowel sounds, soft, nontender, no hepatosplenomegaly Inspection/Auscultation: + abdomen distended and normal bowel sounds Percussion/Palpation: abdomen soft; abdomen nontender, no guarding and abdomen not rigid Musculoskeletal no cyanosis or clubbing, extremities motor strength 5/5 Spine: thoracic spine normal to inspection and lumbar spine normal to inspection; no cervical spinal tenderness Extremities: no cyanosis and no clubbing Skin no rashes, warm and dry normal turgor; no lesions and no jaundice Neurologic moves all extremities, + focal motor deficit (LUE ~ 3/5, LLE ~ 4/5), awake and + confused Motor/Sensory: no asterixis Psychiatric Orientation: alert, oriented x 3, oriented to person, oriented to place, oriented to time (year only) and cooperative Apperance: appropriately dressed and + disheveled Eye Contact: good eye contact Motor Behavior: no abnormal motor movements Speech: normal rate/rhythm/volume of speech Affect: euthymic affect and + flat affect Mood: no depressed mood and no anxious mood Thought Process: goal directed thought process Thought Content: reality based without delusions Suicidal Thoughts: denies suicidal thoughts Homicidal Thoughts: denies homicidal thoughts Hallucinations: no auditory hallucinations and no visual hallucinations Cognition: attention grossly intact and language grossly intact Estimated Intelligence: consistent with education level Insight: + limited insight, + impaired insight and + severely impaired insight Judgement: + impaired judgement Lymphatic no cervical or axillary lymphadenopathy no lymphedema and no inguinal lymphadenopathy Discharge Data Allergies Allergy/AdvReac Type Severity Reaction Status Date / Time No Known Allergies Allergy Unverified 09/18/18 12:46 Consultations 09/18/18 12:59 ED Decision to Admit Stat 09/18/18 15:47 Consult Gastroenterology Routine 09/27/18 09:21 Consult Psychiatry Routine 09/29/18 12:33 Consult Infectious Diseases Routine Procedures Performed Operation Date: 09/19/18 08:55 Actual Procedures p Esophagogastroduodenoscopy - [facility] (1) Dementia 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: pt was started on Seroquel 25 mg at evening , appreciate psychiatry input showed improvement of behavioural issues for 2 days pt started to show again -intentional vomiting -putting fingers in mouth to induce vomiting increased Seroquel to 25 mg PO BID added Tradozon 50 mg HS Baseline advanced dementia, (no prior formal diagnosis) With behavioral disturbance-possible worsening due to CVA/metabolic encephalopathy Patient was admitted to [facility] on Aug 2018 : was from home (was living with son ) Was smearing of stool on the wall/dropping soiled diaper on floor Was found to have acute CVA Later discharged to [facility] for skilled rehab/patient is on not safe to return back to home Patient's bizzare behavior continued at [facility] as well And noted during this hospital admission Ordered Haldol as needed Patient will benefit with antipsychotic meds for ongoing behavior issues/disturbance psych consulted, appreciate input Started on Seroquel Noted to have improvement of symptoms (2) GI bleed: No further episode Patient is remained stable Presented with melena and hemoglobin of 6.8. Was on dual antiplatelet aspirin and clopidogrel for recent stroke. History of cirrhosis and GAVE. EGD performed by GI team on 09/19. 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 No esophageal varices. Recommended group home PPI. Dual antiplatelet discontinued, risk of bleeding outweighs benefit. On aspirin 81 mg daily-Plavix discontinued One episode of hematemesis 09/25 after apparent self-induced emesis. Possible Tonya-Lee tear No further episode, H&H remained stable hemoglobin more than 9 IV pantoprazole discontinued P.o. Protonix 40 mg twice daily Resumed aspirin 81 mg p.o. daily (3) Acute blood loss anemia: hemoglobin remained stable post transfusion No further episode of GI bleed, hemoglobin more than 9 Admitted with Hgb 6.8 Acute blood loss anemia secondary to GI bleed- Melanotic stool Transfused with 1 unit pRBC's 09/18. Hgb john to 9.1 after transfusion. Hgb 7.1 on 09/25/2018 Received 2nd unit of pRBC's. 09/25/2018 Follow H/H and transfuse as necessary to maintain Hgb > 8. (4) Cirrhosis of liver: History of cirrhosis with ascites. Cirrhosis attributed to alcohol consumption. No esophageal varices seen on EGD. History of hepatic encephalopathy. No evidence of hepatic encephalopathy at present, patient is alert awake Behavioral disturbance possibly secondary to underlying dementia/CVA No lactulose: Patient is having chronic diarrhea Lasix resumed (5) GERD (gastroesophageal reflux disease): EGD demonstrated Gamino's esophagus/GAVE no evidence of active Continue PPI indefinitely. GI bleed (6) Embolic cerebral infarction: Hospitalized in August with acute ischemic stroke(s). Found to have right ICA stenosis with associated thrombus. Transferred to [facility]. No interventional procedures performed. EGD : Showed Gamino's esophagus/GAVE OK to restart low-dose asprin per GI. Risks of dual antiplatelet therapy outweigh the benefits. Continue on aspirin 81 mg p.o. daily, Plavix discontinued (7) Dysphagia: Seen by PRIMARY GRADE TEACHER. Dental soft / moist diet. Aspiration precautions. (8) Metabolic encephalopathy: Intermittent confusion, probably multifactorial. Probably had some dementia- family notes cognitive decline over past 2 years. Family notes confusion since recent stroke. Worsening of confusion/delirium noted possible secondary to UTI on antibiotic already Patient has chronic behavioral disturbance Started on anti-psychotic meds by psychiatry (9) CKD (chronic kidney disease) stage 3, GFR 30-59 ml/min: Renal function stable at baseline (10) UTI (urinary tract infection): Urine culture 09/21 grew Enterococcus faecalis. Pansensitive No fever or dysuria(patient is a very poor historian will change antibiotic to p.o). Apparent asymptomatic bacteruria. No leukocytosis until 09/25. Treating with IV antibiotics at this time in light of leukocytosis and increasing confusion. Was on Zosyn, antibiotic changed to ampicillin repeat urine culture : VRE on IV Daptomycin completed course appreciate input from ID (11) DVT prophylaxis: No anticoagulants due history of GI bleed and anemia/ SCD's. (12) Discharge planning issues: Patient was at [facility] for skilled rehab Given her behavioral issues, will benefit to skilled rehab with dementia unit referral made to [facility] [place], accepted will be transferred to [facility] today Total Time Total Time Spent Total Time Spent (In Minutes): 30 MINS Total Time Includes: Discharge Planning and Medication Reconciliation Discharge Plan Discharge Items Patient Disposition: Transfer Intermediate Fac Reason For Visit: GI BLEED Discharge Diagnosis: DEMENTIA WITH BEHAVIORAL PROBLEM /UTI WITH VANCOMYCIN RESISTANCE ENTEROCOCCI Discharge Goals: Decrease discomfort Activity: Resume your previous activity Non-emergency contact: Primary Care Provider Call non-emergency contact if: you have any medication questions Diet: Regular Diet Texture: Mechanical soft (ground) Addtl Provider Instructions: ASPIRATION PRECAUTION FALL PRECAUTION HIGH RISK FOR DELERIUM /OWNING WILL BENEFIT WITH REASSURANCE AND SUPPORT AVOID BENZODIAZEPINE -CAUSES REBOUND AGITATION Prescriptions: New quetiapine 25 mg Tablet 25 mg PO DAILY@17 30 Days Qty: 30 RF: 3 quetiapine 25 mg Tablet 25 mg PO QD@08 30 Days Qty: 30 RF: 3 loperamide 2 mg Capsule 2 mg PO Q8 PRN (Reason: DIARRHEA) 30 Days Qty: 90 RF: 0 trazodone 50 mg Tablet 50 mg PO HS 30 Days Qty: 30 RF: 0 thiamine HCl (vitamin B1) [Vitamin B-1] 100 mg Tablet 100 mg PO QAM 30 Days Qty: 30 RF: 0 folic acid 1 mg Tablet 1 mg PO QAM 30 Days Qty: 30 RF: 0 Lactobacillus acidoph-L.bulgar [Floranex] 1 million cell Tablet 4 tab PO QIDM 30 Days Qty: 120 RF: 0 Continued spironolactone [Aldactone] 25 mg tablet 12.5 mg PO DAILY RF: 0 furosemide [Lasix] 20 mg tablet 10 mg PO DAILY RF: 0 atorvastatin 40 mg Tablet 40 mg PO PM RF: 0 aspirin 81 mg Tablet,Delayed Release (Dr/Ec) 81 mg PO DAILY RF: 0 famotidine 20 mg Tablet 20 mg PO BID RF: 0 Changed pantoprazole [Protonix] 40 mg tablet,delayed release (DR/EC) 40 mg PO BID Qty: 0 RF: 0 Discontinued clopidogrel 75 mg Tablet 75 mg PO DAILY RF: 0 hydroxyzine HCl 25 mg Tablet 25 mg PO QID PRN (Reason: Anxiety) RF: 0 Stand-Alone Forms: [facility] Discharge Orders: Discharge Order (Routine); Ordered 10/04/18 Ordered By: Michelle Little Skilled Items Patient informed of condition?: Yes DNR: No Discharge Level of Care: Skilled Communicable Disease: No Discharge Prognosis: Stable Admission Data Admit Date/Time: 09/18/18 14:29 Attending Provider: Michelle Little Admit Provider: Low Barksdale Primary Care Provider: Tiny Shields Other Providers: Michelle Little ; Low Barksdale ; Piotr Sibley ; Fiorella Rico ; Buddy Sanchez Service: Telemetry Other Interventions: Discharge Summary Assessment (RN) Last Done: 10/04/18 14:48 DC Date/Time DO NOT enter until pt leaves facility: 10/04/18 15:25
== END 2018-10-04 15:25 | DRG 377 ==
LOC: ED 11:29 → SUATTDRO 14:29 → 2W 14:29

== ENCOUNTER 2018-10-19 03:02 | Inpatient (IN) ==
[2018-10-19] MEDS ORDERED: ACETAMINOPHEN 325 MG TAB PO PRN (07:57)
[2018-10-19] MEDS ORDERED: MAGNESIUM HYDROXIDE SUSP 30 ML UDC PO PRN (07:57)
[2018-10-19] MEDS ORDERED: POLYETHYLENE (MIRALAX) 17 GM PACK PO PRN (07:57)
[2018-10-19] MEDS ORDERED: ONDANSETRON INJ 2 MG/ML 2 ML VIAL IV PRN (07:57)
[2018-10-19] MEDS ORDERED: ALUMINUM/MAGNESIUM SUSP 30 ML UDC PO PRN (07:57)
--- NOTE | 2018-10-19 08:24 | XRay Report ---
XR chest 1V portable CLINICAL HISTORY: R pleural effusion, SOB COMPARISON STUDY: Chest radiograph September 18, 2018. FINDINGS: There is no pneumothorax. A large right pleural effusion has developed. There is significan t right lung atelectasis. There is mild residual aeration of the right upper lobe. Left lung is clear with the exception of left basilar atelectasis. Leftward mediastinal shift due to the pleural effusi on is noted. IMPRESSION: Interval development of a large right pleural effusion with extensive right lung briana sive atelectasis. Mild residual aeration of the right upper lobe. Mediastinal shift due to the pleura l effusion. Electronically signed by: Rakan Champion M.D. 10/19/2018 8:22 AM
--- NOTE | 2018-10-19 08:42 | History & Physical Report ---
Date of Service October 19, 2018 Assessment & Plan (1) Acute respiratory failure: (2) Pleural effusion: This is a 72 year old F who has a significant PMH of Cirrhosis, GAVE, Barretts esophagus, CKD-3, Diastolic Dysfunction, Anemia, hx of CVA, osteoporosis who presents to [facility] as direct admission from [facility] due to SOB x 3 days with associated R pleural Effusion. CXR on admission shows Large R pleural effusion, etiology of patients SOB Initial lab workup revealed WBC 8.19, hemoglobin 9.4, hematocrit 29 0.8, platelet 258, BUN 27, creatinine 0.92, glucose 101, AST 45, ALT 39, alk phos 218, ammonia 37.7, BNP 985, troponin 0 0.02 -Directly admitted to Med/Surg telemetry -Consult pulmonology Dr. Kamara for thoracentesis, spoke with Dr. Kamara who will evaluate the patient, appreciate their recommendations -will need appropriate pleural fluid analysis to determine etiology of pleural etiology, ?decompensated cirrhosis vs cardiac vs infectious (though afebrile, wbc WNL, lactate normal, procalcitonin pending) -Given volume overload will initiate lasix 20mg IV BID and continue aldactone -daily weights, strict I and O (3) Cirrhosis of liver: -signs/symptoms of volume overload with R pleural effusion and bilateral lower ext edema likely secondary to decompensated cirrhosis -starting Lasix IV 20mg bid and monitor Strict I and O -daily weights -continue aldactone -NH3 37.7, pt with confusion but unknown baseline -start lactulose daily (4) GAVE (gastric antral vascular ectasia): -continue PPI, Famotidine -monitor H/H (5) Gamino esophagus: -continue PPI and famotidine (6) UTI (urinary tract infection): -pt being treated at [facility] with Macrobid 100 mg twice daily starting 10/11 for unknown organism -Prior hospitalizations patient had UTIs, most recently VRE -Check UA C&S, hold antibiotic therapy at this time she is afebrile and WBC WNL -if culture returns + likely colonization given the above (7) CKD (chronic kidney disease) stage 3, GFR 30-59 ml/min: -Bun/Cr stable at 27 and 0.92 -monitor bmp with diuresis (8) Anemia: -H/H stable 9.4/29.8 -monitor cbc -continue iron supplement (9) Dementia 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 dist urbance: -continue seroquel and trazodone (10) History of CVA (cerebrovascular accident): -continue ASA, Statin -off dual anti platelet given GAVE syndrome (11) Stenosis of right internal carotid artery with cerebral infarction: -continue Statin, ASA -plavix d/c secondary to GAVE/Barretts and ABL anemia -not candidate for intervention (12) Hyperlipidemia: -continue statin (13) DVT prophylaxis: -SCDS, given need for thoracentesis and recent ABL 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 Disposition: D/C to [facility] when able, case management consulted Follow up: PCP Dr. Mancia at [facility] Patient seen and examined in collaboration with Dr. Vigil, please see addendum History of Present Illness Chief Complaint: SOB x 3 days. Primary Care Provider: Jayda Mancia MD [facility] This is a 72 year old F who has a significant PMH of Cirrhosis, GAVE, Barretts esophagus, CKD-3, Anemia, hx of CVA, osteoporosis who presents to [facility] as direct admission from [facility] due to R pleural Effusion. Of significance pt recently confined at [facility] 08/15-08/19 secondary to Acute CVA felt secondary to embolic due to severe R ICA stenosis with prox Large R ICA thrombus. She was discharged to [facility] for possible endovascular intervention on dual antiplatelet therapy and high intensity statin. No intervention performed and due to bizarre behavior and confusion post stroke was transferred to [facility]. She subsequently presented back to [facility] for prolonged hospitalization from 09/18/18 to 10/05/18 secondary to melena and hgb of 6.8. [place] secondary to dual antiplatelet therapy. EGD showed barretts/GAVE but no active bleed. Plavix was discontinued and recommended to continue ASA only. Also treated for VRE UTI. Due to continued bizarre behavior psych was consulted and placed on seroquel/trazodone. Discharged to locked dementia unit at [facility]. She has been residing there until she presented to [facility] Today due to SOB x 3 days. According to records was found to have R pleural effusion and unable to be treated at outside facility which prompted direct admission. Baseline labwork including cbc, bmp, NH3 were stable. Lab abnormalities including BNP 1256 and troponin 0.048, H/H 8.6 and 28.5. ECG revealed NSR with left axis deviation, HR 96 bpm, t wave inversion V2 otherwise no st-t wave changes. Currently she is lying in bed states she is here because of her, "sickness," but is unable to elaborate. Denies current SOB, f/c/s, dizziness, lightheaded, chest pain, palpitations, n/v/d, melena, hematochezia, constipation, dyusria, hematuria. She does complain of cough but is unsure if its wet or dry. Meds/records reviewed from [facility]. Appears patient being treated with macrobid 100mg bid for UTI that started on 10/11/18. Allergies Allergy/AdvReac Type Severity Reaction Status Date / Time No Known Allergies Allergy Unverified 09/18/18 12:46 Home Medications Home Medications Medication Instructions Recorded Confirmed Type furosemide [Lasix] 10 mg PO DAILY 08/15/18 10/19/18 History spironolactone [Aldactone] 12.5 mg PO DAILY 08/15/18 10/19/18 History aspirin 81 mg PO DAILY 09/18/18 10/19/18 History atorvastatin 40 mg PO PM 09/18/18 10/19/18 History famotidine 20 mg PO BID 09/18/18 10/19/18 History folic acid 1 mg PO QAM 30 Days #30 tab 10/04/18 10/19/18 Rx loperamide 2 mg PO Q8 PRN 30 Days #90 cap 10/04/18 10/19/18 Rx pantoprazole [Protonix] 40 mg PO BID #0 tab 10/04/18 10/19/18 Rx quetiapine 25 mg PO DAILY@17 30 Days #30 tab 10/04/18 10/19/18 Rx quetiapine 25 mg PO QD@08 30 Days #30 tab 10/04/18 10/19/18 Rx thiamine HCl (vitamin B1) [Vitamin 100 mg PO QAM 30 Days #30 tab 10/04/18 10/19/18 Rx B-1] trazodone 50 mg PO HS 30 Days #30 tab 10/04/18 10/19/18 Rx Lactobacillus acidoph-L.bulgar 1 tab PO DAILY 10/19/18 10/19/18 History [Floranex] cholecalciferol (vitamin D3) 4,000 unit PO DAILY 10/19/18 10/19/18 History [Vitamin D3] ferrous gluconate 240 mg PO DAILY 10/19/18 10/19/18 History multivitamin 1 tab PO DAILY 10/19/18 10/19/18 History Past Med/Surg History Medical History History of 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) Metabolic encephalopathy (Chronic) Dysphagia (Chronic) Acquired hypothyroidism (Chronic) Hyperlipidemia (Chronic) Anemia (Chronic) GERD (gastroesophageal reflux disease) (Chronic) Vitamin deficiency (Chronic) CKD (chronic kidney disease) stage 3, GFR 30-59 ml/min (Chronic) Cirrhosis of liver (Chronic) Fluid filled abdomen (Chronic) HTN (hypertension) (Chronic) Postural hypotension (Resolved) UTI (urinary tract infection) (Resolved) ANDREY (acute kidney injury) (Resolved) Aspiration pneumonia (Resolved) Fall (Resolved) Hypokalemia (Resolved) Injury of left upper arm (Resolved) Orthostatic hypotension (Resolved) Surgical History History of tubal ligation History of esophagogastroduodenoscopy (EGD) Family History Other Family history non-contributory Social History Communication Ability: Impaired Beliefs That Will Affect Care: None marital status: / Current Living Situation: Personal Care Facility Feels Safe at Home: Yes Smoking Status: Never smoker Hx Alcohol Use: No Hx Substance Use: No Review of Systems All systems reviewed & are unremarkable except as noted in HPI & below Physical Exam Vital Signs (Past 24 Hours): Last Vital Signs Temp 36.5 C 10/19/18 08:14 Pulse 95 H 10/19/18 08:14 Resp 18 10/19/18 08:14 BP 144/75 H 10/19/18 08:14 Pulse Ox 96 10/19/18 08:14 Physical Exam: Gen: Thin, fraile, petite, elderly F, lying in bed, +abdominal breathing but no arline resp distress, answers questions appropriately Head: Normocephalic, Atraumatic Eyes: Sclera normal, anicteric, no conjunctival injection, PERRLA, EOMI ENT: Gross hearing intact, normal pharynx, mucous membranes moist Neck: supple, no adenopathy, No JVD, no bruit, trachea midline Resp: Absent breath sounds complete R lung, Clear to auscultation on Left, no wheeze, rales, rhonchi. 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 Extremities: +2 edema pitting bilateral lower extremity, Skin: warm, moist, no rash, negative turgor, cap refill < 2sec Neuro: Alert and oriented x 3 basics only, speech normal, good mood/affect, cran nerve 2-12 intact grossly : deferred Results & Data Laboratory Results Short CBC 10/19/18 10/19/18 10/19/18 Range/Units 08:17 08:31 08:32 WBC 8.19 (4.8-10.8) K/uL Hgb 9.4 L (12.0-16.0) g/dL Hct 29.8 L (37-47) % Plt Count 258 (130-400) K/uL Lactate 1.2 (0.4-2.0) mmol/L Ammonia 37.7 H (11-32) umol/L Diagnostic Findings CXR: IMPRESSION: Interval development of a large right pleural effusion with extensive right lung compressive atelectasis. Mild residual aeration of the right upper lobe. Mediastinal shift due to the pleural effusion. ECG Rate (beats per minute): 92 Rhythm: normal sinus Findings: + prolonged QT Additional Comments: QTC 472ms Code Status & VTE Plan Code Status Full Code Polst from [facility] reviewed VTE Prophylaxis Plan VTE Prophylaxis will be ordered: Yes Reason for no VTE drug order: Contraindicated (Pt with GAVE syn, recent ABL an emia due to GI loss end of september) Supervising Physician Co-Signing Physician Notes Pt was seen and examined. Agreed with Vera PA-C exam, assessment and plan. 73 year old F who has a significant PMH of Cirrhosis, GAVE, Barretts esophagus, CKD-3, Anemia, hx of CVA, osteoporosis who presents to [facility] as direct admission from [facility] due to R pleural Effusion. CXR showed nterval development of a large right pleural effusion with extensive right lung compressive atelectasis. Mild residual aeration of the right upper lobe. Mediastinal shift due to the pleural effusion. Consult pulmonology who plan to get thoracentesis in am. Continue diuresis with Lasix IV BID and spironolactone. Continue monitor closely. MD Musa (1) UTI (urinary tract infection) Hematuria presence: without hematuria Urinary tract infection type: site unspecified Qualified Code(s): N39.0 - Urinary tract infection, site not specified (2) Acute respiratory failure Respiratory failure complication: unspecified whether with hypoxia or hypercapnia Qualified Code(s): J96.00 - Acute respiratory failure, unspecified whether with hypoxia or hypercapnia (3) Anemia Anemia type: unspecified type Qualified Code(s): D64.9 - Anemia, unspecified (4) Hyperlipidemia Hyperlipidemia type: unspecified Qualified Code(s): E78.5 - Hyperlipidemia, unspecified (5) Cirrhosis of liver Hepatic cirrhosis type: other cirrhosis Qualified Code(s): K74.69 - Other ci rrhosis of liver (6) 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
[2018-10-19 08:47] LABS: Basophils # (auto) 0.03 K/uL (0-0.2); Basophils % (auto) 0.4 %; Eosinophils % (auto) 3.7 %; Hematocrit (blood only) 29.8 % (37-47); Hemoglobin 9.4 g/dL (12.0-16.0); Immature Granulocytes # (auto) 0.02 K/uL (0.00-0.02); Immature Granulocytes % (auto) 0.2 %; Lymphocytes # (auto) 1.72 K/uL (1.2-3.4); Mean Corpuscular Volume 94.9 fL (80-100); Mean Platelet Volume 9.7 fL (7.4-10.4); Monocytes # (auto) 0.64 K/uL (0.11-0.59); Monocytes % (auto) 7.8 %; Neutrophils # (auto) 5.48 K/uL (1.4-6.5); Neutrophils % (auto) 66.9 %; Platelet Count 258 K/uL (130-400); RDW Coefficient of Variation 18.1 % (11.5-14.5); RDW Standard Deviation 62.9 fL (36.4-46.3); Red Blood Count 3.14 M/uL (4.2-5.4); White Blood Count 8.19 K/uL (4.8-10.8)
[2018-10-19] MEDS ORDERED: FUROSEMIDE 20 MG TAB PO SCH (09:00)
[2018-10-19 09:01] LABS: Mean Corpuscular Hgb Conc 31.5 g/dL (32-36)
[2018-10-19 09:10] LABS: Alanine Aminotransferase 39 U/L (12-78); Albumin Level 1.6 gm/dl (3.4-5.0); Aspartate Aminotransferase 45 U/L (15-37); BUN Creatinine Ratio 29.2 (10-20); Blood Urea Nitrogen 27 mg/dl (7-18); Calcium 8.3 mg/dl (8.5-10.1); Carbon Dioxide 23 mmol/L (21-32); Chloride 112 mmol/L (98-107); Est GFR (African American) 72.1; Est GFR (Non-African American) 62.2; Glucose 101 mg/dl (70-99); Magnesium 2.1 mg/dl (1.8-2.4); Potassium 4.3 mmol/L (3.5-5.1); Sodium 142 mmol/L (136-145)
[2018-10-19 09:15] LABS: Albumin Globulin Ratio 0.3 (0.9-2); Alkaline Phosphatase 218 U/L (45-117); Bilirubin,Total 0.3 mg/dl (0.2-1); Globulin 5.3 gm/dl (2.5-4.0); NT Pro B Type Natriuretic Pept 985 pg/ml (0-900); Total Protein 6.9 gm/dl (6.4-8.2); Troponin I 0.029 ng/ml (0-0.045)
[2018-10-19 10:00] LABS: INR 1.1 (0.9-1.1); Partial Thromboplastin Time 26.4 Seconds (21.0-31.0); Prothrombin Time 10.9 Seconds (9.0-12.0)
[2018-10-19] MEDS: LACTOBACILLUS ACIDOPHILUS (FLORANEX) TAB PO SCH (10:20)
[2018-10-19] MEDS: FUROSEMIDE 20 MG in SYRINGE 0 ML IV SCH ×2 (10:20→16:49)
--- NOTE | 2018-10-19 13:08 | Consultation Report ---
DATE OF CONSULTATION: 10/19/2018 PULMONARY MEDICINE CONSULTATION Patient of Dr. Vigil. REASON FOR CONSULTATION: Pleural effusion and acute respiratory failure. HISTORY OF PRESENT ILLNESS: A 72-year-old white female with a past medical history of cirrhosis, Gamino's esophagus, chronic renal insufficiency stage III, anemia, previous history of CVA and dementia, was a direct admission from [facility] due to a right pleural effusion and severe shortness of breath over the past several days. The patient has difficulty giving an effective history. The patient recently was admitted on 09/19/2018 and discharged on 10/05/[address] Little. She had a past history of ascites and a recurrent GI bleed and required transfusion during last admission. She has a remote history of alcohol abuse and cirrhosis, suffered a CVA in August 2018, was sent to [facility] and consideration for neurosurgical intervention and was then eventually discharged to [facility] for rehab. She has exhibited very unusual behavior of smearing feces and dropping soiled diapers in common areas as well as sticking objects down her throat, making herself vomit. She has severe dementia. She has had a past history of enterococci UTI vancomycin resistant, and was started on Seroquel 25 mg in the evening to be increased to b.i.d. and adding Trazodone 50 mg at bedtime as per psychiatrist recommendations. Her dual antiplatelet medication, aspirin and Plavix were discontinued in the past and she has a history of cirrhosis and GAVE. Because of her increasing dyspnea, she was transferred over. Imaging done earlier this morning and compared to previous chest x-ray of 09/18/2018 showed interval development of a large right pleural effusion with extensive right lung compressive atelectasis, mediastinal shift was noted. Coagulation profile is currently being drawn and I have been asked to see patient in consultation to consider a diagnostic and therapeutic thoracentesis. No additional history has been gleaned from the patient. PHYSICAL EXAMINATION: CURRENT VITAL SIGNS: Blood pressure 144/75, pulse 95 and regular, respiratory rate 18, temperature 36.5, O2 sat 96% on 2 liters. SKIN: Without lesion. HEENT: Atraumatic, normocephalic. PERRLA. LUNGS: Virtually absent breath sounds right base and right posterior. CARDIAC: Regular rate and rhythm. I do not appreciate a gallop. ABDOMEN: Protuberant with probable ascites wave and lower extremity edema. No rebound tenderness or guarding. NEUROLOGICAL: Responds to her name, but appears to be disoriented to time and place. LABORATORY DATA: EKG on admission, normal sinus rhythm with a suggestion of an old septal infarct. White count 8100, H and H 9.4 and 29.8, platelet count adequate. PT, PTT pending. BUN 27, creatinine 0.9. 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 PLAN: Check routine coagulation and consider a diagnostic and therapeutic thoracentesis.
[2018-10-19 13:35] LABS: Appearance Urine Clear (Clear); Bacteria Urine Automated Negative (Negative); Bilirubin Urine Negative (Negative); Blood Urine Negative (Negative); Color Urine Yellow; Epithelial Cell Urine Auto 0-5 /lpf (0-5); Glucose Urine UA Negative (Negative); Ketones Urine Negative (Negative); Leukocyte Esterase Urine Negative (Negative); Nitrite Urine Negative (Negative); Protein Urine 1+ (Negative); RBC Urine Automated 0-4 /hpf (0-4); Specific Gravity Urine 1.009 (1.000-1.030); Urobilinogen Urine Negative (Negative)
[2018-10-19] MEDS: MULTIVITAMIN TAB PO SCH (14:01)
[2018-10-19] MEDS: PANTOprazole 40 MG TAB PO SCH ×2 (14:01→20:41)
[2018-10-19] MEDS: THIAMINE HCL 100 MG TAB PO SCH (14:01)
[2018-10-19] MEDS: FAMOTIDINE 20 MG TAB PO SCH ×2 (14:01→20:41)
[2018-10-19] MEDS: SPIRONOLACTONE 25 MG TAB PO SCH (14:01)
[2018-10-19] MEDS: ASPIRIN 81 MG ECTAB PO SCH (14:01)
[2018-10-19] MEDS: FOLIC ACID 1 MG TAB PO SCH (14:01)
[2018-10-19] MEDS: FERROUS GLUCONATE 324 MG TAB PO SCH (14:02)
[2018-10-19] MEDS: CHOLECALCIFEROL 1,000 UNITS TAB PO SCH (14:02)
--- NOTE | 2018-10-19 14:58 | Procedure Note ---
Procedure Note Date of Service October 19, 2018 Note INDICATION: Large new right pleural effusion PROCEDURE: Right-sided thoracentesis DATE: 10/19/2018 TIME: 1415 PROVIDER: Shaheen Holden PA-C CONSENT: Was obtained prior to the procedure by Dr. Kamara and placed on the chart PROCEDURE SUMMARY: Bedside ultra sound was performed to identify an appropriate puncture site. Images were saved to the [employer] system. A time out was performed. The patient was prepped and draped in a sterile manner using chlorhexidine scrub after the appropriate level was confirmed by ultrasound. 1% lidocaine was used to numb the region. A finder needle was then used under negative pressure to locate fluid and instill lidocaine into the pleural space. A small incision was made with a #10 scalpel. A needle with overlying catheter was advanced using negative pressure on the syringe until a pleural flash was obtained. The thoracentesis catheter was then threaded without difficulty and without any bleeding. The patient had 900 mL of Milky fluid removed. The incision site was then covered with two Band-Aids with no evidence of bleeding. The patient had drop in blood pressure from 134 systolic at the beginning the procedure to 99 systolic mid procedure. The patient procedure was held and blood pressure improved to 116 systolically. The procedure was resumed and pressure dropped to 109. Patient had no altered consciousness. She had no apparent complications. However, due to a drop of systolic blood pressure greater than 20 mmHg the procedure was stopped. Otherwise, the patient tolerated the procedure well with no shortness of breath, no increase in heart rate, and no other acute symptoms. Bedside pH of the pleural fluid was 7.41 Dr[address] Dr. Vigil were contacted after the procedure with results. A post-procedure chest x-ray was completed and reviewed at bedside by this provider and no pneumothorax was identified.
--- NOTE | 2018-10-19 15:19 | XRay Report ---
XR chest 1V portable HISTORY: S/P Thoracentesis COMPARISON: Chest 10/19/2018. FINDINGS: Moderate right pleural effusion which is decreased in size status post thoracentesis. No pn eumothorax. The left lung is clear. The heart is normal in size. Right basilar densities favor atelec tasis from the pleural effusion. IMPRESSION: Moderate right pleural effusion which has decreased in size status post thoracentesis. No pneumothora x. Electronically signed by: Constantin Brown M.D. 10/19/2018 3:18 PM
[2018-10-19 15:23] LABS: Glucose Pleural Fluid 115 mg/dl
[2018-10-19 15:55] LABS: Albumin Level 1.7 gm/dl (3.4-5.0); Bilirubin,Total 0.3 mg/dl (0.2-1); Total Protein 7.3 gm/dl (6.4-8.2)
[2018-10-19 16:14] LABS: Amylase Pleural Fluid 87 U/L; LDH Pleural Fluid 79 U/L; Total Protein Pleural Fluid 1.5 g/dl
[2018-10-19 16:25] LABS: Appearance Pleural Fluid CLOUDY; Color Pleural Fluid PALE YELLOW; Mononuclear WBC Pleural 91.2 %; Polynuclear WBC Pleural 8.8 %; RBC Pleural Fluid (A) < 3000 /uL; Source Pleural Fluid RIGHT LUNG; WBC Pleural Fluid (A) 273 /uL
[2018-10-19] MEDS: QUETIAPINE FUMARATE 25 MG TABLET PO SCH ×2 (17:51→18:34)
[2018-10-19] MEDS: MUPIROCIN 2% OINT 22 GM TUBE EXT SCH (20:40)
[2018-10-19] MEDS: ATORVASTATIN 40 MG TAB PO SCH (20:41)
[2018-10-19] MEDS: TRAZODONE HCL 50 MG TAB PO SCH (20:41)
[2018-10-20] MEDS ORDERED: ALBUMIN 25% 50 ML IV ONE ×2 (00:01→05:30)
[2018-10-20 00:29] LABS: Basophils # (auto) 0.02 K/uL (0-0.2); Basophils % (auto) 0.4 %; Eosinophils # (auto) 0.21 K/uL (0-0.5); Eosinophils % (auto) 3.8 %; Hematocrit (blood only) 24.7 % (37-47); Hemoglobin 7.9 g/dL (12.0-16.0); Lymphocytes # (auto) 1.36 K/uL (1.2-3.4); Lymphocytes % (auto) 24.4 %; Mean Corpuscular Volume 93.9 fL (80-100); Monocytes # (auto) 0.52 K/uL (0.11-0.59); Monocytes % (auto) 9.3 %; Neutrophils # (auto) 3.47 K/uL (1.4-6.5); Neutrophils % (auto) 62.1 %; Platelet Count 190 K/uL (130-400); RDW Standard Deviation 61.4 fL (36.4-46.3); Red Blood Count 2.63 M/uL (4.2-5.4); White Blood Count 5.58 K/uL (4.8-10.8)
[2018-10-20 00:39] LABS: Partial Thromboplastin Ratio 0.9; Partial Thromboplastin Time 25.6 Seconds (21.0-31.0)
[2018-10-20 00:45] LABS: Albumin Level 1.3 gm/dl (3.4-5.0); BUN Creatinine Ratio 30.8 (10-20); Calcium 7.5 mg/dl (8.5-10.1); Creatinine Clr Calc Pharmacy 45.5 ml/min; Est GFR (African American) 70.7; Magnesium 1.8 mg/dl (1.8-2.4); Potassium 3.7 mmol/L (3.5-5.1)
[2018-10-20 00:52] LABS: Albumin Globulin Ratio 0.3 (0.9-2); Bilirubin,Total 0.2 mg/dl (0.2-1); Globulin 4.4 gm/dl (2.5-4.0); Total Protein 5.7 gm/dl (6.4-8.2)
[2018-10-20 01:11] LABS: RBC Morphology Unremarkable
[2018-10-20] MEDS ORDERED: POTASSIUM CHLORIDE 20 MEQ TABCR PO ONE (01:30)
[2018-10-20] MEDS ORDERED: MAGNESIUM SULFATE / D5W 1 GM/100 ML BAG IV ONE (01:30)
[2018-10-20 04:17] LABS: Hematocrit (blood only) 25.5 % (37-47); Hemoglobin 8.1 g/dL (12.0-16.0)
--- NOTE | 2018-10-20 05:06 | Hospitalist Progress Note ---
Date of Service October 20, 2018 Subjective Made aware by RN of intermittent tachyarrhythmia episodes overnight CR 100-120s. Patient comfortable. Hemoglobin dropped to 7.9 from 9.4 yesterday a.m. Patient denies CP, S OB Patient denies black/bloody stools. Stool Hemoccult negative. AP Acute on chronic anemia hemoglobin drop from baseline Transfuse PRBC if hemoglobin less than 8 (hx CVA) and or for symptomatic anemia Telephone consent for potential blood transfusion obtained from patient's son, Mr. Destin Rich, given patient history of dementia. Will relay to AM provider. Physical Exam Vital Signs (Past 24 Hours): Last Vital Signs Temp 36.7 C 10/20/18 03:59 Pulse 115 H 10/20/18 03:59 Resp 16 10/20/18 03:59 BP 116/72 10/20/18 03:59 Pulse Ox 98 10/20/18 03:59
[2018-10-20] MEDS: FERROUS GLUCONATE 324 MG TAB PO SCH (08:05)
[2018-10-20] MEDS: MUPIROCIN 2% OINT 22 GM TUBE EXT SCH ×2 (08:05→20:43)
[2018-10-20] MEDS: FOLIC ACID 1 MG TAB PO SCH (08:05)
[2018-10-20] MEDS: ASPIRIN 81 MG ECTAB PO SCH (08:05)
[2018-10-20] MEDS: QUETIAPINE FUMARATE 25 MG TABLET PO SCH ×2 (08:05→16:36)
[2018-10-20] MEDS: SPIRONOLACTONE 25 MG TAB PO SCH (08:05)
[2018-10-20] MEDS: THIAMINE HCL 100 MG TAB PO SCH (08:06)
[2018-10-20] MEDS: LACTOBACILLUS ACIDOPHILUS (FLORANEX) TAB PO SCH (08:06)
[2018-10-20] MEDS: MULTIVITAMIN TAB PO SCH (08:06)
[2018-10-20] MEDS: CHOLECALCIFEROL 1,000 UNITS TAB PO SCH (08:06)
[2018-10-20] MEDS: FAMOTIDINE 20 MG TAB PO SCH ×2 (08:06→20:42)
[2018-10-20] MEDS: PANTOprazole 40 MG TAB PO SCH ×2 (08:07→20:41)
[2018-10-20] MEDS: FUROSEMIDE 20 MG in SYRINGE 0 ML IV SCH ×2 (08:21→16:36)
--- NOTE | 2018-10-20 11:06 | Progress Note ---
DATE: 10/20/2018 PULMONARY MEDICINE PROGRESS NOTE Chart reviewed, the patient examined. SUBJECTIVE: The patient will open her eyes, appears to know where she has been hospitalized. She denies respiratory distress, but extremely somnolent, but arousable. PHYSICAL EXAMINATION: CURRENT VITAL SIGNS: Blood pressure 124/74, pulse 74 and regular, respiratory rate 16, temperature 36.6, O2 sat 98% on 2 liters. SKIN: Without change. HEENT: Atraumatic, normocephalic. PERRLA. Conjunctivae pale. Sclerae nonicteric. LUNGS: Decreased breath sounds, right base. CARDIAC: Sinus rhythm. I do not appreciate a gallop. ABDOMEN: Soft, protuberant with ascitic wave. EXTREMITIES: +1 pitting edema. No clubbing. Peripheral cyanosis. LABORATORY DATA: H and H of 8.1 and 25.5. White count is 5500, platelet count 190,000. BUN 29, creatinine 0.9, alkaline phosphatase 185, albumin markedly depressed. Pleural fluid, pH 7.45, total protein low, pleural LDH is very low, clearly is despite looking cloudy, a transudate. Chest x-ray yesterday showed moderate right pleural effusion, decreased in size with compressive changes. OVERALL ASSESSMENT: A 73-year-old with alcohol-induced cirrhosis, chronic renal insufficiency, dementia, chronic obstructive pulmonary disease with recurrent ascites and now a right pleural effusion that is transudative. The patient only partially tolerated the thoracentesis and although we could repeat the thoracentesis today ;one might consider a PleurX catheter for chronic drainage as I believe that this effusion will recur very quickly even after being drained. She is not in any distress today and I think this is a discussion we can have with the family and the patient. DOTTIE
[2018-10-20 12:17] LABS: Hematocrit (blood only) 26.4 % (37-47); Hemoglobin 8.4 g/dL (12.0-16.0)
--- NOTE | 2018-10-20 19:34 | Hospitalist Progress Note ---
Date of Service October 20, 2018 Assessment & Plan (1) Acute respiratory failure: (2) Pleural effusion: CXR on admission shows Large R pleural effusion, etiology of patients SOB S/P thoracentesis performed yesterday where 900 mL of Milky fluid removed Pulmonology on board Pleural fluid cx no growth Continue IV lasix BID and spironolactone 12.5mg Will repeat cxr (3) Cirrhosis of liver: signs/symptoms of volume overload with R pleural effusion and bilateral lower ext edema likely secondary to decompensated cirrhosis continue aldactone and lasix Continue lactulose daily Stable (4) GAVE (gastric antral vascular ectasia): continue PPI and Famotidine Repeat Hgb 8.4 Monitor CBC (5) Gamino esophagus: continue PPI and famotidine (6) UTI (urinary tract infection): Has being treated at [facility] with Macrobid 100 mg twice daily starting 10/11 for unknown organism -Prior hospitalizations patient had UTIs, most recently VRE -Hold for further abx for now (7) CKD (chronic kidney disease) stage 3, GFR 30-59 ml/min: Creatinine stable Monitor BMP while on diuretic (8) Anemia: Repeat hgb 8.4 monitor cbc -Continue iron supplement (9) Dementia 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: Continue seroquel and trazodone (10) History of CVA (cerebrovascular accident): Ccontinue ASA, Statin off dual anti platelet given GAVE syndrome (11) Stenosis of right internal carotid artery with cerebral infarction: continue Statin, ASA not candidate for intervention stable (12) Hyperlipidemia: continue statin (13) DVT prophylaxis: SCDS ( 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) CODE STATUS FULL Subjective Pt was seen and examined Lying in bed, confused Denies any complaints Physical Exam Vital Signs (Past 24 Hours): Last Vital Signs Temp 36.6 C 10/20/18 15:47 Pulse 69 10/20/18 15:47 Resp 18 10/20/18 15:47 BP 149/55 H 10/20/18 15:47 Pulse Ox 99 10/20/18 15:47 Physical Exam: General- confused Head- atraumatic Eyes- PERRL, EOMI, ENT- oropharynx clear Neck- supple, no JVD Lungs- Decrease BS Heart- regular rhythm; no murmur Abdomen- normal bowel sounds, soft, nontender Extremities- no calf tenderness Neuro- confused. move all 4 extremities Skin- warm & dry (1) UTI (urinary tract infection) Hematuria presence: without hematuria Urinary tract infection type: site unspecified Qualified Code(s): N39.0 - Urinary tract infection, site not specified (2) Acute respiratory failure Respiratory failure complication: unspecified whether with hypoxia or hypercapnia Qualified Code(s): J96.00 - Acute respiratory failure, unspecified whether with hypoxia or hypercapnia (3) Anemia Anemia type: unspecified type Qualified Code(s): D64.9 - Anemia, unspecified (4) Hyperlipidemia Hyperlipidemia type: unspecified Qualified Code(s): E78.5 - Hyperlipidemia, unspecified (5) Cirrhosis of liver Hepatic cirrhosis type: other cirrhosis Qualified Code(s): K74.69 - Other cirrhosis of liver (6) 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
[2018-10-20] MEDS: ATORVASTATIN 40 MG TAB PO SCH (20:41)
[2018-10-20] MEDS: TRAZODONE HCL 50 MG TAB PO SCH (20:42)
[2018-10-21 09:17] LABS: Basophils # (auto) 0.02 K/uL (0-0.2); Basophils % (auto) 0.3 %; Eosinophils % (auto) 3.4 %; Hematocrit (blood only) 26.6 % (37-47); Hemoglobin 8.5 g/dL (12.0-16.0); Immature Granulocytes # (auto) 0.01 K/uL (0.00-0.02); Immature Granulocytes % (auto) 0.2 %; Lymphocytes # (auto) 1.11 K/uL (1.2-3.4); Lymphocytes % (auto) 18.8 %; Mean Platelet Volume 9.5 fL (7.4-10.4); Monocytes # (auto) 0.56 K/uL (0.11-0.59); Monocytes % (auto) 9.5 %; Neutrophils # (auto) 4.02 K/uL (1.4-6.5); Neutrophils % (auto) 67.8 %; Platelet Count 186 K/uL (130-400); RDW Coefficient of Variation 17.6 % (11.5-14.5); RDW Standard Deviation 60.6 fL (36.4-46.3); Red Blood Count 2.83 M/uL (4.2-5.4); White Blood Count 5.92 K/uL (4.8-10.8)
[2018-10-21 09:43] LABS: BUN Creatinine Ratio 24.3 (10-20); Calcium 7.7 mg/dl (8.5-10.1); Creatinine Clr Calc Pharmacy 37.3 ml/min; Est GFR (African American) 55.8; Est GFR (Non-African American) 48.2; Potassium 4.1 mmol/L (3.5-5.1)
[2018-10-21 09:47] LABS: RBC Morphology Unremarkable
[2018-10-21] MEDS: PANTOprazole 40 MG TAB PO SCH ×2 (09:55→21:54)
[2018-10-21] MEDS: FOLIC ACID 1 MG TAB PO SCH (09:55)
[2018-10-21] MEDS: THIAMINE HCL 100 MG TAB PO SCH (09:55)
[2018-10-21] MEDS: MULTIVITAMIN TAB PO SCH (09:55)
[2018-10-21] MEDS: ASPIRIN 81 MG ECTAB PO SCH (09:55)
[2018-10-21] MEDS: FAMOTIDINE 20 MG TAB PO SCH ×2 (09:56→21:54)
[2018-10-21] MEDS: LACTOBACILLUS ACIDOPHILUS (FLORANEX) TAB PO SCH (09:56)
[2018-10-21] MEDS: CHOLECALCIFEROL 1,000 UNITS TAB PO SCH (09:56)
[2018-10-21] MEDS: SPIRONOLACTONE 25 MG TAB PO SCH (09:57)
[2018-10-21] MEDS: MUPIROCIN 2% OINT 22 GM TUBE EXT SCH ×2 (09:58→21:54)
[2018-10-21] MEDS: QUETIAPINE FUMARATE 25 MG TABLET PO SCH ×2 (09:58→17:34)
[2018-10-21] MEDS: FERROUS GLUCONATE 324 MG TAB PO SCH (09:58)
[2018-10-21] MEDS: FUROSEMIDE 20 MG in SYRINGE 0 ML IV SCH ×2 (10:04→17:34)
--- NOTE | 2018-10-21 12:04 | Progress Note ---
DATE: 10/21/2018 PULMONARY MEDICINE PROGRESS NOTE Chart reviewed, patient examined. The patient remains lethargic, arousable, but disoriented. Not demonstrating overt signs of respiratory embarrassment. The pleural fluid is no doubt as a result of severe inanition/malnutrition and cirrhosis with profound hypoalbuminemia. I do not think there is a cardiac etiology. I think it is liver failure and is transudate despite its appearance that may have suggested initially it was infected. There is no evidence of empyema. I think we can perform thoracentesis on a p.r.n. fashion having to limit the amount of fluid taken each time given a resultant hypotension. We will place a PleurX catheter, but that would require additional care, etc. I think I would like to repeat the chest x-ray on Tuesday and see if there has been rapid reaccumulation despite her diuretics in the form of Lasix IV and Aldactone. This would tell us whether or not it is practical to continue thoracentesis on a p.r.n. fashion or place a PleurX catheter or if the family feels so inclined to avoid future aggressive intervention. The patient is close to requiring palliative care in my opinion.
--- NOTE | 2018-10-21 18:36 | Hospitalist Progress Note ---
Date of Service October 21, 2018 Assessment & Plan (1) Acute respiratory failure: (2) Pleural effusion: CXR on admission shows Large R pleural effusion, etiology of patients SOB S/P thoracentesis performed yesterday where 900 mL of Milky fluid removed Pulmonology on board Pleural fluid cx no growth Continue IV lasix BID and spironolactone 12.5mg Case discussed with Pulmonology Might need to place a pleurX catheter if fluid continue to re-accumulate Will repeat cxr on Tuesday Will consult palliative care and discuss with family about any intervention procedure (3) Cirrhosis of liver: signs/symptoms of volume overload with R pleural effusion and bilateral lower ext edema likely secondary to decompensated cirrhosis continue aldactone and lasix Continue lactulose daily Stable (4) GAVE (gastric antral vascular ectasia): continue PPI and Famotidine Repeat Hgb 8.5 Monitor CBC Stable (5) Gamino esophagus: continue PPI and famotidine (6) UTI (urinary tract infection): Has being treated at [facility] with Macrobid 100 mg twice daily starting 10/11 for unknown organism -Prior hospitalizations patient had UTIs, most recently VRE -Hold for further abx for now (7) CKD (chronic kidney disease) stage 3, GFR 30-59 ml/min: Creatinine stable Monitor BMP while on diuretic (8) Anemia: Hgb 8.5 monitor cbc -Continue iron supplement (9) Dementia 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: Continue seroquel and trazodone (10) History of CVA (cerebrovascular accident): Ccontinue ASA, Statin off dual anti platelet given GAVE syndrome (11) Stenosis of right internal carotid artery with cerebral infarction: continue Statin, ASA not candidate for intervention stable (12) Hyperlipidemia: continue statin (13) DVT prophylaxis: SCDS ( 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) CODE STATUS FULL Subjective Pt was seen and examined Lying in bed with no distress Pt said that she is hungry Confused as baseline Physical Exam Vital Signs (Past 24 Hours): Last Vital Signs Temp 36.8 C 10/21/18 15:16 Pulse 82 10/21/18 15:16 Resp 18 10/21/18 15:16 BP 130/62 10/21/18 15:16 Pulse Ox 98 10/21/18 15:16 Physical Exam: General- confused Head- atraumatic Eyes- PERRL, EOMI, ENT- oropharynx clear Neck- supple, no JVD Lungs- Decrease BS Heart- regular rhythm; no murmur Abdomen- normal bowel sounds, soft, nontender Extremities- no calf tenderness Neuro- confused. move all 4 extremities Skin- warm & dry (1) UTI (urinary tract infection) Hematuria presence: without hematuria Urinary tract infection type: site unspecified Qualified Code(s): N39.0 - Urinary tract infection, site not specified (2) Acute respiratory failure Respiratory failure complication: unspecified whether with hypoxia or hypercapnia Qualified Code(s): J96.00 - Acute respiratory failure, unspecified whether with hypoxia or hypercapnia (3) Anemia Anemia type: unspecified type Qualified Code(s): D64.9 - Anemia, unspecified (4) Hyperlipidemia Hyperlipidemia type: unspecified Qualified Code(s): E78.5 - Hyperlipidemia, unspecified (5) Cirrhosis of liver Hepatic cirrhosis type: other cirrhosis Qualified Code(s): K74.69 - Other cirrhosis of liver (6) 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
[2018-10-21] MEDS: ATORVASTATIN 40 MG TAB PO SCH (21:53)
[2018-10-21] MEDS: TRAZODONE HCL 50 MG TAB PO SCH (21:54)
[2018-10-22 06:30] LABS: Hematocrit (blood only) 24.9 % (37-47); Hemoglobin 7.9 g/dL (12.0-16.0); Mean Corpuscular Hgb Conc 31.7 g/dL (32-36); Mean Corpuscular Volume 94.7 fL (80-100); Mean Platelet Volume 9.8 fL (7.4-10.4); Platelet Count 168 K/uL (130-400); RDW Coefficient of Variation 17.5 % (11.5-14.5); RDW Standard Deviation 60.3 fL (36.4-46.3); Red Blood Count 2.63 M/uL (4.2-5.4); White Blood Count 5.05 K/uL (4.8-10.8)
[2018-10-22 07:04] LABS: BUN Creatinine Ratio 26.9 (10-20); Creatinine Clr Calc Pharmacy 41.7 ml/min; Est GFR (Non-African American) 55.2; Potassium 3.8 mmol/L (3.5-5.1)
[2018-10-22] MEDS: LACTOBACILLUS ACIDOPHILUS (FLORANEX) TAB PO SCH (08:09)
[2018-10-22] MEDS: FOLIC ACID 1 MG TAB PO SCH (08:09)
[2018-10-22] MEDS: CHOLECALCIFEROL 1,000 UNITS TAB PO SCH (08:10)
[2018-10-22] MEDS: FERROUS GLUCONATE 324 MG TAB PO SCH (08:10)
[2018-10-22] MEDS: MULTIVITAMIN TAB PO SCH (08:10)
[2018-10-22] MEDS: THIAMINE HCL 100 MG TAB PO SCH (08:11)
[2018-10-22] MEDS: ASPIRIN 81 MG ECTAB PO SCH (08:11)
[2018-10-22] MEDS: SPIRONOLACTONE 25 MG TAB PO SCH (08:11)
[2018-10-22] MEDS: FAMOTIDINE 20 MG TAB PO SCH ×2 (08:12→20:03)
[2018-10-22] MEDS: PANTOprazole 40 MG TAB PO SCH ×2 (08:12→20:03)
[2018-10-22] MEDS: QUETIAPINE FUMARATE 25 MG TABLET PO SCH ×2 (08:12→16:33)
[2018-10-22] MEDS: MUPIROCIN 2% OINT 22 GM TUBE EXT SCH ×2 (08:14→20:02)
[2018-10-22] MEDS: FUROSEMIDE 20 MG in SYRINGE 0 ML IV SCH ×2 (09:00→16:39)
[2018-10-22 18:30] LABS: Hemoglobin 9.6 g/dL (12.0-16.0)
[2018-10-22] MEDS: TRAZODONE HCL 50 MG TAB PO SCH (20:04)
[2018-10-22] MEDS: ATORVASTATIN 40 MG TAB PO SCH (20:04)
--- NOTE | 2018-10-22 20:46 | Hospitalist Progress Note ---
Date of Service October 22, 2018 Assessment & Plan (1) Acute respiratory failure: (2) Pleural effusion: CXR on admission shows Large R pleural effusion, etiology of patients SOB S/P thoracentesis performed yesterday where 900 mL of Milky fluid removed Pulmonology on board Pleural fluid cx no growth Continue IV lasix BID and spironolactone 12.5mg Case discussed with Pulmonology Might need to place a pleurX catheter if fluid continue to re-accumulate Will repeat cxr on Tuesday will consult thoracic surgeon Will consult palliative care and discuss with family about any intervention procedure (3) Cirrhosis of liver: signs/symptoms of volume overload with R pleural effusion and bilateral lower ext edema likely secondary to decompensated cirrhosis continue aldactone and lasix Continue lactulose daily Stable (4) GAVE (gastric antral vascular ectasia): continue PPI and Famotidine Repeat Hgb 9.6 Monitor CBC Stable (5) Gamino esophagus: continue PPI and famotidine (6) UTI (urinary tract infection): Has being treated at [facility] with Macrobid 100 mg twice daily starting 10/11 for unknown organism -Prior hospitalizations patient had UTIs, most recently VRE -Hold for further abx for now (7) CKD (chronic kidney disease) stage 3, GFR 30-59 ml/min: Creatinine stable Monitor BMP while on diuretic (8) Anemia: Hgb 89.6 monitor cbc Continue iron supplement stable (9) Dementia 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: Continue seroquel and trazodone (10) History of CVA (cerebrovascular accident): Ccontinue ASA, Statin off dual anti platelet given GAVE syndrome (11) Stenosis of right internal carotid artery with cerebral infarction: continue Statin, ASA not candidate for intervention stable (12) Hyperlipidemia: continue statin (13) DVT prophylaxis: SCDS ( 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) CODE STATUS FULL Subjective Pt was seen and examined Lying in bed with no distress Pt had bowel movement again on the floor She said that she feels fine Denies any complaint Physical Exam Vital Signs (Past 24 Hours): Last Vital Signs Temp 37.0 C 10/22/18 20:09 Pulse 87 10/22/18 20:09 Resp 18 10/22/18 20:09 BP 146/81 H 10/22/18 20:09 Pulse Ox 100 10/22/18 20:09 Physical Exam: General- confused Head- atraumatic Eyes- PERRL, EOMI, ENT- oropharynx clear Neck- supple, no JVD Lungs- Decrease BS Heart- regular rhythm; no murmur Abdomen- normal bowel sounds, soft, nontender Extremities- no calf tenderness Neuro- confused. move all 4 extremities Skin- warm & dry (1) UTI (urinary tract infection) Hematuria presence: without hematuria Urinary tract infection type: site unspecified Qualified Code(s): N39.0 - Urinary tract infection, site not specified (2) Acute respiratory failure Respiratory failure complication: unspecified whether with hypoxia or hypercapnia Qualified Code(s): J96.00 - Acute respiratory failure, unspecified whether with hypoxia or hypercapnia (3) Anemia Anemia type: unspecified type Qualified Code(s): D64.9 - Anemia, unspecified (4) Hyperlipidemia Hyperlipidemia type: unspecified Qualified Code(s): E78.5 - Hyperlipidemia, unspecified (5) Cirrhosis of liver Hepatic cirrhosis type: other cirrhosis Qualified Code(s): K74.69 - Other cirrhosis of liver (6) 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
[2018-10-23] MEDS: CHOLECALCIFEROL 1,000 UNITS TAB PO SCH (07:33)
[2018-10-23] MEDS: PANTOprazole 40 MG TAB PO SCH ×2 (07:34→20:27)
[2018-10-23] MEDS: FERROUS GLUCONATE 324 MG TAB PO SCH (07:34)
[2018-10-23] MEDS: QUETIAPINE FUMARATE 25 MG TABLET PO SCH ×2 (07:34→16:24)
[2018-10-23] MEDS: MULTIVITAMIN TAB PO SCH (07:34)
[2018-10-23] MEDS: FOLIC ACID 1 MG TAB PO SCH (07:35)
[2018-10-23] MEDS: LACTOBACILLUS ACIDOPHILUS (FLORANEX) TAB PO SCH (07:35)
[2018-10-23] MEDS: MUPIROCIN 2% OINT 22 GM TUBE EXT SCH ×2 (07:35→20:27)
[2018-10-23] MEDS: FAMOTIDINE 20 MG TAB PO SCH ×2 (07:36→20:27)
[2018-10-23] MEDS: SPIRONOLACTONE 25 MG TAB PO SCH (07:36)
[2018-10-23] MEDS: FUROSEMIDE 20 MG in SYRINGE 0 ML IV SCH ×2 (07:36→16:33)
[2018-10-23] MEDS: ASPIRIN 81 MG ECTAB PO SCH (07:38)
[2018-10-23] MEDS: THIAMINE HCL 100 MG TAB PO SCH (07:38)
[2018-10-23 10:00] LABS: Hematocrit (blood only) 26.2 % (37-47); Hemoglobin 8.3 g/dL (12.0-16.0); Mean Corpuscular Hgb Conc 31.7 g/dL (32-36); Mean Corpuscular Volume 93.9 fL (80-100); Mean Platelet Volume 9.7 fL (7.4-10.4); Platelet Count 147 K/uL (130-400); RDW Coefficient of Variation 17.2 % (11.5-14.5); RDW Standard Deviation 59.4 fL (36.4-46.3); Red Blood Count 2.79 M/uL (4.2-5.4)
[2018-10-23 10:34] LABS: Calcium 8.1 mg/dl (8.5-10.1); Est GFR (African American) 55.2; Est GFR (Non-African American) 47.7; Potassium 3.9 mmol/L (3.5-5.1)
--- NOTE | 2018-10-23 12:38 | Palliative Care Consultation ---
Date of Consultation October 23, 2018 Assessment & Plan (1) Palliative care encounter: This is a 73 year old female who is a permanent resident of [facility], in their dementia unit, who presented to the hospital directly from [facility] with increased SOB. Upon admission, A CXR was performed and she was found to have a R pleural effusion where a thoracentesis drained 900mL of milky fluid. Additional complicating PMH includes liver cirrhosis, a UTI for which she is receiving active treatment, CKD Stage IV, anemia of chronic disease, CVA, carotid artery stenosis, and dementia with behavioral disturbance. Palliative Care was consulted to discuss Goals of Care with the family as patient can not be relaible for decision making based on the extent of her cognitive impairment. -Upon entering the room, the patient was confused sitting up in bed trying to get out on her own -Patient having behavioral disturbance and is continually having BM's and placing her hands in it, which poses risk of infection with the possible Pleur-X catheter placement. -This patient has multiple complex illnesses and logistically I foresee risk with a permanent pleur-x catheter placement based on the patients cognitive impairment and fear she may unintentionally, or intentionally, for that matter, pull the Pleur-x catheter out. -Additionally, patient having increased falls since admitted without injury - plan for 1:[address] -Per case management notes, there will be a bed available at [facility] for the patient upon her stabilizing. -Goals of care and code status need to be addressed with family as patient is unreliable for this matter due to dementia. -I reached out to both of the patients sons, with no success. Bora: [phone] rang and rang with fast busy signal. Darron: [phone] Left VM (2) Pleural effusion: -Present on admission and found by CXR -Thoracentesis performed with 900mL milky fluid removed. -Goals of care discussion important to have prior to any intervention, if even a liable option. -Should a pleurex be an option by Dr. Lane and pursued by family, will need to confirm if [facility] is able to manage a pleur-x with or without hospice, which seems unlikely after discussion with Michelle in Case Management. (3) Dementia 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: -Patient in memory support unit at [facility] and per CM has a bed once stable for D/C -Patient takes Trazadone and Seroquel for management -Patient having behavioral disturbance and is continually having BM's and placing her hands in it, which poses risk of infection with the possible Pleur-X catheter placement. (4) CKD (chronic kidney disease) stage 3, GFR 30-59 ml/min: CKD Stage IV GFR 30-59 (5) UTI (urinary tract infection): -May be contributing to worsening delirum on top of dementia -Patient taking Macrobid 100 mg po BID Hematuria presence: without hematuria Urinary tract infection type: site unspecified Qualified Code(s): N39.0 - Urinary tract infection, site not specified Supervising Physician Co-Signing Physician Notes Chart reviewed, patient seen and examined. Collaborated with MICHELLE Ambrocio Patient confused, no acute distress. PE: NAD HEENT: EOMI, normal hearing Respirations: Unlabored, breath sounds clear CV: Regular rate, no edema Abdomen: Soft, nontender, nondistended Skin: Patient with several lesions with scabbing-patient tends to pick at the scabs and cause bleeding Neuro: Oriented to self Agree with above note, assessment and plan-will continue to try to contact patient's sons to discuss CODE STATUS as well as goals of care. History of Present Illness Reason for Consultation: Goals of Care Requesting Physician: Dr. Vigil Attending Physician: Dana Vigil MD History of Present Illness This is a 73 year old female who is a permanent resident of [facility], in their dementia unit, who presented to the hospital directly from [facility] with increased SOB. Upon admission, A CXR was performed and she was found to have a R pleural effusion where a thoracentesis drained 900mL of milky fluid. Additional complicating PMH includes liver cirrhosis, a UTI for which she is receiving active treatment, CKD Stage IV, anemia of chronic disease, CVA, carotid artery stenosis, and dementia with behavioral disturbance. Palliative Care was consulted to discuss Goals of Care with the family as patient can not be relaible for decision making based on the extent of her cognitive impairment. Please see the Assessment and Plan for further details. Thank you kindly for involving us with this unfortunate patient. We will follow accordingly. Allergies Allergy/AdvReac Type Severity Reaction Status Date / Time No Known Allergies Allergy Unverified 09/18/18 12:46 Home Medications Home Medications Medication Instructions Recorded Confirmed Type furosemide [Lasix] 10 mg PO DAILY 08/15/18 10/19/18 History spironolactone [Aldactone] 12.5 mg PO DAILY 08/15/18 10/19/18 History aspirin 81 mg PO DAILY 09/18/18 10/19/18 History atorvastatin 40 mg PO PM 09/18/18 10/19/18 History famotidine 20 mg PO BID 09/18/18 10/19/18 History folic acid 1 mg PO QAM 30 Days #30 tab 10/04/18 10/19/18 Rx loperamide 2 mg PO Q8 PRN 30 Days #90 cap 10/04/18 10/19/18 Rx pantoprazole [Protonix] 40 mg PO BID #0 tab 10/04/18 10/19/18 Rx quetiapine 25 mg PO DAILY@17 30 Days #30 tab 10/04/18 10/19/18 Rx quetiapine 25 mg PO QD@08 30 Days #30 tab 10/04/18 10/19/18 Rx thiamine HCl (vitamin B1) [Vitamin 100 mg PO QAM 30 Days #30 tab 10/04/18 10/19/18 Rx B-1] trazodone 50 mg PO HS 30 Days #30 tab 10/04/18 10/19/18 Rx Lactobacillus acidoph-L.bulgar 1 tab PO DAILY 10/19/18 10/19/18 History [Floranex] cholecalciferol (vitamin D3) 4,000 unit PO DAILY 10/19/18 10/19/18 History [Vitamin D3] ferrous gluconate 240 mg PO DAILY 10/19/18 10/19/18 History multivitamin 1 tab PO DAILY 10/19/18 10/19/18 History Patient History Medical History History of 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) Metabolic encephalopathy (Chronic) Dysphagia (Chronic) Acquired hypothyroidism (Chronic) Hyperlipidemia (Chronic) Anemia (Chronic) GERD (gastroesophageal reflux disease) (Chronic) Vitamin deficiency (Chronic) CKD (chronic kidney disease) stage 3, GFR 30-59 ml/min (Chronic) Cirrhosis of liver (Chronic) Fluid filled abdomen (Chronic) HTN (hypertension) (Chronic) Postural hypotension (Resolved) UTI (urinary tract infection) (Resolved) ANDREY (acute kidney injury) (Resolved) Aspiration pneumonia (Resolved) Fall (Resolved) Hypokalemia (Resolved) Injury of left upper arm (Resolved) Orthostatic hypotension (Resolved) Surgical History History of tubal ligation History of esophagogastroduodenoscopy (EGD) Family History Other Family history non-contributory Social History Communication Ability: Impaired Beliefs That Will Affect Care: None marital status: / Current Living Situation: Personal Care Facility Feels Safe at Home: Yes Smoking Status: Never smoker Hx Alcohol Use: No Hx Substance Use: No Review of Systems unreliable historian due to cognitive impairment Physical Exam Vital Signs (Past 24 Hours): Last Vital Signs Temp 37.1 C 10/23/18 11:30 Pulse 77 10/23/18 11:30 Resp 18 10/23/18 11:30 BP 112/62 10/23/18 11:30 Pulse Ox 95 10/23/18 11:30 Constitutional: well developed, + ill appearing, + thin, + behavioral limitations and + malnourished Eyes: PERRL, conjunctivae normal, anicteric sclerae Neck: trachea midline, no thyromegaly Respiratory: normal respiratory effort, lungs clear to auscultation Auscultation: + diminished lung sounds Cardiovascular: Rate/Rhythm: regular rate and regular rhythm Heart Sounds: normal S1 and normal S2; no murmur Gastrointestinal (Abdomen): normal bowel sounds, soft, nontender, no hepatosplenomegaly Skin: no rashes, warm and dry Psychiatric: Orientation: alert Insight: + impaired insight Judgement: + impaired judgement Time Spent Midlevel total time spent 50 minutes with > 50% of that time spent reviewing the chart, a ssessing the patient, and reaching out to family to discuss goals of care and code status.
--- NOTE | 2018-10-23 19:31 | Hospitalist Progress Note ---
Date of Service October 23, 2018 Assessment & Plan (1) Acute respiratory failure: (2) Pleural effusion: CXR on admission shows Large R pleural effusion, etiology of patients SOB S/P thoracentesis performed yesterday where 900 mL of Milky fluid removed Pulmonology on board Pleural fluid cx no growth Continue IV lasix BID and spironolactone 12.5mg Case discussed with Pulmonology Might need to place a pleurX catheter if fluid continue to re-accumulate Will repeat cxr in am Will consult palliative care and discuss with family about any intervention procedure If family agrees to proceed with any intervention procedure, will let pulmonary team know to proceed (3) Cirrhosis of liver: signs/symptoms of volume overload with R pleural effusion and bilateral lower ext edema likely secondary to decompensated cirrhosis continue aldactone and lasix Continue lactulose daily Stable (4) GAVE (gastric antral vascular ectasia): continue PPI and Famotidine Repeat Hgb 9.6 Monitor CBC Stable (5) Gamino esophagus: continue PPI and famotidine (6) UTI (urinary tract infection): Has being treated [facility] with Macrobid 100 mg twice daily starting 10/11 for unknown organism -Prior hospitalizations patient had UTIs, most recently VRE -Hold for further abx for now (7) CKD (chronic kidney disease) stage 3, GFR 30-59 ml/min: Creatinine stable Monitor BMP while on diuretic (8) Anemia: Hgb 8.3 monitor cbc Continue iron supplement stable (9) Dementia 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: Continue seroquel and trazodone (10) History of CVA (cerebrovascular accident): Ccontinue ASA, Statin off dual anti platelet given GAVE syndrome (11) Stenosis of right internal carotid artery with cerebral infarction: continue Statin, ASA not candidate for intervention stable (12) Hyperlipidemia: continue statin (13) DVT prophylaxis: SCDS ( 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) CODE STATUS FULL Subjective Pt was seen and examined Lying in bed with no distress Pt did not have any BM on the floor today Palliative tried to reach family but was unavailable Denies any chest pain, palpitation and SOB Physical Exam Vital Signs (Past 24 Hours): Last Vital Signs Temp 37.1 C 10/23/18 15:21 Pulse 79 10/23/18 15:21 Resp 16 10/23/18 15:21 BP 134/66 10/23/18 15:21 Pulse Ox 97 03/18/19 15:21 Physical Exam: General- confused Head- atraumatic Eyes- PERRL, EOMI, ENT- oropharynx clear Neck- supple, no JVD Lungs- Decrease BS Heart- regular rhythm; no murmur Abdomen- normal bowel sounds, soft, nontender Extremities- no calf tenderness Neuro- confused. move all 4 extremities Skin- warm & dry (1) UTI (urinary tract infection) Hematuria presence: without hematuria Urinary tract infection type: site unspecified Qualified Code(s): N39.0 - Urinary tract infection, site not specified (2) Acute respiratory failure Respiratory failure complication: unspecified whether with hypoxia or hypercapnia Qualified Code(s): J96.00 - Acute respiratory failure, unspecified whether with hypoxia or hypercapnia (3) Anemia Anemia type: unspecified type Qualified Code(s): D64.9 - Anemia, unspecified (4) Hyperlipidemia Hyperlipidemia type: unspecified Qualified Code(s): E78.5 - Hyperlipidemia, unspecified (5) Cirrhosis of liver Hepatic cirrhosis type: other cirrhosis Qualified Code(s): K74.69 - Other cirrhosis of liver (6) 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
[2018-10-23] MEDS: ATORVASTATIN 40 MG TAB PO SCH (20:27)
[2018-10-23] MEDS: TRAZODONE HCL 50 MG TAB PO SCH (20:27)
--- NOTE | 2018-10-24 07:28 | XRay Report ---
XR chest 1V portable HISTORY: Follow up pleural effusion. COMPARISON: Chest 10/19/2018. FINDINGS: Small to moderate right pleural effusion has slightly decreased in size. Right basilar dens ities persist and may represent atelectasis secondary to the pleural effusion. The left lung remains clear. The heart is normal in size. No pneumothorax. IMPRESSION: Decrease in size in the small to moderate right pleural effusion. Electronically signed by: Constantin Bronw M.D. 10/24/2018 7:26 AM
[2018-10-24] MEDS: FUROSEMIDE 20 MG in SYRINGE 0 ML IV SCH ×2 (07:57→15:17)
[2018-10-24] MEDS: FERROUS GLUCONATE 324 MG TAB PO SCH (07:58)
[2018-10-24] MEDS: CHOLECALCIFEROL 1,000 UNITS TAB PO SCH (07:58)
[2018-10-24] MEDS: MULTIVITAMIN TAB PO SCH (07:58)
[2018-10-24] MEDS: LACTOBACILLUS ACIDOPHILUS (FLORANEX) TAB PO SCH (07:58)
[2018-10-24] MEDS: PANTOprazole 40 MG TAB PO SCH ×2 (07:59→21:26)
[2018-10-24] MEDS: SPIRONOLACTONE 25 MG TAB PO SCH (07:59)
[2018-10-24] MEDS: QUETIAPINE FUMARATE 25 MG TABLET PO SCH ×2 (07:59→15:17)
[2018-10-24] MEDS: THIAMINE HCL 100 MG TAB PO SCH (08:00)
[2018-10-24] MEDS: FOLIC ACID 1 MG TAB PO SCH (08:01)
[2018-10-24] MEDS: ASPIRIN 81 MG ECTAB PO SCH (08:01)
[2018-10-24] MEDS: MUPIROCIN 2% OINT 22 GM TUBE EXT SCH (08:02)
[2018-10-24] MEDS: FAMOTIDINE 20 MG TAB PO SCH ×2 (08:02→21:24)
--- NOTE | 2018-10-24 19:51 | Hospitalist Progress Note ---
Date of Service October 24, 2018 Assessment & Plan (1) Acute respiratory failure: (2) Pleural effusion: CXR on admission shows Large R pleural effusion, etiology of patients SOB S/P thoracentesis performed yesterday where 900 mL of Milky fluid removed Pulmonology on board Pleural fluid cx no growth Continue IV lasix BID and spironolactone 12.5mg Case discussed with Pulmonology Might need to place a pleurX catheter if fluid continue to re-accumulate CXR this morning showed Small to moderate right pleural effusion has slightly decreased in size. She has been diuresis very well I tried to call the son to discuss about any intervention procedure, unfortunately no answer If family agrees to proceed with any intervention procedure, will reconsult pulmonary team to proceed Clinically stable (3) Cirrhosis of liver: signs/symptoms of volume overload with R pleural effusion and bilateral lower ext edema likely secondary to decompensated cirrhosis continue aldactone and lasix Continue lactulose daily Stable (4) GAVE (gastric antral vascular ectasia): continue PPI and Famotidine Repeat Hgb 9.6 Monitor CBC Stable (5) Gamino esophagus: continue PPI and famotidine (6) UTI (urinary tract infection): Has being treated at [facility] with Macrobid 100 mg twice daily starting 10/11 for unknown organism -Prior hospitalizations patient had UTIs, most recently VRE -Hold for further abx for now (7) CKD (chronic kidney disease) stage 3, GFR 30-59 ml/min: Creatinine stable Monitor BMP while on diuretic (8) Anemia: Hgb 8.3 monitor cbc Continue iron supplement stable (9) Dementia 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: Continue seroquel and trazodone (10) History of CVA (cerebrovascular accident): Ccontinue ASA, Statin off dual anti platelet given GAVE syndrome (11) Stenosis of right internal carotid artery with cerebral infarction: continue Statin, ASA not candidate for intervention stable (12) Hyperlipidemia: continue statin (13) DVT prophylaxis: SCDS ( 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) CODE STATUS FULL Disposition will discharge once medically stable Subjective Pt was seen and examined Lying in bed with no distress Pt is doing much better today She is more awake today She said that she feels fine I called his son Manish for update with no answer denies any chest pain, palpitation and SOB Physical Exam Vital Signs (Past 24 Hours): Last Vital Signs Temp 36.9 C 10/24/18 16:23 Pulse 68 10/24/18 16:23 Resp 17 10/24/18 16:23 BP 155/68 H 10/24/18 16:23 Pulse Ox 99 10/24/18 16:23 Physical Exam: General- confused Head- atraumatic Eyes- PERRL, EOMI, ENT- oropharynx clear Neck- supple, no JVD Lungs- Decrease BS Heart- regular rhythm; no murmur Abdomen- normal bowel sounds, soft, nontender Extremities- no calf tenderness Neuro- confused. move all 4 extremities Skin- warm & dry (1) UTI (urinary tract infection) Hematuria presence: without hematuria Urinary tract infection type: site unspecified Qualified Code(s): N39.0 - Urinary tract infection, site not specified (2) Acute respiratory failure Respiratory failure complication: unspecified whether with hypoxia or hypercapnia Qualified Code(s): J96.00 - Acute respiratory failure, unspecified whether with hypoxia or hypercapnia (3) Anemia Anemia type: unspecified type Qualified Code(s): D64.9 - Anemia, unspecified (4) Hyperlipidemia Hyperlipidemia type: unspecified Qualified Code(s): E78.5 - Hyperlipidemia, unspecified (5) Cirrhosis of liver Hepatic cirrhosis type: other cirrhosis Qualified Code(s): K74.69 - Other cirrhosis of liver (6) 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
[2018-10-24] MEDS: ATORVASTATIN 40 MG TAB PO SCH (21:26)
[2018-10-24] MEDS: TRAZODONE HCL 50 MG TAB PO SCH (21:26)
[2018-10-25 06:29] LABS: Hematocrit (blood only) 27.2 % (37-47); Hemoglobin 8.8 g/dL (12.0-16.0); Mean Corpuscular Hgb Conc 32.4 g/dL (32-36); Mean Corpuscular Volume 94.1 fL (80-100); Mean Platelet Volume 9.7 fL (7.4-10.4); Platelet Count 170 K/uL (130-400); RDW Coefficient of Variation 17.2 % (11.5-14.5); RDW Standard Deviation 59.3 fL (36.4-46.3); Red Blood Count 2.89 M/uL (4.2-5.4); White Blood Count 5.69 K/uL (4.8-10.8)
[2018-10-25 06:56] LABS: BUN Creatinine Ratio 29.5 (10-20); Calcium 7.9 mg/dl (8.5-10.1); Creatinine Clr Calc Pharmacy 39.8 ml/min; Est GFR (African American) 60.3; Potassium 3.8 mmol/L (3.5-5.1)
[2018-10-25] MEDS: FERROUS GLUCONATE 324 MG TAB PO SCH (08:12)
[2018-10-25] MEDS: MULTIVITAMIN TAB PO SCH (08:13)
[2018-10-25] MEDS: PANTOprazole 40 MG TAB PO SCH ×2 (08:13→21:43)
[2018-10-25] MEDS: CHOLECALCIFEROL 1,000 UNITS TAB PO SCH (08:13)
[2018-10-25] MEDS: QUETIAPINE FUMARATE 25 MG TABLET PO SCH ×2 (08:14→17:43)
[2018-10-25] MEDS: SPIRONOLACTONE 25 MG TAB PO SCH (08:14)
[2018-10-25] MEDS: THIAMINE HCL 100 MG TAB PO SCH (08:14)
[2018-10-25] MEDS: LACTOBACILLUS ACIDOPHILUS (FLORANEX) TAB PO SCH (08:14)
[2018-10-25] MEDS: FAMOTIDINE 20 MG TAB PO SCH ×2 (08:15→21:42)
[2018-10-25] MEDS: ASPIRIN 81 MG ECTAB PO SCH (08:15)
[2018-10-25] MEDS: FUROSEMIDE 20 MG in SYRINGE 0 ML IV SCH ×2 (08:15→17:42)
[2018-10-25] MEDS: FOLIC ACID 1 MG TAB PO SCH (08:15)
--- NOTE | 2018-10-25 16:25 | Hospitalist Progress Note ---
Date of Service October 25, 2018 Assessment & Plan (1) Acute respiratory failure: (2) Pleural effusion: CXR on admission shows Large R pleural effusion, etiology of patients SOB Mostly due to liver cirrhosis S/P thoracentesis performed yesterday where 900 mL of Milky fluid removed Pulmonology on board Pleural fluid cx no growth Continue IV lasix BID and spironolactone 12.5mg Case discussed with Pulmonology Might need to place a pleurX catheter if fluid continue to re-accumulate CXR this morning showed Small to moderate right pleural effusion has slightly decreased in size. She has been diuresis very well Case discussed with son Manish today and agreed for his mother to proceed with any intervention procedure that will help her symptoms will re consult pulmonary team to eval for pleurx cath or any other procedure that will help manage her pleural effusion Will also need to address with case management if pt will be able to return to [place] if pleurX or any chest tube place Palliative care on board Clinically stable (3) Cirrhosis of liver: signs/symptoms of volume overload with R pleural effusion and bilateral lower ext edema likely secondary to decompensated cirrhosis continue aldactone and lasix Continue lactulose daily Stable (4) GAVE (gastric antral vascular ectasia): continue PPI and Famotidine Hgb 8.8 today Monitor CBC Stable (5) Gamino esophagus: continue PPI and famotidine (6) UTI (urinary tract infection): Has being treated at [facility] with Macrobid 100 mg twice daily starting 10/11 for unknown organism -Prior hospitalizations patient had UTIs, most recently VRE -Hold for further abx for now (7) CKD (chronic kidney disease) stage 3, GFR 30-59 ml/min: Creatinine stable Monitor BMP while on diuretic (8) Anemia: Hgb 8.8 monitor cbc Continue iron supplement stable (9) Dementia 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: Continue seroquel and trazodone (10) History of CVA (cerebrovascular accident): Ccontinue ASA, Statin off dual anti platelet given GAVE syndrome (11) Stenosis of right internal carotid artery with cerebral infarction: continue Statin, ASA not candidate for intervention stable (12) Hyperlipidemia: continue statin (13) DVT prophylaxis: SCDS ( 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) CODE STATUS FULL Disposition will discharge once medically stable Subjective Pt was seen and examined Lying in bed with no distress Pt is feeling much better ' She is more awake today I finally spoke to the son Manish today Manish is ok for his mother to get any intervention procedure if that will help her symptoms Denies any chest pain, palpitation and fever Physical Exam Vital Signs (Past 24 Hours): Last Vital Signs Temp 36.9 C 10/25/18 15:12 Pulse 74 10/25/18 15:12 Resp 20 10/25/18 15:12 BP 116/68 10/25/18 15:12 Pulse Ox 99 10/25/18 15:12 Physical Exam: General- confused at baseline Head- atraumatic Eyes- PERRL, EOMI, ENT- oropharynx clear Neck- supple, no JVD Lungs- Decrease BS Heart- regular rhythm; no murmur Abdomen- normal bowel sounds, soft, nontender Extremities- no calf tenderness Neuro- confused. move all 4 extremities Skin- warm & dry (1) UTI (urinary tract infection) Hematuria presence: without hematuria Urinary tract infection type: site unspecified Qualified Code(s): N39.0 - Urinary tract infection, site not specified (2) Acute respiratory failure Respiratory failure complication: unspecified whether with hypoxia or hypercapnia Qualified Code(s): J96.00 - Acute respiratory failure, unspecified whether with hypoxia or hypercapnia (3) Anemia Anemia type: unspecified type Qualified Code(s): D64.9 - Anemia, unspecified (4) Hyperlipidemia Hyperlipidemia type: unspecified Qualified Code(s): E78.5 - Hyperlipidemia, unspecified (5) Cirrhosis of liver Hepatic cirrhosis type: other cirrhosis Qualified Code(s): K74.69 - Other cirrhosis of liver (6) 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
[2018-10-25] MEDS: ATORVASTATIN 40 MG TAB PO SCH (21:42)
[2018-10-25] MEDS: TRAZODONE HCL 50 MG TAB PO SCH (21:44)
[2018-10-26] MEDS: FUROSEMIDE 20 MG in SYRINGE 0 ML IV SCH ×2 (09:00→18:42)
[2018-10-26] MEDS: MULTIVITAMIN TAB PO SCH (09:01)
[2018-10-26] MEDS: PANTOprazole 40 MG TAB PO SCH ×2 (09:01→20:23)
[2018-10-26] MEDS: LACTOBACILLUS ACIDOPHILUS (FLORANEX) TAB PO SCH (09:01)
[2018-10-26] MEDS: CHOLECALCIFEROL 1,000 UNITS TAB PO SCH (09:01)
[2018-10-26] MEDS: FERROUS GLUCONATE 324 MG TAB PO SCH (09:01)
[2018-10-26] MEDS: QUETIAPINE FUMARATE 25 MG TABLET PO SCH ×2 (09:02→18:42)
[2018-10-26] MEDS: THIAMINE HCL 100 MG TAB PO SCH (09:02)
[2018-10-26] MEDS: SPIRONOLACTONE 25 MG TAB PO SCH (09:02)
[2018-10-26] MEDS: FAMOTIDINE 20 MG TAB PO SCH ×2 (09:03→20:23)
[2018-10-26] MEDS: FOLIC ACID 1 MG TAB PO SCH (09:03)
[2018-10-26] MEDS: ASPIRIN 81 MG ECTAB PO SCH (09:03)
--- NOTE | 2018-10-26 14:29 | Pulmonology Progress Note ---
Date of Service October 26, 2018 Assessment & Plan (1) Pleural effusion: Impression: 1. Recurrent pleural effusion, thoracentesis in the past showed transudate of pleural effusion, no CAT scan of the chest was done on this patient. 2. History of liver cirrhosis, most likely the cause of his transudate pleural effusion. Plan: 1. I doubt the benefit of a Pleurx catheter in this patient. Maintaining this Pleurx catheter would be difficult. The patient is asymptomatic, O2 saturation 98% on 2 L. 2. The pleural fluid definitely are less on most recent chest x-ray, in case of the patient become symptomatic another thoracentesis can be done. 3. I have contacted the healthcare proxy, left a message, he has not returned my call. 4. Continue current treatment. 5. Please review also my colleague Dr. Kamara's notes. Thank you, will follow as needed. Subjective The patient is poor historian, but she denies any shortness of breath, she is 98% on 2 L, no chest pain, she was eating her lunch without any difficulty, speaks in full sentences, she defer further decision to her son Benigno whom I called and left him a message. Physical Exam Vital Signs (Past 24 Hours): Last Vital Signs Temp 36.8 C 10/26/18 11:33 Pulse 74 10/26/18 11:33 Resp 20 10/26/18 11:33 BP 113/66 10/26/18 11:33 Pulse Ox 98 10/26/18 11:33 Physical Exam: Vital signs remained stable, O2 saturation 98% on 2 L, lungs with diminished breath sounds at the right base, S1-S2, abdomen is benign, trace edema in the periphery, neurologically she is nonfocal, but possible dementia, age-related. Results & Data Laboratory Results Labs were reviewed personally. Diagnostic Findings Most recent chest x-ray reviewed personally which showed pleural effusion on the right with compressive atelectasis, decreased from before.
[2018-10-26] MEDS: TRAZODONE HCL 50 MG TAB PO SCH (20:23)
[2018-10-26] MEDS: ATORVASTATIN 40 MG TAB PO SCH (20:23)
--- NOTE | 2018-10-26 22:59 | Hospitalist Progress Note ---
Date of Service October 26, 2018 Assessment & Plan (1) Pleural effusion: Right pleural effusion noted on admission chest x-ray. Seen by Pulmonary Medicine. Thoracentesis 10/19/18: WBC- 273 RBC- < 3000 protein- 1.5 LDH- 79 gluc- 115 amylase- 87 cholesterol- 18 pH- 7.45 cytology- no malignant cells; inflammatory cells were noted Effusion thought to be transudate secondary to cirrhosis and nutritional status. PleurX considered, but (1) may not be well-tolerated and (2) does not appear to be necessary at this time due to stable respiratory status. Continue diuretics. (2) Cirrhosis of liver: Advanced cirrhosis with portal hypertension + ascites. 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 Continue furosemide, spironolactone, thiamine. (3) GAVE (gastric antral vascular ectasia): Continue PPI. (4) Gamino esophagus: Continue PPI. (5) UTI (urinary tract infection): Treated with nitrofurantoin. (6) CKD (chronic kidney disease) stage 3, GFR 30-59 ml/min: Creatinine 1.06 10/25. (7) Anemia: Chronic, multifactorial. Hgb 8.8 on 10/25. Continue Fe. (8) Dementia 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: Seen by Psych in past. Continue quetiapine and trazodone per their recommendations. (9) History of CVA (cerebrovascular accident): Continue aspirin and statin. (10) Stenosis of right internal carotid artery with cerebral infarction: Continue aspirin and statin. (11) Hyperlipidemia: Continue atorvastatin. (12) MRSA (methicillin resistant Staphylococcus aureus) carrier: Contact isolation. (13) DVT prophylaxis: No anticoagulants because of liver disease / GAVE. SCD's. Ambulate as able. (14) Discharge planning issues: Expected return to [facility] when medically stable. Subjective Recheck for multiple problems. Pt seen in her room around 2009. Seems to be at baseline mental status. No new problems reported by nursing staff. No fever. No cough. No SOB- wearing O2 2 LPM. No chest pain. No nausea or vomiting. No diarrhea. Has Sanders cath. Review of Systems Other (as noted above) Physical Exam Vital Signs (Past 24 Hours): Last Vital Signs Temp 36.8 C 10/26/18 20:00 Pulse 87 10/26/18 20:00 Resp 23 03/21/19 20:00 BP 137/77 10/26/18 20:00 Pulse Ox 98 10/26/18 20:00 Constitutional: + thin; no acute distress Eyes: + anicteric sclerae Respiratory: no respiratory distress Auscultation: + diminished lung sounds (right base) Cardiovascular: Rate/Rhythm: regular rate and regular rhythm Vessels: no JVD Extremities: no edema Gastrointestinal (Abdomen): Inspection/Auscultation: + abdomen distended and normal bowel sounds Percussion/Palpation: abdomen soft; abdomen nontender Musculoskeletal: Extremities: no cyanosis Psychiatric: Orientation: alert Genitourinary: + abnormal external appearance (Sanders cath) (1) UTI (urinary tract infection) Hematuria presence: without hematuria Urinary tract infection type: site unspecified Qualified Code(s): N39.0 - Urinary tract infection, site not specified (2) Anemia Anemia type: unspecified type Qualified Code(s): D64.9 - Anemia, unspecified (3) Hyperlipidemia Hyperlipidemia type: unspecified Qualified Code(s): E78.5 - Hyperlipidemia, unspecified (4) Cirrhosis of liver Hepatic cirrhosis type: other cirrhosis Qualified Code(s): K74.69 - Other cirrhosis of liver (5) 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
[2018-10-27 07:02] LABS: Hematocrit (blood only) 27.6 % (37-47); Hemoglobin 8.9 g/dL (12.0-16.0); Mean Corpuscular Hgb Conc 32.2 g/dL (32-36); Mean Corpuscular Volume 94.2 fL (80-100); Mean Platelet Volume 10.1 fL (7.4-10.4); Platelet Count 179 K/uL (130-400); RDW Coefficient of Variation 17.1 % (11.5-14.5); RDW Standard Deviation 59.4 fL (36.4-46.3); Red Blood Count 2.93 M/uL (4.2-5.4); White Blood Count 6.62 K/uL (4.8-10.8)
[2018-10-27 07:32] VITALS: TEMP 98.6; O2SAT 98
[2018-10-27 07:43] LABS: Alanine Aminotransferase 31 U/L (12-78); Albumin Level 1.7 gm/dl (3.4-5.0); Aspartate Aminotransferase 36 U/L (15-37); BUN Creatinine Ratio 27.4 (10-20); Bilirubin Direct < 0.1 mg/dl (0-0.2); Blood Urea Nitrogen 29 mg/dl (7-18); Carbon Dioxide 29 mmol/L (21-32); Chloride 103 mmol/L (98-107); Creatinine Clr Calc Pharmacy 34.7 ml/min; Est GFR (African American) 59.6; Est GFR (Non-African American) 51.5; Glucose 121 mg/dl (70-99); Potassium 4.2 mmol/L (3.5-5.1); Sodium 135 mmol/L (136-145)
[2018-10-27 07:46] LABS: Albumin Globulin Ratio 0.3 (0.9-2); Alkaline Phosphatase 179 U/L (45-117); Bilirubin,Total 0.4 mg/dl (0.2-1); Globulin 4.9 gm/dl (2.5-4.0); Total Protein 6.6 gm/dl (6.4-8.2)
[2018-10-27] MEDS: SPIRONOLACTONE 25 MG TAB PO SCH (09:31)
[2018-10-27] MEDS: QUETIAPINE FUMARATE 25 MG TABLET PO SCH ×2 (09:31→18:29)
[2018-10-27] MEDS: ASPIRIN 81 MG ECTAB PO SCH (09:32)
[2018-10-27] MEDS: PANTOprazole 40 MG TAB PO SCH (09:32)
[2018-10-27] MEDS: THIAMINE HCL 100 MG TAB PO SCH (09:32)
[2018-10-27] MEDS: FERROUS GLUCONATE 324 MG TAB PO SCH (09:32)
[2018-10-27] MEDS: MULTIVITAMIN TAB PO SCH (09:32)
[2018-10-27] MEDS: FAMOTIDINE 20 MG TAB PO SCH (09:33)
[2018-10-27] MEDS: FOLIC ACID 1 MG TAB PO SCH (09:33)
[2018-10-27] MEDS: LACTOBACILLUS ACIDOPHILUS (FLORANEX) TAB PO SCH (09:33)
[2018-10-27] MEDS: CHOLECALCIFEROL 1,000 UNITS TAB PO SCH (09:34)
[2018-10-27] MEDS: FUROSEMIDE 20 MG in SYRINGE 0 ML IV SCH ×2 (09:41→18:28)
--- NOTE | 2018-10-27 12:17 | XRay Report ---
XR chest 1V portable CLINICAL HISTORY: post thoracentesis right sided COMPARISON STUDY: 10/24/2018 FINDINGS: Improved aeration right base postthoracentesis. No evidence for postprocedural pneumothorax . Left lung remains clear. IMPRESSION: No evidence for pneumothorax post right thoracentesis. The above report was generated using voice recognition software. It may contain grammatical, syntax or spelling errors. Electronically signed by: Aleksander Montaño M.D. 10/27/2018 12:16 PM
[2018-10-27 12:42] LABS: Glucose Pleural Fluid 161 mg/dl
[2018-10-27 12:48] LABS: LDH Pleural Fluid 103 U/L; Total Protein Pleural Fluid 2.7 g/dl; Triglyceride Pleural Fluid 19 mg/dl
--- NOTE | 2018-10-27 12:48 | Procedure Note ---
Procedure Note Date of Service October 27, 2018 Thoracentesis Procedure time out: Right side verified Consent obtained: Written consent obtained Performed by: myself, under direct supervision by Dr. Mclaughlin Indications: Transudative right sided pleural effusion Contraindications: none Description: Thoracentesis was done at the bedside. Consent was obtained and the risks and benefits were explained to the patient in addition to alternative treatments. The patient was placed in an upright position and using ultrasound guidance the pleural fluid on the right was noted. The skin was prepped with chlorhexidine. Then under strict sterile field, after prepping the skin, Lidocaine 1% was injected into the skin, subcutaneous tissue and the pleura. Using Seldinger technique with a scalpel with a catheter, the catheter was inserted into the right pleural cavity. Approximately 1000ml of dark yellow sometimes turbid fluid was aspirated out. The catheter was removed and pressure was applied for 2 minutes at the insertion site. Bandages were applied. A chest x-ray was ordered to determine whether a pneumothorax developed. Complications: none Patient tolerated procedure: well
[2018-10-27 13:09] LABS: Appearance Pleural Fluid SLIGHTLY CLOUDY; Color Pleural Fluid PALE AMBER; RBC Pleural Fluid (A) < 3000 /uL; Source Pleural Fluid RIGHT LUNG; WBC Pleural Fluid (A) 440 /uL
--- NOTE | 2018-10-27 14:08 | Pulmonology Progress Note ---
Date of Service October 27, 2018 Assessment & Plan (1) Pleural effusion: Impression: 1. Recurrent pleural effusion, thoracentesis in the past showed transudate of pleural effusion, no CAT scan of the chest was done on this patient. 2. History of liver cirrhosis, most likely the cause of his transudate pleural effusion. Plan: 1. I doubt the benefit of a Pleurx catheter in this patient. Maintaining this Pleurx catheter would be difficult. The patient is asymptomatic, O2 saturation 98% on 2 L. 2. The pleural fluid definitely are less on most recent chest x-ray, in case of the patient become symptomatic another thoracentesis can be done. 3. I have contacted the healthcare proxy, left a message, he has not returned my call. 4. Continue current treatment. 5. Please review also my colleague Dr. Kamara's notes. Thank you, will follow as needed. Physical Exam Vital Signs (Past 24 Hours): Last Vital Signs Temp 37 C 10/27/18 07:31 Pulse 83 10/27/18 07:52 Resp 18 10/27/18 07:31 BP 118/63 10/27/18 07:31 Pulse Ox 98 10/27/18 07:31
--- NOTE | 2018-10-27 14:47 | Hospitalist Progress Note ---
Date of Service October 27, 2018 Assessment & Plan (1) Pleural effusion: Right pleural effusion noted on admission chest x-ray. Seen by Pulmonary Medicine. Thoracentesis 10/19/18: WBC- 273 RBC- < 3000 protein- 1.5 LDH- 79 gluc- 115 amylase- 87 cholesterol- 18 pH- 7.45 cytology- no malignant cells; inflammatory cells were noted gram stain, aerobic / anaerobic cultures negative. AFB stain negative Effusion thought to be transudate secondary to cirrhosis and nutritional status. PleurX considered, but (1) may not be well-tolerated and (2) does not appear to be necessary at this time due to stable respiratory status. Continue diuretics. (2) Cirrhosis of liver: Advanced cirrhosis with portal hypertension + ascites. 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 Continue furosemide, spironolactone, thiamine. (3) GAVE (gastric antral vascular ectasia): Continue PPI. (4) Gamino esophagus: Continue PPI. (5) UTI (urinary tract infection): Treated with nitrofurantoin. (6) CKD (chronic kidney disease) stage 3, GFR 30-59 ml/min: Creatinine 1.07 day of discharge. Follow. (7) Anemia: Chronic, multifactorial. Hgb stable at 8.9 day of discharge. Continue Fe. (8) Dementia 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: Seen by Psych in past. Continue quetiapine and trazodone per their recommendations. (9) History of CVA (cerebrovascular accident): Continue aspirin and statin. (10) Stenosis of right internal carotid artery with cerebral infarction: Continue aspirin and statin. (11) Hyperlipidemia: Continue atorvastatin. (12) MRSA (methicillin resistant Staphylococcus aureus) carrier: Contact isolation. (13) DVT prophylaxis: No anticoagulants because of liver disease / GAVE. SCD's. Ambulate as able. (14) Discharge planning issues: Medically stable. Arrangements being made for return to [facility]. Son Aniceto given update by phone. Condition, prognosis, advanced directives discussed. Aniceto indicates that resuscitation should be attempted for a cardiopulmonary arrest, but that extraordinary measures should not be continued if prognosis is poor. Consider transition to palliative care in the future if her condition declines. Subjective Recheck for multiple problems. Pt seen in her room around 1400. Doing well. No new problems reported by patient or nursing staff. Patient would like to be discharged. No fever. No cough or SOB> No chest pain. No nausea or vomiting. No diarrhea. Sanders cath removed. Physical Exam Vital Signs (Past 24 Hours): Last Vital Signs Temp 37 C 10/27/18 07:31 Pulse 83 10/27/18 07:52 Resp 18 10/27/18 07:31 BP 118/63 10/27/18 07:31 Pulse Ox 98 10/27/18 07:31 Constitutional: + thin; no acute distress Eyes: + anicteric sclerae Respiratory: no respiratory distress Auscultation: + diminished lung sounds (right base) Cardiovascular: Rate/Rhythm: regular rate and regular rhythm Vessels: no JVD Extremities: no edema Gastrointestinal (Abdomen): Inspection/Auscultation: + abdomen distended and normal bowel sounds Percussion/Palpation: abdomen soft; abdomen nontender Musculoskeletal: Extremities: no cyanosis Psychiatric: Orientation: alert, oriented to person and oriented to place (hospital); + not oriented to time ("1989") Genitourinary: + abnormal external appearance (Sanders cath) Results & Data Laboratory Results Laboratory Results - last 24 hr 10/27/18 10/27/18 10/27/18 06:42 06:42 11:22 WBC 6.62 RBC 2.93 L Hgb 8.9 L Hct 27.6 L MCV 94.2 MCH 30.4 MCHC 32.2 RDW Std Deviation 59.4 H RDW Coeff of Jonathan 17.1 H Plt Count 179 MPV 10.1 Sodium 135 L Potassium 4.2 Chloride 103 Carbon Dioxide 29 Anion Gap 3.0 BUN 29 H Creatinine 1.07 Est Cr Clr Drug Dosing 34.7 Est GFR ( Amer) 59.6 Est GFR (Non-Af Amer) 51.5 BUN/Creatinine Ratio 27.4 H Glucose 121 H Calcium 8.0 L Total Bilirubin 0.4 Direct Bilirubin < 0.1 AST 36 ALT 31 Alkaline Phosphatase 179 H Total Protein 6.6 Albumin 1.7 L Globulin 4.9 H Albumin/Globulin Ratio 0.3 L Pleural Fluid Source RIGHT LUNG Pleural Color PALE EDNA Pleural Appearance SLIGHTLY CLOUDY Pleural WBC 440 Pleural RBC < 3000 Pleural Polynuclear % 11.0 Pleural Mononuclear % 89.0 Pleural Total Protein 2.7 Pleural Albumin 1.0 Pleural LDH 103 Pleural Glucose 161 Pleural Triglycerides 19 (1) Cirrhosis of liver Hepatic cirrhosis type: other cirrhosis Qualified Code(s): K74.69 - Other cirrhosis of liver (2) 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 (3) UTI (urinary tract infection) Urinary tract infection type: site unspecified Hematuria presence: without hematuria Qualified Code(s): N39.0 - Urinary tract infection, site not specified (4) Anemia Anemia type: unspecified type Qualified Code(s): D64.9 - Anemia, unspecified (5) Hyperlipidemia Hyperlipidemia type: unspecified Qualified Code(s): E78.5 - Hyperlipidemia, unspecified
--- NOTE | 2018-10-27 15:00 | Pulmonology Progress Note ---
Date of Service October 27, 2018 Assessment & Plan (1) Pleural effusion: Impression: 1. Recurrent pleural effusion, thoracentesis in the past showed transudate of pleural effusion, likely related to her history of liver cirrhosis. 2. History of liver cirrhosis, most likely the cause of his transudate pleural effusion. Plan: 1. Thoracentesis was done at the bedside, 1200 mL was removed, complete resolution of the right pleural effusion. I expect recurrence in the future. 2. No need for Pleurx catheter. 3. Patient can be discharged home. 4. Continue current treatment. Thank you, will follow as needed. Subjective The patient is stable, denies any shortness of breath, she is on nasal cannula oxygen, ultrasound was done at the bedside, showed moderate pleural effusion on the right side. Discussed with the patient regarding repeating thoracentesis, she is in agreement. Physical Exam Vital Signs (Past 24 Hours): Last Vital Signs Temp 37 C 10/27/18 07:31 Pulse 83 10/27/18 07:52 Resp 18 10/27/18 07:31 BP 118/63 10/27/18 07:31 Pulse Ox 98 10/27/18 07:31 Physical Exam: Vital signs are stable, S1-S2 regular rate and rhythm, lungs are distant breath sounds at the right base, kyphosis, abdomen is benign, no edema. Neurologically patient confused but following commands and appeared appropriate and competent to make a decision. Results & Data Laboratory Results Again noted the pleural fluid are consistent with transudate, triglycerides are normal. Diagnostic Findings Chest x-ray was reviewed resolution of right pleural effusion, atelectasis of the left lower lobe improving.
--- NOTE | 2018-10-27 15:01 | Discharge Summary ---
Date of Service Date of admission: 10/19/18 Date of discharge: 10/27/18 Admission HPI Per Admitting Provider This is a 72 year old F who has a significant PMH of Cirrhosis, GAVE, Barretts esophagus, CKD-3, Anemia, hx of CVA, osteoporosis who presents to [facility] as direct admission from [facility] due to R pleural Effusion. Of significance pt recently confined at [facility] 08/15-08/19 secondary to Acute CVA felt secondary to embolic due to severe R ICA stenosis with prox Large R ICA thrombus. She was discharged to [facility] for possible endovascular intervention on dual antiplatelet therapy and high intensity statin. No intervention performed and due to bizarre behavior and confusion post stroke was transferred to [facility] She subsequently presented back to [facility] for prolonged hospitalization from 09/18/18 to 10/05/18 secondary to melena and hgb of 6.8. [place] secondary to dual antiplatelet therapy. EGD showed barretts/GAVE but no active bleed. Plavix was discontinued and recommended to continue ASA only. Also treated for VRE UTI. Due to continued bizarre behavior psych was consulted and placed on seroquel/trazodone. Discharged to locked dementia unit at [facility]. She has been residing there until she presented to [facility] due to SOB x 3 days. According to records was found to have R pleural effusion and unable to be treated at outside facility which prompted direct admission. Baseline labwork including cbc, bmp, NH3 were stable. Lab abnormalities including BNP 1256 and troponin 0.048, H/H 8.6 and 28.5. ECG revealed NSR with left axis deviation, HR 96 bpm, t wave inversion V2 otherwise no st-t wave changes. Currently she is lying in bed states she is here because of her, "sickness," but is unable to elaborate. Denies current SOB, f/c/s, dizziness, lightheaded, chest pain, palpitations, n/v/d, melena, hematochezia, constipation, dyusria, hematuria. She does complain of cough but is unsure if its wet or dry. Meds/records reviewed from [facility]. Appears patient being treated with macrobid 100mg bid for UTI that started on 10/11/18. Admission Exam Per Admitting Provider Gen: Thin, fraile, petite, elderly F, lying in bed, +abdominal breathing but no arline resp distress, answers questions appropriately Head: Normocephalic, Atraumatic Eyes: Sclera normal, anicteric, no conjunctival injection, PERRLA, EOMI ENT: Gross hearing intact, normal pharynx, mucous membranes moist Neck: supple, no adenopathy, No JVD, no bruit, trachea midline Resp: Absent breath sounds complete R lung, Clear to auscultation on Left, no wheeze, rales, rhonchi. 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 Extremities: +2 edema pitting bilateral lower extremity, Skin: warm, moist, no rash, negative turgor, cap refill < 2sec Neuro: Alert and oriented x 3 basics only, speech normal, good mood/affect, cran nerve 2-12 intact grossly : deferred Principal Diagnosis right pleural effusion cirrhosis of liver with portal hypertension and ascites GAVE dementia cerebrovascular disease anemia Discharge Data Allergies Allergy/AdvReac Type Severity Reaction Status Date / Time No Known Allergies Allergy Unverified 09/18/18 12:46 Consultations 10/19/18 07:57 Consult Pulmonology Routine 10/19/18 07:59 Consult Case Management - Discharge Planning Routine 10/23/18 11:48 Consult Palliative Care Routine 10/25/18 16:53 Consult Pulmonology Routine Hospital Course (1) Pleural effusion: Right pleural effusion noted on admission chest x-ray. Seen by Pulmonary Medicine. Thoracentesis 10/19/18: WBC- 273 RBC- < 3000 protein- 1.5 LDH- 79 gluc- 115 amylase- 87 cholesterol- 18 pH- 7.45 cytology- no malignant cells; inflammatory cells were noted gram stain, aerobic / anaerobic cultures negative. AFB stain negative Effusion thought to be transudate secondary to cirrhosis and nutritional status. PleurX considered, but (1) may not be well-tolerated and (2) does not appear to be necessary at this time due to stable respiratory status. Continue diuretics. (2) Cirrhosis of liver: Advanced cirrhosis with portal hypertension + ascites. 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 Continue furosemide, spironolactone, thiamine. Furosemide dose increased to 20 mg BID. Spironolactone dose increased to 25 mg daily. Follow BMP. (3) GAVE (gastric antral vascular ectasia): Continue PPI. (4) Gamino esophagus: Continue PPI. (5) UTI (urinary tract infection): Treated with nitrofurantoin. (6) CKD (chronic kidney disease) stage 3, GFR 30-59 ml/min: Creatinine 1.07 day of discharge. Follow. (7) Anemia: Chronic, multifactorial - intermittent GI blood loss, cirrhosis, etc. Hgb stable at 8.9 day of discharge. Continue Fe. Follow. (8) Dementia 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: Seen by Psych in past. Continue quetiapine and trazodone per their recommendations. (9) History of CVA (cerebrovascular accident): Continue aspirin and statin. (clopidogrel stopped because of GI blood loss) (10) Stenosis of right internal carotid artery with cerebral infarction: Continue aspirin and statin. (11) Hyperlipidemia: Continue atorvastatin. (12) MRSA (methicillin resistant Staphylococcus aureus) carrier: Contact isolation. (13) DVT prophylaxis: No anticoagulants because of liver disease / GAVE. SCD's. Ambulate as able. (14) Discharge planning issues: Medically stable. Arrangements being made for return to [facility]. Son Aniceto given update by phone. Condition, prognosis, advanced directives discussed. Aniceto indicates that resuscitation should be attempted for a cardiopulmonary arrest, but that extraordinary measures should not be continued if prognosis is poor. Consider transition to palliative care in the future if her condition declines. Total Time Total Time Spent Total Time Spent (In Minutes): 50 Discharge Plan Discharge Items Patient Disposition: Transfer [facility] Reason For Visit: R PLEURAL EFFUSION Discharge Diagnosis: right pleural effusion Condition: Fair Discharge Goals: Decrease discomfort and Improve disease control Activity: As commented below Activity Comment: as tolerated with assistance Non-emergency contact: Primary Care Provider and Hospitalist Call non-emergency contact if: you have any medication questions, your symptoms worsen and your temperature is above 101 Follow-up/Referrals: Tiny Shields DO [Primary Care Provider] - Diet: Heart Healthy Addtl Provider Instructions: fall precautions aspiration precautions skin precautions delirium precautions O2 by NC as necessary to maintain O2 sats > 90 BMP + CBC weekly contact precautions for MRSA Thank you for receiving this patient in transfer. Please call if you have any questions. Low [place] Prescriptions: New furosemide 20 mg tablet 20 mg PO BID Qty: 60 RF: 5 spironolactone 25 mg tablet 25 mg PO DAILY Qty: 30 RF: 5 Continued atorvastatin 40 mg Tablet 40 mg PO PM RF: 0 aspirin 81 mg Tablet,Delayed Release (Dr/Ec) 81 mg PO DAILY RF: 0 famotidine 20 mg Tablet 20 mg PO BID RF: 0 quetiapine 25 mg Tablet 25 mg PO DAILY@17 30 Days Qty: 30 RF: 3 quetiapine 25 mg Tablet 25 mg PO QD@08 30 Days Qty: 30 RF: 3 loperamide 2 mg Capsule 2 mg PO Q8 PRN (Reason: DIARRHEA) 30 Days Qty: 90 RF: 0 trazodone 50 mg Tablet 50 mg PO HS 30 Days Qty: 30 RF: 0 thiamine HCl (vitamin B1) [Vitamin B-1] 100 mg Tablet 100 mg PO QAM 30 Days Qty: 30 RF: 0 folic acid 1 mg Tablet 1 mg PO QAM 30 Days Qty: 30 RF: 0 pantoprazole [Protonix] 40 mg tablet,delayed release (DR/EC) 40 mg PO BID Qty: 0 RF: 0 multivitamin Tablet 1 tab PO DAILY RF: 0 ferrous gluconate 240 mg (27 mg iron) Tablet 240 mg PO DAILY RF: 0 Vitamin D3 4,000 unit Capsule 4,000 unit PO DAILY RF: 0 Lactobacillus acidoph-L.bulgar [Floranex] 1 million cell tablet 1 tab PO DAILY RF: 0 Discontinued spironolactone [Aldactone] 25 mg tablet 12.5 mg PO DAILY RF: 0 furosemide [Lasix] 20 mg tablet 10 mg PO DAILY RF: 0 Stand-Alone Forms: My [facility] Skilled Items Patient informed of condition?: Yes DNR: No Discharge Level of Care: Skilled Communicable Disease: Yes (nasal MRSA) Discharge Prognosis: Improving Admission Data Admit Date/Time: 10/19/18 06:36 Attending Provider: Low [place] Admit Provider: Sourav Gay Primary Care Provider: Tiny Shields Other Providers: Frederick Kamara ; Charlotte Coe ; Dana Vigil ; Fay Mclaughlin Service: Telemetry Medical
--- NOTE | 2018-10-27 15:03 | Procedure Note ---
Procedure Note Date of Service October 27, 2018 Note Thoracentesis was done to the right side, the patient was consented to the procedure, risk and benefit explained details, the patient was placed in upright position, under ultrasound guidance, at the level of the ninth intercostal space posteriorly, noted the pleural fluid, the procedure was done by Dr. Tapia, and I was present throughout the entire procedure. The procedure was done under strict sterile field, the skin was prepped with chlorhexidine, and injected with 10 mL of lidocaine 1% at the site of insertion. Using Seldinger technique, the catheter was introduced into the pleural cavity, removed 1200 mL of yellow fluid, the catheter after that was removed, pressure was applied at the insertion site for 2 minutes, no bleeding, no immediate complication, tolerated the procedure very well, chest x-ray without evidence of pneumothorax, reviewed personally. Improved inflation of the right lower lobe.
[2018-10-27 16:15] VITALS: BP 155/68
[2018-10-27 16:44] VITALS: PULSE 107
== END 2018-10-27 19:08 | DRG 186 ==
LOC: SUATTDRO 06:36 → 2N 06:36